=== PATIENT | male | born 1955 | race Caucasian/White ===

== ENCOUNTER 2024-08-27 09:04 | Inpatient (IN) | payer OTHER, SELFPAY ==
[2024-08-23] VITALS (9 sets, daily range): BP systolic 98–164; BP diastolic 64–119; BMI 33.9; BMI 33.7
[2024-08-23 20:35] LABS: % Basophils 0.9 % (0-2); % Immature Granulocytes 0.5 % (0-0.5); % Lymphocytes 27.6 % (20.5-51.1); Absolute Basophils 0.1 10^3/uL (0-0.2); Absolute Lymphocytes 2.3 10^3/uL (1.2-3.4); Absolute Monocytes 0.7 10^3/uL (0.1-0.6); Absolute Neutrophils 5.4 10^3/uL (1.4-6.5); Hematocrit 39.8 % (39.0-52.0); Hemoglobin 12.6 g/dL (13.0-18.0); Mean Corp Hgb Conc. 31.7 g/dL (33.0-37.0); Mean Corpuscular Hgb 28.4 pg (27.0-31.0); Mean Corpuscular Volume 89.8 fL (80.0-94.0); Mean Platelet Volume 9.3 fL (7.4-10.4); Nucleated Red Blood Cells % 0 % (-); Platelet Count 334 10^3/uL (130-400); Red Blood Cell Count 4.43 10^6/uL (4.70-6.10); Red Cell Dist. Width 13.7 % (11.5-14.5); White Blood Cell Count 8.5 10^3/uL (4.8-10.8)
[2024-08-23 20:40] LABS: Glucose - Point of Care 93 mg/dl (70-99)
[2024-08-23 20:46] LABS: INR 1.02; PT 13.7 Sec (11.4-14.6)
[2024-08-23 20:47] LABS: APTT 28.9 Sec (23.4-35.0)
[2024-08-23 20:48] LABS: ALT (SGPT) 12 U/L (0-50); AST (SGOT) 16 U/L (17-59); Alkaline Phosphatase 76 U/L (38-126); Blood Urea Nitrogen 21 mg/dl (9-20); Calcium 10.3 mg/dl (8.4-10.2); Carbon Dioxide 23 mmol/L (22-30); Chloride 109 mmol/L (98-107); Estimated Creatinine Clearance 67 ml/min; Glucose 111 mg/dl (70-99); Potassium 4.1 mmol/L (3.5-5.1); Sodium 140 mmol/L (135-145); Total Bilirubin 0.3 mg/dl (0.2-1.3); eGFR 55.09
--- NOTE | 2024-08-23 20:49 | ED.GENMED ---
History of Present Illness
<Ayanna Lee NP - Last Filed: 08/25/24 00:08>
General
Chief Complaint: Weakness
Source: ambulance crew
Exam Limitations: none
Time Seen by Provider: 08/23/24 20:15
Nursing documentation reviewed up to this point in time: agreed with
History of Present Illness
History of Present Illness:
Patient to ED from home for report of hallucinations, confusion, falls. According to patients son, patient was admitted to [facility] 08/10 - 08/12 for same symptoms. CVA ruled out. Son is not aware of any findings during that admission to explain his
falls, confusion and hallucinations. Last fall was yesterday. It was recommended that patient be transferred to rehab for stengthening but patient and family declined. SOn states that he feels patient now needs rehab. According to son, family is
also considering whether patient needs to be moved to assisted living. On arrival to ED patient is awake alert, oriented x 3, offers no complaints.
Past History
<Ayanna Lee NP - Last Filed: 08/25/24 00:08>
Past History
ED Past Medical History: Hypercholesterolemia, Hypothyroidism and Psychiatric (schizophrenia, bipolar, sleep apnea)
Review of Systems
<Ayanna Lee AUDITOR APPRAISER - Last Filed: 08/25/24 00:08>
Review of Systems
Allergies reviewed?: Yes
All Other Systems: ROS reviewed and negative except as documented in HPI and ROS
Constitutional: Reports fatigue
EENT: Reports no symptoms
Respiratory: Reports no symptoms
Cardiac: Reports no symptoms
ABD/GI: Reports no symptoms
: Reports no symptoms
Musculoskeletal: Reports no symptoms
Skin: Reports no symptoms
Neurological: Reports weakness
Psychiatric: Reports no symptoms
Phy Exam
<Ayanna Lee NP - Last Filed: 08/25/24 00:08>
General Physical Exam
General Presentation: well appearing
General age: appears stated age
General Skin: warm
General Habitus: elderly
General Mental: alert
General Hydration: dry mucous membranes
Cardiovascular Exam
Cardiovascular Exam: regular rate/rhythm and no edema
Pulmonary Exam
Pulmonary Exam: lungs clear and no respiratory distress
Gastrointestinal Exam
Gastrointestinal Exam: normal bowel sounds, non tender, soft and no organomegaly
Neurological Exam
Neurological Exam: alert, oriented x3, CN II-XII intact, no motor deficits, no sensory deficits and speech normal (speech is slurred but family confirms this is his baseline)
NIH Stroke Score
Level of Consciousness: 0 - Alert
LOC questions: 0-Answers both correctly
LOC Commands: 0-Performs both correctly
Best Gaze: 0-Normal
Visual Perrin: 0=Normal, no visual loss
Facial palsy: 0=Normal, symmetrical
Motor - Right Arm: 0=No drift 10 seconds
Motor - Left Arm: 0=No drift 10 seconds
Motor - Right Le-No drift 5 seconds
Motor - Left Le-No drift 5 seconds
Limb Ataxia: 0-Absent
Sensation: 0-Normal
Best Language: 0-No aphasia
Dysarthria: 2-Severe slurring
Extinction and Inattention: 0-No abnormality
Total Score:: 2
Musculoskeletal Exam
Musculoskeletal Exam: full ROM and neuro vasc intact
Skin Exam
Skin Exam: normal color and warm/dry
Psychiatric Exam
Psychiatric Exam: normal mood/affect
Course
<Ayanna Lee NP - Last Filed: 08/25/24 00:08>
Orders/Labs/Results
Orders:
Orders
08/23/24 Breakfast
Regular
At Your Request: Full Participation
08/23/24 20:14
Electrocardiogram (*1) Urgent
Reason for Study: Other
Other Reason for Exam: Possible Stroke
CT HEAD STROKE ALERT W/o Cont Urgent
Comment: Stroke alert
Reason For Exam: Mumbling speech
Bedside Glucose- Treatment ONCE
Cardiac Monitoring- Treatment ONCE
EKG- Treatment ONCE
IV Insert/Care/Rem.- Treatment PRN
Vital Signs As Directed
Frequency: Other
Weight As Directed
Frequency: Once
Comment: ZERO STRETCHER SCALE FOR ACCURATE WEIGHT
08/23/24 20:28
Complete Blood Count/With Diff Urgent
Comprehensive Metabolic Panel Urgent
Ferritin Urgent
Comment: ADD ON
Folate Urgent
Comment: ADD ON
Free T4 Urgent
Iron Urgent
Comment: ADD ON
PTT Urgent
Prothrombin Time Urgent
TSH Reflex To Free T4 Urgent
Comment: ADD ON
Total Iron Binding Urgent
Comment: ADD ON
Troponin I Urgent
Vitamin B12 Urgent
Comment: ADD ON
08/23/24 22:30
0.9% Sodium Chloride 1000 ml [Nss] 1,000 ml IV 100 mls/hr
08/23/24 22:34
Admit/Transfer Patient As Directed
Co-Sign Provider:
Level of Care: Observation services
Assign to:: Medical/Surgical
Physician / Group: Felicitaswiadelaide
Diagnosis: Ambulatory Dysfunction
PRN Pain Medication Management As Directed
May give lesser potent ordered pain med per pt: Yes
preference::
Protocol:: Medication orders for pain may be administered in a
manner that supports deferring to patient preference
when the pt is:
- Requesting an ordered lesser potent pain medication.
Least to most potent pain medications are defined
as: acetaminophen < NSAID < tramadol < opioids
(morphine, oxycodone, hydromorphone).
- Requesting a lesser dose of the same medication IF
ORDERED.
- Requesting a less intrusive route of administration
if both routes are prescribed by the provider (PO <
IV).
08/23/24 22:37
Code Status As Directed
Resuscitation Status: Full Code
08/23/24 22:42
Urinalysis Reflex To Culture Urgent
Date Specimen was Collected: 08/23/24
Time Specimen was Collected: 22:41
Urine Microscopic Reflex Cult Urgent
Urine Culture Urgent
BARI Source: U
Specimen Description:
Date Specimen was Collected: 08/23/24
Time Specimen was Collected: 22:41
08/23/24 23:27
Acetaminophen [Tylenol] 650 mg PO Q4HPRN PRN
Oxycodone/Acetaminophen [Percocet 5/325] 1 tablet PO DAILYPRN PRN
08/23/24 23:27
Activity As Directed
Activity Level: Out of Bed- Chair
Obtain Records As Directed
Dates of Information to be Released: August 10-
Type of Information Requested: Discharge Summary
Lab Results
Radiology Results
Vital Signs As Directed
Frequency: Per unit guidelines
Cpap [RESP] Routine
Patient to use own unit?: No
Set Pressure (cm H2O): 7
Ot Eval And Treat Routine
Pt Eval And Treat Routine
Activity Level: Out of Bed-Early Mobility
DX Deep Vein Thrombosis Video Routine
08/24/24 06:00
Levothyroxine [Synthroid] 125 mcg PO DAILY @ 0600
08/24/24 08:00
Amantadine [Symmetrel] 100 mg PO BID
Docusate Sodium [Colace] 100 mg PO DAILY
FOLic ACID [Folvite] 1 mg PO DAILY
Fenofibrate 145 [Tricor] 145 mg PO DAILY
Oxycodone/Acetaminophen [Percocet 5/325] 1 tablet PO DAILY
omega 5-uri-ghb-fish oil [Fish Oil] See Dose Instructions PO DAILY
08/24/24 08:32
Basic Metabolic Panel IN AM
Complete Blood Count/No Diff IN AM
08/24/24 18:00
Atorvastatin [Lipitor] 10 mg PO QPM
Cholecalciferol (Vitamin D3) [VITAMIN D3 (cholecalciferol)] 50 mcg PO QPM
Clozapine [Clozaril] 300 mg PO QPM
Cyanocobalamin [Vitamin B-12] 1,000 mcg PO QPM
Enoxaparin Sodium [Lovenox] 40 mg SC QPM
Abnormal Lab Results
08/23/24 08/23/24
20:28 22:42
RBC 4.43 L 10^6/uL
(4.70-6.10)
Hgb 12.6 L g/dL
(13.0-18.0)
MCHC 31.7 L g/dL
(33.0-37.0)
Absolute Monos (auto) 0.7 H 10^3/uL
(0.1-0.6)
Chloride 109 H mmol/L
(98-107)
BUN 21 H mg/dl
(9-20)
Creatinine 1.4 H mg/dL
(0.7-1.3)
Glucose 111 H mg/dl
(70-99)
Calcium 10.3 H mg/dl
(8.4-10.2)
Iron 41 L ug/dl
(49-181)
% Saturation 11 L %
(20-50)
AST 16 L U/L
(17-59)
Vitamin B12 955 H pg/ml
(239-931)
Folate > 20.0 H ng/ml
(2.76-20)
TSH (Reflex) 8.29 H uIU/ml
(0.47-4.68)
Leukocyte Esterase Rfl 1+ A
(Negative)
Urine Bacteria (Reflex) Few A
(Negative)
Urine Albumin (Reflex) 1+ A
(Neg - Trace)
08/23/24 20:28
08/23/24 20:28
Vital Signs
Initial and Last Documented VS:
Initial Vital Signs
Temp Pulse Resp BP Pulse Ox
97.8 F 91 20 134/100 99
08/23/24 20:05 08/23/24 20:05 08/23/24 20:05 08/23/24 20:05 08/23/24 20:05
Last Documented Vital Signs
Temp Pulse Resp BP Pulse Ox
97.9 F 82 21 146/82 97
08/25/24 00:04 08/24/24 16:05 08/25/24 00:04 08/24/24 16:05 08/25/24 00:04
<Gurjit Echols MD - Last Filed: 08/23/24 21:22>
Orders/Labs/Results
Orders:
Orders
08/23/24 Breakfast
Regular
At Your Request: Full Participation
08/23/24 20:14
Electrocardiogram (*1) Urgent
Reason for Study: Other
Other Reason for Exam: Possible Stroke
CT HEAD STROKE ALERT W/o Cont Urgent
Comment: Stroke alert
Reason For Exam: Mumbling speech
Bedside Glucose- Treatment ONCE
Cardiac Monitoring- Treatment ONCE
EKG- Treatment ONCE
IV Insert/Care/Rem.- Treatment PRN
Vital Signs As Directed
Frequency: Other
Weight As Directed
Frequency: Once
Comment: ZERO STRETCHER SCALE FOR ACCURATE WEIGHT
08/23/24 20:28
Complete Blood Count/With Diff Urgent
Comprehensive Metabolic Panel Urgent
Ferritin Urgent
Comment: ADD ON
Folate Urgent
Comment: ADD ON
Free T4 Urgent
Iron Urgent
Comment: ADD ON
PTT Urgent
Prothrombin Time Urgent
TSH Reflex To Free T4 Urgent
Comment: ADD ON
Total Iron Binding Urgent
Comment: ADD ON
Troponin I Urgent
Vitamin B12 Urgent
Comment: ADD ON
08/23/24 22:30
0.9% Sodium Chloride 1000 ml [Nss] 1,000 ml IV 100 mls/hr
08/23/24 22:34
Admit/Transfer Patient As Directed
Co-Sign Provider:
Level of Care: Observation services
Assign to:: Medical/Surgical
Physician / Group: Kirk
Diagnosis: Ambulatory Dysfunction
PRN Pain Medication Management As Directed
May give lesser potent ordered pain med per pt: Yes
preference::
Protocol:: Medication orders for pain may be administered in a
manner that supports deferring to patient preference
when the pt is:
- Requesting an ordered lesser potent pain medication.
Least to most potent pain medications are defined
as: acetaminophen < NSAID < tramadol < opioids
(morphine, oxycodone, hydromorphone).
- Requesting a lesser dose of the same medication IF
ORDERED.
- Requesting a less intrusive route of administration
if both routes are prescribed by the provider (PO <
IV).
08/23/24 22:37
Code Status As Directed
Resuscitation Status: Full Code
08/23/24 22:42
Urinalysis Reflex To Culture Urgent
Date Specimen was Collected: 08/23/24
Time Specimen was Collected: 22:41
Urine Microscopic Reflex Cult Urgent
Urine Culture Urgent
BARI Source: U
Specimen Description:
Date Specimen was Collected: 08/23/24
Time Specimen was Collected: 22:41
08/23/24 23:27
Acetaminophen [Tylenol] 650 mg PO Q4HPRN PRN
Oxycodone/Acetaminophen [Percocet 5/325] 1 tablet PO DAILYPRN PRN
08/23/24 23:27
Activity As Directed
Activity Level: Out of Bed- Chair
Obtain Records As Directed
Dates of Information to be Released: August 10-
Type of Information Requested: Discharge Summary
Lab Results
Radiology Results
Vital Signs As Directed
Frequency: Per unit guidelines
Cpap [RESP] Routine
Patient to use own unit?: No
Set Pressure (cm H2O): 7
Ot Eval And Treat Routine
Pt Eval And Treat Routine
Activity Level: Out of Bed-Early Mobility
DX Deep Vein Thrombosis Video Routine
08/24/24 06:00
Levothyroxine [Synthroid] 125 mcg PO DAILY @ 0600
08/24/24 08:00
Amantadine [Symmetrel] 100 mg PO BID
Docusate Sodium [Colace] 100 mg PO DAILY
FOLic ACID [Folvite] 1 mg PO DAILY
Fenofibrate 145 [Tricor] 145 mg PO DAILY
Oxycodone/Acetaminophen [Percocet 5/325] 1 tablet PO DAILY
omega 5-gec-xyy-fish oil [Fish Oil] See Dose Instructions PO DAILY
08/24/24 08:32
Basic Metabolic Panel IN AM
Complete Blood Count/No Diff IN AM
08/24/24 18:00
Atorvastatin [Lipitor] 10 mg PO QPM
Cholecalciferol (Vitamin D3) [VITAMIN D3 (cholecalciferol)] 50 mcg PO QPM
Clozapine [Clozaril] 300 mg PO QPM
Cyanocobalamin [Vitamin B-12] 1,000 mcg PO QPM
Enoxaparin Sodium [Lovenox] 40 mg SC QPM
Abnormal Lab Results
08/23/24 08/23/24
20:28 22:42
RBC 4.43 L 10^6/uL
(4.70-6.10)
Hgb 12.6 L g/dL
(13.0-18.0)
MCHC 31.7 L g/dL
(33.0-37.0)
Absolute Monos (auto) 0.7 H 10^3/uL
(0.1-0.6)
Chloride 109 H mmol/L
(98-107)
BUN 21 H mg/dl
(9-20)
Creatinine 1.4 H mg/dL
(0.7-1.3)
Glucose 111 H mg/dl
(70-99)
Calcium 10.3 H mg/dl
(8.4-10.2)
Iron 41 L ug/dl
(49-181)
% Saturation 11 L %
(20-50)
AST 16 L U/L
(17-59)
Vitamin B12 955 H pg/ml
(239-931)
Folate > 20.0 H ng/ml
(2.76-20)
TSH (Reflex) 8.29 H uIU/ml
(0.47-4.68)
Leukocyte Esterase Rfl 1+ A
(Negative)
Urine Bacteria (Reflex) Few A
(Negative)
Urine Albumin (Reflex) 1+ A
(Neg - Trace)
08/23/24 20:28
08/23/24 20:28
Vital Signs
Initial and Last Documented VS:
Initial Vital Signs
Temp Pulse Resp BP Pulse Ox
97.8 F 91 20 134/100 99
08/23/24 20:05 08/23/24 20:05 08/23/24 20:05 08/23/24 20:05 08/23/24 20:05
Last Documented Vital Signs
Temp Pulse Resp BP Pulse Ox
97.9 F 82 21 146/82 97
08/25/24 00:04 08/24/24 16:05 08/25/24 00:04 08/24/24 16:05 08/25/24 00:04
<Ayanna Lee NP - Last Filed: 08/25/24 00:08>
*Radiology
Radiology exam reviewed: radiology read reviewed
*Pulse Oximetry
Patient hypoxic: no
*Critical Care Note
Total Time (30-74mins, 75-104mins- exclusive of procedures): Not Applicable
<Ayanna Lee NP - Last Filed: 08/25/24 00:08>
Update Note
Update Note:
Patient to ED from home for eval of falling, weakness, hallucinations, confusion. Son states last fall was yesterday. States confusion and hallucinations occur occasionally and not on a daily basis. He was admitted at [facility] last week for same, no
findings to explain his symptoms although son believes symptoms may be related to his psych meds. Patient and son agree that he is weak. Family declined rehab last week but now feel he is unmanageable and unsafe at home. Considering [facility] home
placement. Will admit to hospitalist service for weakness. Case management consult placed.
Stroke alert called on arrival to ED. Patients recently admitted at [facility] for same symptoms. CVA rule out at that admission. Case discussed with Dr. Soto. NIH Score 2 due to speech (baseline according to family) Reviewed CT with him. NO
evidence of CVA, no need for neuro at this time.
ED Attending Note
<Ayanna Lee NP - Last Filed: 08/25/24 00:08>
-
Portions of this chart may have been created with voice recognition software.� Occasional wrong word or��sound alike� substitutions may have occurred due to the inherent limitations of voice recognition software.
<Gurjit Echols MD - Last Filed: 08/23/24 21:22>
ED Attending Note
Patient seen and examined by attending physician: Yes
I performed the substantive portion of visit, reviewed & personally made and approve the management plan that is documented in note by myself or SARAH.: Yes
ED Attending Note:
Patient brought from home for general weakness frequent falls. This has been an ongoing issue. Lives with family. Significant ADL issues at home. Patient somewhat unclear why he is here now.
He has no specific complaints.
On exam elderly and frail nontoxic.
Lungs clear and equal. Heart regular rate and rhythm. Abdomen obese and nontender. Grossly nonfocal. Mild slurred speech.
This appears to be mostly an ADL issue. Difficulties handling at home. Unable to give proper care at home. Warrants inpatient care and management
Discharge Plan
Departure
Patient Disposition: Admit
Date of Disposition: 08/23/24
Time of Disposition: 21:45
Presentation/result/management discussed w/ accepting MD/DO: Hospitalist
Patient with high blood pressure during this ER visit?: No
Condition: Fair
Covid-19: Not Applicable
Discharge Problem:
Weakness, Frequent falls
Interventions
Interventions:
*Risk Screen - Suicide Last Done: 08/23/24 20:05
*General Assessment Last Done: 08/23/24 20:05
*Neglect/Abuse Screening Last Done: 08/23/24 20:05
*ED COVID-19 Vaccine History Last Done: 08/23/24 20:43
*Nursing Disposition Last Done: 08/23/24 23:34
ED- Cardiac Assessment Last Done: 08/23/24 20:52
ED- Neurological Assessment Last Done: 08/23/24 20:52
ED- Pulmonary Assessment Last Done: 08/23/24 20:52
Discharge Date and Time
Discharge Date/Time: 08/23/24 23:35
[2024-08-23 20:59] LABS: Troponin I < 0.012 ng/ml
--- NOTE | 2024-08-23 22:21 | HPS.HSE ---
Family Physician
-
Family Physician: Maurilio Plummer
Chief Complaint
-
Weakness
History of Present Illness
Patient is a 69 y/o male past medical history of schizophrenia / bipolar disorder, hypothyroidism, and hyperlipemia who presents with weakness. Patient was recently admitted to [facility] from August 10- due to confusion. It appears patient
underwent a stroke work-up without significant findings. It was recommended for patient to go to rehab at time of discharge which family declined. Patient presents today with some confusion, increased weakness and falls. Patient's son at bedside
notes a few similar episodes which seem to be related to non-compliance with his CPAP. Son notes patient's home health aide sets up his CPAP but patient frequently gets up in the middle of the night and then does put his CPAP back on. Patient
reports no other specific complaints at the present time.
Medical History
Past Medical History
Past Medical History: Reports Other
Additional Past Medical History:
Schizophrenia / Bipolar Disorder
Hypothyroidism
Hyperlipidemia
Chronic Back Pain
Obstructive Sleep Apnea
Past Surgical History: Reports Other
Additional Past Surgical History:
Skin Cancer Removal
Social History
Tobacco: Non-smoker
Living: With Family
Family History
Family History: Not pertinent
Allergies / Home Medications
Allergies reflects when Allergies were last updated in [facility].
Home Medications with original date entered in [facility]
Allergy/Medication List:
Allergies
Allergy/AdvReac Type Severity Reaction Status Date / Time
Penicillins Allergy pt. states Verified 08/23/24 22:32
it gives
him bad
dreams
Home Medications
acetaminophen 650 mg tablet,extended release 650 mg PO QPM 08/23/24
amantadine HCl 100 mg tablet 100 mg PO BID 08/23/24
cholecalciferol (vitamin D3) 50 mcg (2,000 unit) tablet (Vitamin D3) 50 mcg PO QPM 08/23/24
clozapine 100 mg tablet 100 mg PO QPM 08/23/24
clozapine 200 mg tablet 200 mg PO QPM 08/23/24
cyanocobalamin (vitamin B-12) 1,000 mcg tablet,extended release 1,000 mcg PO QPM 08/23/24
docusate sodium 100 mg capsule 100 mg PO DAILY 08/23/24
fenofibrate micronized 134 mg capsule 134 mg PO DAILY 08/23/24
folic acid 1 mg tablet 1 mg PO DAILY 08/23/24
levothyroxine 125 mcg tablet 125 mcg PO DAILY 08/23/24
omega 8-hsy-cvi-fish oil 300 mg-1,000 mg capsule (Fish Oil) 1 cap PO DAILY 08/23/24
oxycodone-acetaminophen 10 mg-325 mg tablet 1 tab PO DAILY 08/23/24
oxycodone-acetaminophen 10 mg-325 mg tablet 1 tab PO DAILYPRN PRN severe pain 08/23/24
simvastatin 20 mg tablet 20 mg PO QPM 08/23/24
vitamin E (dl, acetate) 180 mg (400 unit) capsule 180 mg PO DAILY 08/23/24
Review of Systems
-
A 12 point ROS was completed and negative except as noted: Yes
Constitutional: Denies Fever
Respiratory: Denies Cough or Trouble Breathing
Cardiac: Denies Chest Pain or Palpitations
Physical Exam
Vital Signs
Vital Signs
Temp Pulse Resp BP Pulse Ox
97.8 F 79 19 147/114 99
08/23/24 20:05 08/23/24 22:15 08/23/24 22:15 08/23/24 22:00 08/23/24 22:15
Physical Exam
General: Comfortable and Conversant
HEENT: Anicteric and Other (Mucous membranes are slightly dry)
Respiratory: Clear and Non Labored Respirations
Cardiac: S1/S2 and Regular Rhythm
GI: Soft and Non Tender
Rectal: Deferred by Provider
Musculoskeletal: No Clubbing and No Cyanosis
Skin: Warm and Dry
Neuro: Awake, Alert and Other (Slight bilateral lower extremity weakness only able to hold legs up for a few seconds)
Psych: Calm
Laboratory Results
-
08/23/24 20:28
08/23/24 20:
Laboratory Results
PT 13.7 Sec (11.4-14.6) 08/23/24 20:
INR 1.02 08/23/24 20:
APTT 28.9 Sec (23.4-35.0) 08/23/24 20:
Total Bilirubin 0.3 mg/dl (0.2-1.3) 08/23/24 20:
AST 16 U/L (17-59) L 08/23/24 20:
ALT 12 U/L (0-50) 08/23/24 20:
Alkaline Phosphatase 76 U/L (38-126) 08/23/24 20:
Troponin I < 0.012 ng/ml 08/23/24 20:28
Data Reviewed
-
Lab Data: Labs Reviewed by me
Old Records: Requested
Impression/Plan
-
Weakness / Ambulatory Dysfunction / Frequent Falls
-Attempt to obtain records from recent hospitalization at [facility]
-Consult PT/OT
-Consult case management for discharge planning
Mildly Elevated Creatinine, unknown baseline
-Attempt to obtain records from [facility]
-Give IVFs overnight
-Recheck labs in AM
Schizophrenia / Bipolar Disorder
-Continue clozapine
-Continue amantadine
Hypothyroidism
-Continue levothyroxine
Hyperlipidemia
-Continue fenofibrate and simvastatin
Chronic Back Pain with Opioid Dependence
-Continue oxycodone as prior to admission
Obstructive Sleep Apnea
-Continue CPAP at 7 cm H2O
DVT proph: Lovenox
Code Status: Full Code
--- NOTE | 2024-08-23 22:24 | W.PN.UPDATE ---
Update Note
Progress Note Update
Patient seen in conjunction with therapy. I agree with the physician physical. Echocardiogram plan.
Briefly, this is a 69-year-old with past medical history significant for schizophrenia on antipsychotic clozapine, hypothyroid, chronic pain, DEONTE not entirely compliant with CPAP who presents to the emergency department for ongoing weakness and
falls.
Patient had initially presented to an outside hospital about 3 weeks ago for similar complaints has been ongoing for few weeks. Family reports that she had frequent evaluations and workup in the past 4 days falls and weakness. The last evaluation
at outside hospital yielded no acute cause. Patient was recommended acute rehab but family decided to take him home. After arriving at home patient continued to exhibit same symptoms. He essentially has weakness with ambulation, balance
difficulties and then falls. No syncope. Patient himself is alert and oriented here and denies any complaints or symptoms. Family reports that he often does not use his CPAP at night and has daytime stubbornness and tiredness which exacerbates
his weakness and falls.
He has no history of spinal surgery. He has no history of neck injuries or neck surgery. Prior CTs negative for stroke. Patient has no prior history of stroke. There has not been any recent cough fevers cold chills or urinary symptoms.
In the emergency department today he was afebrile, blood pressure was stable at 160/80 with a pulse of 82 satting 96% on room air. ECG was nonischemic. Troponin was negative. CBC was unremarkable. Electrolytes BUN/creatinine were all in the
normal range, creatinine 1.4. Unknown baseline.
CT area shows mild diffuse atrophy but no acute process.
Assessment and plan
63-year-old with history of schizophrenia, likely chronic gait difficulties and weakness presents for recurrent. Will weakness and no recent falls. Has had prior negative workup at outside hospitals in the past. He shows no signs of an acute
infection. Evaluation with labs and imaging in the ED is negative.
We will admit for PT evaluation, case management and likely dispo to inpatient rehab
CPAP at bedtime and emphasized compliance.
continue his psych meds at this time.
DVT PPX
Full Code
[2024-08-23 22:44] LABS: Iron 41 ug/dl (49-181)
[2024-08-23] MEDS: NSS 1000 IV (22:45)
[2024-08-23 22:53] LABS: Percent Saturation 11 % (20-50); Total Iron Binding Capacity 349 ug/dl (261-462)
[2024-08-23 23:05] LABS: Urine Albumin 1+ (Neg - Trace); Urine Bilirubin Negative (Negative); Urine Character Clear (Clear); Urine Color Yellow; Urine Glucose Negative (Negative); Urine Ketone Negative (Negative); Urine Leukocyte 1+ (Negative); Urine Nitrite Negative (Negative); Urine Occult Blood Negative (Negative); Urine Specific Gravity 1.025 (<1.030); Urine Urobilinogen Negative (Neg - 1+)
[2024-08-23 23:07] LABS: TSH Reflex To Free T4 8.29 uIU/ml (0.47-4.68)
[2024-08-23 23:16] LABS: Urine Mucus Moderate
[2024-08-23 23:18] LABS: Urine Bacteria Few (Negative); Urine Red Blood Cell 0-2 /HPF (0-2)
[2024-08-24] VITALS: PULSE 80
--- NOTE | 2024-08-24 00:16 | PTCARENOTE ---
Pt admit from ED via stretcher. Ambulated into room with assist and rolling walker. Pt unsteady on feet. Bed alarm for safety. Assessment as charted.
[2024-08-24 03:15] LABS: Ferritin 53.2 ng/ml (17.9-464.0)
[2024-08-24 03:46] LABS: Folate > 20.0 ng/ml (2.76-20); Vitamin B12 955 pg/ml (239-931)
[2024-08-24] MEDS: SYNTHROID 125 MCG PO (06:09)
[2024-08-24 07:55] VITALS: BP 186/84
[2024-08-24] MEDS: FOLVITE 1 MG PO (08:07)
[2024-08-24] MEDS: COLACE 100 MG PO (08:07)
[2024-08-24] MEDS: TRICOR 145 MG PO (08:07)
[2024-08-24] MEDS: SYMMETREL 100 MG PO ×2 (08:07→19:38)
[2024-08-24 08:40] LABS: Hematocrit 40.3 % (39.0-52.0); Hemoglobin 13.1 g/dL (13.0-18.0); Mean Corp Hgb Conc. 32.5 g/dL (33.0-37.0); Mean Corpuscular Hgb 28.5 pg (27.0-31.0); Mean Corpuscular Volume 87.8 fL (80.0-94.0); Mean Platelet Volume 9.3 fL (7.4-10.4); Platelet Count 350 10^3/uL (130-400); Red Blood Cell Count 4.59 10^6/uL (4.70-6.10); Red Cell Dist. Width 13.7 % (11.5-14.5); White Blood Cell Count 8.3 10^3/uL (4.8-10.8)
[2024-08-24 09:23] LABS: Blood Urea Nitrogen 16 mg/dl (9-20); Calcium 9.6 mg/dl (8.4-10.2); Carbon Dioxide 20 mmol/L (22-30); Chloride 108 mmol/L (98-107); Estimated Creatinine Clearance 77 ml/min; Glucose 105 mg/dl (70-99); Sodium 142 mmol/L (135-145); eGFR > 60.00
[2024-08-24 09:25] VITALS: BP 170/84; PULSE 87; O2SAT 100
[2024-08-24] MEDS: PERCOCET 5/325 1 TABLET PO (09:42)
[2024-08-24 10:19] VITALS: BP 170/89; PULSE 88; O2SAT 100
--- NOTE | 2024-08-24 14:34 | W.PN.HOSP.TC ---
Today's Communication/Plan
-
* PT-OT.
* Neurology consult.
* Follow BMP.
Assessment / Plan
Assessment / Plan
Assessment
Gagandeep Rivera, 69-year-old male, was admitted with worsening confusion, balancing difficulties and recurrent falls on 08-23-24. He was recently admitted to [facility] a couple of weeks ago and underwent a stroke work-up that was reportedly unremarkable.
Skilled rehab was recommended at that time but the family had refused. His symptoms got worse post-discharge and was brought to .
Impression and plan
Persistent weakness
Ambulatory dysfunction
Recurrent falls
- No discernable causes identified that explains the acute worsening.
- CT head had some findings suggestive of NPH, which would be an outpatient workup.
- Had some findings suggestive of TD on exam; consult neurology.
- PT-OT; will benefit from skilled rehab.
Elevated creatinine
- Baseline unknown, so unsure if this represents an MICHAEL.
- Down-trending with IV hydration.
- Follow BMP.
Schizophrenia
Bipolar disorder
- Stable on current medications.
- Can continue.
Hypothyroidism
- Continue levothyroxine.
Hyperlipidemia
- Continue statin and fibrate.
Obstructive sleep apnea
- CPAP at 7 cm H2O.
Chronic back pain
- Continue home analgesics.
Thromboprophylaxis
- Enoxaparin.
Code status
- Full.
Anticipated Discharge: 24 - 48 hours
Subjective/Interval History
-
Date of Service: August 24, 2024
Persistent balancing difficulty and tremors worse from baseline.
Objective Data
-
Labs:
Laboratory Results
08/24/24
08:32
WBC 8.3
Hgb 13.1
Hct 40.3
Plt Count 350
Sodium 142
Potassium 4.0
Chloride 108 H
Carbon Dioxide 20 L
BUN 16
Creatinine 1.2
Glucose 105 H
Calcium 9.6
Vital Signs:
Vital Signs
Temp Pulse Resp BP Pulse Ox
97.9 F 81 18 186/84 100
08/24/24 07:55 08/24/24 07:55 08/24/24 07:55 08/24/24 07:55 08/24/24 07:55
I&O
08/23/24 08/24/24 08/25/24
06:59 06:59 06:59
Output Total 600 / 600
Balance -600 / -600
Review of Systems
-
History Source: Patient
All other systems: Reviewed and negative
Physical Exam
-
General: No Apparent Distress and Comfortable
HEENT: Normocephalic, Atraumatic, Moist Mucous Membranes and Anicteric
Respiratory: Clear to Auscultation and Non Labored Respirations
Cardiac: Regular Rhythm and S1/S2
GI: Soft, Nontender and Nondistended
Genito-urinary: No Costovertebral Tender
Musculoskeletal: No Clubbing, No Cyanosis and No Edema
Skin: Warm, Dry and IV Access / Catheter Site
Neuro: Awake, Alert, Oriented, Tremors and Other (tardive dyskinesia)
Hematologic / Lymphatic: No Lymphadenopathy
Psych: Calm and Intact Judgement/Insight
--- NOTE | 2024-08-24 15:18 | CON.NEURO4 ---
Addendum entered and electronically signed by Dane Soto MD 08/24/24 16:25:
Studies reviewed.
I have personally examined the patient. I reviewed and agree with the SPENT GRAIN DRYER's Note.
My addenda:
Awake, alert, interactive. No acute distress.
Speech minimally thick. Near continuous facial tardive dyskinetic movements. Masked facies. Restricted neck movements
Follows 2-step requests w/ difficulty. No tremor.
Extra-ocular movements grossly intact.
Facial movements full and symmetric. Hearing intact to normal conversational volume.
Normal UE movements bilaterally.
Chest: no dyspnea
Heart: no JVD
Ext: (-) Clubbing, (-) Cyanosis, (-) Edema
IMPRESSIONS/RECOMMENDATIONS:
Abrupt onset of worsening gait in a patient with longstanding schizophrenia and treatment with atypical antipsychotic
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
Patient would eventually benefit from the use of deutetrabenazine to remediate some of his symptoms
Check orthostatic blood pressures with 3-minute increments between each body position check
Rehabilitation evaluations
No indication at this time the patient would benefit from additional medications to remediate stroke risk
Continue patient's usual closet pain
D/W patient
Will continue to follow patient as needed.
Original Note:
Consultation - Neurology 4
-
CONSULTING PHYSICIAN: Dane Soto MD
REFERRING PHYSICIAN: Hospitalists/Kamaljit Gonzalez MD Resident
DICTATED BY: ANKIT Echeverria
DATE/TIME OF REQUEST: 08/24/24
DATE/TIME OF CONSULTATION: 08/24/24
Reason for Consultation: Confusion, falls
History of Present Illness:
This is a 69-year-old right-handed male who has presented to the hospital on 08/23/24 with report of weakness and falls. Patient was hospitalized at [facility] from 08/10/24-08/12/24 with confusion. He underwent a stroke workup that was
reportedly unremarkable. He was recommended to go to rehab but family opted to bring him home. His confusion, weakness, hallucinations, and intermittent falls persisted prompting his family to bring him here yesterday for evaluation. CT head was
obtained on arrival and is minimally suggestive of NPH. Patient notes that his last fall was about two days ago and he felt backwards. He denies any urinary incontinence. He denies any headache, dizziness, vision changes, speech/swallow difficulty,
numbness, weakness, chest pain, palpitations, and shortness of breath.
Past Medical History: Hypothyroidism, HLD, bipolar/schizophrenia, chronic lower back pain, DEONTE (noncompliant with cpap)
Surgical History: Skin cancer removal
Family History: Reviewed and noncontributory.
Social History: Denies tobacco, alcohol, and illicit drug use.
Allergies: Penicillins.
Home Medications: See below.
Review of Symptoms:
Patient denies any fever, headache, chest pain, shortness of breath, GI or symptoms.
�Per the HPI.�All systems are reviewed negative except above.
Physical Exam:
The patient is afebrile, abdomen is nondistended, breathing is mildly labored, skin is dry/scaly.
Neurologic Examination:
The patient is awake, alert and oriented x 3. He is able to follow commands and answer questions appropriately. There is no aphasia or dysarthria. On cranial nerve assessment, pupils are pinpoint bilateral, round and reactive to light and
accommodation. Visual donahue are full. Extraocular movements are intact. Facial sensations are intact and bilaterally symmetrical, there is no facial asymmetry. Hearing is intact bilaterally to normal conversation volume. Tongue palate and uvula are
midline. Sternocleidomastoid strengths are full bilaterally. Motor strengths are 5/5 bilateral upper and lower extremities on medical research [place] scale. There is no drift. +Tardive dyskinesia. Deep tendon reflexes are 1+ bilateral upper and
lower extremities and Babinski is absent bilaterally. There was no extinction noted on double simultaneous stimulation. Coordination is intact by finger to nose bilaterally.
Lab Results: See below.
Neuro Imaging:
1. CT Head 3/17/25: No evidence of acute intracranial abnormality. Mild diffuse atrophy. Mild leukomalacia. Mild to moderate ventricular dilation, and the callosal angle appears normal. Findings are not considered highly suggestive of normal
pressure hydrocephalus, but please correlate clinically. Prominence of extra-axial CSF in the anterior temporal lobes bilaterally, left greater than right, suggestive of arachnoid cysts. No associated mass effect. ASPECT score: 10.
Differentials for the patient's presentation include:
1. Psychiatric medications likely causing tardive dyskinesia and parkinsonism contributing to gait dysfunction/frequent falls.
2. Very low concern for NPH.
Patient has the following risk factors for their symptoms: psychiatric medications
Recommendations:
-Needs adjustment of psychiatric medications to reduce parkinsonism symptoms.
-Check orthostatic vital signs.
-Physical therapy evaluation.
Discussed patient care with: Dr. Soto, the patient
Vital Signs and Labs
-
Vital Signs and Labs:
Vital Signs
Temp Pulse Resp BP Pulse Ox
97.9 F 81 18 186/84 100
08/24/24 07:55 08/24/24 07:55 08/24/24 07:55 08/24/24 07:55 08/24/24 07:55
Lab Results
08/24/24 08:32
08/24/24 08:32
PT 13.7 Sec (11.4-14.6) 08/23/24 20:28
INR 1.02 08/23/24 20:28
APTT 28.9 Sec (23.4-35.0) 08/23/24 20:28
Sodium 142 mmol/L (135-145) 08/24/24 08:32
Potassium 4.0 mmol/L (3.5-5.1) 08/24/24 08:32
BUN 16 mg/dl (9-20) 08/24/24 08:32
Glucose 105 mg/dl (70-99) H 08/24/24 08:32
Calcium 9.6 mg/dl (8.4-10.2) 08/24/24 08:32
Vitamin B12 955 pg/ml (803-207) H 08/23/24 20:28
Medications
-
Active Medications
Generic Name Dose Route Start Last Admin
Trade Name Freq PRN Reason Stop Dose Admin
Acetaminophen 650 mg 08/23/24 23:27
Acetaminophen 325 Mg Tablet PO 09/20/24 23:26
Q4HPRN PRN
mild pain/ fever>100.5F
Amantadine HCl 100 mg 08/24/24 08:00 08/24/24 08:07
Amantadine 100 Mg Capsule PO 09/21/24 07:59 100 mg
BID DANY Administration
Atorvastatin Calcium 10 mg 08/24/24 18:00
Atorvastatin (Lipitor) 10 Mg Tablet PO 09/21/24 17:59
QPM DANY
Cholecalciferol 50 mcg 08/24/24 18:00
Cholecalciferol (Vitamin D3) 50 Mcg Tablet (2,000 Units) PO 09/21/24 17:59
QPM DANY
Clozapine 300 mg 08/24/24 18:00
Clozapine 100 Mg Tablet PO 09/21/24 17:59
QPM DANY
Cyanocobalamin 1,000 mcg 08/24/24 18:00
Cyanocobalamin 1,000 Mcg Tablet PO 09/21/24 17:59
QPM DANY
Docusate Sodium 100 mg 08/24/24 08:00 08/24/24 08:07
Docusate Sodium 100 Mg Capsule PO 09/21/24 07:59 100 mg
DAILY DANY Administration
Enoxaparin Sodium 40 mg 08/24/24 18:00
Enoxaparin Sodium 40 Mg/0.4 Ml Syringe SC 09/21/24 17:59
QPM DANY
Fenofibrate 145 mg 08/24/24 08:00 08/24/24 08:07
Fenofibrate 145 Mg Tablet PO 09/21/24 07:59 145 mg
DAILY DANY Administration
Folic Acid 1 mg 08/24/24 08:00 08/24/24 08:07
Folic Acid 1 Mg Tablet PO 09/21/24 07:59 1 mg
DAILY DANY Administration
Levothyroxine Sodium 125 mcg 08/24/24 06:00 08/24/24 06:09
Levothyroxine 125 Mcg Tablet PO 09/21/24 05:59 125 mcg
DAILY @ 0600 DANY Administration
Oxycodone HCl 1 mg 08/23/24 23:44
Oxycodone 5 Mg Regular Release Tablet PO 09/06/24 23:43
DAILYPRN PRN
severe pain
Oxycodone/Acetaminophen 1 tablet 08/24/24 08:00 08/24/24 09:42
Oxycodone 5 Mg/Apap 325 Mg (Percocet) PO 09/21/24 07:59 1 tablet
DAILY DANY Administration
Oxycodone/Acetaminophen 1 tablet 08/23/24 23:27
Oxycodone 5 Mg/Apap 325 Mg (Percocet) PO
DAILYPRN PRN
severe pain
Home Medications
�Medication �Instructions �Recorded
acetaminophen 650 mg 650 mg PO QPM Pain 08/23/24
tablet,extended release
amantadine HCl 100 mg tablet 100 mg PO BID Neurological 08/23/24
Condition
cholecalciferol (vitamin D3) 50 50 mcg PO QPM Supplement 08/23/24
mcg (2,000 unit) tablet (Vitamin
D3)
clozapine 100 mg tablet 100 mg PO QPM Mental Health/Anxiety 08/23/24
clozapine 200 mg tablet 200 mg PO QPM Mental Health/Anxiety 08/23/24
cyanocobalamin (vitamin B-12) 1,000 mcg PO QPM Supplement 08/23/24
1,000 mcg tablet,extended release
docusate sodium 100 mg capsule 100 mg PO DAILY Constipation 08/23/24
fenofibrate micronized 134 mg 134 mg PO DAILY High Cholesterol 08/23/24
capsule
folic acid 1 mg tablet 1 mg PO DAILY Supplement 08/23/24
levothyroxine 125 mcg tablet 125 mcg PO DAILY Thyroid 08/23/24
omega [id number]-fish oil 300 1 cap PO DAILY Supplement 08/23/24
mg-1,000 mg capsule (Fish Oil)
oxycodone-acetaminophen 10 mg-325 1 tab PO DAILY Pain 08/23/24
mg tablet
oxycodone-acetaminophen 10 mg-325 1 tab PO DAILYPRN PRN severe pain 08/23/24
mg tablet
simvastatin 20 mg tablet 20 mg PO QPM High Cholesterol 08/23/24
vitamin E (dl, acetate) 180 mg 180 mg PO DAILY Supplement 08/23/24
(400 unit) capsule
[2024-08-24 16:05] VITALS: BP 146/82
--- NOTE | 2024-08-24 17:09 | PTCARENOTE ---
Pt AAO x3, [place]; OOB to chair/ambulatory to BR with assist x1/walker, barbara well, pt unsteady w/OOB activity; has generalized tremors at times. VSS. On room air- pulse ox 99%, no SOB noted. Abd large, soft, barbara PO well. Voids in urinal/BR without
difficulty. Pt with dry/flaking skin with multiple small scabbed areas on extremities. Resting in bed at present; no c/o. Will continue to monitor.
[2024-08-24] MEDS: LIPITOR 10 MG PO (17:22)
[2024-08-24] MEDS: CLOZARIL 300 MG PO (17:22)
[2024-08-24] MEDS: VITAMIN B-12 1000 MCG PO (17:23)
[2024-08-24] MEDS: VITAMIN D3 (cholecalciferol) 50 MCG PO (17:23)
[2024-08-24] MEDS: LOVENOX 40 MG SC (17:23)
[2024-08-25 00:04] VITALS: BP 111/78; BP 133/69; BP 171/74; PULSE 100; PULSE 93; PULSE 96
[2024-08-25] MEDS: PERCOCET 5/325 1 TABLET PO ×2 (04:34→09:21)
--- NOTE | 2024-08-25 04:37 | DOWNTIME ---
There was a [employer] Client Beader Downtime on 08/25/2024 from 0100 to 08/26/2023 at 0420 . Downtime documentation of patient's care, including medication administrations, has been reconciled in the electronic record per guidelines. Refer to the
patient's paper chart under the miscellaneous tab to see printed paper medication records and downtime forms.
[2024-08-25] MEDS: SYNTHROID 125 MCG PO (05:41)
[2024-08-25 07:25] VITALS: BP 173/95
[2024-08-25 08:07] LABS: Hematocrit 37.7 % (39.0-52.0); Hemoglobin 12.3 g/dL (13.0-18.0); Mean Corp Hgb Conc. 32.6 g/dL (33.0-37.0); Mean Corpuscular Hgb 28.4 pg (27.0-31.0); Mean Corpuscular Volume 87.1 fL (80.0-94.0); Mean Platelet Volume 9.8 fL (7.4-10.4); Platelet Count 332 10^3/uL (130-400); Red Blood Cell Count 4.33 10^6/uL (4.70-6.10); Red Cell Dist. Width 13.6 % (11.5-14.5); White Blood Cell Count 7.2 10^3/uL (4.8-10.8)
[2024-08-25 08:45] LABS: Blood Urea Nitrogen 17 mg/dl (9-20); Calcium 9.8 mg/dl (8.4-10.2); Carbon Dioxide 23 mmol/L (22-30); Chloride 107 mmol/L (98-107); Estimated Creatinine Clearance 77 ml/min; Glucose 99 mg/dl (70-99); Potassium 4.3 mmol/L (3.5-5.1); Sodium 141 mmol/L (135-145); eGFR > 60.00
[2024-08-25] MEDS: FOLVITE 1 MG PO (09:21)
[2024-08-25] MEDS: TRICOR 145 MG PO (09:21)
[2024-08-25] MEDS: SYMMETREL 100 MG PO ×2 (09:21→21:00)
[2024-08-25] MEDS: COLACE 100 MG PO (09:21)
--- NOTE | 2024-08-25 10:28 | W.PN.HOSP.TC ---
Today's Communication/Plan
-
* Possible discharge today/tomorrow.
* PT-OT.
* Outpatient neurology consultation.
Assessment / Plan
Assessment / Plan
Assessment
Gagandeep Rivera, 69-year-old male, was admitted with worsening confusion, balancing difficulties and recurrent falls on 08-23-24. He was recently admitted to [place] a couple of weeks ago and underwent a stroke work-up that was reportedly unremarkable.
Skilled rehab was recommended at that time but the family had refused. His symptoms got worse post-discharge and was brought to .
Impression and plan
Persistent weakness
Ambulatory dysfunction
Recurrent falls
- No discernable causes identified that explains the acute worsening.
- CT head had some findings suggestive of NPH, which would be an outpatient workup.
- Had some findings suggestive of TD on exam; seen by neurology.
- PT-OT; will benefit from skilled rehab but patient declining; will reach out to family.
Elevated creatinine
- Baseline unknown, so unsure if this represents an MICHAEL.
- Down-trending with IV hydration.
- Follow BMP.
Schizophrenia
Bipolar disorder
- Stable on current medications.
- Can continue.
Hypothyroidism
- Continue levothyroxine.
Hyperlipidemia
- Continue statin and fibrate.
Obstructive sleep apnea
- CPAP at 7 cm H2O.
Chronic back pain
- Continue home analgesics.
Thromboprophylaxis
- Enoxaparin.
Code status
- Full.
Anticipated Discharge: Today
Subjective/Interval History
-
Date of Service: August 25, 2024
Doing better. Wants to go home; refusing SNF.
Objective Data
-
Labs:
Laboratory Results
08/25/24 08/25/24
07:25 07:26
WBC 7.2
Hgb 12.3 L
Hct 37.7 L
Plt Count 332
Sodium 141
Potassium 4.3
Chloride 107
Carbon Dioxide 23
BUN 17
Creatinine 1.2
Glucose 99
Calcium 9.8
Vital Signs:
Vital Signs
Temp Pulse Resp BP Pulse Ox
98.1 F 85 18 173/95 97
08/25/24 07:25 08/25/24 07:25 08/25/24 07:25 08/25/24 07:25 08/25/24 07:25
I&O
08/24/24 08/25/24 08/26/24
06:59 06:59 06:59
Intake Total 1380 / 1380
Output Total 1525 / 1525
Balance -145 / -145
Review of Systems
-
History Source: Patient
All other systems: Reviewed and negative
Physical Exam
-
General: No Apparent Distress and Comfortable
HEENT: Normocephalic, Atraumatic, Moist Mucous Membranes and Anicteric
Respiratory: Clear to Auscultation and Non Labored Respirations
Cardiac: Regular Rhythm and S1/S2
GI: Soft, Nontender and Nondistended
Genito-urinary: No Costovertebral Tender
Musculoskeletal: No Clubbing, No Cyanosis and No Edema
Skin: Warm, Dry and IV Access / Catheter Site
Neuro: Awake, Alert, Oriented, Tremors and Other (tardive dyskinesia)
Hematologic / Lymphatic: No Lymphadenopathy
Psych: Calm and Intact Judgement/Insight
--- NOTE | 2024-08-25 10:49 | CM ---
Patient seen bedside, initial assessment completed. Patient appeared a bit confused, was able to answer most questions, however, CM spoke w/ patient's daughter, Vera, for verification and clarity. Patient is a 69 y/o male past medical history of
schizophrenia / bipolar disorder, hypothyroidism, and hyperlipemia who presents with weakness.
Patient reports he lives w/ his mother and sister. Per Vera, patient and his mother resides in an extended living space attached to his sister's 1STH. 3-4 steps from the back to patient's entrance to living space. Patient is independent w/ RW, has
grab bars, shower chair and CPAP in the home. Vera stated patient does not have any SNF hx, was prev known to [facility] for PT following [place] hospitalization. Patient has an aide for 6 hrs/day, 7 days/week through [employer]. Vera shared
patient is assisted w/ bathing, dressing, meal prep, and laundry. Patient is able to perform grooming independently. Vera stated patient is confused at this time as he referred to her as his '[id number]' to CM.
Address, points of contact and insurance verified
PCP: Maurilio Plummer
Pharmacy: [facility]
Therapy assessed patient and is currently recommending skilled rehab at d/c. CM discussed w/ Vera who agreed that patient does need rehab as he has declined at home and has not been at his baseline. Vera shared patient she used to work at [employer]
[facility] and knows that they accept Medicaid as well as [facility]. Vera agreeable to explore other facilities in the area that will accept Medicaid insurance.
[facility].
Patient will need insurance auth prior to d/c
Patient is admitted as OBS. OOBS form reviewed, copy provided to patient, copy placed on chart
CM updated hospitalist and resident on d/c plan
Plan: SNF; pending accepting facility and auth
[2024-08-25 15:11] VITALS: BP 164/92
[2024-08-25] MEDS: VITAMIN B-12 1000 MCG PO (17:13)
[2024-08-25] MEDS: VITAMIN D3 (cholecalciferol) 50 MCG PO (17:13)
[2024-08-25] MEDS: LOVENOX 40 MG SC (17:13)
[2024-08-25] MEDS: LIPITOR 10 MG PO (17:13)
[2024-08-25] MEDS: CLOZARIL 300 MG PO (17:13)
[2024-08-25 22:26] VITALS: BP 169/88
[2024-08-25 22:54] LABS: Glucose - Point of Care 96 mg/dl (70-99)
[2024-08-25 23:15] VITALS: PULSE 84
[2024-08-26 07:48] VITALS: BP 176/85
[2024-08-26] MEDS: TRICOR 145 MG PO (08:08)
[2024-08-26] MEDS: PERCOCET 5/325 1 TABLET PO (08:08)
[2024-08-26] MEDS: SYMMETREL 100 MG PO ×2 (08:08→20:25)
[2024-08-26] MEDS: SYNTHROID 125 MCG PO (08:08)
[2024-08-26] MEDS: FOLVITE 1 MG PO (08:08)
[2024-08-26] MEDS: COLACE 100 MG PO (08:08)
[2024-08-26 08:35] LABS: Hematocrit 40.3 % (39.0-52.0); Hemoglobin 12.9 g/dL (13.0-18.0); Mean Corpuscular Volume 87.6 fL (80.0-94.0); Mean Platelet Volume 9.8 fL (7.4-10.4); Platelet Count 348 10^3/uL (130-400); Red Cell Dist. Width 13.7 % (11.5-14.5); White Blood Cell Count 7.2 10^3/uL (4.8-10.8)
[2024-08-26 08:58] LABS: Blood Urea Nitrogen 13 mg/dl (9-20); Calcium 9.5 mg/dl (8.4-10.2); Carbon Dioxide 19 mmol/L (22-30); Chloride 109 mmol/L (98-107); Estimated Creatinine Clearance 84 ml/min; Glucose 112 mg/dl (70-99); Potassium 3.9 mmol/L (3.5-5.1); Sodium 142 mmol/L (135-145); eGFR > 60.00
--- NOTE | 2024-08-26 10:29 | PTCARENOTE ---
Pt repeatedly attempting to get out of bed even after moving outside nurses station. Pt is not ringing the call vance. The bed alarm is in place and sounding when the pt attempts to get up. The pt pulled out his IV this morning. I called the nursing
frame sample and pattern supervisor for a 1:1. the patient has eaten and brushed his teeth. He is laying in POC and not attempting at this time to leave the bed.
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
[2024-08-26 13:55] VITALS: BP 114/83; BP 145/88; BP 170/120; PULSE 89
[2024-08-26 14:06] VITALS: BP 114/83; BP 145/88; BP 171/121; PULSE 89
[2024-08-26 15:02] VITALS: BP 149/83
--- NOTE | 2024-08-26 15:02 | CM ---
CM spoke w/ patient's daughter, Vera, to review skilled rehab referrals. Vera agreeable to [facility] as [facility] not have any bed availability which was the preferred choice.
CM placed call to [facility] [phone] to initiate authorization. CM spoke w/ Nishi Hawley who instructed for CM to fax clinicals.
CM faxed clinicals to [phone] for review.
Plan: [facility] once auth is approved
[2024-08-26] MEDS: ProAmatine 2.5 MG PO (17:33)
[2024-08-26] MEDS: LIPITOR 10 MG PO (17:33)
[2024-08-26] MEDS: CLOZARIL 300 MG PO (17:33)
[2024-08-26] MEDS: VITAMIN D3 (cholecalciferol) 50 MCG PO (17:33)
[2024-08-26] MEDS: LOVENOX 40 MG SC (17:34)
[2024-08-26] MEDS: VITAMIN B-12 1000 MCG PO (17:34)
[2024-08-26] MEDS: HALDOL 2.5 MG IM (22:14)
[2024-08-26 23:50] VITALS: BP 178/95
[2024-08-27] MEDS: SYNTHROID 125 MCG PO (06:06)
[2024-08-27 07:44] VITALS: BP 185/100
[2024-08-27 08:19] LABS: Blood Urea Nitrogen 13 mg/dl (9-20); Calcium 9.6 mg/dl (8.4-10.2); Carbon Dioxide 24 mmol/L (22-30); Chloride 109 mmol/L (98-107); Estimated Creatinine Clearance 77 ml/min; Glucose 105 mg/dl (70-99); Sodium 144 mmol/L (135-145); eGFR > 60.00
[2024-08-27 09:47] VITALS: BP 179/100; BP 187/102; PULSE 84; PULSE 86
[2024-08-27] MEDS: PERCOCET 5/325 1 TABLET PO (09:58)
[2024-08-27] MEDS: FOLVITE 1 MG PO (09:58)
[2024-08-27] MEDS: TRICOR 145 MG PO (09:58)
[2024-08-27] MEDS: COLACE 100 MG PO (09:59)
[2024-08-27] MEDS: ProAmatine PO (09:59)
[2024-08-27] MEDS: SYMMETREL 100 MG PO (09:59)
--- NOTE | 2024-08-27 10:17 | W.PN.HOSP.TC ---
Addendum entered and electronically signed by Kamaljit Lizama MD, Resident 08/30/24 14:12:
CDI: audio-visual hallucinations
Original Note:
Today's Communication/Plan
-
* Haldol for worsening restlessness/agitation.
* Medically stable for discharge to SNF.
Assessment / Plan
Assessment / Plan
Assessment
Gagandeep Rivera, 69-year-old male, was admitted with worsening confusion, balancing difficulties and recurrent falls on 08-23-24. He was recently admitted to [place] a couple of weeks ago and underwent a stroke work-up that was reportedly unremarkable.
Skilled rehab was recommended at that time but the family had refused. His symptoms got worse post-discharge and was brought to .
Impression and plan
Persistent weakness
Ambulatory dysfunction
Recurrent falls
- No discernable causes identified that explains the acute worsening.
- CT head had some findings suggestive of NPH, which would be an outpatient workup.
- Had some findings suggestive of TD on exam; seen by neurology.
- PT-OT; will benefit from skilled rehab - discussed with family; patient now agreeable.
- Medically stable for discharge; pending placement.
Elevated creatinine
- Baseline unknown, so unsure if this represents an MICHAEL.
- Down-trending with IV hydration.
- Follow BMP.
Schizophrenia
Bipolar disorder
- Stable on current medications.
- Can continue.
- Haldol if needed.
Hypothyroidism
- Continue levothyroxine.
Hyperlipidemia
- Continue statin and fibrate.
Obstructive sleep apnea
- CPAP at 7 cm H2O.
Chronic back pain
- Continue home analgesics.
Thromboprophylaxis
- Enoxaparin.
Code status
- Full.
Anticipated Discharge: Within 24 hours
Subjective/Interval History
-
Date of Service: August 27, 2024
Restless overnight and this morning, requiring haldol.
Objective Data
-
Labs:
Laboratory Results
08/27/24
06:38
Sodium 144
Potassium 4.0
Chloride 109 H
Carbon Dioxide 24
BUN 13
Creatinine 1.2
Glucose 105 H
Calcium 9.6
Vital Signs:
Vital Signs
Temp Pulse Resp BP Pulse Ox
98.3 F 84 18 185/100 99
08/27/24 07:44 08/27/24 07:44 08/27/24 07:44 08/27/24 07:44 08/27/24 07:44
I&O
08/26/24 08/27/24 08/28/24
06:59 06:59 06:59
Intake Total 720 / 720 480 / 480
Output Total 1125 / 1125 600 / 600
Balance -405 / -405 -120 / -120
Review of Systems
-
History Source: Patient
All other systems: Reviewed and negative
Physical Exam
-
General: No Apparent Distress and Comfortable
HEENT: Normocephalic, Atraumatic, Moist Mucous Membranes and Anicteric
Respiratory: Clear to Auscultation and Non Labored Respirations
Cardiac: Regular Rhythm and S1/S2
GI: Soft, Nontender and Nondistended
Genito-urinary: No Costovertebral Tender
Musculoskeletal: No Clubbing, No Cyanosis and No Edema
Skin: Warm, Dry and IV Access / Catheter Site
Neuro: Awake, Alert, Oriented, Tremors and Other (tardive dyskinesia)
Hematologic / Lymphatic: No Lymphadenopathy
Psych: Calm and Other (visual and auditory hallucinations - reports he is supposed to catch a flight tomorrw)
[2024-08-27] MEDS: HALDOL 2 MG IM (11:32)
[2024-08-27 12:26] VITALS: BP 90/67
[2024-08-27] MEDS: ProAmatine 2.5 MG PO ×2 (12:27→18:45)
--- NOTE | 2024-08-27 14:35 | CM ---
Addendum entered by Kip Beltrán 08/27/24 15:24:
Update from [facility] does provide Haldol but only PO, not IV or injections. Updated physician resident and daughter.
CPAP settings attached in [facility] for SNF to order for tonight
Scripts for narcotics being requested to ensure pharmacy can fill, informed resident to send electronic scripts
Addendum entered by Kip Beltrán 08/27/24 15:13:
Patient is not a Medicare patient, IMM not applicable
Original Note:
CM received call from [facility] w/ approved authorization for [facility]. Auth approved beginning today, 08/27, next review date is 09/08. Facility to fax clinical updates to [phone]. Auth ref # [id number]
[facility] admissions updated
Updated physician resident and patient's daughter, Vera. Confirmed that patient will not d/c on Haldol as daughter was concerned because SNF is unable not support this. Physician resident shared SNF will be instructed to implement something
similar.
Patient will need ambulance transport, forms will be placed on chart
IMM verbally reviewed, copy placed on chart
[facility]
Report: [phone]

Plan: [facility] today
[2024-08-27 15:31] VITALS: BP 172/92
--- NOTE | 2024-08-27 15:37 | W.DCSUMMARY ---
Documented by User: Kamaljit Lizama MD, Resident 08/27/24 15:45
Discharge Summary
Discharge Data
Date of Admission: 08/27/24
Date of Discharge: 08/27/24
-
Pending Results: No
Hospital Course
Primary discharge diagnoses
* Persistent weakness
* Ambulatory dysfunction
* Recurrent falls
* Orthostatic hypotension
* Tardive dyskinesia
Secondary discharge diagnoses
- Elevated creatinine
- Schizophrenia
- Bipolar disorder
- Hypothyroidism
- Hyperlipidemia
- Obstructive sleep apnea
- Chronic back pain
Hospital course
Gagandeep Rivera, 69-year-old male, was admitted with worsening confusion, balancing difficulties and recurrent falls on 08-23-24. He was recently admitted to [facility] a couple of weeks ago and underwent a stroke work-up that was reportedly unremarkable.
Skilled rehab was recommended at that time but the patient had refused. His symptoms got worse post-discharge and was brought to . He underwent further work-up which did not reveal any active pathologies that would explain his symptoms. He was
however orthostatic, and was prescribed compression stockings and midodrine, which helped. He was also evaluated by neurology, who recommended outpatient work-up to evaluate for possible mild hydrocephalus and treatment of tardive dyskinesia with
deutetrabenazine. He remained hemodynimically stable throughout the hospitalization. Required haloperidol at bedtime to tolerate CPAP, without which he would be way more confused the next day. Consult neurology as outpatient and follow-up with
primary in 1 week. He will be discharged to a skilled rehab for physical therapy.
Discharge Plan
-
Patient Disposition: Penitentiary/SNF
Discharge Diagnosis/Procedures: Persistent weakness
Ambulatory dysfunction
Recurrent falls
Condition: Fair
Diet: As tolerated
Activity: With assistance and As tolerated
Driving Restrictions: No driving
Bathing Restrictions: None
Activity Restrictions/Additional Instructions:
CONSULT NEUROLOGY OUTPATIENT TO REDUCE MEDICATION SIDE EFFECTS - WILL BENEFIT FROM TAKING DEUTETRABENAZINE
Referrals:
Dane Soto MD [Active] - in four to six weeks
Maurilio Plummer MD [Family Provider] - in less than 1 week
Additional Discharge Medication Instructions: The patient has difficulty sleeping or tolerating CPAP due to hallucinations. He was able to tolerate that after he was given haloperidol lactate 2 mg HS IM; can use similar agents to help him.
Prescriptions:
New
midodrine 2.5 mg tablet
2.5 mg PO TID 30 Days Qty: 90 6RF
haloperidol 2 mg tablet
2 mg PO HS PRN (Reason: agitation) 14 Days Qty: 14 1RF
Continued
amantadine HCl 100 mg Tablet
100 mg PO BID
fenofibrate micronized 134 mg Capsule
134 mg PO DAILY
simvastatin 20 mg Tablet
20 mg PO QPM
levothyroxine 125 mcg Tablet
125 mcg PO DAILY
cyanocobalamin (vitamin B-12) 1,000 mcg Tablet Extended Release
1,000 mcg PO QPM
clozapine 100 mg Tablet
100 mg PO QPM
Rx Instructions:
take with 200mg for total of 300mg
acetaminophen 650 mg Tablet Extended Release
650 mg PO QPM
oxycodone-acetaminophen 10-325 mg Tablet
1 tab PO DAILY
oxycodone-acetaminophen 10-325 mg Tablet
1 tab PO DAILYPRN PRN (Reason: severe pain)
docusate sodium 100 mg Capsule
100 mg PO DAILY
folic acid 1 mg Tablet
1 mg PO DAILY
clozapine 200 mg Tablet
200 mg PO QPM
Rx Instructions:
take with 100mg for total of 300mg
vitamin E (dl, acetate) 180 mg (400 unit) Capsule
180 mg PO DAILY
omega 3-mev-tuc-fish oil [Fish Oil] 300-1,000 mg Capsule
1 cap PO DAILY
cholecalciferol (vitamin D3) [Vitamin D3] 50 mcg (2,000 unit) Tablet
50 mcg PO QPM
Discharge Orders:
Discharge Patient (As Directed); Ordered 08/27/24
Ordered By: Kamaljit Lizama
Discharge Date and Time
Print Language: BENINESE

Documented by User: Gagandeep Spaulding DO 08/27/24 15:48
Discharge Summary
Discharge Data
Date of Admission: 08/27/24
Date of Discharge: 08/27/24
Total time spent discharging patient (in min): 36
Discharge Plan
-
Patient Disposition: Penitentiary/SNF
Discharge Diagnosis/Procedures: Persistent weakness
Ambulatory dysfunction
Recurrent falls
Condition: Fair
Diet: As tolerated
Activity: With assistance and As tolerated
Driving Restrictions: No driving
Bathing Restrictions: None
Activity Restrictions/Additional Instructions:
CONSULT NEUROLOGY OUTPATIENT TO REDUCE MEDICATION SIDE EFFECTS - WILL BENEFIT FROM TAKING DEUTETRABENAZINE
Referrals:
Dane Soto MD [Active] - in four to six weeks
Maurilio Plummer MD [Family Provider] - in less than 1 week
Additional Discharge Medication Instructions: The patient has difficulty sleeping or tolerating CPAP due to hallucinations. He was able to tolerate that after he was given haloperidol lactate 2 mg HS IM; can use similar agents to help him.
Prescriptions:
New
midodrine 2.5 mg tablet
2.5 mg PO TID 30 Days Qty: 90 6RF
haloperidol 2 mg tablet
2 mg PO HS PRN (Reason: agitation) 14 Days Qty: 14 1RF
Continued
amantadine HCl 100 mg Tablet
100 mg PO BID
fenofibrate micronized 134 mg Capsule
134 mg PO DAILY
simvastatin 20 mg Tablet
20 mg PO QPM
levothyroxine 125 mcg Tablet
125 mcg PO DAILY
cyanocobalamin (vitamin B-12) 1,000 mcg Tablet Extended Release
1,000 mcg PO QPM
clozapine 100 mg Tablet
100 mg PO QPM
Rx Instructions:
take with 200mg for total of 300mg
acetaminophen 650 mg Tablet Extended Release
650 mg PO QPM
oxycodone-acetaminophen 10-325 mg Tablet
1 tab PO DAILY
oxycodone-acetaminophen 10-325 mg Tablet
1 tab PO DAILYPRN PRN (Reason: severe pain)
docusate sodium 100 mg Capsule
100 mg PO DAILY
folic acid 1 mg Tablet
1 mg PO DAILY
clozapine 200 mg Tablet
200 mg PO QPM
Rx Instructions:
take with 100mg for total of 300mg
vitamin E (dl, acetate) 180 mg (400 unit) Capsule
180 mg PO DAILY
omega 0-xce-sgy-fish oil [Fish Oil] 300-1,000 mg Capsule
1 cap PO DAILY
cholecalciferol (vitamin D3) [Vitamin D3] 50 mcg (2,000 unit) Tablet
50 mcg PO QPM
Discharge Orders:
Discharge Patient (As Directed); Ordered 08/27/24
Ordered By: Kamaljit Lizama
Discharge Date and Time
Print Language: BENINESE
[2024-08-27 15:45] VITALS: BP 158/83
--- NOTE | 2024-08-27 16:04 | W.PN.UPDATE ---
Update Note
Progress Note Update
Patient was found on the floor. Unwitnessed fall.
Minor knee bruises bilaterally.
Also has a superficial 5 mm scratch on forehead, which not sure is from the fall or an itch.
Will get CT head without contrast.
Neurologically stable with no change in his symptoms.
Patient said he tried to get out of bed because people were coming off chimney to take him away.
Also took off compression stockings before this incident saying he does not want them.
Likely orthostatic - will check repeat. Increased midodrine to 5 mg.
Okay to go to SNF still, pending CT head report and repeat orthostatics.
[2024-08-27 16:52] VITALS: BP 121/85; BP 85/51; BP 90/70; PULSE 108; PULSE 93; PULSE 95
--- NOTE | 2024-08-27 17:08 | PTCARENOTE ---
Patient was found sitting on a floor, unwitnessed. VSS are stable. b/l kne brasion noted. small abrsion on forhead noted. CT scan ordered per MD. Neuro per patients baseline.
[2024-08-27] MEDS: LOVENOX 40 MG SC (18:46)
[2024-08-27] MEDS: LIPITOR 10 MG PO (18:46)
[2024-08-27] MEDS: CLOZARIL 300 MG PO (18:46)
[2024-08-27] MEDS: VITAMIN B-12 1000 MCG PO (18:46)
[2024-08-27] MEDS: VITAMIN D3 (cholecalciferol) 50 MCG PO (18:46)
--- NOTE | 2024-08-27 19:22 | PTCARENOTE ---
Report is given to a nurse at [facility].
--- NOTE | 2024-08-30 14:00 | PN.CDI ---
CDI
- -
CDI:
Physician Documentation Request
Admit Date: 08/27/24 09:04
Dear Doctor Dl,
08/27 hospitalist progress note states 'Appears to have some hallucinations this morning, states he needs to get outside to catch his flight'
Update states 'Patient said he tried to get out of bed because people were coming off chimney to take him away'
Could you please further specify the type of hallucinations:
Auditory
Visual
Multifactorial - please specify
Other
Use of terms such as suspected, likely, concern for, or probable (associated with a specific diagnosis that is being evaluated, monitored, or treated as if it exists) are acceptable and can be coded in the inpatient setting, when documented at the
time of discharge.
Thank you,
Lamar Smith RN, BSN
CDI Specialist
tiger text
Please use your independent medical judgment in providing your response.
== END 2024-08-27 19:41 | DRG 92 ==
LOC: 4 EAST ACU 09:04
PROVIDERS: Emergency Medicine; Nurse Practitioner; Physician Assistant Medical; Student in an Organized Health Care Education/Training Program; ADMITTING PHYSICIAN Internal Medicine; ATTENDING PHYSICIAN Internal Medicine; CONSULT PHYSICIAN Psychiatry & Neurology Neurology; EMERGENCY PHYSICIAN Emergency Medicine; FAMILY PHYSICIAN Family Medicine Adult Medicine
PROC: 5A09357 Assistance with Respiratory Ventilation, Less than 24 Consecutive Hours, Continuous Positive Airway Pressure (ICD-10-PCS; 2024-08-25)
DX: G24.01 Drug induced subacute dyskinesia (principal); F11.20 Opioid dependence, uncomplicated; G21.19 Other drug induced secondary parkinsonism; I95.1 Orthostatic hypotension; F31.9 Bipolar disorder, unspecified; F20.9 Schizophrenia, unspecified; E03.9 Hypothyroidism, unspecified; E78.00 Pure hypercholesterolemia, unspecified; G47.33 Obstructive sleep apnea (adult) (pediatric); G89.29 Other chronic pain; R29.6 Repeated falls; Z88.0 Allergy status to penicillin; T43.505A Adverse effect of unspecified antipsychotics and neuroleptics, initial encounter; Z85.828 Personal history of other malignant neoplasm of skin; Z79.890 Hormone replacement therapy; Z79.899 Other long term (current) drug therapy; Z91.199 Patient's noncompliance with other medical treatment and regimen due to unspecified reason
CPT/HCPCS: 70450; 80048; 80053; 81003; 81015; 82607; 82728; 82746; 82962; 83540; 83550; 84439; 84443; 84484; 85025; 85027; 85610; 85730; 87086; 93005; 94660; 97163; 97167; 97530; 97535; 99285

== ENCOUNTER 2024-08-28 15:48 | Inpatient (IN) | payer OTHER, SELFPAY ==
[2024-08-28] VITALS (8 sets, daily range): BP systolic 115–172; BP diastolic 76–104; PULSE 86; BMI 33.6; BMI 32.6
--- NOTE | 2024-08-28 11:54 | ED.GENMED ---
History of Present Illness
General
Chief Complaint: Change in Mental Status
Source: patient
Exam Limitations: none
Time Seen by Provider: 08/28/24 11:53
Nursing documentation reviewed up to this point in time: agreed with
History of Present Illness
History of Present Illness:
69-year-old male with past medical history of hypothyroidism, bipolar disorder, schizophrenia, sleep apnea on CPAP presents emergency department today with concerns of altered mental status. Patient is unsure why he is here. Staff at [facility]
[place] reports that he was just discharged from [facility] yesterday for ambulatory dysfunction and he was transferred to [facility] for rehab and physical therapy. Staff reports that patient becomes agitated at night and refuses to
wear his CPAP. He also started to have increasing hallucinations. When patient was given Haldol to help with his agitation, this did not help and he got out of bed and refused to wear his CPAP. [facility] now refuses to take patient back
because of his psychiatric history. Patient today denies any headaches, chest pain, abdominal pain, fevers or chills. Son reports that when patient is able to sleep with his CPAP machine at night, this seems to improve his schizophrenia symptoms.
He reports that he will often come to the emergency department and get a large medical workup for agitation and they do not find anything. Of note, patient did have a CAT scan of his head yesterday after a fall. Patient is on Clozaril for his
schizophrenia as well as amantadine for tardive disc kinesia. Patient also felt last night when trying bed however staff reports that he not hit his head and fell straight down to the ground.
Past History
Past History
ED Past Medical History: Hypercholesterolemia, Hypothyroidism and Psychiatric (schizophrenia, bipolar, sleep apnea)
Review of Systems
Review of Systems
All Other Systems: ROS reviewed and negative except as documented in HPI and ROS
Phy Exam
Physical Exam
Physical Exam:
General: Patient is well appearing and in no acute distress; non-toxic
Skin: Warm and dry, no rashes or lesions
Head: Normocephalic, atraumatic
Eyes: Sclera non-icteric. EOMs intact.
Cardiac: Regular rate and rhythm, no murmurs
Peripheral Vascular: No lower extremity swelling or edema
Pulm: Normal respiratory effort, no wheezes, rales, rhonchi
Abdomen: No abdominal tenderness to palpation
Neuro: CN II-XII intact, no focal neurologic deficits.
Psychiatric: Anxious affect. Disorganized and slurred speech but able to answer yes and no certain questions. Awake and alert.
Course
Orders/Labs/Results
Orders:
Orders
08/28/24 12:18
Case Management Consult ONCE
Case Management Consult: Discharge Planning
08/28/24 12:23
Complete Blood Count/With Diff Urgent
Comprehensive Metabolic Panel Urgent
Magnesium Urgent
Venous Blood Gas Urgent
%Oxygen/Room Air: 94
08/28/24 14:34
Haloperidol Lactate [Haldol] 1 mg IV NOW STA
08/28/24 Dinner
Regular
At Your Request: Full Participation
Does patient need a safe tray?: No
08/28/24 15:10
Admit/Transfer Patient As Directed
Co-Sign Provider:
Level of Care: Inpatient admission
Assign to:: Medical/Surgical
Physician / Group: Gagandeep Spaulding
Diagnosis: Psychosis
Reason for Hospitalization: Placement to SNF that accepts psychotic patients
Expected length of stay greater than two midnights?: Yes
ELOS- Estimated Length of Stay in days: 3
I certify the patient meets the requirements for IP care: Yes
PRN Pain Medication Management As Directed
May give lesser potent ordered pain med per pt: Yes
preference::
Protocol:: Medication orders for pain may be administered in a
manner that supports deferring to patient preference
when the pt is:
- Requesting an ordered lesser potent pain medication.
Least to most potent pain medications are defined
as: acetaminophen < NSAID < tramadol < opioids
(morphine, oxycodone, hydromorphone).
- Requesting a lesser dose of the same medication IF
ORDERED.
- Requesting a less intrusive route of administration
if both routes are prescribed by the provider (PO <
IV).
08/28/24 15:12
Code Status As Directed
Resuscitation Status: Full Code
08/28/24 15:15
Cpap [RESP] Routine
Patient to use own unit?: No
Set Pressure (cm H2O): 7
08/28/24 15:26
Haloperidol Lactate [Haldol] 5 mg IM BIDPRN PRN
Haloperidol Lactate [Haldol] 5 mg IM HS PRN
08/28/24 15:28
Ot Eval And Treat Routine
Pt Eval And Treat Routine
Activity Level: Out of Bed-Early Mobility
08/28/24 16:19
Bisacodyl [Dulcolax] 10 mg RECTAL [id number] PRN
Docusate W/Senna [Senokot-S] 1 tablet PO BIDPRN PRN
Midodrine [ProAmatine] 5 mg PO TID
Ondansetron Injectable [Zofran] 4 mg IV Q6HPRN PRN
Polyethylene Glycol Powder [Miralax] 17 grams PO DAILYPRN PRN
08/28/24 16:19
Activity As Directed
Activity Level: Out of Bed-Early Mobility
Orthostatic Vital Signs As Directed
Orthostatic VS Frequency: Daily
Vital Signs As Directed
Frequency: Per unit guidelines
DX Deep Vein Thrombosis Video Routine
08/28/24 16:57
Oxycodone/Acetaminophen [Percocet 5/325] 1 tablet PO DAILYPRN PRN
08/28/24 18:00
Acetaminophen [Tylenol] 650 mg PO QPM
Atorvastatin [Lipitor] 10 mg PO QPM
Cholecalciferol (Vitamin D3) [VITAMIN D3 (cholecalciferol)] 50 mcg PO QPM
Enoxaparin Sodium [Lovenox] 40 mg SC QPM
08/28/24 20:00
Amantadine [Symmetrel] 100 mg PO BID
08/28/24 22:00
Clozapine [Clozaril] 300 mg PO HS
Haloperidol [Haldol] 2 mg PO HS
08/29/24 06:00
Basic Metabolic Panel IN AM
Complete Blood Count/With Diff IN AM
Magnesium IN AM
Levothyroxine [Synthroid] 150 mcg PO DAILY @ 0600
08/29/24 08:00
Docusate Sodium [Colace] 100 mg PO DAILY
FOLic ACID [Folvite] 1 mg PO DAILY
Fenofibrate 145 [Tricor] 145 mg PO DAILY
Oxycodone/Acetaminophen [Percocet 5/325] 1 tablet PO DAILY
Vitamin E 400 units PO DAILY
omega 5-iba-xzk-fish oil [Fish Oil] 1 cap PO DAILY
Abnormal Lab Results
08/28/24
12:23
RBC 4.24 L 10^6/uL
(4.70-6.10)
Hgb 12.1 L g/dL
(13.0-18.0)
Hct 37.0 L %
(39.0-52.0)
MCHC 32.7 L g/dL
(33.0-37.0)
VBG pO2 101 H mmHg
(30-50)
Chloride 111 H mmol/L
(98-107)
Glucose 125 H mg/dl
(70-99)
08/28/24 12:23
08/28/24 12:23
Vital Signs
Initial and Last Documented VS:
Initial Vital Signs
Temp Pulse Resp BP Pulse Ox
98.5 F 87 21 139/76 94
08/28/24 11:54 08/28/24 11:54 08/28/24 11:54 08/28/24 11:54 08/28/24 11:54
Last Documented Vital Signs
Temp Pulse Resp BP Pulse Ox
98.2 F 116 15 115/83 96
08/28/24 16:28 08/28/24 16:28 08/28/24 16:28 08/28/24 16:28 08/28/24 16:28
MDM/Problems Addressed
Differential Diagnosis Includes:
Differentials include schizophrenia, dementia, electrolyte derangement, rehab placement
MDM/Problems Addressed:
69-year-old male presents emergency department today with concerns of increasing agitation and hallucinations at [facility] rehab. He is currently in rehab for recurrent falls but [facility] is refusing to accept him as a patient because of
his psychiatric history. He is agitated at [facility] is noncompliant with his CPAP and [facility] is no longer excepting him. Case management Radha saw him today and said that they may be able to get him into [facility] where they may also be able to do PT for him however she said this will require a level 2 evaluation which will take several days to complete moreover patient's TSH was elevated last admission which needs to be addressed. Patient
will be admitted to the hospital awaiting placement and patient will be seen by our psychiatrist on-call. Patient referred for admission.
Chronic conditions affecting care:
Hyperlipidemia, bipolar disorder, schizophrenia
*Pulse Oximetry
Patient hypoxic: no
*Critical Care Note
Total Time (30-74mins, 75-104mins- exclusive of procedures): Not Applicable
Data Reviewed
Review of Other/Old Records Reveals: Records (Reviewed previous discharge summary from 08/27/2024 patient seen for recurrent falls, skilled rehab was recommended at the time but patient refuses symptoms got worse he is brought to [facility] again he
subsequently brought to rehab and during the hospital he required held compared all at bedtime to)
ED Attending Note
-
Portions of this chart may have been created with voice recognition software.� Occasional wrong word or��sound alike� substitutions may have occurred due to the inherent limitations of voice recognition software.
Discharge Plan
Departure
Patient Disposition: Admit
Date of Disposition: 08/28/24
Time of Disposition: 14:30
Admit to: Med/Surg
Presentation/result/management discussed w/ accepting MD/DO: Hospitalist
Patient with high blood pressure during this ER visit?: Yes
Condition: Fair
Discharge Problem:
Restlessness and agitation, Ambulatory dysfunction, Case management patient
Interventions
Interventions:
*Risk Screen - Suicide Last Done: 08/28/24 12:01
*General Assessment Last Done: 08/28/24 12:01
*Neglect/Abuse Screening Last Done: 08/28/24 12:01
*ED- Fall Risk Assessment Last Done: 08/28/24 12:01
*ED COVID-19 Vaccine History Last Done: 08/28/24 12:01
*Nursing Disposition Last Done: 08/28/24 16:14
ED- Pulmonary Assessment Last Done: 08/28/24 16:14
ED-Psychological Assessment Last Done: 08/28/24 16:14
ED- Neurological Assessment Last Done: 08/28/24 12:04
ED- Cardiac Assessment Last Done: 08/28/24 16:14
ED Swallowing Screen Last Done: 08/28/24 14:59
Discharge Date and Time
Discharge Date/Time: 08/28/24 16:16
[2024-08-28 12:34] LABS: % Basophils 0.8 % (0-2); % Immature Granulocytes 0.2 % (0-0.5); % Lymphocytes 20.7 % (20.5-51.1); % Monocytes 7.2 % (1.7-9.3); % Neutrophils 71.1 % (42.2-75.2); Absolute Basophils 0.1 10^3/uL (0-0.2); Absolute Lymphocytes 1.8 10^3/uL (1.2-3.4); Absolute Monocytes 0.6 10^3/uL (0.1-0.6); Absolute Neutrophils 6.2 10^3/uL (1.4-6.5); Hemoglobin 12.1 g/dL (13.0-18.0); Mean Corp Hgb Conc. 32.7 g/dL (33.0-37.0); Mean Corpuscular Hgb 28.5 pg (27.0-31.0); Mean Corpuscular Volume 87.3 fL (80.0-94.0); Mean Platelet Volume 9.6 fL (7.4-10.4); Nucleated Red Blood Cells % 0 % (-); Platelet Count 331 10^3/uL (130-400); Red Blood Cell Count 4.24 10^6/uL (4.70-6.10); Red Cell Dist. Width 13.7 % (11.5-14.5); White Blood Cell Count 8.7 10^3/uL (4.8-10.8)
[2024-08-28 12:36] LABS: Venous Blood Gas B.E. 1.3 mmol/L (-4 to +4); Venous Blood Gas HCO3 25.9 mmol/L (22-27); Venous Blood Gas O2 Sat % 99.1 %; Venous Blood Gas pCO2 40 mmHg (35-48); Venous Blood Gas pH 7.42 (7.32-7.43); Venous Blood Gas pO2 101 mmHg (30-50)
[2024-08-28 12:48] LABS: ALT (SGPT) 13 U/L (0-50); AST (SGOT) 20 U/L (17-59); Albumin 3.8 g/dl (3.5-5.0); Alkaline Phosphatase 75 U/L (38-126); Blood Urea Nitrogen 14 mg/dl (9-20); Calcium 9.5 mg/dl (8.4-10.2); Carbon Dioxide 24 mmol/L (22-30); Chloride 111 mmol/L (98-107); Estimated Creatinine Clearance 77 ml/min; Glucose 125 mg/dl (70-99); Magnesium 2.2 mg/dl (1.6-2.3); Potassium 3.5 mmol/L (3.5-5.1); Sodium 144 mmol/L (135-145); Total Bilirubin 0.6 mg/dl (0.2-1.3); Total Protein 6.7 g/dl (6.3-8.2); eGFR > 60.00
--- NOTE | 2024-08-28 13:18 | CM ---
Addendum entered by Radha Whyte RN 08/28/24 13:35:
CM reviewed medical records. Patient will require a Level II evaluation prior to placement in another SNF.
Original Note:
CM was consulted to assist with discharge planning. MARIOLA spoke with Catalina admission coordinator for [facility]. Catalina advised me that patient has confused through the night and was a 1:1 while at SNF. They are unable to accomodate patient's
needs and requested asiya-psych placement.
MARIOLA spoke with patient's son who stated that they are unsure if patient's behavior is related to a psychiatric condition and feel because patient does not wear his CPAP at night, it adds to his confusion.
MARIOLA spoke with PA and stated that placement in another SNF would be difficult if patient's behaviors are not controlled. Patient cannot be sent to SNF if he has a 1:1.
Plan for psychiatric evaluation for further recommendations.
--- NOTE | 2024-08-28 13:59 | CON.MD ---
Consultation - Medical
-
69 y/o man with chronic schizophrenia since age 21 seen in ED for increasing agitation and hallucinations. His son was at the bedside and said that each time he is non-compliant with CPAP his mental state deteriorates and he becomes
agitated, paranoid, increase in hallucinations, and difficult to understand. His baseline is much better than how he presents today per son. He was just discharged yesterday from where he was admitted for falls at his sister's house where he
normally resides. He was admitted to [facility] with PRN Haldol 2 mg. ordered which apparently was not given as it was ordered PRN. His history is that if he is given Haldol for a few nights, he will cooperate with CPAP and his mental state
improves. [facility] will not take back without Psych Eval.
PH: Multiple psychiatric hospitalizations and at least one incarceration. When Clozapine was lowered in past, psychosis escalated. Family does not want other agents tried and are happy with his medication. [facility] is okay for clozapine treatment.
SH: Limited information. Usually lives with his sister. Has at least two children. ended the marriage due to his mental illness when this son 'Naga' was 12. Has had UTI's in the past. Hypothyroid (TSH on 08/23/24 was 8.29).
MSE: Obese man, in diaper and gown, minimally communicative with slurred speech. Unkempt appearance. Occasionally reaching for things that are not there. Appears to be hallucinating. Apparently spoke of seeing people on the ceiling tiles and
thought he was in [place]. No apparent mood symptoms.
Psych meds: Clozapine 300 mg. HS; amantadine 100 mg. BID; Haldol 2 mg. PRN
Diagnosis:
Chronic Schizophrenia
Rule-Out Schizoaffective disorder
DEONTE
Plan: Should have medical eval to rule-out medical causes of change in mental status (e.g. Urinalysis -- on 08/23/24 was contaminated). Should address high TSH if not done previous. Would give Haldol 2 mg. HS x 14 days in addition to Clozapine 300
mg. HS and amantadine 100 mg. BID. Consider admission if NH will not re-admit. FAMILY IS VERY OPPOSED TO [facility]-PSYCH ADMISSION AND CHANGES IN MEDICATIONS.
--- NOTE | 2024-08-28 14:58 | HPS.HSE ---
Family Physician
-
Family Physician: Maurilio Plummer
Chief Complaint
-
AMS
History of Present Illness
69-year-old male with schizophrenia, bipolar disorder, hypothyroidism, DEONTE on CPAP (7 mmHg), dyslipidemia, tardive dyskinesia, recently diagnosed orthostatic hypotension that is presenting to the hospital from [facility] due to altered mental
status in the context of underlying psychiatric illness. Was discharged from [facility] on 08/27/2024. Had hospitalization for generalized weakness and falls, found to have significant orthostasis and was started on midodrine. Evaluated
by neurology for tardive dyskinesia who recommended outpatient deutetrabenazine. Symptomatically was improved concerning orthostatic hypotension. Was discharged to [facility] for ongoing physical therapy however the facility revoked their
acceptance due to ongoing psychiatric illness and hallucinations due to schizophrenia. AFVSS. Labs unremarkable. No imaging or ECG obtained in the ED. Evaluated by psychiatry who recommended continuing Haldol 2 mg nightly for 14 days in addition
to clozapine 300 mg nightly and amantadine 100 mg twice daily. Noted that family is very opposed to geriatric psychiatry admission as well as changes to his medication.
Medical History
Past Medical History
Past Medical History: Reports Hypercholesterolemia, Hypothyroidism and Psychiatric
Additional Past Medical History:
Schizophrenia
Bipolar disorder
Hypothyroidism
DEONTE on CPAP 7 mmHg
Dyslipidemia
Orthostatic hypotension
Past Surgical History: Reports Other (Skin cancer removed)
Social History
Tobacco: Non-smoker
Alcohol: None
Drug: None
Personal:
Family History
Family History: Not pertinent
Allergies / Home Medications
Allergies reflects when Allergies were last updated in [facility].
Home Medications with original date entered in [facility]
Allergy/Medication List:
Allergies
Allergy/AdvReac Type Severity Reaction Status Date / Time
Penicillins Allergy pt. states Verified 08/28/24 12:04
it gives
him bad
dreams
Home Medications
acetaminophen 650 mg tablet,extended release 650 mg PO QPM Pain 08/23/24
amantadine HCl 100 mg tablet 100 mg PO BID Neurological Condition 08/23/24
cholecalciferol (vitamin D3) 50 mcg (2,000 unit) tablet (Vitamin D3) 50 mcg PO QPM Supplement 08/23/24
clozapine 100 mg tablet 100 mg PO QPM Mental Health/Anxiety 08/23/24
clozapine 200 mg tablet 200 mg PO QPM Mental Health/Anxiety 08/23/24
cyanocobalamin (vitamin B-12) 1,000 mcg tablet,extended release 1,000 mcg PO QPM Supplement 08/23/24
docusate sodium 100 mg capsule 100 mg PO DAILY Constipation 08/23/24
fenofibrate micronized 134 mg capsule 134 mg PO DAILY High Cholesterol 08/23/24
folic acid 1 mg tablet 1 mg PO DAILY Supplement 08/23/24
levothyroxine 125 mcg tablet 125 mcg PO DAILY Thyroid 08/23/24
omega [id number]-fish oil 300 mg-1,000 mg capsule (Fish Oil) 1 cap PO DAILY Supplement 08/23/24
oxycodone-acetaminophen 10 mg-325 mg tablet 1 tab PO DAILY Pain 08/23/24
oxycodone-acetaminophen 10 mg-325 mg tablet 1 tab PO DAILYPRN PRN severe pain 08/23/24
simvastatin 20 mg tablet 20 mg PO QPM High Cholesterol 08/23/24
vitamin E (dl, acetate) 180 mg (400 unit) capsule 180 mg PO DAILY Supplement 08/23/24
haloperidol 2 mg tablet 2 mg PO HS PRN agitation 14 days #14 tabs 08/27/24
midodrine 5 mg tablet 5 mg PO TID 30 days #90 tabs 08/27/24
Review of Systems
-
History Source: Patient
A 12 point ROS was completed and negative except as noted: Yes
Constitutional: Reports No Symptoms
EENT: Reports No Symptoms
Respiratory: Reports No Symptoms
Cardiac: Reports No Symptoms
Abdomen/GI: Reports No Symptoms
: Reports No Symptoms
Musculoskeletal: Reports No Symptoms
Skin: Reports No Symptoms
Neurological: Reports No Symptoms
Endocrine: Reports No Symptoms
Hematologic/Lymphatic: Reports No Symptoms
Psych: Reports See HPI and Audio or Visual Hallucinations
Physical Exam
Vital Signs
Vital Signs
Temp Pulse Resp BP Pulse Ox
98.5 F 86 21 139/76 94
08/28/24 11:54 08/28/24 12:00 08/28/24 12:00 08/28/24 12:00 08/28/24 12:00
Physical Exam
General: Well Developed, Well Nourished and No Apparent Distress
HEENT: NormoCephalic, Anicteric and Moist mucous membranes
Respiratory: Clear and Non Labored Respirations
Cardiac: S1/S2 and Regular Rhythm; No Murmur, Rub, Gallop or Peripheral Edema
GI: Soft, Non Tender, Non Distended and Normal Bowel Sounds
Musculoskeletal: No Clubbing, No Cyanosis and No Edema
Skin: Warm and Dry; No Rash
Neuro: AO x 3, Nonfocal/grossly intact and Tremors
Psych: Anxious
Laboratory Results
-
08/28/24 12:23
08/28/24 12:23
Laboratory Results
Total Bilirubin 0.6 mg/dl (0.2-1.3) 08/28/24 12:23
AST 20 U/L (17-59) 08/28/24 12:23
ALT 13 U/L (0-50) 08/28/24 12:23
Alkaline Phosphatase 75 U/L (38-126) 08/28/24 12:23
Data Reviewed
-
Lab Data: Labs Reviewed by me and Discussed with Patient
Impression/Plan
-
#Psychosis
#Chronic schizophrenia
#Chronic bipolar disorder
-Has chronic schizophrenia on haloperidol 2 mg nightly, clozapine 300 mg nightly, amantadine 100 mg twice a day
-He started to have hallucinations just prior to discharge to SNF, when he got to SNF his acceptance was revoked
-Evaluated by psychiatry in the ED, recommended continue home regimen as patient's family resistant to changes in past
-Start one-to-one observation
-Continue home regimen
-As needed Haldol BID and HS
#Elevated TSH
#Chronic hypothyroid
-Patient takes 125 mcg levothyroxine daily; unclear etiology of hypothyroidism
-TSH recently near 8, suspect subclinical hypothyroidism is no obvious signs of thyroid abnormality
-Most recent guidelines state no need to treat for TSH <10 and lack of symptoms, problem WAS addressed on recent hospital stay
-Will empirically increase levothyroxine to 150 mcg to assess for improvement of his mental status though do not expect this is contributing
-Will need to repeat TSH in 4 to 6 weeks after dose adjustment
#Orthostatic hypotension
-Recently diagnosed, started on midodrine 5 mg 3 times daily
-Continue midodrine 3 times daily, hold for SBP >200 mmHg
-Daily orthostats while here
#Tardive dyskinesia
-Evaluated by neurology on recent admission
-Recommendation to start deutetrabenazine as outpatient
#Dyslipidemia
-No ASCVD history, remains on moderate intensity statin
#DEONTE on CPAP
-No known history of pulmonary hypertension
-Utilizes 7 mmHg iPAP nightly
-Use nightly Haldol with refusing sleep
DVT prophylaxis: Lovenox
Diet: Regular
CODE STATUS: Full code
Disposition: Admit to MedSurg, PT/OT eval
Son at bedside and updated
[2024-08-28] MEDS: HALDOL 1 MG IV (15:53)
[2024-08-28] MEDS: VITAMIN D3 (cholecalciferol) 50 MCG PO (17:48)
[2024-08-28] MEDS: LIPITOR 10 MG PO (17:48)
[2024-08-28] MEDS: TYLENOL 650 MG PO (17:48)
[2024-08-28] MEDS: ProAmatine 5 MG PO ×2 (17:48→21:57)
[2024-08-28] MEDS: LOVENOX 40 MG SC (17:49)
[2024-08-28] MEDS: SYMMETREL 100 MG PO (20:07)
[2024-08-28] MEDS: HALDOL 2 MG PO (21:53)
[2024-08-28] MEDS: CLOZARIL 300 MG PO (21:54)
[2024-08-29] VITALS (7 sets, daily range): BP systolic 101–239; BP diastolic 67–119; PULSE 82–96; BMI 32.5
[2024-08-29] MEDS: SYNTHROID 150 MCG PO (05:41)
[2024-08-29 08:12] LABS: Blood Urea Nitrogen 14 mg/dl (9-20); Calcium 9.5 mg/dl (8.4-10.2); Carbon Dioxide 24 mmol/L (22-30); Chloride 110 mmol/L (98-107); Estimated Creatinine Clearance 83 ml/min; Glucose 103 mg/dl (70-99); Magnesium 2.3 mg/dl (1.6-2.3); Potassium 3.8 mmol/L (3.5-5.1); Sodium 145 mmol/L (135-145); eGFR > 60.00
[2024-08-29] MEDS: FOLVITE 1 MG PO (08:54)
[2024-08-29] MEDS: TRICOR 145 MG PO (08:55)
[2024-08-29] MEDS: ProAmatine PO (08:55)
[2024-08-29] MEDS: COLACE PO (08:55)
[2024-08-29] MEDS: VITAMIN E PO (08:55)
[2024-08-29] MEDS: SYMMETREL 100 MG PO ×2 (08:55→20:58)
[2024-08-29] MEDS: PERCOCET 5/325 1 TABLET PO (08:56)
[2024-08-29 09:34] LABS: % Basophils 0.9 % (0-2); % Immature Granulocytes 0.3 % (0-0.5); % Lymphocytes 22.9 % (20.5-51.1); % Monocytes 6.2 % (1.7-9.3); % Neutrophils 69.7 % (42.2-75.2); Absolute Basophils 0.1 10^3/uL (0-0.2); Absolute Lymphocytes 1.6 10^3/uL (1.2-3.4); Absolute Monocytes 0.4 10^3/uL (0.1-0.6); Absolute Neutrophils 4.8 10^3/uL (1.4-6.5); Hematocrit 43.4 % (39.0-52.0); Hemoglobin 13.8 g/dL (13.0-18.0); Mean Corp Hgb Conc. 31.8 g/dL (33.0-37.0); Mean Platelet Volume 11.3 fL (7.4-10.4); Nucleated Red Blood Cells % 0 % (-); Platelet Count 208 10^3/uL (130-400); Red Blood Cell Count 4.93 10^6/uL (4.70-6.10); Red Cell Dist. Width 13.7 % (11.5-14.5); White Blood Cell Count 6.9 10^3/uL (4.8-10.8)
--- NOTE | 2024-08-29 11:18 | W.PN.HOSP.TC ---
Addendum entered and electronically signed by Gagandeep Spaulding DO 09/06/24 15:25:
CDI: Visual hallucination
Original Note:
Today's Communication/Plan
-
Continue home antipsychotic regimen
As needed IM Haldol twice daily and nightly
Encourage compliance with CPAP and use PRNs if needed
Case management for placement
Assessment / Plan
Assessment / Plan
#Psychosis
#Chronic schizophrenia
#Chronic bipolar disorder
-Has chronic schizophrenia on haloperidol 2 mg nightly, clozapine 300 mg nightly, amantadine 100 mg twice a day
-He started to have hallucinations just prior to discharge to SNF, when he got to SNF his acceptance was revoked
-Evaluated by psychiatry in the ED, recommended continue home regimen as patient's family resistant to changes in past
-Continue home regimen with PRN Haldol BID and HS
#Elevated TSH
#Chronic hypothyroid
-Patient takes 125 mcg levothyroxine daily; unclear etiology of hypothyroidism
-TSH recently near 8, suspect subclinical hypothyroidism is no obvious signs of thyroid abnormality
-Most recent guidelines state no need to treat for TSH <10 and lack of symptoms, problem WAS addressed on recent hospital stay
-Empirically increased levothyroxine to 150 mcg to assess for improvement of his mental status though do not expect this is contributing
-Will need to repeat TSH in 4 to 6 weeks after dose adjustment
#Orthostatic hypotension
-Recently diagnosed, started on midodrine 5 mg 3 times daily
-Continue midodrine 3 times daily, hold for SBP >200 mmHg
-Daily orthostats while here
#Tardive dyskinesia
-Evaluated by neurology on recent admission
-Recommendation to start deutetrabenazine as outpatient
#Dyslipidemia
-No ASCVD history, remains on moderate intensity statin
#DEONTE on CPAP
-No known history of pulmonary hypertension
-Utilizes 7 mmHg iPAP nightly
-Use nightly Haldol with refusing sleep
DVT prophylaxis: Lovenox
Diet: Regular
CODE STATUS: Full code
Disposition: SNF placement
Anticipated Discharge: 24 - 48 hours
Subjective/Interval History
-
Date of Service: August 29, 2024
Seen and examined at the bedside. No acute events reported overnight. AFVSS this morning
Per nursing he was compliant with his CPAP overnight, minimal agitation.
He denies any new complaints as of this morning
Objective Data
-
Labs:
Laboratory Results
08/29/24
06:48
WBC 6.9
Hgb 13.8
Hct 43.4
Plt Count 208 D
Sodium 145
Potassium 3.8
Chloride 110 H
Carbon Dioxide 24
BUN 14
Creatinine 1.1
Glucose 103 H
Calcium 9.5
Vital Signs:
Vital Signs
Temp Pulse Resp BP Pulse Ox
98.2 F 84 16 184/100 97
08/29/24 07:36 08/29/24 07:36 08/29/24 07:36 08/29/24 09:44 08/29/24 07:36
Review of Systems
-
History Source: Patient
All other systems: Reviewed and negative
Physical Exam
-
General: Well Developed, No Apparent Distress and Obese
HEENT: Normocephalic, Atraumatic and Moist Mucous Membranes
Respiratory: Clear to Auscultation and Non Labored Respirations
Cardiac: Regular Rhythm and S1/S2; Negative Murmur, Rub or Gallop
GI: Soft, Nontender, Nondistended and Normal Bowel Sounds
Musculoskeletal: No Clubbing, No Cyanosis and No Edema
Skin: Warm and Dry; Negative Rash
Neuro: Awake, Alert, Oriented, Tremors and Nonfocal/Grossly Intact
Psych: Calm
Data Reviewed
-
Labs: Labs Reviewed by me and Discussed with Nurse
[2024-08-29] MEDS: ProAmatine 5 MG PO ×2 (17:22→21:01)
[2024-08-29] MEDS: TYLENOL 650 MG PO (17:22)
[2024-08-29] MEDS: VITAMIN D3 (cholecalciferol) 50 MCG PO (17:22)
[2024-08-29] MEDS: LIPITOR 10 MG PO (17:22)
[2024-08-29] MEDS: LOVENOX 40 MG SC (17:23)
[2024-08-29] MEDS: HALDOL 2 MG PO (20:59)
[2024-08-29] MEDS: CLOZARIL 300 MG PO (20:59)
[2024-08-30] VITALS (7 sets, daily range): BP systolic 137–178; BP diastolic 84–103; PULSE 77–80; O2SAT 97–100
[2024-08-30] MEDS: SYNTHROID 150 MCG PO (05:54)
[2024-08-30] MEDS: VITAMIN E 400 UNITS PO (07:53)
[2024-08-30] MEDS: TRICOR 145 MG PO (07:53)
[2024-08-30] MEDS: SYMMETREL 100 MG PO ×2 (07:53→20:43)
[2024-08-30] MEDS: PERCOCET 5/325 1 TABLET PO (07:54)
[2024-08-30] MEDS: FOLVITE 1 MG PO (07:54)
[2024-08-30] MEDS: ProAmatine 5 MG PO ×3 (07:54→22:53)
[2024-08-30] MEDS: COLACE 100 MG PO (07:54)
[2024-08-30 09:09] LABS: Blood Urea Nitrogen 15 mg/dl (9-20); Calcium 9.8 mg/dl (8.4-10.2); Carbon Dioxide 25 mmol/L (22-30); Estimated Creatinine Clearance 91 ml/min; Glucose 110 mg/dl (70-99); Sodium 144 mmol/L (135-145); eGFR > 60.00
[2024-08-30 09:20] LABS: Chloride 111 mmol/L (98-107)
--- NOTE | 2024-08-30 12:36 | W.PN.HOSP.TC ---
Addendum entered and electronically signed by Milind Stephenson MD 08/30/24 15:51:
Continue Haldol along with CPAP at bedtime and as needed with naps
Case management continues to look for SNF
Original Note:
Today's Communication/Plan
-
* PT-OT.
* Continue psych meds with haldol prn and HS.
* Ongoing disposition efforts to SNF rehab.
Assessment / Plan
Assessment / Plan
Assessment
Gagandeep Rivera, 69-year-old male, presented to the hospital from [facility] due to altered mental status in the context of underlying psychiatric illness on 08-28-24. Was discharged from [facility] on 08/27/2024. Had hospitalization for
generalized weakness and falls, found to have significant orthostasis and was started on midodrine. Evaluated by neurology for tardive dyskinesia who recommended outpatient deutetrabenazine. Symptomatically was improved concerning orthostatic
hypotension. Was discharged to [facility] for ongoing physical therapy however the facility revoked their acceptance due to ongoing psychiatric illness and hallucinations due to schizophrenia. AFVSS. Labs unremarkable. No imaging or ECG
obtained in the ED. Evaluated by psychiatry who recommended continuing Haldol 2 mg nightly for 14 days in addition to clozapine 300 mg nightly and amantadine 100 mg twice daily. Noted that family is very opposed to geriatric psychiatry admission
as well as changes to his medication.
Impression and plan
Psychosis
Schizophrenia
Bipolar disorder
- Has chronic schizophrenia on haloperidol 2 mg nightly, clozapine 300 mg nightly, amantadine 100 mg twice a day
- He started to have hallucinations just prior to discharge to SNF, when he got to SNF his acceptance was revoked
- Evaluated by psychiatry in the ED, recommended continue home regimen as patient's family resistant to changes in past
- Continue home regimen with PRN Haldol BID and HS
Elevated TSH
Chronic hypothyroid
- Patient takes 125 mcg levothyroxine daily; unclear etiology of hypothyroidism
- TSH recently near 8, suspect subclinical hypothyroidism is no obvious signs of thyroid abnormality
- Most recent guidelines state no need to treat for TSH <10 and lack of symptoms, problem WAS addressed on recent hospital stay
- Empirically increased levothyroxine to 150 mcg to assess for improvement of his mental status though do not expect this is contributing
- Will need to repeat TSH in 4 to 6 weeks after dose adjustment
Orthostatic hypotension
- Recently diagnosed, started on midodrine 5 mg 3 times daily
- Continue midodrine 3 times daily, hold for SBP >200 mmHg
- Daily orthostats while here
Tardive dyskinesia
- Evaluated by neurology on recent admission
- Recommendation to start deutetrabenazine as outpatient
Dyslipidemia
- No ASCVD history, remains on moderate intensity statin
DEONTE on CPAP
- No known history of pulmonary hypertension
- Utilizes 7 mmHg iPAP nightly
- Use nightly Haldol with refusing sleep
Thromboprophylaxis
- Enoxaparin
Code status
- Full.
Disposition
- SNF.
Anticipated Discharge: 24 - 48 hours
Subjective/Interval History
-
Date of Service: August 30, 2024
Objective Data
-
Labs:
Laboratory Results
08/30/24
08:29
Sodium 144
Potassium 4.0
Chloride 111 H
Carbon Dioxide 25
BUN 15
Creatinine 1.0
Glucose 110 H
Calcium 9.8
Vital Signs:
Vital Signs
Temp Pulse Resp BP Pulse Ox
98.6 F 80 18 154/97 98
08/30/24 07:32 08/30/24 07:32 08/30/24 07:32 08/30/24 07:32 08/30/24 08:00
Review of Systems
-
History Source: Patient
All other systems: Reviewed and negative
Physical Exam
-
General: No Apparent Distress and Comfortable
HEENT: Normocephalic, Atraumatic, Moist Mucous Membranes and No Ptosis
Respiratory: Clear to Auscultation and Non Labored Respirations
Cardiac: Regular Rhythm and S1/S2; Negative Murmur, Rub or Gallop
GI: Soft, Nontender, Nondistended and Normal Bowel Sounds
Musculoskeletal: No Clubbing, No Cyanosis and No Edema
Skin: Warm and Dry; Negative Rash
Neuro: Awake, Alert, Oriented, Tremors and Nonfocal/Grossly Intact
Psych: Calm
[2024-08-30] MEDS: LOVENOX 40 MG SC (17:05)
[2024-08-30] MEDS: LIPITOR 10 MG PO (17:06)
[2024-08-30] MEDS: TYLENOL 650 MG PO (17:06)
[2024-08-30] MEDS: VITAMIN D3 (cholecalciferol) 50 MCG PO (17:06)
[2024-08-30] MEDS: HALDOL 2 MG PO (22:53)
[2024-08-30] MEDS: CLOZARIL 300 MG PO (22:53)
[2024-08-31 03:45] VITALS: PULSE 84
[2024-08-31] MEDS: SYNTHROID 150 MCG PO (05:26)
[2024-08-31 07:50] VITALS: BP 157/98
[2024-08-31 08:53] LABS: Blood Urea Nitrogen 16 mg/dl (9-20); Calcium 9.4 mg/dl (8.4-10.2); Carbon Dioxide 28 mmol/L (22-30); Chloride 111 mmol/L (98-107); Estimated Creatinine Clearance 83 ml/min; Glucose 101 mg/dl (70-99); Potassium 3.9 mmol/L (3.5-5.1); Sodium 145 mmol/L (135-145); eGFR > 60.00
[2024-08-31] MEDS: ProAmatine 5 MG PO ×3 (09:44→22:42)
[2024-08-31] MEDS: COLACE 100 MG PO (09:44)
[2024-08-31] MEDS: PERCOCET 5/325 1 TABLET PO (09:45)
[2024-08-31] MEDS: VITAMIN E 400 UNITS PO (09:50)
[2024-08-31] MEDS: FOLVITE 1 MG PO (09:50)
[2024-08-31] MEDS: SYMMETREL 100 MG PO ×2 (09:50→19:15)
[2024-08-31] MEDS: TRICOR 145 MG PO (09:50)
--- NOTE | 2024-08-31 11:38 | W.PN.HOSP.TC ---
Addendum entered and electronically signed by Milind Stephenson MD 08/31/24 16:09:
Continue Haldol along with CPAP at bedtime and as needed with naps
Case management continues to look for SNF
Original Note:
Today's Communication/Plan
-
* Please ensure he uses CPAP overnight; can use haloperidol prn if not compliant.
* Continue psych medications, midodrine, abdominal binder and compressions.
* Ongoing disposition efforts to SNF rehab.
Assessment / Plan
Assessment / Plan
Assessment
Gagandeep Rivera, 69-year-old male, presented to the hospital from [facility] due to altered mental status in the context of underlying psychiatric illness on 08-28-24. Was discharged from [facility] on 08/27/2024. Had hospitalization for
generalized weakness and falls, found to have significant orthostasis and was started on midodrine. Evaluated by neurology for tardive dyskinesia who recommended outpatient deutetrabenazine. Symptomatically was improved concerning orthostatic
hypotension. Was discharged to [facility] for ongoing physical therapy however the facility revoked their acceptance due to ongoing psychiatric illness and hallucinations due to schizophrenia. AFVSS. Labs unremarkable. No imaging or ECG
obtained in the ED. Evaluated by psychiatry who recommended continuing Haldol 2 mg nightly for 14 days in addition to clozapine 300 mg nightly and amantadine 100 mg twice daily. Noted that family is opposed to geriatric psychiatry admission.
Impression and plan
Orthostatic hypotension
- Recently diagnosed, started on midodrine 5 mg 3 times daily
- Continue midodrine 3 times daily, hold for SBP >200 mmHg
- Abdominal binder and LE compression stockings.
- Daily orthostats while here.
Psychosis
Schizophrenia
Bipolar disorder
- Has chronic schizophrenia on haloperidol 2 mg nightly, clozapine 300 mg nightly, amantadine 100 mg twice a day
- He started to have hallucinations just prior to discharge to SNF, when he got to SNF his acceptance was revoked
- Evaluated by psychiatry in the ED, recommended continue home regimen as patient's family resistant to changes in past
- Continue home regimen with PRN Haldol BID and HS
Tardive dyskinesia
- Evaluated by neurology on recent admission
- Recommendation to start deutetrabenazine as outpatient
DEONTE on CPAP
- No known history of pulmonary hypertension
- Utilizes 7 mmHg CPAP nightly
- Use nightly Haldol with refusing sleep
- Non-compliance with CPAP at night causes psychosis during daytime.
- Please use additional haloperidol if needed but ensure he keeps his CPAP on.
Elevated TSH
Chronic hypothyroid
- Patient takes 125 mcg levothyroxine daily; unclear etiology of hypothyroidism
- TSH recently near 8, suspect subclinical hypothyroidism is no obvious signs of thyroid abnormality
- Most recent guidelines state no need to treat for TSH <10 and lack of symptoms, problem WAS addressed on recent hospital stay
- Empirically increased levothyroxine to 150 mcg to assess for improvement of his mental status though do not expect this is contributing
- Will need to repeat TSH in 4 to 6 weeks after dose adjustment
Dyslipidemia
- No ASCVD history, remains on moderate intensity statin
Thromboprophylaxis
- Enoxaparin
Code status
- Full.
Disposition
- SNF.
Anticipated Discharge: 24 - 48 hours
Subjective/Interval History
-
Date of Service: August 31, 2024
Tolerated CPAP overnight and doing well.
Objective Data
-
Labs:
Laboratory Results
08/31/24
07:30
Sodium 145
Potassium 3.9
Chloride 111 H
Carbon Dioxide 28
BUN 16
Creatinine 1.1
Glucose 101 H
Calcium 9.4
Vital Signs:
Vital Signs
Temp Pulse Resp BP Pulse Ox
97.8 F 79 16 157/98 96
08/31/24 07:50 08/31/24 07:50 08/31/24 07:50 08/31/24 07:50 08/31/24 07:50
I&O
08/30/24 08/31/24 09/01/24
06:59 06:59 06:59
Intake Total 850 / 850
Output Total 475 / 475
Balance 375 / 375
Review of Systems
-
History Source: Patient
All other systems: Reviewed and negative
Physical Exam
-
General: No Apparent Distress and Comfortable
HEENT: Normocephalic, Atraumatic, Moist Mucous Membranes and No Ptosis
Respiratory: Clear to Auscultation and Non Labored Respirations
Cardiac: Regular Rhythm and S1/S2; Negative Murmur, Rub or Gallop
GI: Soft, Nontender, Nondistended and Normal Bowel Sounds
Musculoskeletal: No Clubbing, No Cyanosis and No Edema
Skin: Warm and Dry; Negative Rash
Neuro: Awake, Alert, Oriented, Tremors and Nonfocal/Grossly Intact
Psych: Calm
--- NOTE | 2024-08-31 13:09 | CM ---
CM reviewed chart, patient seen bedside, reports son was visiting earlier but had to leave. Phone call to patients daughter, Vera, to discuss level two assessment, forms needed to be signed by POA. Vear confirms her brothers Lei and Gagandeep
are both POA, will update brothers and get back to CM regarding when they will be at Hospital to sign forms. Vera reports patient will likely transition to LTC after SNF. CM will continue to follow for all discharge planning needs.
Plan; Level two assessment need to be completed by [facility], SNF/transition to LTC, will need auth.
[2024-08-31 15:36] VITALS: BP 128/98; BP 141/89; BP 151/72; PULSE 82; PULSE 90; PULSE 98
[2024-08-31] MEDS: LOVENOX 40 MG SC (18:21)
[2024-08-31] MEDS: VITAMIN D3 (cholecalciferol) 50 MCG PO (18:21)
[2024-08-31] MEDS: TYLENOL 650 MG PO (18:21)
[2024-08-31] MEDS: LIPITOR 10 MG PO (18:21)
[2024-08-31 22:10] VITALS: PULSE 76
[2024-08-31] MEDS: CLOZARIL 300 MG PO (22:43)
[2024-08-31] MEDS: HALDOL 2 MG PO (22:43)
[2024-08-31 23:07] VITALS: BP 162/91
[2024-09-01] MEDS: SYNTHROID 150 MCG PO (05:15)
[2024-09-01 07:17] VITALS: BP 165/89
[2024-09-01] MEDS: SYMMETREL 100 MG PO ×2 (08:27→19:38)
[2024-09-01] MEDS: VITAMIN E 400 UNITS PO (08:27)
[2024-09-01] MEDS: TRICOR 145 MG PO (08:27)
[2024-09-01] MEDS: COLACE 100 MG PO (08:28)
[2024-09-01] MEDS: ProAmatine 5 MG PO ×3 (08:28→21:00)
[2024-09-01] MEDS: FOLVITE 1 MG PO (08:28)
[2024-09-01] MEDS: PERCOCET 5/325 1 TABLET PO (08:28)
[2024-09-01 08:53] VITALS: BP 135/63; BP 141/73; PULSE 89; O2SAT 97
--- NOTE | 2024-09-01 08:58 | W.PN.HOSP.TC ---
Addendum entered and electronically signed by Milind Stephenson MD 09/01/24 15:56:
Continue Haldol along with CPAP at bedtime and as needed with naps
Case management continues to look for SNF
Original Note:
Today's Communication/Plan
-
* ECG in AM today.
* Please ensure he uses CPAP overnight; can use haloperidol as needed if not compliant.
* Continue psych medications, midodrine, abdominal binder and compressions.
* Ongoing disposition efforts to SNF rehab.
Assessment / Plan
Assessment / Plan
Assessment
Gagandeep Rivera, 69-year-old male, presented to the hospital from [facility] due to altered mental status in the context of underlying psychiatric illness on 08-28-24. Was discharged from [facility] on 08/27/2024. Had hospitalization for
generalized weakness and falls, found to have significant orthostasis and was started on midodrine. Evaluated by neurology for tardive dyskinesia who recommended outpatient deutetrabenazine. Symptomatically was improved concerning orthostatic
hypotension. Was discharged to [facility] for ongoing physical therapy however the facility revoked their acceptance due to ongoing psychiatric illness and hallucinations due to schizophrenia. AFVSS. Labs unremarkable. No imaging or ECG
obtained in the ED. Evaluated by psychiatry who recommended continuing Haldol 2 mg nightly for 14 days in addition to clozapine 300 mg nightly and amantadine 100 mg twice daily. Noted that family is opposed to geriatric psychiatry admission.
Impression and plan
Orthostatic hypotension
- Recently diagnosed, started on midodrine 5 mg 3 times daily
- Continue midodrine 3 times daily, hold for SBP >200 mmHg
- Abdominal binder and LE compression stockings.
- Daily orthostatic vitals while here.
Psychosis
Schizophrenia
Bipolar disorder
- Has chronic schizophrenia on haloperidol 2 mg nightly, clozapine 300 mg nightly, amantadine 100 mg twice a day
- He started to have hallucinations just prior to discharge to SNF, when he got to SNF his acceptance was revoked
- Evaluated by psychiatry in the ED, recommended continue home regimen as patient's family resistant to changes in past
- Continue home regimen with PRN Haldol BID and HS
Tardive dyskinesia
- Evaluated by neurology on recent admission
- Recommendation to start deutetrabenazine as outpatient
DEONTE on CPAP
- No known history of pulmonary hypertension
- Utilizes 7 mmHg CPAP nightly
- Use nightly Haldol with refusing sleep
- Non-compliance with CPAP at night causes psychosis during daytime.
- Please use additional haloperidol if needed but ensure he keeps his CPAP on.
Elevated TSH
Chronic hypothyroid
- Patient takes 125 mcg levothyroxine daily; unclear etiology of hypothyroidism
- TSH recently near 8, suspect subclinical hypothyroidism is no obvious signs of thyroid abnormality
- Most recent guidelines state no need to treat for TSH <10 and lack of symptoms, problem WAS addressed on recent hospital stay
- Empirically increased levothyroxine to 150 mcg to assess for improvement of his mental status though do not expect this is contributing
- Will need to repeat TSH in 4 to 6 weeks after dose adjustment
Dyslipidemia
- No ASCVD history, remains on moderate intensity statin
Thromboprophylaxis
- Enoxaparin
Code status
- Full.
Disposition
- SNF.
Anticipated Discharge: 24 - 48 hours
Subjective/Interval History
-
Date of Service: September 01, 2024
Slept well and doing good this morning.
Objective Data
-
Labs:
Laboratory Results
09/01/24
06:00
WBC Pending
Hgb Pending
Hct Pending
Plt Count Pending
Sodium Pending
Potassium Pending
Chloride Pending
Carbon Dioxide Pending
BUN Pending
Creatinine Pending
Glucose Pending
Calcium Pending
Vital Signs:
Vital Signs
Temp Pulse Resp BP Pulse Ox
97.6 F 80 18 165/89 97
09/01/24 07:17 09/01/24 07:17 09/01/24 07:17 09/01/24 07:17 09/01/24 07:17
I&O
08/31/24 09/01/24 09/02/24
06:59 06:59 06:59
Intake Total 850 / 850 980 / 980
Output Total 475 / 475 150 / 150
Balance 375 / 375 830 / 830
Review of Systems
-
History Source: Patient
All other systems: Reviewed and negative
Physical Exam
-
General: No Apparent Distress and Comfortable
HEENT: Normocephalic, Atraumatic, Moist Mucous Membranes and No Ptosis
Respiratory: Clear to Auscultation and Non Labored Respirations
Cardiac: Regular Rhythm and S1/S2; Negative Murmur, Rub or Gallop
GI: Soft, Nontender, Nondistended and Normal Bowel Sounds
Musculoskeletal: No Clubbing, No Cyanosis and No Edema
Skin: Warm and Dry; Negative Rash
Neuro: Awake, Alert, Oriented, Tremors and Nonfocal/Grossly Intact
Psych: Calm
[2024-09-01 09:42] VITALS: BP 135/63; BP 141/73; PULSE 89; O2SAT 97
[2024-09-01 10:30] LABS: Hematocrit 39.1 % (39.0-52.0); Hemoglobin 12.7 g/dL (13.0-18.0); Mean Corp Hgb Conc. 32.5 g/dL (33.0-37.0); Mean Corpuscular Hgb 28.6 pg (27.0-31.0); Mean Corpuscular Volume 88.1 fL (80.0-94.0); Platelet Count 326 10^3/uL (130-400); Red Blood Cell Count 4.44 10^6/uL (4.70-6.10); Red Cell Dist. Width 13.7 % (11.5-14.5); White Blood Cell Count 6.8 10^3/uL (4.8-10.8)
[2024-09-01 10:43] LABS: Blood Urea Nitrogen 18 mg/dl (9-20); Calcium 9.8 mg/dl (8.4-10.2); Carbon Dioxide 25 mmol/L (22-30); Chloride 108 mmol/L (98-107); Estimated Creatinine Clearance 70 ml/min; Glucose 178 mg/dl (70-99); Potassium 4.1 mmol/L (3.5-5.1); Sodium 145 mmol/L (135-145); eGFR > 60.00
--- NOTE | 2024-09-01 11:34 | CM ---
CM reviewed chart, placed call to patients Vera herring- daughter provided brothers email ([email or web address]) to send level two paperwork required for [facility] assessment. Daughter agreeable to additional referrals to be placed, will need MA
accepting facility, hopeful [facility] will accept back once stable. Daughter reports when patient was at SNF, he was not at his baseline. Daughter reports they are hoping to avoid [facility] as
patient has been there in the past. CM will continue to update [facility] on patients progress in hope for return when level two assessment completed. Update to Resident/Physician.
Plan; will email level two paperwork to family for completion, level two to be completed by [facility]
[2024-09-01 15:48] VITALS: BP 154/89
[2024-09-01] MEDS: VITAMIN D3 (cholecalciferol) 50 MCG PO (17:40)
[2024-09-01] MEDS: LOVENOX 40 MG SC (17:41)
[2024-09-01] MEDS: TYLENOL 650 MG PO (17:41)
[2024-09-01] MEDS: LIPITOR 10 MG PO (17:41)
[2024-09-01] MEDS: CLOZARIL 300 MG PO (21:00)
[2024-09-01] MEDS: HALDOL 2 MG PO (21:00)
[2024-09-01 22:34] VITALS: PULSE 68
[2024-09-02 00:07] VITALS: BP 149/86
[2024-09-02] MEDS: SYNTHROID 150 MCG PO (05:07)
[2024-09-02 07:16] VITALS: BP 149/90
[2024-09-02] MEDS: PERCOCET 5/325 1 TABLET PO (07:36)
[2024-09-02] MEDS: ProAmatine 5 MG PO ×2 (07:36→15:58)
[2024-09-02] MEDS: TRICOR 145 MG PO (07:36)
[2024-09-02] MEDS: SYMMETREL 100 MG PO ×2 (07:36→21:45)
[2024-09-02] MEDS: VITAMIN E 400 UNITS PO (07:36)
[2024-09-02] MEDS: FOLVITE 1 MG PO (07:37)
[2024-09-02] MEDS: COLACE 100 MG PO (07:37)
[2024-09-02 09:01] LABS: Blood Urea Nitrogen 17 mg/dl (9-20); Calcium 9.3 mg/dl (8.4-10.2); Carbon Dioxide 25 mmol/L (22-30); Chloride 109 mmol/L (98-107); Estimated Creatinine Clearance 83 ml/min; Glucose 104 mg/dl (70-99); Potassium 4.2 mmol/L (3.5-5.1); Sodium 143 mmol/L (135-145); eGFR > 60.00
--- NOTE | 2024-09-02 10:43 | W.PN.HOSP.TC ---
Addendum entered and electronically signed by Milind Stephenson MD 09/02/24 14:18:
Continue Haldol along with CPAP at bedtime and as needed with naps
Case management continues to look for SNF
MA51 signed, awaiting to hear from the [facility] and state.
Original Note:
Today's Communication/Plan
-
* Please ensure he uses CPAP overnight; can use haloperidol as needed if not compliant.
* Continue psych medications, midodrine, abdominal binder and compressions.
* Ongoing disposition efforts to SNF rehab, pending evaluation by the [facility].
Assessment / Plan
Assessment / Plan
Assessment
Gagandeep Rivera, 69-year-old male, presented to the hospital from [facility] due to altered mental status in the context of underlying psychiatric illness on 08-28-24. Was discharged from [facility] on 08/27/2024. Had hospitalization for
generalized weakness and falls, found to have significant orthostasis and was started on midodrine. Evaluated by neurology for tardive dyskinesia who recommended outpatient deutetrabenazine. Symptomatically was improved concerning orthostatic
hypotension. Was discharged to [facility] for ongoing physical therapy however the facility revoked their acceptance due to ongoing psychiatric illness and hallucinations due to schizophrenia. AFVSS. Labs unremarkable. No imaging or ECG
obtained in the ED. Evaluated by psychiatry who recommended continuing Haldol 2 mg nightly for 14 days in addition to clozapine 300 mg nightly and amantadine 100 mg twice daily. Noted that family is opposed to geriatric psychiatry admission.
Impression and plan
Orthostatic hypotension
- Recently diagnosed, started on midodrine 5 mg 3 times daily
- Continue midodrine 3 times daily, hold for SBP >200 mmHg
- Abdominal binder and LE compression stockings.
- Daily orthostatic vitals while here.
Psychosis
Schizophrenia
Bipolar disorder
- Has chronic schizophrenia on haloperidol 2 mg nightly, clozapine 300 mg nightly, amantadine 100 mg twice a day
- He started to have hallucinations just prior to discharge to SNF, when he got to SNF his acceptance was revoked
- Evaluated by psychiatry in the ED, recommended continue home regimen as patient's family resistant to changes in past
- Continue home regimen with PRN Haldol BID and HS
Tardive dyskinesia
- Evaluated by neurology on recent admission
- Recommendation to start deutetrabenazine as outpatient
DEONTE on CPAP
- No known history of pulmonary hypertension
- Utilizes 7 mmHg CPAP nightly
- Use nightly Haldol with refusing sleep
- Non-compliance with CPAP at night causes psychosis during daytime.
- Please use additional haloperidol if needed but ensure he keeps his CPAP on.
Elevated TSH
Chronic hypothyroid
- Patient takes 125 mcg levothyroxine daily; unclear etiology of hypothyroidism
- TSH recently near 8, suspect subclinical hypothyroidism is no obvious signs of thyroid abnormality
- Most recent guidelines state no need to treat for TSH <10 and lack of symptoms, problem WAS addressed on recent hospital stay
- Empirically increased levothyroxine to 150 mcg to assess for improvement of his mental status though do not expect this is contributing
- Will need to repeat TSH in 4 to 6 weeks after dose adjustment
Dyslipidemia
- No ASCVD history, remains on moderate intensity statin
Thromboprophylaxis
- Enoxaparin
Code status
- Full.
Disposition
- SNF.
- Pending level-two assessment by the [facility].
Anticipated Discharge: 24 - 48 hours
Subjective/Interval History
-
Date of Service: September 02, 2024
Stable. Tolerating CPAP.
Objective Data
-
Labs:
Laboratory Results
09/02/24
07:30
Sodium 143
Potassium 4.2
Chloride 109 H
Carbon Dioxide 25
BUN 17
Creatinine 1.1
Glucose 104 H
Calcium 9.3
Vital Signs:
Vital Signs
Temp Pulse Resp BP Pulse Ox
97.7 F 82 18 149/90 99
09/02/24 07:16 09/02/24 07:16 09/02/24 07:16 09/02/24 07:16 09/02/24 08:00
I&O
09/01/24 09/02/24 09/03/24
06:59 06:59 06:59
Intake Total 980 / 980 720 / 720
Output Total 150 / 150 650 / 650
Balance 830 / 830 70 / 70
Review of Systems
-
History Source: Patient
All other systems: Reviewed and negative
Physical Exam
-
General: No Apparent Distress and Comfortable
HEENT: Normocephalic, Atraumatic, Moist Mucous Membranes and No Ptosis
Respiratory: Clear to Auscultation and Non Labored Respirations
Cardiac: Regular Rhythm and S1/S2; Negative Murmur, Rub or Gallop
GI: Soft, Nontender, Nondistended and Normal Bowel Sounds
Musculoskeletal: No Clubbing, No Cyanosis and No Edema
Skin: Warm and Dry; Negative Rash
Neuro: Awake, Alert, Oriented, Tremors and Nonfocal/Grossly Intact
Psych: Calm
--- NOTE | 2024-09-02 14:25 | CM ---
Chart reviewed and manager case management spoke with patient this am and patient's son, Gagandeep, plan is for skilled placement and patient needs a Level II, plan was to have patient's son sign paperwork however patient states that he could sign, manager case management
discussed with patient's son and all Level II paperwork signed and sent to [facility] today.
Plan; Skilled placement Level II assessment request and paperwork sent to [facility].
[2024-09-02 15:46] VITALS: BP 135/65
[2024-09-02] MEDS: LOVENOX 40 MG SC (17:28)
[2024-09-02] MEDS: VITAMIN D3 (cholecalciferol) 50 MCG PO (17:28)
[2024-09-02] MEDS: TYLENOL 650 MG PO (17:28)
[2024-09-02] MEDS: LIPITOR 10 MG PO (17:28)
[2024-09-02] MEDS: SENOKOT-S 1 TABLET PO (17:30)
[2024-09-02 21:37] VITALS: BP 125/78
[2024-09-02] MEDS: HALDOL 2 MG PO (21:45)
[2024-09-02] MEDS: CLOZARIL 300 MG PO (21:45)
[2024-09-02 22:14] VITALS: PULSE 78
[2024-09-02 23:28] VITALS: BP 153/78
[2024-09-03] VITALS (7 sets, daily range): BP systolic 133–174; BP diastolic 62–84; PULSE 68–89; O2SAT 99
[2024-09-03] MEDS: SYNTHROID 150 MCG PO (05:47)
[2024-09-03] MEDS: PERCOCET 5/325 1 TABLET PO (10:37)
[2024-09-03] MEDS: VITAMIN E 400 UNITS PO (10:37)
[2024-09-03] MEDS: COLACE 100 MG PO (10:37)
[2024-09-03] MEDS: FOLVITE 1 MG PO (10:37)
[2024-09-03] MEDS: TRICOR 145 MG PO (10:39)
[2024-09-03] MEDS: ProAmatine 5 MG PO ×3 (10:39→18:32)
[2024-09-03] MEDS: SYMMETREL 100 MG PO ×2 (10:39→21:41)
--- NOTE | 2024-09-03 11:52 | W.PN.HOSP.TC ---
Addendum entered and electronically signed by Milind Stephenson MD 09/03/24 15:04:
Continue Haldol along with CPAP at bedtime and as needed with naps
Case management continues to look for SNF
MA51 signed, awaiting to hear from the [facility] and state.
Original Note:
Today's Communication/Plan
-
* Please ensure he uses CPAP overnight; can use additional haloperidol if not compliant.
* Continue psych medications and midodrine.
* Needs abdominal binder and compressions during the day.
* Ongoing disposition efforts to SNF rehab, pending evaluation by the [facility].
Assessment / Plan
Assessment / Plan
Assessment
Gagandeep Rivera, 69-year-old male, presented to the hospital from [facility] due to altered mental status in the context of underlying psychiatric illness on 08-28-24. Was discharged from [facility] on 08/27/2024. Had hospitalization for
generalized weakness and falls, found to have significant orthostasis and was started on midodrine. Evaluated by neurology for tardive dyskinesia who recommended outpatient deutetrabenazine. Symptomatically was improved concerning orthostatic
hypotension. Was discharged to [facility] for ongoing physical therapy however the facility revoked their acceptance due to ongoing psychiatric illness and hallucinations due to schizophrenia. AFVSS. Labs unremarkable. No imaging or ECG
obtained in the ED. Evaluated by psychiatry who recommended continuing Haldol 2 mg nightly for 14 days in addition to clozapine 300 mg nightly and amantadine 100 mg twice daily. Noted that family is opposed to geriatric psychiatry admission.
Impression and plan
Orthostatic hypotension
- Recently diagnosed, started on midodrine 5 mg 3 times daily
- Continue midodrine 3 times daily, hold for SBP >200 mmHg
- Abdominal binder and LE compression stockings.
- Daily orthostatic vitals while here.
Psychosis
Schizophrenia
Bipolar disorder
- Has chronic schizophrenia on haloperidol 2 mg nightly, clozapine 300 mg nightly, amantadine 100 mg twice a day
- He started to have hallucinations just prior to discharge to SNF, when he got to SNF his acceptance was revoked
- Evaluated by psychiatry in the ED, recommended continue home regimen as patient's family resistant to changes in past
- Continue home regimen with PRN Haldol BID (HS especially if needed for CPAP compliance).
Tardive dyskinesia
- Evaluated by neurology on recent admission
- Recommendation to start deutetrabenazine as outpatient
DEONTE on CPAP
- No known history of pulmonary hypertension
- Utilizes 7 mmHg CPAP nightly
- Use nightly Haldol with refusing sleep
- Non-compliance with CPAP at night causes psychosis during daytime.
- Please use additional haloperidol if needed but ensure he keeps his CPAP on.
Elevated TSH
Chronic hypothyroid
- Patient takes 125 mcg levothyroxine daily; unclear etiology of hypothyroidism
- TSH recently near 8, suspect subclinical hypothyroidism is no obvious signs of thyroid abnormality
- Most recent guidelines state no need to treat for TSH <10 and lack of symptoms, problem WAS addressed on recent hospital stay
- Empirically increased levothyroxine to 150 mcg to assess for improvement of his mental status though do not expect this is contributing
- Will need to repeat TSH in 4 to 6 weeks after dose adjustment
Dyslipidemia
- No ASCVD history, remains on moderate intensity statin
Thromboprophylaxis
- Enoxaparin
Code status
- Full.
Disposition
- SNF.
- Pending level-two assessment by the county.
Anticipated Discharge: > 48 hours
Subjective/Interval History
-
Date of Service: September 03, 2024
Tolerating CPAP well.
Objective Data
-
Vital Signs:
Vital Signs
Temp Pulse Resp BP Pulse Ox
98.6 F 79 18 147/84 98
09/03/24 07:00 09/03/24 07:00 09/03/24 07:00 09/03/24 07:00 09/03/24 07:00
I&O
09/02/24 09/03/24 09/04/24
06:59 06:59 06:59
Intake Total 720 / 720 960 / 960
Output Total 650 / 650 490 / 490
Balance 70 / 70 470 / 470
Review of Systems
-
History Source: Patient
All other systems: Reviewed and negative
Physical Exam
-
General: No Apparent Distress and Comfortable
HEENT: Normocephalic, Atraumatic, Moist Mucous Membranes and No Ptosis
Respiratory: Clear to Auscultation and Non Labored Respirations
Cardiac: Regular Rhythm and S1/S2; Negative Murmur, Rub or Gallop
GI: Soft, Nontender, Nondistended and Normal Bowel Sounds
Musculoskeletal: No Clubbing, No Cyanosis and No Edema
Skin: Warm and Dry; Negative Rash
Neuro: Awake, Alert, Oriented, Tremors and Nonfocal/Grossly Intact
Psych: Calm
--- NOTE | 2024-09-03 15:08 | CM ---
CM reviewed chart, level two assessment faxed to [facility], scheduled appointment for 09/07. CM will continue to follow for all discharge planning needs.
Plan; Level Two assessment scheduled for next Friday (09/07), will need SNF/AUTH
[2024-09-03] MEDS: LOVENOX 40 MG SC (18:31)
[2024-09-03] MEDS: LIPITOR 10 MG PO (18:32)
[2024-09-03] MEDS: VITAMIN D3 (cholecalciferol) 50 MCG PO (18:32)
[2024-09-03] MEDS: TYLENOL 650 MG PO (18:32)
[2024-09-03] MEDS: MIRALAX 17 GRAMS PO (18:41)
[2024-09-03] MEDS: HALDOL 2 MG PO (21:41)
[2024-09-03] MEDS: CLOZARIL 300 MG PO (21:41)
[2024-09-04] MEDS: SYNTHROID 150 MCG PO (05:18)
[2024-09-04 07:00] VITALS: BP 165/101
[2024-09-04] MEDS: VITAMIN E 400 UNITS PO (10:39)
[2024-09-04] MEDS: TRICOR 145 MG PO (10:39)
[2024-09-04] MEDS: SYMMETREL 100 MG PO ×2 (10:39→21:05)
[2024-09-04] MEDS: PERCOCET 5/325 1 TABLET PO (10:39)
[2024-09-04] MEDS: ProAmatine 5 MG PO ×3 (10:40→18:21)
[2024-09-04] MEDS: FOLVITE 1 MG PO (10:40)
[2024-09-04] MEDS: COLACE 100 MG PO (10:40)
--- NOTE | 2024-09-04 11:07 | W.PN.HOSP.TC ---
Today's Communication/Plan
-
Assessment / Plan
Assessment / Plan
NAD, sitting on bedside edge eating breakfast
Scleral Anicteric
MMM
No JVD
CTABL
RRR, S1/S2
Soft, NT, ND, BS+
Warm, Dry
Calm
Orthostatic hypotension
-Continue midodrine
-Abdominal binder and lower extremity compression stocking
Psychosis
Schizophrenia
Bipolar disorder
- Haloperidol 2 mg nightly, clozapine 300 mg nightly, amantadine 100 mg twice a day
- Continue home regimen with PRN Haldol BID (HS especially if needed for CPAP compliance).
Tardive dyskinesia
- Evaluated by neurology on recent admission
- Recommendation to start deutetrabenazine as outpatient
DEONTE on CPAP
-Use haldol prior to CPAP HS/PRN
Chronic hypothyroid
-Continue 150mcg of levothyroxine
- Patient takes 125 mcg levothyroxine daily; unclear etiology of hypothyroidism
- Will need to repeat TSH in 4 to 6 weeks after dose adjustment
Dyslipidemia
-moderate intensity statin
Disposition
- SNF.
- Pending level-two assessment by the [facility].
He started to have hallucinations just prior to discharge to SNF, when he got to SNF his acceptance was revoked
Anticipated Discharge: > 48 hours
Subjective/Interval History
-
Date of Service: September 04, 2024
Seen and examined. No new complaints. No acute overnight events.
Objective Data
-
Vital Signs:
Vital Signs
Temp Pulse Resp BP Pulse Ox
97.9 F 78 18 165/101 98
09/04/24 07:00 09/04/24 07:00 09/04/24 07:00 09/04/24 07:00 09/04/24 07:00
I&O
09/03/24 09/04/24 09/05/24
06:59 06:59 06:59
Intake Total 960 / 960 0 / 0
Output Total 490 / 490
Balance 470 / 470 0 0
[2024-09-04] MEDS: SENOKOT-S 1 TABLET PO ×2 (13:00→21:05)
[2024-09-04 15:00] VITALS: BP 106/64; BP 109/54; BP 111/71; PULSE 72; PULSE 82; PULSE 84
[2024-09-04] MEDS: MIRALAX 17 GRAMS PO (18:19)
[2024-09-04] MEDS: LOVENOX 40 MG SC (18:20)
[2024-09-04] MEDS: TYLENOL 650 MG PO (18:21)
[2024-09-04] MEDS: LIPITOR 10 MG PO (18:21)
[2024-09-04] MEDS: VITAMIN D3 (cholecalciferol) 50 MCG PO (18:21)
[2024-09-04] MEDS: CLOZARIL 300 MG PO (21:05)
[2024-09-04] MEDS: HALDOL 2 MG PO (21:05)
[2024-09-04 22:55] VITALS: PULSE 80
[2024-09-04 23:44] VITALS: BP 139/82
[2024-09-05] MEDS: SYNTHROID 150 MCG PO (05:55)
--- NOTE | 2024-09-05 06:24 | PTCARENOTE ---
Pt without BM despite PRN medications administered. Pt refuses suppository to assist with BM.
[2024-09-05 07:15] VITALS: BP 113/63; BP 127/92; BP 139/93; PULSE 79; PULSE 83; PULSE 95
--- NOTE | 2024-09-05 08:36 | PTCARENOTE ---
ORTHOSTATIC BLOOD PRESSURE: Patient sat and stood for 4 minutes before taking blood pressure. Patient struggled standing for last two minutes, stating his back was hurting.
[2024-09-05] MEDS: COLACE 100 MG PO (09:20)
[2024-09-05] MEDS: SYMMETREL 100 MG PO ×2 (09:20→21:08)
[2024-09-05] MEDS: VITAMIN E 400 UNITS PO (09:20)
[2024-09-05] MEDS: PERCOCET 5/325 1 TABLET PO (09:20)
[2024-09-05] MEDS: TRICOR 145 MG PO (09:20)
[2024-09-05] MEDS: ProAmatine 5 MG PO ×3 (09:21→16:54)
[2024-09-05] MEDS: FOLVITE 1 MG PO (09:21)
--- NOTE | 2024-09-05 11:42 | W.PN.HOSP.TC ---
Today's Communication/Plan
-
Awaiting for [facility] assessment
MA 51 informed filled and signed
Pending SNF once the counts include 234 beds at the [facility] has assessed him
Assessment / Plan
Assessment / Plan
NAD, sitting on bedside edge eating breakfast
Scleral Anicteric
MMM
No JVD
CTABL
RRR, S1/S2
Soft, NT, ND, BS+
Warm, Dry
Calm
Orthostatic hypotension
-Continue midodrine
-Abdominal binder and lower extremity compression stocking
Psychosis
Schizophrenia
Bipolar disorder
- Haloperidol 2 mg nightly, clozapine 300 mg nightly, amantadine 100 mg twice a day
- Continue home regimen with PRN Haldol BID (HS especially if needed for CPAP compliance).
Tardive dyskinesia
- Evaluated by neurology on recent admission
- Recommendation to start deutetrabenazine as outpatient
DEONTE on CPAP
-Use haldol prior to CPAP HS/PRN
Chronic hypothyroid
-Continue 150mcg of levothyroxine
- Patient takes 125 mcg levothyroxine daily; unclear etiology of hypothyroidism
- Will need to repeat TSH in 4 to 6 weeks after dose adjustment
Dyslipidemia
-moderate intensity statin
Disposition
- SNF.
- Pending level-two assessment by the counts include 234 beds at the [facility].
He started to have hallucinations just prior to discharge to SNF, when he got to SNF his acceptance was revoked
Anticipated Discharge: 24 - 48 hours
Subjective/Interval History
-
Date of Service: September 05, 2024
Seen and examined. No new complaints. No acute overnight events.
Son at bedside
Objective Data
-
Vital Signs:
Vital Signs
Temp Pulse Resp BP Pulse Ox
98.2 F 79 20 139/93 98
09/05/24 07:15 09/05/24 07:15 09/05/24 07:15 09/05/24 09:21 09/05/24 07:15
I&O
09/04/24 09/05/24 09/06/24
06:59 06:59 06:59
Intake Total 0 / 0 660 / 660
Output Total 300 / 300
Balance 0 / 0 360 / 360
[2024-09-05 15:00] VITALS: BP 135/68
[2024-09-05] MEDS: LOVENOX 40 MG SC (16:53)
[2024-09-05] MEDS: LIPITOR 10 MG PO (16:53)
[2024-09-05] MEDS: TYLENOL 650 MG PO (16:54)
[2024-09-05] MEDS: VITAMIN D3 (cholecalciferol) 50 MCG PO (16:55)
[2024-09-05] MEDS: HALDOL 2 MG PO (21:08)
[2024-09-05] MEDS: CLOZARIL 300 MG PO (21:08)
[2024-09-06 00:16] VITALS: BP 156/79
[2024-09-06] MEDS: SYNTHROID 150 MCG PO (06:16)
[2024-09-06 07:00] VITALS: BP 119/93; BP 161/92; BP 162/99; PULSE 82; PULSE 96; PULSE 97
[2024-09-06] MEDS: ProAmatine 5 MG PO ×3 (08:47→17:19)
[2024-09-06] MEDS: PERCOCET 5/325 1 TABLET PO (08:48)
[2024-09-06] MEDS: FOLVITE 1 MG PO (08:48)
[2024-09-06] MEDS: SYMMETREL 100 MG PO ×2 (08:48→21:37)
[2024-09-06] MEDS: VITAMIN E 400 UNITS PO (08:49)
[2024-09-06] MEDS: COLACE 100 MG PO (08:49)
[2024-09-06] MEDS: TRICOR 145 MG PO (08:49)
[2024-09-06 10:12] VITALS: BP 126/73; BP 129/101; BP 182/97
--- NOTE | 2024-09-06 11:09 | CM ---
CM reviewed chart, patient seen in chair, discussed level two assessment scheduled for tomorrow, 09/07 at 9:30 a.m. At this time no accepting facility, will place additional referrals, will review with Harry Martinez. CM will continue to follow for
all discharge planning needs.
Plan; level two assessment tomorrow 09/07 9:30 a.m.
--- NOTE | 2024-09-06 13:55 | W.PN.HOSP.TC ---
Addendum entered and electronically signed by Anoop Stephenson MD 09/06/24 15:47:
I saw and evaluated the patient. I reviewed the resident�s note and agree with findings and plan as documented in the resident�s note.
Orthostatic hypotension -improved at this point. Continue midodrine/compression therapy
Psychosis/history of schizophrenia -patient was having behavioral problems now controlled with current regimen of haloperidol/clozapine/amantadine. Patient is waiting for level 2 clearance for discharge
DEONTE on CPAP -reported agitation at times when patient is noncompliant. Developing mild CO2 narcosis likely explains this case
Continue other care.
Discharge to snf once approved
Original Note:
Today's Communication/Plan
-
* Please ensure he uses CPAP overnight; can use additional haloperidol if not compliant.
* Continue psych medications and midodrine.
* Needs abdominal binder and compressions during the day.
* Ongoing disposition efforts to SNF rehab, pending evaluation by the county, which should be tomorrow.
Assessment / Plan
Assessment / Plan
Assessment
Gagandeep Rivera, 69-year-old male, presented to the hospital from [facility] due to altered mental status in the context of underlying psychiatric illness on 08-28-24. Was discharged from [facility] on 08/27/2024. Had hospitalization for
generalized weakness and falls, found to have significant orthostasis and was started on midodrine. Evaluated by neurology for tardive dyskinesia who recommended outpatient deutetrabenazine. Symptomatically was improved concerning orthostatic
hypotension. Was discharged to [facility] for ongoing physical therapy however the facility revoked their acceptance due to ongoing psychiatric illness and hallucinations due to schizophrenia. AFVSS. Labs unremarkable. No imaging or ECG
obtained in the ED. Evaluated by psychiatry who recommended continuing Haldol 2 mg nightly for 14 days in addition to clozapine 300 mg nightly and amantadine 100 mg twice daily. Noted that family is opposed to geriatric psychiatry admission.
Impression and plan
Orthostatic hypotension
- Recently diagnosed, started on midodrine 5 mg 3 times daily
- Continue midodrine 3 times daily, hold for SBP >200 mmHg
- Abdominal binder and LE compression stockings.
- Daily orthostatic vitals while here.
Psychosis
Schizophrenia
Bipolar disorder
- Has chronic schizophrenia on haloperidol 2 mg nightly, clozapine 300 mg nightly, amantadine 100 mg twice a day
- He started to have hallucinations just prior to discharge to SNF, when he got to SNF his acceptance was revoked
- Evaluated by psychiatry in the ED, recommended continue home regimen as patient's family resistant to changes in past
- Continue home regimen with PRN Haldol BID (HS especially if needed for CPAP compliance).
Tardive dyskinesia
- Evaluated by neurology on recent admission
- Recommendation to start deutetrabenazine as outpatient
DEONTE on CPAP
- No known history of pulmonary hypertension
- Utilizes 7 mmHg CPAP nightly
- Use nightly Haldol with refusing sleep
- Non-compliance with CPAP at night causes psychosis during daytime.
- Please use additional haloperidol if needed but ensure he keeps his CPAP on.
Elevated TSH
Chronic hypothyroid
- Patient takes 125 mcg levothyroxine daily; unclear etiology of hypothyroidism
- TSH recently near 8, suspect subclinical hypothyroidism is no obvious signs of thyroid abnormality
- Most recent guidelines state no need to treat for TSH <10 and lack of symptoms, problem WAS addressed on recent hospital stay
- Empirically increased levothyroxine to 150 mcg to assess for improvement of his mental status though do not expect this is contributing
- Will need to repeat TSH in 4 to 6 weeks after dose adjustment
Dyslipidemia
- No ASCVD history, remains on moderate intensity statin
Thromboprophylaxis
- Enoxaparin
Code status
- Full.
Disposition
- SNF.
- Pending level-two assessment by the [facility]; hopefully on 09-07-24.
Anticipated Discharge: 24 - 48 hours
Subjective/Interval History
-
Date of Service: September 06, 2024
Stable overnight.
Objective Data
-
Vital Signs:
Vital Signs
Temp Pulse Resp BP Pulse Ox
97.6 F 80 20 120/70 97
09/06/24 07:00 09/06/24 13:38 09/06/24 07:00 09/06/24 13:38 09/06/24 07:15
I&O
09/05/24 09/06/24 09/07/24
06:59 06:59 06:59
Intake Total 660 / 660 2199
Output Total 300 / 300
Balance 360 / 360 2199
Review of Systems
-
History Source: Patient
All other systems: Reviewed and negative
Physical Exam
-
General: No Apparent Distress and Comfortable
HEENT: Normocephalic, Atraumatic, Moist Mucous Membranes and No Ptosis
Respiratory: Clear to Auscultation and Non Labored Respirations
Cardiac: Regular Rhythm and S1/S2; Negative Murmur, Rub or Gallop
GI: Soft, Nontender, Nondistended and Normal Bowel Sounds
Musculoskeletal: No Clubbing, No Cyanosis and No Edema
Skin: Warm and Dry; Negative Rash
Neuro: Awake, Alert, Oriented, Tremors and Nonfocal/Grossly Intact
Psych: Calm
[2024-09-06 15:00] VITALS: BP 163/77
[2024-09-06] MEDS: LIPITOR 10 MG PO (17:18)
[2024-09-06] MEDS: TYLENOL 650 MG PO (17:19)
[2024-09-06] MEDS: VITAMIN D3 (cholecalciferol) 50 MCG PO (17:19)
[2024-09-06] MEDS: LOVENOX 40 MG SC (17:19)
[2024-09-06] MEDS: CLOZARIL 300 MG PO (21:37)
[2024-09-06] MEDS: HALDOL 2 MG PO (21:37)
[2024-09-06 23:30] VITALS: BP 151/88
[2024-09-07] MEDS: SYNTHROID 150 MCG PO (05:17)
[2024-09-07] MEDS: ProAmatine 5 MG PO ×3 (07:37→17:08)
[2024-09-07] MEDS: FOLVITE 1 MG PO (07:37)
[2024-09-07] MEDS: TRICOR 145 MG PO (07:37)
[2024-09-07] MEDS: COLACE 100 MG PO (07:37)
[2024-09-07] MEDS: PERCOCET 5/325 1 TABLET PO (07:37)
[2024-09-07] MEDS: SYMMETREL 100 MG PO ×2 (07:37→20:21)
[2024-09-07] MEDS: VITAMIN E 400 UNITS PO (07:37)
[2024-09-07 07:56] VITALS: BP 173/95
--- NOTE | 2024-09-07 08:57 | W.PN.HOSP.TC ---
Addendum entered and electronically signed by Anoop Stephenson MD 09/07/24 13:55:
I saw and evaluated the patient. I reviewed the resident�s note and agree with findings and plan as documented in the resident�s note.
Orthostatic hypotension -improved at this point. Continue midodrine/compression therapy
Psychosis/history of schizophrenia -patient was having behavioral problems now controlled with current regimen of haloperidol/clozapine/amantadine. Patient is waiting for level 2 clearance for discharge
DEONTE on CPAP -reported agitation at times when patient is noncompliant. Developing mild CO2 narcosis likely explains this case
Continue other care.
Discharge to snf once approved
Original Note:
Today's Communication/Plan
-
* Please ensure he uses CPAP overnight; can use additional haloperidol if not compliant.
* Continue psych medications and midodrine.
* Needs abdominal binder and compressions during the day.
* Ongoing disposition efforts to SNF rehab, pending evaluation by the county, which should be today.
Assessment / Plan
Assessment / Plan
Assessment
Gagandeep Rivera, 69-year-old male, presented to the hospital from [facility] due to altered mental status in the context of underlying psychiatric illness on 08-28-24. Was discharged from [facility] on 08/27/2024. Had hospitalization for
generalized weakness and falls, found to have significant orthostasis and was started on midodrine. Evaluated by neurology for tardive dyskinesia who recommended outpatient deutetrabenazine. Symptomatically was improved concerning orthostatic
hypotension. Was discharged to [facility] for ongoing physical therapy however the facility revoked their acceptance due to ongoing psychiatric illness and hallucinations due to schizophrenia. AFVSS. Labs unremarkable. No imaging or ECG
obtained in the ED. Evaluated by psychiatry who recommended continuing Haldol 2 mg nightly for 14 days in addition to clozapine 300 mg nightly and amantadine 100 mg twice daily. Noted that family is opposed to geriatric psychiatry admission.
Impression and plan
Orthostatic hypotension
- Recently diagnosed, started on midodrine 5 mg 3 times daily
- Continue midodrine 3 times daily, hold for SBP >200 mmHg
- Abdominal binder and LE compression stockings.
- Daily orthostatic vitals while here.
Psychosis
Schizophrenia
Bipolar disorder
- Has chronic schizophrenia on haloperidol 2 mg nightly, clozapine 300 mg nightly, amantadine 100 mg twice a day
- He started to have hallucinations just prior to discharge to SNF, when he got to SNF his acceptance was revoked
- Evaluated by psychiatry in the ED, recommended continue home regimen as patient's family resistant to changes in past
- Continue home regimen with PRN Haldol BID (HS especially if needed for CPAP compliance).
Tardive dyskinesia
- Evaluated by neurology on recent admission
- Recommendation to start deutetrabenazine as outpatient
DEONTE on CPAP
- No known history of pulmonary hypertension
- Utilizes 7 mmHg CPAP nightly
- Use nightly Haldol with refusing sleep
- Non-compliance with CPAP at night causes psychosis during daytime.
- Please use additional haloperidol if needed but ensure he keeps his CPAP on.
Elevated TSH
Chronic hypothyroid
- Patient takes 125 mcg levothyroxine daily; unclear etiology of hypothyroidism
- TSH recently near 8, suspect subclinical hypothyroidism is no obvious signs of thyroid abnormality
- Most recent guidelines state no need to treat for TSH <10 and lack of symptoms, problem WAS addressed on recent hospital stay
- Empirically increased levothyroxine to 150 mcg to assess for improvement of his mental status though do not expect this is contributing
- Will need to repeat TSH in 4 to 6 weeks after dose adjustment
Dyslipidemia
- No ASCVD history, remains on moderate intensity statin
Thromboprophylaxis
- Enoxaparin
Code status
- Full.
Disposition
- SNF.
- Pending level-two assessment by the [facility]; hopefully on 09-07-24.
Anticipated Discharge: 24 - 48 hours
Subjective/Interval History
-
Date of Service: September 07, 2024
Tolerating CPAP well and doing good.
Objective Data
-
Vital Signs:
Vital Signs
Temp Pulse Resp BP Pulse Ox
97.9 F 85 20 173/95 99
09/07/24 07:56 09/07/24 07:56 09/07/24 07:56 09/07/24 07:56 09/07/24 07:56
I&O
09/06/24 09/07/24 09/08/24
06:59 06:59 06:59
Intake Total 2200 / 2200 1200 / 1200
Output Total 1450 / 1450
Balance 2200 / 2200 -250 / -250
Review of Systems
-
History Source: Patient
All other systems: Reviewed and negative
Physical Exam
-
General: No Apparent Distress and Comfortable
HEENT: Normocephalic, Atraumatic, Moist Mucous Membranes and No Ptosis
Respiratory: Clear to Auscultation and Non Labored Respirations
Cardiac: Regular Rhythm and S1/S2; Negative Murmur, Rub or Gallop
GI: Soft, Nontender, Nondistended and Normal Bowel Sounds
Musculoskeletal: No Clubbing, No Cyanosis and No Edema
Skin: Warm and Dry; Negative Rash
Neuro: Awake, Alert, Oriented, Tremors and Nonfocal/Grossly Intact
Psych: Calm
[2024-09-07 12:45] VITALS: BP 141/67
--- NOTE | 2024-09-07 12:55 | CM ---
CM reviewed chart, level two assessment by [facility] scheduled for today. Liaison from [facility] in to see patient, will send clinicals to faciltiy regarding potential ability to accept. CM spoke with patients daughter, per daughter, her
grandmother (patients mother) is going to [facility] for potential LTC, family is extremely hopeful patient will be able to return to . CM will await outcome out level two assessment. CM will continue to follow for all discharge planning
needs.
Plan; await outcome of level 2, await accepting facility, will require auth.
[2024-09-07 15:35] VITALS: BP 144/78
[2024-09-07] MEDS: TYLENOL 650 MG PO (17:08)
[2024-09-07] MEDS: VITAMIN D3 (cholecalciferol) 50 MCG PO (17:08)
[2024-09-07] MEDS: LIPITOR 10 MG PO (17:08)
[2024-09-07] MEDS: LOVENOX 40 MG SC (17:09)
[2024-09-07 18:33] VITALS: BP 104/79; BP 126/64; BP 165/89; PULSE 75; PULSE 84; PULSE 88
[2024-09-07] MEDS: HALDOL 2 MG PO (22:05)
[2024-09-07] MEDS: CLOZARIL 300 MG PO (22:05)
[2024-09-07 23:49] VITALS: BP 179/98
[2024-09-08 04:42] VITALS: BMI 33.1
[2024-09-08] MEDS: SYNTHROID 150 MCG PO (06:36)
[2024-09-08 07:30] VITALS: BP 164/98
[2024-09-08] MEDS: SYMMETREL 100 MG PO ×2 (07:48→20:45)
[2024-09-08] MEDS: TRICOR 145 MG PO (07:48)
[2024-09-08] MEDS: PERCOCET 5/325 1 TABLET PO (07:48)
[2024-09-08] MEDS: FOLVITE 1 MG PO (07:48)
[2024-09-08] MEDS: COLACE 100 MG PO (07:48)
[2024-09-08] MEDS: VITAMIN E 400 UNITS PO (07:48)
[2024-09-08] MEDS: ProAmatine PO (07:54)
[2024-09-08 09:26] LABS: Blood Urea Nitrogen 16 mg/dl (9-20); Calcium 9.4 mg/dl (8.4-10.2); Carbon Dioxide 22 mmol/L (22-30); Chloride 110 mmol/L (98-107); Estimated Creatinine Clearance 92 ml/min; Glucose 97 mg/dl (70-99); Potassium 4.3 mmol/L (3.5-5.1); Sodium 143 mmol/L (135-145); eGFR > 60.00
[2024-09-08 10:05] VITALS: BP 111/59; BP 111/61; PULSE 98; O2SAT 98
--- NOTE | 2024-09-08 12:09 | W.PN.HOSP.TC ---
Today's Communication/Plan
-
* Please ensure he uses CPAP overnight; can use additional haloperidol if not compliant.
* Continue psych medications and midodrine.
* Needs abdominal binder and compressions during the day.
* Ongoing disposition efforts to SNF rehab, pending results of the evaluation by the county.
Assessment / Plan
Assessment / Plan
Assessment
Gagandeep Rivera, 69-year-old male, presented to the hospital from [facility] due to altered mental status in the context of underlying psychiatric illness on 08-28-24. Was discharged from [facility] on 08/27/2024. Had hospitalization for
generalized weakness and falls, found to have significant orthostasis and was started on midodrine. Evaluated by neurology for tardive dyskinesia who recommended outpatient deutetrabenazine. Symptomatically was improved concerning orthostatic
hypotension. Was discharged to [facility] for ongoing physical therapy however the facility revoked their acceptance due to ongoing psychiatric illness and hallucinations due to schizophrenia. AFVSS. Labs unremarkable. No imaging or ECG
obtained in the ED. Evaluated by psychiatry who recommended continuing Haldol 2 mg nightly for 14 days in addition to clozapine 300 mg nightly and amantadine 100 mg twice daily. Noted that family is opposed to geriatric psychiatry admission.
Impression and plan
Orthostatic hypotension
- Recently diagnosed, started on midodrine 5 mg 3 times daily
- Continue midodrine 3 times daily, hold for SBP >200 mmHg
- Abdominal binder and LE compression stockings.
- Daily orthostatic vitals while here.
Psychosis
Schizophrenia
Bipolar disorder
- Has chronic schizophrenia on haloperidol 2 mg nightly, clozapine 300 mg nightly, amantadine 100 mg twice a day
- He started to have hallucinations just prior to discharge to SNF, when he got to SNF his acceptance was revoked
- Evaluated by psychiatry in the ED, recommended continue home regimen as patient's family resistant to changes in past
- Continue home regimen with PRN Haldol BID (HS especially if needed for CPAP compliance).
Tardive dyskinesia
- Evaluated by neurology on recent admission
- Recommendation to start deutetrabenazine as outpatient
DEONTE on CPAP
- No known history of pulmonary hypertension
- Utilizes 7 mmHg CPAP nightly
- Use nightly Haldol with refusing sleep
- Non-compliance with CPAP at night causes psychosis during daytime.
- Please use additional haloperidol if needed but ensure he keeps his CPAP on.
Elevated TSH
Chronic hypothyroid
- Patient takes 125 mcg levothyroxine daily; unclear etiology of hypothyroidism
- TSH recently near 8, suspect subclinical hypothyroidism is no obvious signs of thyroid abnormality
- Most recent guidelines state no need to treat for TSH <10 and lack of symptoms, problem WAS addressed on recent hospital stay
- Empirically increased levothyroxine to 150 mcg to assess for improvement of his mental status though do not expect this is contributing
- Will need to repeat TSH in 4 to 6 weeks after dose adjustment
Dyslipidemia
- No ASCVD history, remains on moderate intensity statin
Thromboprophylaxis
- Enoxaparin
Code status
- Full.
Disposition
- SNF.
- Pending results of level-two assessment by the [facility].
Anticipated Discharge: 24 - 48 hours
Subjective/Interval History
-
Date of Service: September 08, 2024
Tolerating CPAP. Doing well.
Objective Data
-
Labs:
Laboratory Results
09/08/24
07:49
Sodium 143
Potassium 4.3
Chloride 110 H
Carbon Dioxide 22
BUN 16
Creatinine 1.0
Glucose 97
Calcium 9.4
Vital Signs:
Vital Signs
Temp Pulse Resp BP Pulse Ox
97.6 F 81 24 164/98 99
09/08/24 07:30 09/08/24 07:30 09/08/24 07:30 09/08/24 07:54 09/08/24 07:30
I&O
09/07/24 09/08/24 09/09/24
06:59 06:59 06:59
Intake Total 1200 / 1200 960 / 960
Output Total 1450 / 1450 1575 / 1575
Balance -250 / -250 -615 / -615
Review of Systems
-
History Source: Patient
All other systems: Reviewed and negative
Physical Exam
-
General: No Apparent Distress and Comfortable
HEENT: Normocephalic, Atraumatic, Moist Mucous Membranes and No Ptosis
Respiratory: Clear to Auscultation and Non Labored Respirations
Cardiac: Regular Rhythm and S1/S2; Negative Murmur, Rub or Gallop
GI: Soft, Nontender, Nondistended and Normal Bowel Sounds
Musculoskeletal: No Clubbing, No Cyanosis and No Edema
Skin: Warm and Dry; Negative Rash
Neuro: Awake, Alert, Oriented, Tremors and Nonfocal/Grossly Intact
Psych: Calm
[2024-09-08] MEDS: ProAmatine 5 MG PO ×2 (13:30→17:42)
[2024-09-08 15:00] VITALS: BP 137/76
--- NOTE | 2024-09-08 15:47 | CM ---
Addendum entered by Ping Rivera 09/08/24 15:55:
Please call [phone] to initiate authorization, fax clinicals to [phone] for review.
Original Note:
CM reviewed chart, level two assessment received by [facility], determining patient is eligible for nursing facility. Update to Catalina, liaison at [facility], able to offer patient a bed. PT will see patient in a.m. for updated notes. [facility]
Michelle , Dr. Goldberg: [phone], will require auth through [facility]. Daughter Vera updated, requesting call with update once auth received. CM will continue to follow for all discharge planning needs.
Plan; Level two received, submit for auth tomorrow after PT evals to [facility] SNF
[2024-09-08] MEDS: TYLENOL 650 MG PO (17:42)
[2024-09-08] MEDS: LOVENOX 40 MG SC (17:42)
[2024-09-08] MEDS: VITAMIN D3 (cholecalciferol) 50 MCG PO (17:42)
[2024-09-08] MEDS: LIPITOR 10 MG PO (17:42)
[2024-09-08] MEDS: CLOZARIL 300 MG PO (20:45)
[2024-09-08] MEDS: HALDOL 2 MG PO (20:46)
[2024-09-08 21:30] VITALS: PULSE 73
[2024-09-08 23:52] VITALS: BP 187/102
[2024-09-09 06:24] VITALS: BMI 33.5
[2024-09-09] MEDS: SYNTHROID 150 MCG PO (06:47)
[2024-09-09 07:30] VITALS: BP 156/91; BP 159/95; BP 92/67; PULSE 84; PULSE 91; PULSE 98
[2024-09-09 08:10] VITALS: BP 156/91; BP 159/95; BP 92/67; PULSE 84; PULSE 91; PULSE 98
[2024-09-09] MEDS: SYMMETREL 100 MG PO ×2 (08:20→19:46)
[2024-09-09] MEDS: ProAmatine 5 MG PO ×2 (08:20→14:04)
[2024-09-09] MEDS: FOLVITE 1 MG PO (08:20)
[2024-09-09] MEDS: PERCOCET 5/325 1 TABLET PO (08:20)
[2024-09-09] MEDS: TRICOR 145 MG PO (08:21)
[2024-09-09] MEDS: VITAMIN E 400 UNITS PO (08:21)
[2024-09-09] MEDS: COLACE 100 MG PO (08:22)
--- NOTE | 2024-09-09 08:34 | W.PN.HOSP.TC ---
Addendum entered and electronically signed by Anoop Stephenson MD 09/09/24 13:58:
I saw and evaluated the patient. I reviewed the resident�s note and agree with findings and plan as documented in the resident�s note.
No medical complaints today
ongoing placement issues
Patient got approved for level 2 placement
Original Note:
Today's Communication/Plan
-
* Please ensure he uses CPAP overnight; can use additional haloperidol if not compliant.
* Continue psych medications and midodrine.
* Needs abdominal binder and compressions during the day.
* Ongoing disposition efforts to SNF rehab; received completed level two assessment by the [facility].
Assessment / Plan
Assessment / Plan
Assessment
Gagandeep Rivera, 69-year-old male, presented to the hospital from [facility] due to altered mental status in the context of underlying psychiatric illness on 08-28-24. Was discharged from [facility] on 08/27/2024. Had hospitalization for
generalized weakness and falls, found to have significant orthostasis and was started on midodrine. Evaluated by neurology for tardive dyskinesia who recommended outpatient deutetrabenazine. Symptomatically was improved concerning orthostatic
hypotension. Was discharged to [facility] for ongoing physical therapy however the facility revoked their acceptance due to ongoing psychiatric illness and hallucinations due to schizophrenia. AFVSS. Labs unremarkable. No imaging or ECG
obtained in the ED. Evaluated by psychiatry who recommended continuing Haldol 2 mg nightly for 14 days in addition to clozapine 300 mg nightly and amantadine 100 mg twice daily. Noted that family is opposed to geriatric psychiatry admission.
Impression and plan
Orthostatic hypotension
- Recently diagnosed, started on midodrine 5 mg 3 times daily
- Continue midodrine 3 times daily, hold for SBP >200 mmHg
- Abdominal binder and LE compression stockings.
- Daily orthostatic vitals while here.
Psychosis
Schizophrenia
Bipolar disorder
- Has chronic schizophrenia on haloperidol 2 mg nightly, clozapine 300 mg nightly, amantadine 100 mg twice a day
- He started to have hallucinations just prior to discharge to SNF, when he got to SNF his acceptance was revoked
- Evaluated by psychiatry in the ED, recommended continue home regimen as patient's family resistant to changes in past
- Continue home regimen with PRN Haldol BID (HS especially if needed for CPAP compliance).
Tardive dyskinesia
- Evaluated by neurology on recent admission
- Recommendation to start deutetrabenazine as outpatient
DEONTE on CPAP
- No known history of pulmonary hypertension
- Utilizes 7 mmHg CPAP nightly
- Use nightly Haldol with refusing sleep
- Non-compliance with CPAP at night causes psychosis during daytime.
- Please use additional haloperidol if needed but ensure he keeps his CPAP on.
Elevated TSH
Chronic hypothyroid
- Patient takes 125 mcg levothyroxine daily; unclear etiology of hypothyroidism
- TSH recently near 8, suspect subclinical hypothyroidism is no obvious signs of thyroid abnormality
- Most recent guidelines state no need to treat for TSH <10 and lack of symptoms, problem WAS addressed on recent hospital stay
- Empirically increased levothyroxine to 150 mcg to assess for improvement of his mental status though do not expect this is contributing
- Will need to repeat TSH in 4 to 6 weeks after dose adjustment
Dyslipidemia
- No ASCVD history, remains on moderate intensity statin.
Chronic constipation
- Will schedule his prns; no bowel movement in a few days.
Thromboprophylaxis
- Enoxaparin
Code status
- Full.
Disposition
- SNF.
- Received results of level-two assessment by the [facility].
- Prio-authorization to SNF pending.
Anticipated Discharge: 24 - 48 hours
Subjective/Interval History
-
Date of Service: September 09, 2024
Stable overnight. Using CPAP.
Objective Data
-
Vital Signs:
Vital Signs
Temp Pulse Resp BP Pulse Ox
98.4 F 98 18 92/67 98
09/08/24 23:52 09/09/24 08:20 09/08/24 23:52 09/09/24 08:20 09/08/24 23:52
I&O
09/08/24 09/09/24 09/10/24
06:59 06:59 06:59
Intake Total 960 / 960 600 / 600
Output Total 1575 / 1575 800 / 800
Balance -615 / -615 -200 / -200
Review of Systems
-
History Source: Patient
All other systems: Reviewed and negative
Physical Exam
-
General: No Apparent Distress and Comfortable
HEENT: Normocephalic, Atraumatic, Moist Mucous Membranes and No Ptosis
Respiratory: Clear to Auscultation and Non Labored Respirations
Cardiac: Regular Rhythm and S1/S2; Negative Murmur, Rub or Gallop
GI: Soft, Nontender, Nondistended and Normal Bowel Sounds
Musculoskeletal: No Clubbing, No Cyanosis and No Edema
Skin: Warm and Dry; Negative Rash
Neuro: Awake, Alert, Oriented, Tremors and Nonfocal/Grossly Intact
Psych: Calm
[2024-09-09] MEDS: SENOKOT-S 1 TABLET PO ×2 (09:47→19:46)
[2024-09-09] MEDS: MIRALAX 17 GRAMS PO (09:48)
--- NOTE | 2024-09-09 09:54 | CM ---
Addendum entered by Catalina Faye 09/09/24 15:32:
Auth received 09/09/24 to 09/22/24 LCD 09/22, [id number], from [facility] case management specialist will await when patient has been cleared for discharge, Auth provided to admissions at [facility].
Addendum entered by Catalina Faye 09/09/24 10:05:
car wash manager spoke with Nishi Hawley at insurance and faxed over all clinicals as requested to [phone], waiting on Auth.
Original Note:
Patient was seen by physical therapy this morning and case management specialist contacted patient's insurance [id number], to obtain Auth.
[facility] , Dr. Goldberg: [phone],
Plan; Skilled placement at [facility] when approved.
[2024-09-09] MEDS: DULCOLAX 10 MG RECTAL (14:20)
[2024-09-09 15:00] VITALS: BP 167/87
[2024-09-09] MEDS: ProAmatine PO (16:45)
[2024-09-09] MEDS: VITAMIN D3 (cholecalciferol) 50 MCG PO (16:57)
[2024-09-09] MEDS: TYLENOL 650 MG PO (16:57)
[2024-09-09] MEDS: LOVENOX 40 MG SC (16:57)
[2024-09-09] MEDS: LIPITOR 10 MG PO (16:57)
[2024-09-09 20:00] VITALS: BP 145/84
[2024-09-09] MEDS: CLOZARIL 300 MG PO (21:04)
[2024-09-09] MEDS: HALDOL 2 MG PO (21:05)
[2024-09-09 22:30] VITALS: PULSE 76
[2024-09-09 23:00] VITALS: BP 162/84
[2024-09-10] MEDS: SYNTHROID 150 MCG PO (05:35)
[2024-09-10] MEDS: ProAmatine 5 MG PO ×2 (07:23→12:43)
[2024-09-10] MEDS: FOLVITE 1 MG PO (07:23)
[2024-09-10] MEDS: SENOKOT-S 1 TABLET PO (07:23)
[2024-09-10] MEDS: PERCOCET 5/325 1 TABLET PO (07:23)
[2024-09-10] MEDS: MIRALAX 17 GRAMS PO (07:23)
[2024-09-10] MEDS: VITAMIN E 400 UNITS PO (07:23)
[2024-09-10] MEDS: TRICOR 145 MG PO (07:23)
[2024-09-10] MEDS: SYMMETREL 100 MG PO (07:23)
[2024-09-10 07:30] VITALS: BP 137/70
--- NOTE | 2024-09-10 08:16 | W.PN.HOSP.TC ---
Today's Communication/Plan
-
* Anticipated discharge today.
Assessment / Plan
Assessment / Plan
Assessment
Gagandeep Rivera, 69-year-old male, presented to the hospital from [facility] due to altered mental status in the context of underlying psychiatric illness on 08-28-24. Was discharged from [facility] on 08/27/2024. Had hospitalization for
generalized weakness and falls, found to have significant orthostasis and was started on midodrine. Evaluated by neurology for tardive dyskinesia who recommended outpatient deutetrabenazine. Symptomatically was improved concerning orthostatic
hypotension. Was discharged to [facility] for ongoing physical therapy however the facility revoked their acceptance due to ongoing psychiatric illness and hallucinations due to schizophrenia. AFVSS. Labs unremarkable. No imaging or ECG
obtained in the ED. Evaluated by psychiatry who recommended continuing Haldol 2 mg nightly for 14 days in addition to clozapine 300 mg nightly and amantadine 100 mg twice daily. Noted that family is opposed to geriatric psychiatry admission.
Impression and plan
Orthostatic hypotension
- Recently diagnosed, started on midodrine 5 mg 3 times daily
- Continue midodrine 3 times daily, hold for SBP >200 mmHg
- Abdominal binder and LE compression stockings.
- Daily orthostatic vitals while here.
Psychosis
Schizophrenia
Bipolar disorder
- Has chronic schizophrenia on haloperidol 2 mg nightly, clozapine 300 mg nightly, amantadine 100 mg twice a day
- He started to have hallucinations just prior to discharge to SNF, when he got to SNF his acceptance was revoked
- Evaluated by psychiatry in the ED, recommended continue home regimen as patient's family resistant to changes in past
- Continue home regimen with PRN Haldol BID (HS especially if needed for CPAP compliance).
Tardive dyskinesia
- Evaluated by neurology on recent admission
- Recommendation to start deutetrabenazine as outpatient
DEONTE on CPAP
- No known history of pulmonary hypertension
- Utilizes 7 mmHg CPAP nightly
- Use nightly Haldol with refusing sleep
- Non-compliance with CPAP at night causes psychosis during daytime.
- Please use additional haloperidol if needed but ensure he keeps his CPAP on.
Elevated TSH
Chronic hypothyroid
- Patient takes 125 mcg levothyroxine daily; unclear etiology of hypothyroidism
- TSH recently near 8, suspect subclinical hypothyroidism is no obvious signs of thyroid abnormality
- Most recent guidelines state no need to treat for TSH <10 and lack of symptoms, problem WAS addressed on recent hospital stay
- Empirically increased levothyroxine to 150 mcg to assess for improvement of his mental status though do not expect this is contributing
- Will need to repeat TSH in 4 to 6 weeks after dose adjustment
Dyslipidemia
- No ASCVD history, remains on moderate intensity statin.
Chronic constipation
- Will schedule his prns.
- BM on 09-09-24.
Thromboprophylaxis
- Enoxaparin
Code status
- Full.
Disposition
- SNF.
- Received results of level-two assessment by the [facility].
- SNF acceptance in; discharge likely today.
Anticipated Discharge: Today
Subjective/Interval History
-
Date of Service: September 10, 2024
Stable overnight. BM yesterday.
Objective Data
-
Vital Signs:
Vital Signs
Temp Pulse Resp BP Pulse Ox
97.6 F 80 16 162/84 99
09/09/24 23:00 09/09/24 23:00 09/09/24 23:00 09/09/24 23:00 09/09/24 23:00
I&O
09/09/24 09/10/24 09/11/24
06:59 06:59 06:59
Intake Total 600 / 600 1320 / 1320
Output Total 800 / 800 1300 / 1300
Balance -200 / -200 20 / 20
Review of Systems
-
History Source: Patient
All other systems: Reviewed and negative
Physical Exam
-
General: No Apparent Distress and Comfortable
HEENT: Normocephalic, Atraumatic, Moist Mucous Membranes and No Ptosis
Respiratory: Clear to Auscultation and Non Labored Respirations
Cardiac: Regular Rhythm and S1/S2; Negative Murmur, Rub or Gallop
GI: Soft, Nontender, Nondistended and Normal Bowel Sounds
Musculoskeletal: No Clubbing, No Cyanosis and No Edema
Skin: Warm and Dry; Negative Rash
Neuro: Awake, Alert, Oriented, Tremors and Nonfocal/Grossly Intact
Psych: Calm
--- NOTE | 2024-09-10 11:26 | CM ---
Addendum entered by Ping Rivera 09/10/24 11:31:
Report: [phone]
Original Note:
CM reviewed chart, auth approved 09/09/24 to 09/22/24 LCD 09/22, [id number], provided to [facility]. Patient scheduled for 3:30 p.m. ambulance transport. Voicemail left for patients daughter, Vera, to discuss discharge and transport time. MARIOLA
will continue to follow for all discharge planning needs.
Plan; [facility], 3:30 p.m. ambulance transport
[facility]
Report: [phone]
--- NOTE | 2024-09-10 12:33 | W.DCSUMMARY ---
Discharge Summary
Discharge Data
Date of Admission: 08/28/24
Date of Discharge: 09/10/24
-
Pending Results: No
Hospital Course
Primary discharge diagnoses
* Orthostatic hypotension
* Schizophrenia
* Obstructive sleep apnea
Secondary discharge diagnoses
- Bipolar disorder
- Tardive dyskinesia
- Acquired hypothyroidism
- Hyperlipidemia
- Chronic constipation
Hospital course
Gagandeep Rivera, 69-year-old male, presented to the hospital from [facility] due to altered mental status in the context of underlying psychiatric illness on 08-28-24. He was previously discharged from [facility] on 08-27-24; at that
admission, he was found to have significant orthostasis and was started on midodrine. Evaluated by neurology for tardive dyskinesia who recommended outpatient deutetrabenazine. He was discharged to [facility] for ongoing physical therapy
however the facility revoked their acceptance due to ongoing psychiatric illness and hallucinations due to schizophrenia.
At the current hospital course, he was admitted for level two assessment by the [facility] and to find an accepting halfway facility. The level two assessment was completed on 09-08-24, after which referrals were sent for placement back to
[facility], where he was eventually accepted on 09-09-24. His present hospital course remained unremarkable. Vitals showed continued orthostatic hypotension with intermittent hypertension, so midodrine hold parameters were adjusted
appropriately. He maintained good compliance with CPAP, and did not experience any episodes of psychosis this admission. Blood work and electrocardiogram were within normal limits. He was feeling good, and stated that he feels like he is back to his
baseline. He was also instructed to continue using abdominal binder and lower extremity compressions. He was recommended to establish with neurology outpatient to start deutetrabenazine for his known tardive dyskinesia, and this was also
communicated to his sons (medical power of assistant city attorney). Follow-up with primary within 1 week.
Discharge Plan
-
Patient Disposition: Senior Care/SNF
Discharge Diagnosis/Procedures: Orthostatic hypotension
Schizophrenia
Bipolar disorder
Tardive dyskinesia
Obstructive sleep apnea
Acquired hypothyroidism
Hyperlipidemia
Chronic constipation
Condition: Good
Diet: Regular
Activity: With assistance and As tolerated
Driving Restrictions: No driving
Bathing Restrictions: OK to Shower
Instructions: Tardive dyskinesia, Orthostatic hypotension
Referrals:
Maurilio Plummer MD [Family Provider] - in less than 1 week
Prescriptions:
Continued
amantadine HCl 100 mg Tablet
100 mg PO BID
fenofibrate micronized 134 mg Capsule
134 mg PO DAILY
simvastatin 20 mg Tablet
20 mg PO QPM
levothyroxine 125 mcg Tablet
125 mcg PO DAILY
cyanocobalamin (vitamin B-12) 1,000 mcg Tablet Extended Release
1,000 mcg PO DAILY
clozapine 100 mg Tablet
300 mg PO HS
oxycodone-acetaminophen 10-325 mg Tablet
1 tab PO DAILY
oxycodone-acetaminophen 10-325 mg Tablet
1 tab PO DAILYPRN PRN (Reason: severe pain)
docusate sodium 100 mg Capsule
100 mg PO DAILY
folic acid 1 mg Tablet
1 mg PO DAILY
cholecalciferol (vitamin D3) [Vitamin D3] 50 mcg (2,000 unit) Tablet
50 mcg PO HS
midodrine 5 mg tablet
5 mg PO TID 30 Days Qty: 90 6RF
acetaminophen 325 mg Tablet
650 mg PO Q4H MDD 3000mg PRN (Reason: mild pain/temp greater than 100)
magnesium hydroxide [Milk of Magnesia] 400 mg/5 mL Suspension
2,400 mg PO DAILYPRN PRN (Reason: if no BM in 3 days)
bisacodyl [Dulcolax (bisacodyl)] 10 mg Suppository
10 mg GA DAILYPRN PRN (Reason: if MOM ineffective after 24hr)
Fleet Enema 19-7 gram/118 mL Enema
118 ml GA DAILYPRN PRN (Reason: if dulcolax ineffective after 24hr)
omega 5-kbd-bdn-fish oil [Fish Oil] 1,000 (120-180) mg Capsule
1 cap PO DAILY
haloperidol 2 mg tablet
2 mg PO HSPRN PRN (Reason: agitation)
Rx Instructions:
for 14 days beginning 08/27/24
Discontinued
acetaminophen 650 mg Tablet Extended Release
650 mg PO HS
Discharge Orders:
Discharge Patient (As Directed); Ordered 09/10/24
Ordered By: Kamaljit Lizama
Discharge Date and Time
Print Language: SINHALA
== END 2024-09-10 15:33 | DRG 885 ==
LOC: 4 WEST ACU 15:48
PROVIDERS: Physician Assistant; Student in an Organized Health Care Education/Training Program; ADMITTING PHYSICIAN Internal Medicine; ATTENDING PHYSICIAN Hospitalist; EMERGENCY PHYSICIAN Student in an Organized Health Care Education/Training Program; FAMILY PHYSICIAN Family Medicine Adult Medicine; OTHER PHYSICIAN Psychiatry & Neurology Psychiatry
DX: F31.9 Bipolar disorder, unspecified (principal); F20.9 Schizophrenia, unspecified; I95.1 Orthostatic hypotension; G24.01 Drug induced subacute dyskinesia; G47.33 Obstructive sleep apnea (adult) (pediatric); E03.9 Hypothyroidism, unspecified; E78.00 Pure hypercholesterolemia, unspecified; K59.09 Other constipation; E66.9 Obesity, unspecified; Z68.33 Body mass index [BMI] 33.0-33.9, adult
CPT/HCPCS: 80048; 80053; 82805; 83735; 85025; 85027; 87070; 93005; 94660; 97163; 97166; 97530; 97535; 99285

== ENCOUNTER 2024-09-26 13:34 | Inpatient (IN) | payer OTHER, SELFPAY ==
[2024-09-26] VITALS (13 sets, daily range): BP systolic 110–166; BP diastolic 54–100
[2024-09-26 09:58] LABS: Hematocrit 37.4 % (39.0-52.0); Hemoglobin 12.4 g/dL (13.0-18.0); Mean Corp Hgb Conc. 33.2 g/dL (33.0-37.0); Mean Corpuscular Hgb 27.7 pg (27.0-31.0); Mean Corpuscular Volume 83.5 fL (80.0-94.0); Mean Platelet Volume 10.2 fL (7.4-10.4); Platelet Count 377 10^3/uL (130-400); Red Blood Cell Count 4.48 10^6/uL (4.70-6.10); Red Cell Dist. Width 14.6 % (11.5-14.5); White Blood Cell Count 9.4 10^3/uL (4.8-10.8)
[2024-09-26 10:08] LABS: Lactic Acid 1.3 mmol/L (0.7-2.0)
[2024-09-26 10:09] LABS: ALT (SGPT) 33 U/L (0-50); AST (SGOT) 113 U/L (17-59); Albumin 3.1 g/dl (3.5-5.0); Alkaline Phosphatase 72 U/L (38-126); Blood Urea Nitrogen 70 mg/dl (9-20); Calcium 9.1 mg/dl (8.4-10.2); Carbon Dioxide 24 mmol/L (22-30); Chloride 115 mmol/L (98-107); Glucose 155 mg/dl (70-99); Sodium 152 mmol/L (135-145); Total Bilirubin 0.9 mg/dl (0.2-1.3); Total Protein 6.2 g/dl (6.3-8.2); eGFR 28.85
--- NOTE | 2024-09-26 10:09 | EDRN ---
Dr. Blum in to see pt.
[2024-09-26] MEDS: TYLENOL/FEVERALL 650 MG RECTAL ×2 (10:38→16:15)
[2024-09-26] MEDS: NSS 500 IV (10:38)
[2024-09-26 10:46] LABS: Urine Albumin 3+ (Neg - Trace); Urine Bilirubin 1+ (Negative); Urine Character Slightly Cloudy (Clear); Urine Color Yellow; Urine Glucose Negative (Negative); Urine Ketone Negative (Negative); Urine Leukocyte 3+ (Negative); Urine Nitrite Positive (Negative); Urine Occult Blood 4+ (Negative); Urine Urobilinogen 1+ (Neg - 1+)
[2024-09-26 11:05] LABS: Segmented Neutrophils 62 % (42-75)
[2024-09-26 11:06] LABS: Absolute Neutrophils -Man Diff 7.1 10^3/uL (1.4-6.5); Band Neutrophils 14 % (0-3); Lymphocytes 12 % (20-51); Metamyelocytes 2 % (-); Monocytes 10 % (2-9); Platelets Checked Yes; Total Cells Counted 100
[2024-09-26 11:07] LABS: Hypochromasia 1+; Normal RBC Morphology No
[2024-09-26 11:14] LABS: Urine Bacteria Many (Negative); Urine Red Blood Cell 0-2 /HPF (0-2); Urine Squamous Cell None seen /LPF (Few); Urine White Cell 16-20 /HPF (0-5)
[2024-09-26 11:19] LABS: COVID-19 Antigen Negative (Negative)
--- NOTE | 2024-09-26 11:24 | EDRN ---
Yuko Gamez in room w/ pt.
[2024-09-26] MEDS: ROCEPHIN 1000 MG IV (11:33)
--- NOTE | 2024-09-26 11:40 | EDRN ---
Dr. Viktoria baughed administration of rocephin, told about increased temp and spoke w/ daughter Vera in room.
--- NOTE | 2024-09-26 12:22 | ED.GENMED ---
History of Present Illness
General
Chief Complaint: Abdominal Symptoms
Source: patient
Exam Limitations: none
Time Seen by Provider: 09/26/24 09:50
Nursing documentation reviewed up to this point in time: agreed with
History of Present Illness
History of Present Illness:
[facility] from [facility] secondary to mental status change, along with abdominal distention and increased work of breathing, associated with hypoxia. Upon arrival, patient is awake but does not offer any additional information.
However, patient is found to be febrile with increased work of breathing, associated with tachypnea.
Past History
Past History
ED Past Medical History: Hypercholesterolemia, Hypothyroidism and Psychiatric (schizophrenia, bipolar, sleep apnea)
Review of Systems
Review of Systems
Allergies reviewed?: Yes
Unable to obtain full review of systems at this time due to: due to acuity
All Other Systems: Not applicable
Phy Exam
Physical Exam
Physical Exam:
Physical Exam
General: no apparent distress, not acutely ill. febrile
Head: nc/at
Neck: supple. no meningeal signs.
Heart: tachycardic, no murmur
Lungs: mild respiratory distress. diminished breath sounds bilaterally.
Abdomen: normal bowel sounds. diffuse tenderness with mild distention
Neuro: alert and awake. no focal deficit noted
Skin: no rash
Extremities: no edema.
Sepsis
Sepsis Screening
Sepsis Assessment: Sepsis
Sepsis Screen
Sepsis Screen: Sepsis
Date: 09/26/24
Time: 17:36
Course
Orders/Labs/Results
Orders:
Orders
09/26/24 09:33
Electrocardiogram (*1) Urgent
Reason for Study: Chest Pain
Cardiac Monitoring- Treatment ONCE
EKG- Treatment ONCE
IV Insert/Care/Rem.- Treatment PRN
09/26/24 09:46
Complete Blood Count/With Diff Urgent
Comprehensive Metabolic Panel Urgent
Lactic Acid Urgent
Manual Differential Urgent
Troponin I Urgent
Blood Culture Urgent
BARI Source: Blood/Venous
Specimen Description:
09/26/24 Lunch
NPO
Allow oral meds: Yes
Allow clear liquids: No
NPO with Ice Chips: Yes
09/26/24 10:09
0.9% Sodium Chloride 500 ml [Nss] 500 ml IV BOLUS
Acetaminophen [Tylenol/Feverall] 650 mg RECTAL NOW STA
09/26/24 10:10
Straight cath- Treatment ONCE
Acetaminophen [Tylenol/Feverall] 650 mg .ROUTE .STK-MED ONE
CR Obstruct Series W/pa Chest Urgent
Comment:
Reason For Exam: abdominal distention/sob
09/26/24 10:26
COVID-19 Antigen Urgent
Source: Nasal Swab
Urinalysis Reflex To Culture Urgent
Date Specimen was Collected: 09/26/24
Time Specimen was Collected: 10:09
Urine Microscopic Reflex Cult Urgent
Influenza A+B Rapid Molecular Urgent
BARI Source: Nasal Swab
Specimen Description:
Urine Culture Urgent
BARI Source: U
Specimen Description:
Date Specimen was Collected: 09/26/24
Time Specimen was Collected: 10:09
09/26/24 10:34
Blood Culture Urgent
BARI Source: Blood/Venous
Specimen Description:
09/26/24 11:07
CefTRIAXone [Rocephin] 1,000 mg IV NOW STA
09/26/24 11:08
CT Abd/pel Without Iv Or Oral Urgent
Comment:
Reason For Exam: left flank pain with fever
09/26/24 13:05
Admit/Transfer Patient As Directed
Co-Sign Provider:
Level of Care: Inpatient admission
Assign to:: IMU- Intermediate Care
Physician / Group: Dave
Diagnosis: Sepsis , protocolitis
Reason for Hospitalization: see progress note
Expected length of stay greater than two midnights?: Yes
ELOS- Estimated Length of Stay in days: 5
I certify the patient meets the requirements for IP care: Yes
09/26/24 13:06
PRN Pain Medication Management As Directed
May give lesser potent ordered pain med per pt: Yes
preference::
Protocol:: Medication orders for pain may be administered in a
manner that supports deferring to patient preference
when the pt is:
- Requesting an ordered lesser potent pain medication.
Least to most potent pain medications are defined
as: acetaminophen < NSAID < tramadol < opioids
(morphine, oxycodone, hydromorphone).
- Requesting a lesser dose of the same medication IF
ORDERED.
- Requesting a less intrusive route of administration
if both routes are prescribed by the provider (PO <
IV).
09/26/24 13:07
Code Status As Directed
Resuscitation Status: Full Code
Physician note:: DW Daughter Vera at bedside
09/26/24 16:03
0.9% Sodium Chloride 1000 ml [Nss] 1,000 ml IV 125 mls/hr
Acetaminophen [Tylenol/Feverall] 650 mg RECTAL Q4HPRN PRN
Ipratropium/Albuterol Sulfate [Duoneb] 3 ml INH R Q6HPRN PRN
MetroNIDAZOLE 500 MG/100 ML [Flagyl 500 mg] 100 ml IV Q8H
09/26/24 16:03
GASTROINTESTINAL CONSULT Routine
Consulting Provider: Josue White
Was physician already notified: Yes
Reason for consult: Proctocolitis and sepsis
Solar Installation Supervisor Consult Routine
Consulting Provider: Jessee Lugo
Was physician already notified: Yes
Reason for consult: sepsis
STOOL [C difficile Antigen & Toxins] Routine
BARI Source: Feces/Stool
Specimen Description:
Stool For WBC Routine
BARI Source: Feces/Stool
Specimen Description:
Activity As Directed
Activity Level: Bedrest
Gonzalez Catheter [Catheter- Indwelling] As Directed
Reason for insertion: I&O's Critical Care
Assess insertion reason daily.Remove if no longer applicable: Yes
Hemetest Stools As Directed
I&O [Intake/ Output] As Directed
Frequency: q12h
Cpap [RESP] Routine
Patient to use own unit?: No
Set Pressure (cm H2O): 7
DX Deep Vein Thrombosis Video Routine
09/26/24 20:00
Heparin 5,000 units SC Q12
09/27/24 06:00
CBC/No Diff [Complete Blood Count/No Diff] IN AM
CMP [Comprehensive Metabolic Panel] IN AM
09/27/24 11:00
CefTRIAXone [Rocephin] 1,000 mg IV Q24H
09/29/24 18:00
Levothyroxine [Levothroid] 62.5 mcg IV DAILY@1800
Patient requires IV dosing to begin now?: No
Abnormal Lab Results
09/26/24 09/26/24
09:46 10:26
RBC 4.48 L 10^6/uL
(4.70-6.10)
Hgb 12.4 L g/dL
(13.0-18.0)
Hct 37.4 L %
(39.0-52.0)
RDW 14.6 H %
(11.5-14.5)
Abs Neuts (Manual) 7.1 H 10^3/uL
(1.4-6.5)
Band Neutrophils 14 H %
(0-3)
Lymphocytes (Manual) 12 L %
(20-51)
Monocytes (Manual) 10 H %
(2-9)
Sodium 152 H mmol/L
(135-145)
Chloride 115 H mmol/L
(98-107)
BUN 70 H mg/dl
(9-20)
Creatinine 2.4 H mg/dL
(0.7-1.3)
Glucose 155 H mg/dl
(70-99)
AST 113 H U/L
(17-59)
Total Protein 6.2 L g/dl
(6.3-8.2)
Albumin 3.1 L g/dl
(3.5-5.0)
Ur Occult Blood Reflex 4+ A
(Negative)
Urine Nitrite (Reflex) Positive A
(Negative)
Urine Bilirubin 1+ A
(Negative)
Leukocyte Esterase Rfl 3+ A
(Negative)
Urine WBC (Reflex) 16-20 A /HPF
(0-5)
Urine Bacteria (Reflex) Many A
(Negative)
Urine Albumin (Reflex) 3+ A
(Neg - Trace)
09/26/24 09:46
09/26/24 09:46
Vital Signs
Initial and Last Documented VS:
Initial Vital Signs
Pulse Ox
88
09/26/24 09:18
Last Documented Vital Signs
Temp Pulse Resp BP Pulse Ox
104.3 F H 106 33 166/84 96
09/26/24 17:02 09/26/24 14:45 09/26/24 14:45 09/26/24 14:00 09/26/24 16:22
MDM/Problems Addressed
MDM/Problems Addressed:
CT abdomen pelvis report reviewed and discussed with patient's daughter, at bedside. History and exam concerning for sepsis, likely secondary to proctocolitis seen on CT versus pyelonephritis versus aspiration pneumonia. Patient will be admitted
for further evaluation treatment, including continual supplemental oxygen along with IV antibiotics.
*Critical Care Note
Total Time (30-74mins, 75-104mins- exclusive of procedures): Not Applicable
ED Attending Note
-
Portions of this chart may have been created with voice recognition software.� Occasional wrong word or��sound alike� substitutions may have occurred due to the inherent limitations of voice recognition software.
Discharge Plan
Departure
Patient Disposition: Admit
Date of Disposition: 09/26/24
Time of Disposition: 12:25
Admit to: Telemetry
Presentation/result/management discussed w/ accepting MD/DO: Hospitalist
Discharge Problem:
Sepsis, Acute UTI, Hypoxia
Interventions
Interventions:
*Risk Screen - Suicide Last Done: 09/26/24 09:56
*General Assessment Last Done: 09/26/24 09:56
*Neglect/Abuse Screening Last Done: 09/26/24 09:56
*ED- Fall Risk Assessment Last Done: 09/26/24 09:56
*ED COVID-19 Vaccine History Last Done: 09/26/24 09:56
*Nursing Disposition Last Done: 09/26/24 16:07
XZ-Efrkmd-Ilxwmvmnba Assessment Last Done: 09/26/24 10:03
ED- Cardiac Assessment Last Done: 09/26/24 10:03
ED- Pulmonary Assessment Last Done: 09/26/24 10:03
Discharge Date and Time
Discharge Date/Time: 09/26/24 16:08
--- NOTE | 2024-09-26 12:57 | EDRN ---
Addendum entered by Janny Robbins RN 09/26/24 12:57:
[facility] rep called for update and informed pt is awaiting to be admitted for sepsis.
Original Note:
Dr. Acosta in room w/ pt and daughter at this time. [place] re-
--- NOTE | 2024-09-26 13:21 | EDRN ---
Resp therapist TT'd about ordered ABG.
--- NOTE | 2024-09-26 13:27 | HPS.HSE ---
Addendum entered and electronically signed by Brendan Acosta MD 09/26/24 14:57:
VBG shows no hypercapnia .BP still holding. Admitting Lactic was normal.
Will downgrade to IMU.
CW rest of the plan.
Original Note:
Family Physician
-
Family Physician: Cosmo Jaramillo
Chief Complaint
-
Sent in for abdominal symptoms.
History of Present Illness
Patient is currently very lethargic. Eyes open but does not follow commands nor converse. Tachypnea. Looks toxic.
Daughter present at the bedside -according to her since last Friday he has been going down the hill. Started with a hallucination. Apparently they were running much of test at the [facility]. They were trying to figure out if there is any
infection. Her brother found him with the decreasing responsiveness . Today they were concerned about developing sepsis so they referred him to the hospital.
Daughter thinks he was having loose stools but he is also no laxatives. No report of N/V per daughter.
No hx is available from patient as he is encephalopathic.
According to daughter , patient has longstanding history of schizophrenia but no recent decompensation. Though he has Schizophrenia he mood is pretty much good. He has normal conversations with people. He has a good memory.
He is found to be septic in the ER. Blood pressure stable. So far imaging shows long segment of proctocolitis which is severe and small bowel dilatation concerning for ileus. Chest x-ray is clear.
He is admitted to ICU for further care.
Medical History
Past Medical History
Past Medical History: Reports Hypercholesterolemia, Hypothyroidism and Psychiatric
Additional Past Medical History:
Schizophrenia
Bipolar disorder
Hypothyroidism
DEONTE on CPAP 7 mmHg
Dyslipidemia
Orthostatic hypotension
Past Surgical History: Reports Other (Skin cancer removed)
Social History
Tobacco: Non-smoker
Alcohol: None
Drug: None
Personal:
Family History
Family History: Not pertinent
Allergies / Home Medications
Allergies reflects when Allergies were last updated in [facility].
Home Medications with original date entered in [facility]
Allergy/Medication List:
Allergies
Allergy/AdvReac Type Severity Reaction Status Date / Time
Penicillins Allergy pt. states Verified 08/28/24 12:04
it gives
him bad
dreams
Home Medications
acetaminophen 650 mg tablet,extended release 650 mg PO QPM Pain 08/23/24
amantadine HCl 100 mg tablet 100 mg PO BID Neurological Condition 08/23/24
cholecalciferol (vitamin D3) 50 mcg (2,000 unit) tablet (Vitamin D3) 50 mcg PO QPM Supplement 08/23/24
clozapine 100 mg tablet 100 mg PO QPM Mental Health/Anxiety 08/23/24
clozapine 200 mg tablet 200 mg PO QPM Mental Health/Anxiety 08/23/24
cyanocobalamin (vitamin B-12) 1,000 mcg tablet,extended release 1,000 mcg PO QPM Supplement 08/23/24
docusate sodium 100 mg capsule 100 mg PO DAILY Constipation 08/23/24
fenofibrate micronized 134 mg capsule 134 mg PO DAILY High Cholesterol 08/23/24
folic acid 1 mg tablet 1 mg PO DAILY Supplement 08/23/24
levothyroxine 125 mcg tablet 125 mcg PO DAILY Thyroid 08/23/24
omega 3-ghw-myc-fish oil 300 mg-1,000 mg capsule (Fish Oil) 1 cap PO DAILY Supplement 08/23/24
oxycodone-acetaminophen 10 mg-325 mg tablet 1 tab PO DAILY Pain 08/23/24
oxycodone-acetaminophen 10 mg-325 mg tablet 1 tab PO DAILYPRN PRN severe pain 08/23/24
simvastatin 20 mg tablet 20 mg PO QPM High Cholesterol 08/23/24
vitamin E (dl, acetate) 180 mg (400 unit) capsule 180 mg PO DAILY Supplement 08/23/24
haloperidol 2 mg tablet 2 mg PO HS PRN agitation 14 days #14 tabs 08/27/24
midodrine 5 mg tablet 5 mg PO TID 30 days #90 tabs 08/27/24
Review of Systems
-
Unable to obtain full review of systems at this time due to: Other (Due to encephalopathy)
Physical Exam
Vital Signs
Vital Signs
Temp Pulse Resp BP Pulse Ox
103.0 F H 103 18 147/79 94
09/26/24 11:24 09/26/24 13:00 09/26/24 13:00 09/26/24 13:00 09/26/24 13:00
Physical Exam
General: No No Apparent Distress
Respiratory: Rhonchi (BL); No Wheezes, Non Labored Respirations (tachypneic, audible breathsounds ) or Accessory Resp Muscle Use
Cardiac: S1/S2, Regular Rhythm and Tachycardia
GI: Soft and Distended; No Normal Bowel Sounds (Hyperactive) or Tender (Unable increase in any distress, tenderness on palpation)
Neuro: Awake; No Alert or No Motor Deficits (Difficult exam due to encephalopathy, moving all 4 limbs)
Psych: Calm
Laboratory Results
-
09/26/24 09:46
09/26/24 09:46
Laboratory Results
Lactic Acid 1.3 mmol/L (0.7-2.0) 09/26/24 09:46
Total Bilirubin 0.9 mg/dl (0.2-1.3) 09/26/24 09:46
AST 113 U/L (17-59) H 09/26/24 09:46
ALT 33 U/L (0-50) 09/26/24 09:46
Alkaline Phosphatase 72 U/L (38-126) 09/26/24 09:46
Troponin I 0.020 ng/ml 09/26/24 09:46
Data Reviewed
-
CT Scan: Report Reviewed by me (a/p)
Lab Data: Labs Reviewed by me
Impression/Plan
-
Sepsis-suspected source GI.
Patient was sent in for abdominal complaints. Poor historian because of encephalopathy. Lactic acid is normal currently. Blood pressure is stable currently. Imaging of the CT abdomen pelvis shows long segment of severe proctocolitis without local
complication but has small bowel dilatation raising concern for ileus. Is story of diarrhea but also patient on laxatives.
Started on empirical antibiotics with ceftriaxone and Flagyl.
Check stools for white cells and C. difficile if diarrhea.
Keep NPO.
Start on IV fluids.
Follow culture data.
Consult GI
Acute encephalopathy-suspect secondary to TME. Treat above and follow clinical progress.
Abnormal urinalysis-rule out UTI. Enlarged prostate on CT abdomen pelvis noted. follow urine culture data.
MICHAEL. Creatinine elevated 2.4. Baseline 1.0. In view of sepsis and MICHAEL we will have a Gonzalez catheter placed for I&O's and urine output follow-up. Start on IV fluids for sepsis-continue to follow LFTs.
Hyponatremia-suspect secondary volume deficit-continue IV fluids and follow
Tachypnea-suspect may be related to sepsis-chest x-ray is clear. He has rhonchorous breath sounds which seems to be secondary to upper airway transmitted sounds. Patient known to have obstructive sleep apnea and CPAP dependent. Check an ABG.
Continue oxygen therapy via nasal cannula.
Schizophrenia-no recent mood/thought disturbances. Resume his home medications once able to take p.o.
Orthostatic hypotension-raising midodrine when taking p.o.
Full code
Discussed with daughter at bedside in the ER
--- NOTE | 2024-09-26 14:00 | EDRN ---
Dr. White in to see pt at this time.
--- NOTE | 2024-09-26 14:16 | CON.GI ---
Consultation
-
Date/Time Consultation Requested: 09/26/24 1400
Date/Time Consultation Performed: 09/26/24 1315
Requesting Provider: Dr. Brendan Acosta
Performing Provider: Dr. Josue White
Reason for Consultation: Sepsis, severe proctocolitis, ileus
Medical History
Chief Complaint / HPI
Chief Complaint: Sent in for abdominal symptoms
History of Present Illness:
Mr. Rivera is a 69 y.o male with a past medical history of underlying psychiatric illness including schizophrenia, bipolar disorder, tardive dyskinesia, hypothyroidism, and chronic constipation and recent hospitalization (for orthostatic
hypotension/schizophrenia) at from 08/28 - 09/10/24 who represents from his shelter due to vomiting, diarrhea and worsening abdominal distension.
History is quite limited as patient is unable to provide any history and I am unable to reach patient's family at this time. His daughter recently left the ED as well. In speaking with the ED and primary internal medicine team, patient was found
to have worsening abdominal distention over the past few days at his shelter. Apparently he underwent an abdominal ultrasound which was grossly unrevealing except for some mild hepatomegaly the other day. He also suffers from longstanding
constipation and unclear what he has been receiving at his facility. However, he subsequently developed nausea, looser stools along with concern for altered mental status as he was having hallucinations and decreased responsiveness. Unclear if he
has ever had a prior colonoscopy in the past. Rest of history is limited and no prior GI records available for review.
In the ED, patient was febrile with Tmax of 103.0 and tachycardic with HRs 100 but otherwise HD-stable. Labs notable for Na 152, HCO- 24, BUN 70 and Occupational Health Nurse Supervisor 2.4. LFTs with AST 113 and albumin 3.1. Lactic acid wnl (1.3). CBC without leukocytosis with WBC
9.4 however with left shift and bandemia (14%) and Hgb 12.4. X-ray obstruction series revealed diffuse dilatation of small bowel loops measuring up to 5.8 cm in caliber. Some air-fluid levels noted on the crosstable lateral projections concerning
for SBO versus ileus. CT Abd/pelvis was limited but revealed a long, 19 cm segment bowel wall thickening and inflammatory fat stranding at the rectosigmoid junction most suspicious for a severe proctocolitis along with moderate stool distension in
the the rectum. Additionally, diffuse dilatation of the small bowel, favoring an ileus as without any discrete transition point to suggest SBO. Patient received IV abx and admited to ICU.
Past Medical History
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
Past Surgical History: Other (Skin cancer removed)
Social History
Tobacco: Non-Smoker
Alcohol: None
Drug: None
Family History
Family History: Unable to Obtain
Allergies / Home Medications
Allergy/AdvReac Type Severity Reaction Status Date / Time
Penicillins Allergy pt. states Verified 09/26/24 09:19
it gives
him bad
dreams
�Medication �Instructions �Recorded
amantadine HCl 100 mg tablet 100 mg PO BID Neurological 08/23/24
Condition
cholecalciferol (vitamin D3) 50 50 mcg PO HS Supplement 08/23/24
mcg (2,000 unit) tablet (Vitamin
D3)
clozapine 100 mg tablet 300 mg PO HS Mental Health/Anxiety 08/23/24
cyanocobalamin (vitamin B-12) 1,000 mcg PO DAILY Supplement 08/23/24
1,000 mcg tablet,extended release
docusate sodium 100 mg capsule 100 mg PO DAILY Constipation 08/23/24
fenofibrate micronized 134 mg 134 mg PO DAILY High Cholesterol 08/23/24
capsule
folic acid 1 mg tablet 1 mg PO DAILY Supplement 08/23/24
levothyroxine 125 mcg tablet 125 mcg PO DAILY Thyroid 08/23/24
oxycodone-acetaminophen 10 mg-325 1 tab PO DAILY Pain 08/23/24
mg tablet
oxycodone-acetaminophen 10 mg-325 1 tab PO [id number] PRN severe pain 08/23/24
mg tablet
simvastatin 20 mg tablet 20 mg PO QPM High Cholesterol 08/23/24
midodrine 5 mg tablet 5 mg PO TID 30 days #90 tabs 08/27/24
acetaminophen 325 mg tablet 650 mg PO Q4H PRN mild pain/temp 08/28/24
greater than 100
bisacodyl 10 mg rectal suppository 10 mg GA DAILYPRN PRN if MOM 08/28/24
(Dulcolax (bisacodyl)) ineffective after 24hr
magnesium hydroxide 400 mg/5 mL 2,400 mg PO DAILYPRN PRN if no BM 08/28/24
oral suspension (Milk of Magnesia) in 3 days
omega 5-xjt-ohc-fish oil 1,000 mg 1 cap PO DAILY Supplement 08/28/24
(120 mg-180 mg) capsule (Fish Oil)
sodium phosphates 19 gram-7 118 ml GA DAILYPRN PRN if dulcolax 08/28/24
gram/118 mL enema (Fleet Enema) ineffective after 24hr
ipratropium 0.5 mg-albuterol 3 mg 3 ml inhalation Q6HPRN PRN sob 09/26/24
(2.5 mg base)/3 mL nebulization
soln
lorazepam 0.5 mg tablet 0.5 mg PO DAILY PRN anxiety 09/26/24
Review of Systems
-
Unable to obtain full review of systems at this time due to: Other (Unable to be obtained due to mental status)
Vital Signs
Temp Pulse Resp BP Pulse Ox
103.0 F H 103 18 147/79 94
09/26/24 11:24 09/26/24 13:00 09/26/24 13:00 09/26/24 13:00 09/26/24 13:00
Physical Exam
Exam
General: Comfortable and Other (Obese, in no acute distress)
HEENT: Anicteric and Moist Mucous Membranes
Respiratory: Other (Normal WOB on supplemental O2)
Cardiac: Other (RR on tele)
GI: Soft, Tender (No appreciable tenderness on palpation and unable to illicit any appreciable pain on deep palpation), Distended (Significant distension) and Other (Diffuse hypoactive bowel sounds)
Skin: Warm
Neuro: Other (Moves all four extremities spontaneously)
Results
WBC 9.4 10^3/uL (4.8-10.8) 09/26/24 09:46
Hgb 12.4 g/dL (13.0-18.0) L 09/26/24 09:46
Hct 37.4 % (39.0-52.0) L 09/26/24:46
MCV 83.5 fL (80.0-94.0) 09/26/24 09:46
Plt Count 377 10^3/uL (130-400) 09/26/24 09:46
Sodium 152 mmol/L (135-145) H 09/26/24 09:46
Potassium 4.0 mmol/L (3.5-5.1) 09/26/24 09:46
Chloride 115 mmol/L (98-107) H 09/26/24 09:46
Carbon Dioxide 24 mmol/L (22-30) 09/26/24 09:46
BUN 70 mg/dl (9-20) H 09/26/24 09:46
Creatinine 2.4 mg/dL (0.7-1.3) H 09/26/24 09:46
Calcium 9.1 mg/dl (8.4-10.2) 09/26/24 09:46
Total Bilirubin 0.9 mg/dl (0.2-1.3) 09/26/24 09:46
AST 113 U/L (17-59) H 09/26/24 09:46
ALT 33 U/L (0-50) 09/26/24 09:46
Alkaline Phosphatase 72 U/L (38-126) 09/26/24 09:46
Diagnostic Image Results: As stated per HPI
Assessment / Plan
-
Mr. Rivera is a 69 y.o male with a past medical history of underlying psychiatric illness including schizophrenia, bipolar disorder, tardive dyskinesia, hypothyroidism, and chronic constipation and recent hospitalization (for orthostatic
hypotension/schizophrenia) at from 08/28 - 09/10/24 who represents from his shelter due to vomiting, diarrhea and worsening abdominal distension. Gastroenterology has been consulted for further evaluation and management.
#Fevers Tachycardia #Bandemia #Sepsis
#Severe Proctocolitis on CT Imaging
#Moderate Fecal [place] in Rectum
#C/f Stercoral Colitis
#Adynamic Ileus
#Acute Toxic Metabolic Encephalopathy
#Hypernatremia #MICHAEL
#Chronic Constipation
#Hx of Psychiatric Illness
Impression: Patient presenting with vomiting, looser stools and worsening abdominal distention from his facility along with acute mental status changes concerning for toxic metabolic encephalopathy. Found to have severe sepsis and CT imaging
revealing a 19 cm, long segment of severe proctocolitis without abscess, perforation or other local complications. Additionally, found to have significant fecal burden within the rectum and distal colon upon personal review of imaging. Etiology of
his severe proctocolitis likely secondary to stercoral colitis given his longstanding history of chronic constipation (suspect 2/2 psych medications, hypothyroidism, and limited mobility). Suspect this is further driving his adynamic ileus and
underlying sepsis secondary to bacterial translocation given severe thickening versus urinary source. Possibly infectious colitis given the reported diarrhea although I think this is likely is from overflow diarrhea in the setting of his chronic
constipation and significant stool burden seen on imaging. Much less likely ischemia given the distribution on the CT imaging. It is unclear if the patient is ever had a prior colonoscopy. Fortunately, there is no abnormal colonic wall dilatation
to suggest a colonic ileus and patient's bicarb and lactic acid are within normal limits. Abdominal exam is significant for distention but without any rebound tenderness or involuntary guarding or other tenderness to palpation appreciated except
for hypoactive bowel sounds. His underlying ileus is again likely secondary to his significant stool burden and suspected stercoral colitis but also multifactorial in setting of his severe electrolyte derangements given his hypernatremia and sepsis.
Regardless, patient would benefit from IVF, IV antibiotics, along with aggressive supportive care as per primary ICU team and bowel regimen to clear out stool distally from rectum.
Recommendations:
- Okay with sips of liquids
- Agree with IVF to maintain euvolemia, keep K > 4.0 and Mg > 2.0
- Correction of hypernatremia as per primary team
- Obtain blood cultures, infectious w/u as per ICU team
- If looser stools / diarrhea, would check stool culture, O&P, and C Diff although lower suspicion
- Recommend broadening to IV Zosyn
- Start rectal enemas from below with MoM enemas q 8 hrs to clear out harder stool in rectum
- Defer from starting any stool softeners from above / p.o (ie miralax, senna etc) at this time as not to worsen SB dilatation
- Monitor serial abdominal exams
- No plans for a colonoscopy at this time, would consider a limited flex-sig versus colonoscopy pending patient's clinical course prior to discharge given CT findings
- Minimize narcotics and anticholinergics as much as possible
- Avoidance of all NSAIDs
- Rest of care as per primary ICU team
Discussed with ED and primary internal medicine team. GI will continue to follow.
Data Reviewed
-
Radiology: Image Personally Visualized and interpreted and Report Reviewed by me
CT Scan: Image Personally Visualized and interpreted and Report Reviewed by me
-
-
Thank you for consultation and allowing me to participate in the patient's care. Please call the career development consultant GI physician during the after hours with any questions or concerns.
--- NOTE | 2024-09-26 14:19 | EDRN ---
Resp therapist unable to drawn ABG at this time after 2 attempts. This RN got order changed back to VBG and dick the blood and sent it to lab at this time after sticking pt 3 times for the VBG.
[2024-09-26 14:23] LABS: Venous Blood Gas B.E. 4.2 mmol/L (-4 to +4); Venous Blood Gas HCO3 27.3 mmol/L (22-27); Venous Blood Gas O2 Sat % 93.5 %; Venous Blood Gas pCO2 35 mmHg (35-48); Venous Blood Gas pO2 62 mmHg (30-50)
[2024-09-26 14:28] LABS: Venous Blood Gas O2 Therapy 3
--- NOTE | 2024-09-26 14:35 | EDRN ---
IV Vat RN paged for midline or second vascular access on pt per DR. Blum who was texting w/ Dr. Acosta at this time.
--- NOTE | 2024-09-26 14:57 | EDRN ---
This RN attempted to give report to ICU at 14:45 and just now and Dr. Haro, ICU supervisor blood, is coming down to evaluate pt for ICU admission.
--- NOTE | 2024-09-26 15:02 | EDRN ---
Dr. Haro is downgrading pt to IMU
--- NOTE | 2024-09-26 15:24 | EDRN ---
Report called to Greg MCCARTNEY in IMU at this time,.
--- NOTE | 2024-09-26 16:10 | PTCARENOTE ---
Pt arrived to floor on stretcher from ED. Pt on HF NC @ 30L/50% FiO2; RR ~ 30's; Tachycardia with HR ~ 100-110; BP stable; Pt non-verbal but grunts seemingly when uncomfortable; Awake/alert - follows simple commands. Pt warm to touch, unable
to get accurate oral temp - rectal temp = 104.3; Rectal tylenol administered and ice packs placed under arms; Pt incontinent of urine, attempted condom cath but unable to keep on Pt. Will continue to monitor and assess.
--- NOTE | 2024-09-26 16:50 | CON.INTV ---
Consultation
Consultation Request
Date/Time Consultation Requested: 09/26/2024 - 160
Date/Time Consultation Performed: 09/26/2024 - 1629
Requesting Provider: Dr. Acosta
Performing Provider: Dr. Lugo
Reason for Consultation: SOB/Septic
Medical History
-
Chief Complaint: SOB with abdominal distention/bloating
History of Present Illness:
69-year-old male with a past medical history of hypothyroidism, bipolar disorder, schizophrenia, DEONTE on CPAP, dyslipidemia and orthostatic hypotension who presented from [facility] due to worsening SOB with abdominal distention. Patient is
unable to answer questions at this time, and unclear what his baseline is. The ER nurse said that he has a history of Parkinson disease although this is not documented. History obtained from documentation. Per the family, the patient has been
worsening since last Friday. He was having hallucinations. The daughter believes that the patient's been having loose stools and no recent use of laxatives. He has had no recent psychiatric deterioration despite his history of schizophrenia and
he usually has normal conversations with people with normal memory. In the ER, he was febrile to 102.4 �F, pulse rate 108, respiratory rate 20, BP 114/78 and saturating 90% on 2 L/min. Labs showed WBC 9.4, Hb 12.4, 14% bands, sodium 152,
creatinine 2.4, urinalysis positive for UTI, and COVID-19 antigen negative. Blood and urine cultures collected, and flu A/B swab was negative. And obstructive XR series showed diffuse small bowel loop dilatation with air-fluid levels concerning
for an SBO or adynamic ileus. Subsequent CT abdomen/pelvis showed diffuse dilatation of the small bowel likely due to adynamic ileus as there was no discrete transition point to suggest an SBO, also long segment bowel wall thickening and
inflammatory fat stranding at the rectosigmoid junction suspicious for severe proctocolitis, and mild bilateral hydroureteronephrosis with no obstructive stone seen. He was given Tylenol in the ER, ceftriaxone and 500 cc of NS 0.9%. She initially
was going to be consult admitted to the ICU however he was saturating >95% on 3 L/min, lactate was normal at 1.3, he remains normotensive, he is only mildly tachycardic, he is awake although not following commands, and protecting his airway, with
blood gas showing respiratory alkalosis with pH 7.5, pCO2 35. [facility]/pulmonary services consulted for additional management/recommendations - patient is being now transferred to the IMU.
When I saw the patient, he was in bed, appeared uncomfortable, eyes were wide open and he would look at me when I said his name but not following commands. Heart rate 106, BP 166/84 and saturating 96% on 3 L/min. He has tremors especially when he
is moved for blood draws or any other nursing interventions. His abdomen appears distended.
PMHx: Schizophrenia, bipolar disorder, hypothyroidism, history of DEONTE on CPAP, dyslipidemia, orthostatic hypotension, ?Parkinson's disease
PSHx: Skin cancer removal
Past Medical History
Past Medical History: Other (Above as per HPI)
Past Surgical History: Other (Above as per HPI)
Social History
Tobacco: Non-smoker
Alcohol: None
Drug: None
Personal:
Family History
Family History: Unable to Obtain
Allergies / Home Medications
Allergies
Allergy/AdvReac Type Severity Reaction Status Date / Time
Penicillins Allergy pt. states Verified 09/26/24 09:19
it gives
him bad
dreams
Home Medications
�Medication �Instructions �Recorded �Confirmed �Last Taken �Type
amantadine HCl 100 mg tablet 100 mg PO BID Neurological 08/23/24 09/26/24 08/23/24 History
Condition
cholecalciferol (vitamin D3) 50 50 mcg PO HS Supplement 08/23/24 09/26/24 08/23/24 History
mcg (2,000 unit) tablet (Vitamin
D3)
clozapine 100 mg tablet 300 mg PO HS Mental Health/Anxiety 08/23/24 09/26/24 08/23/24 History
cyanocobalamin (vitamin B-12) 1,000 mcg PO DAILY Supplement 08/23/24 09/26/24 08/23/24 History
1,000 mcg tablet,extended release
docusate sodium 100 mg capsule 100 mg PO DAILY Constipation 08/23/24 09/26/24 08/23/24 History
fenofibrate micronized 134 mg 134 mg PO DAILY High Cholesterol 08/23/24 09/26/24 08/23/24 History
capsule
folic acid 1 mg tablet 1 mg PO DAILY Supplement 08/23/24 09/26/24 08/23/24 History
levothyroxine 125 mcg tablet 125 mcg PO DAILY Thyroid 08/23/24 09/26/24 08/23/24 History
oxycodone-acetaminophen 10 mg-325 1 tab PO DAILY Pain 08/23/24 09/26/24 08/23/24 History
mg tablet
oxycodone-acetaminophen 10 mg-325 1 tab PO [id number] PRN severe pain 08/23/24 09/26/24 Unknown History
mg tablet
simvastatin 20 mg tablet 20 mg PO QPM High Cholesterol 08/23/24 09/26/24 08/23/24 History
midodrine 5 mg tablet 5 mg PO TID 30 days #90 tabs 08/27/24 09/26/24 Unknown Rx
acetaminophen 325 mg tablet 650 mg PO Q4H PRN mild pain/temp 08/28/24 09/26/24 Unknown History
greater than 100
bisacodyl 10 mg rectal suppository 10 mg OK DAILYPRN PRN if MOM 08/28/24 09/26/24 Unknown History
(Dulcolax (bisacodyl)) ineffective after 24hr
magnesium hydroxide 400 mg/5 mL 2,400 mg PO DAILYPRN PRN if no BM 08/28/24 09/26/24 Unknown History
oral suspension (Milk of Magnesia) in 3 days
omega 5-vmw-xcg-fish oil 1,000 mg 1 cap PO DAILY Supplement 08/28/24 09/26/24 Unknown History
(120 mg-180 mg) capsule (Fish Oil)
sodium phosphates 19 gram-7 118 ml OK DAILYPRN PRN if dulcolax 08/28/24 09/26/24 Unknown History
gram/118 mL enema (Fleet Enema) ineffective after 24hr
ipratropium 0.5 mg-albuterol 3 mg 3 ml inhalation Q6HPRN PRN sob 09/26/24 09/26/24 Unknown History
(2.5 mg base)/3 mL nebulization
soln
lorazepam 0.5 mg tablet 0.5 mg PO DAILY PRN anxiety 09/26/24 09/26/24 Unknown History
Review of Systems
-
Unable to Obtain full review of systems at this time due to: Acuity
Vitals / Labs / Diagnostic Testing
Vital Signs
Temp Pulse Resp BP Pulse Ox
104.3 F H 106 33 166/84 96
09/26/24 17:02 09/26/24 14:45 09/26/24 14:45 09/26/24 14:00 09/26/24 16:22
Lab Data
09/26/24 09:46
09/26/24 09:46
Laboratory Results
09/26/24
13:13
pH Cancelled
pCO2 Cancelled
pO2 Cancelled
HCO3 Cancelled
O2 Delivery Level Cancelled
Microbiology
09/26/24 10:26 Nasal Swab Influenza Types A & B (JI) - Final
Negative for Influenza A & B, NAAT
Negative results must be combined with clinical observations
and patient history.
Nucleic Acid Amplification test (NAAT)performed on the
[employer] NOW platform.
Diagnostic Testing:
Physical Exam
-
HEENT: Normocephalic and Anicteric
Cardiovascular: S1/S2 and Peripheral Edema (+1 LE pitting edema bilaterally)
Respiratory: Wheeze (negative), Rhonchi (negative), Accessory Resp Muscle Use (mild) and Other (Coarse breath sounds heard bilaterally)
GI: Soft, Distended, Non Tender and Normal Bowel Sounds
Neurology: Awake, Tremors (Positive) and Other (Eyes open but not following any commands)
Skin: Warm and Dry
General: Respiratory Distress (mild), Chills (negative) and Sweats (negative)
Assessment
-
Assessment: 69-year-old male with a past medical history of hypothyroidism, bipolar disorder, schizophrenia, DEONTE on CPAP, dyslipidemia and orthostatic hypotension who presented from [facility] due to worsening SOB with abdominal distention.
Patient is unable to answer questions at this time, and unclear what his baseline is. The ER nurse said that he has a history of Parkinson disease although this is not documented. History obtained from documentation. Per the family, the patient
has been worsening since last Friday. He was having hallucinations. The daughter believes that the patient's been having loose stools and no recent use of laxatives. He has had no recent psychiatric deterioration despite his history of
schizophrenia and he usually has normal conversations with people with normal memory. In the ER, he was febrile to 102.4 �F, pulse rate 108, respiratory rate 20, BP 114/78 and saturating 90% on 2 L/min. Labs showed WBC 9.4, Hb 12.4, 14% bands,
sodium 152, creatinine 2.4, urinalysis positive for UTI, and COVID-19 antigen negative. Blood and urine cultures collected, and flu A/B swab was negative. And obstructive XR series showed diffuse small bowel loop dilatation with air-fluid levels
concerning for an SBO or adynamic ileus. Subsequent CT abdomen/pelvis showed diffuse dilatation of the small bowel likely due to adynamic ileus as there was no discrete transition point to suggest an SBO, also long segment bowel wall thickening and
inflammatory fat stranding at the rectosigmoid junction suspicious for severe proctocolitis, and mild bilateral hydroureteronephrosis with no obstructive stone seen. He was given Tylenol in the ER, ceftriaxone and 500 cc of NS 0.9%. She initially
was going to be consult admitted to the ICU however he was saturating >95% on 3 L/min, lactate was normal at 1.3, he remains normotensive, he is only mildly tachycardic, he is awake although not following commands, and protecting his airway, with
blood gas showing respiratory alkalosis with pH 7.5, pCO2 35. [facility]/pulmonary services consulted for additional management/recommendations - patient is being now transferred to the IMU.
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
Impression:
#Sepsis due to severe proctocolitis in the setting of UTI
#Bandemia (14% bands on admission CBC)
#Mild bilateral hydroureteronephrosis without obstructive stone seen on CT A/P from 09/26/2024
#Moderate stool distention of the rectum with diffuse small bowel dilatation likely due to adynamic ileus (no discrete transition point to suggest SBO)
#Hypernatremia due to free water deficit of 5.5L
#MICHAEL (baseline creatinine 1.1) with mild bilateral hydroureteronephrosis
#Toxic�metabolic encephalopathy
#Transaminitis with elevated AST
#Suspected UTI with positive nitrites, 3+ leukocyte esterase, and urine WBC 16�20 with many bacteria
#History of schizophrenia on clozapine
#Hypothyroidism
#History of DEONTE on CPAP
#Bipolar disorder
Plan:
- Given that the patient has severe proctocolitis with abdominal distention, need to continue broad-spectrum antibiotics and try to decompress bowel given he has moderate stool distention in the rectum
- Currently on ceftriaxone + Flagyl --> GI recommends broadening further to Zosyn; if he were to deteriorate further then would add micafungin as well with ID consult + general surgery
- Follow-up blood cultures; given his urinalysis is consistent with a UTI, follow-up urine culture (unable to ask him if he has been symptomatic so for now would assume he has UTI)
- Consider stool Cx po if mucous or blood is seen in stool; if stool cultures check then also check O&P + C. difficile
- GI had seen the patient and recommends ATC enemas for now
- Pain control
- Would keep him NPO for now with eventual PRE SALES TECHNICAL ENGINEER evaluation once his condition improves and GI is okay with him starting a diet
- Once he can take oral medications, would resume his essential home meds like clozapine, amantadine, midodrine and prn lorazepam
- Maintain SpO2 >90-94%; given his abdominal pathology with accessory muscle use, believe if we delivered higher FiO2 that he would improve
- Transition from nasal cannula to high flow nasal cannula
- Given his abdominal distention, would avoid BiPAP given the risk of aerophagia which would only lead to worsening abdominal distention/pain and increased risk of aspiration
- Keep HOB >30-45� and continue aspiration precautions
- If he were to deteriorate further, low threshold to intubate; currently not needed as he is awake, on minimal oxygen and protecting his airway
- Trend sCr and monitor UOP
- Consider nephrology consult especially if serum creatinine continues to worsen
- Renally dose all medications/antibiotic
- If UOP starts to decrease <0.5 cc/kg/hr then consult nephro as he may need a nephrostomy tube if hydroureteronephrosis worsens
- If free water deficit if 5.5L --> start D5W and continue to trend serum Na levels, being careful not to over-correct
- Maintain MAP>65
- Replete electrolytes with K>4, Mg>2
- Maintain euglycemia with goal BG 140-180
- Trend H/H and transfuse if needed to keep Hb>7g/dL; keep plt>20k, unless there is concern for bleeding then keep plt>50k
- prn nebulized bronchodilators - not currently bronchospastic
- Once he clinically improves, would encourage incentive spirometer 10x per hour for at least 4 hrs a day
- DVT ppx: HSQ - would raise to q8hr
Continue IMU level of care; pulmonary service will continue to follow along. If there is any clinical deterioration then contact the [facility] team immediately.
Data:
CT abdomen/pelvis without contrast 09/26/2024:
Limited examination due to the patient's arms down position, body habitus, and the lack of oral and intravenous contrast.
Long segment bowel wall thickening and inflammatory fat stranding at the rectosigmoid junction most suspicious for a severe proctocolitis. A colonic neoplasm is not completely excluded and a follow-up colonoscopy could be considered if not recently
performed. Moderate stool distention of the rectum.
Diffuse dilatation of small bowel, favored to be secondary to an adynamic ileus in the absence of a discrete transition point to suggest a small bowel obstruction.
Mild bilateral hydroureteronephrosis. No obstructing ureteral calculus. Collapsed urinary bladder with wall thickening.
Total time spent today was 81 minutes for this encounter. Time includes reviewing laboratory test/imaging results, reviewing pertinent medical records, obtaining and reviewing medical history, performing an appropriate exam, ordering medications,
tests and procedures. Time also includes documentation of this encounter, coordinating patient care and communicating with other healthcare professionals. Total time does not include separately billed tests performed on this date of service.
[2024-09-26] MEDS: NSS 1000 IV (17:29)
[2024-09-26] MEDS: FLAGYL 500 MG 100 IV (17:29)
[2024-09-26] MEDS: ZOSYN 50 IV (20:28)
[2024-09-26] MEDS: D5W 1000 IV (20:28)
[2024-09-26] MEDS: OFIRMEV 100 IV (20:47)
[2024-09-26] MEDS: CALDOLOR 104 MG IV (22:21)
[2024-09-26] MEDS: HEPARIN 5000 UNITS SC (23:29)
[2024-09-27] VITALS (26 sets, daily range): BP systolic 81–129; BP diastolic 47–99; BMI 30.8
[2024-09-27] MEDS: TYLENOL/FEVERALL 650 MG RECTAL ×5 (01:07→23:54)
[2024-09-27] MEDS: ZOSYN 50 IV ×4 (01:07→19:42)
--- NOTE | 2024-09-27 02:31 | PTCARENOTE ---
Assumed care for patient overnight, received report from dayshift RN. Upon initial assessment pt lethargic but responding to verbal and pain stimuli. Pin point pupils 1 mm PERRLA. Pt initial rectal temperature of 104.7. IV Tylenol administered, ice
packs to groin, underarms, and neck. ANKIT Rice made aware and put order for temperature sensing otero placed see order. Pt temperature came down to 104.4, PARALEGAL SPECIALIST made aware and ordered IV Ibuprofen. Ice packs changed. Current core temperature is
102.2. Temperature slowly improving. IV abx cont. IVF cont. Sinus tach on the monitor. RT bedside to increase MFNC to 50L 50%. SpO2 98%. Utilizing [employer] for oral suction, suctioning thick white mucus. Pt grunting and has baseline tremors. Pt
abdomen is round, distended, and full. Orders to administer milk of molasses enema see worklist. Output consists of small amounts of liquid stool mixed with solution. Pt has a stage 1 of the coccyx, cleansed with saline and heart foam placed. B/l
heel foams placed. Pt tolerating frequent turning and repositioning. Bed alarm is on.
[2024-09-27 06:01] LABS: Hematocrit 38.9 % (39.0-52.0); Hemoglobin 12.6 g/dL (13.0-18.0); Mean Corp Hgb Conc. 32.4 g/dL (33.0-37.0); Mean Corpuscular Hgb 27.6 pg (27.0-31.0); Mean Corpuscular Volume 85.3 fL (80.0-94.0); Mean Platelet Volume 10.9 fL (7.4-10.4); Platelet Count 319 10^3/uL (130-400); Red Blood Cell Count 4.56 10^6/uL (4.70-6.10); Red Cell Dist. Width 15.1 % (11.5-14.5); White Blood Cell Count 11.3 10^3/uL (4.8-10.8)
--- NOTE | 2024-09-27 06:15 | W.PN.GI.CBS2 ---
Today's Communication / Plan
-
Continue enemas from below along with IV abx. Will obtain repeat KUB tomorrow and consider Mestinon if no improvement of ileus. Rest of ongoing supportive care as below.
Assessment / Plan
-
Mr. Rivera is a 69 y.o male with a past medical history of underlying psychiatric illness including schizophrenia, bipolar disorder, tardive dyskinesia, hypothyroidism, and chronic constipation and recent hospitalization (for orthostatic
hypotension/schizophrenia) at from 08/28 - 09/10/24 who represents from his residential due to vomiting, diarrhea and worsening abdominal distension. Gastroenterology has been consulted for further evaluation and management.
#Fevers #Tachycardia #Bandemia #Sepsis
#Severe Proctocolitis on CT Imaging
#Moderate Fecal [place] in Rectum
#C/f Stercoral Colitis
#Adynamic Ileus
#Acute Toxic Metabolic Encephalopathy
#Hypernatremia #MICHAEL
#Chronic Constipation
#Hx of Psychiatric Illness
Impression: Patient presenting with vomiting, looser stools and worsening abdominal distention from his facility along with acute mental status changes concerning for toxic metabolic encephalopathy. Found to have severe sepsis and CT imaging
revealing a 19 cm, long segment of severe proctocolitis without abscess, perforation or other local complications. Additionally, found to have significant fecal burden within the rectum and distal colon upon personal review of imaging. Etiology of
his severe proctocolitis likely secondary to stercoral colitis given his longstanding history of chronic constipation (suspect 2/2 psych medications, hypothyroidism, and limited mobility). Suspect this is further driving his adynamic ileus and
underlying sepsis secondary to bacterial translocation given severe thickening versus urinary source. Possibly infectious colitis given the reported diarrhea although I think this is likely is from overflow diarrhea in the setting of his chronic
constipation and significant stool burden seen on imaging. Much less likely ischemia given the distribution on the CT imaging. It is unclear if the patient is ever had a prior colonoscopy. Fortunately, there is no abnormal colonic wall dilatation
to suggest a colonic ileus and patient's bicarb and lactic acid are within normal limits. Abdominal exam is significant for distention but without any rebound tenderness or involuntary guarding or other tenderness to palpation appreciated except
for hypoactive bowel sounds. His underlying ileus is again likely secondary to his significant stool burden and suspected stercoral colitis but also multifactorial in setting of his severe electrolyte derangements given his hypernatremia and sepsis.
Recommendations:
- Okay with sips of liquids
- Agree with IVF to maintain euvolemia, keep K > 4.0 and Mg > 2.0
- Correction of hypernatremia as per primary team. Nephrology has been consulted given MICHAEL
- Blood cultures pending, infectious w/u as per ICU team
- If looser stools / diarrhea, would check stool culture, O&P, and C Diff although lower suspicion
- Continue IV Zosyn, ensure renally-dosed given MICHAEL
- Continue rectal enemas from below with MoM enemas q 6 hrs to clear out harder stool in rectum
- Defer from starting any stool softeners from above / p.o (ie miralax, senna etc) at this time as not to worsen SB dilatation
- Will consider starting Mestinon if no relief with ongoing MoM enemas given ileus and SB dilatation
- Monitor serial abdominal exams, would repeat KUB tomorrow AM
- No plans for a colonoscopy at this time, would consider a limited flex-sig versus colonoscopy pending patient's clinical course prior to discharge given CT findings
- Minimize narcotics and anticholinergics as much as possible
- Avoidance of all NSAIDs
- Rest of care as per primary ICU team
GI will continue to follow while inpatient.
Subjective
Subjective
Date of Service: September 27, 2024
- Persistently febrile overnight with T Max of 104.6, remains on IV Zosyn, blood and urine cultures pending
- Otherwise, no acute events overnight
More alert this AM, denies any abdominal pain but still with significant distension. No appreciable stool in distal rectal vault for disimpaction in d/w nursing this AM. Received two MoM enemas with small amount of liquid stool.
Objective
Data Reviewed
Laboratory Data:
Laboratory Results
09/27/24 05:32
Laboratory Results
Total Bilirubin 0.9 mg/dl (0.2-1.3) 09/26/24 09:46
AST 113 U/L (17-59) H 09/26/24 09:46
ALT 33 U/L (0-50) 09/26/24 09:46
Alkaline Phosphatase 72 U/L (38-126) 09/26/24 09:46
Vital Signs and I&O:
Vital Signs
Temp Pulse Resp BP Pulse Ox
101.8 F H 91 22 105/66 95
09/27/24 03:35 09/27/24 04:00 09/27/24 04:00 09/27/24 04:00 09/27/24 04:30
I&O
09/25/24 09/26/24 09/27/24
06:59 06:59 06:59
Output Total 70 / 70
Balance -70 / -70
Physical Exam
Physical Exam
HEENT: Anicteric and Moist mucous membranes
Cardiology: Other (RR on tele)
Pulmonary: Other (Non-labored work of breathing)
GI: Soft, Distended (Notable distension and tympanic), Non Tender (No appreciable tenderness throughout abdomen) and Other (Diffuse hypoactive bowel sounds throughout)
Extremities: Warm
Neuro: Non Focal and Other (Moves all four extremities spontaneously)
[2024-09-27] MEDS: HEPARIN 5000 UNITS SC ×3 (08:09→23:54)
[2024-09-27] MEDS: D5W 1000 IV ×2 (08:13→22:17)
[2024-09-27 08:24] LABS: ALT (SGPT) 29 U/L (0-50); AST (SGOT) 65 U/L (17-59); Albumin 2.8 g/dl (3.5-5.0); Alkaline Phosphatase 63 U/L (38-126); Blood Urea Nitrogen 93 mg/dl (9-20); Calcium 8.5 mg/dl (8.4-10.2); Carbon Dioxide 23 mmol/L (22-30); Chloride 115 mmol/L (98-107); Estimated Creatinine Clearance 22 ml/min; Glucose 146 mg/dl (70-99); Magnesium 3.2 mg/dl (1.6-2.3); Phosphorus 5.3 mg/dl (2.5-4.5); Potassium 4.3 mmol/L (3.5-5.1); Sodium 152 mmol/L (135-145); Total Bilirubin 0.9 mg/dl (0.2-1.3); Total Protein 5.8 g/dl (6.3-8.2); eGFR 15.17
--- NOTE | 2024-09-27 08:50 | W.PN.HOSP.TC ---
Today's Communication/Plan
-
IV fluids. NPO. IV antibiotics
Assessment / Plan
Assessment / Plan
Physical exam:
General: Acutely ill. Toxic appearing
HEENT: Normocephalic, Atraumatic and Moist Mucous Membranes
Respiratory: Decreased breath sounds bilaterally; Tachypneic; Negative Wheezes or Rales
Cardiac: Regular Rhythm and S1/S2
GI: Soft, Tender diffusely but mainly in the left lower quadrant and significantly distended. Bowel sounds hypoactive.
Musculoskeletal: No Clubbing, No Cyanosis and No Edema
Neuro: Lethargic, does not follow simple commands, withdraws to pain stimuli, generalized weakness.
A/P:
Sepsis due to UTI and enterocolitis, POA:
IV fluids boluses
Pressors if not responding to fluid
Antibiotics, IV Zosyn
Follow-up cultures
Discussed with son at bedside today and continue aggressive medical treatment but no escalation of CPR if gets to that point and will reevaluate goals of care over the next 48 hours.
Stercoral colitis with ileus/severe proctocolitis and concerns for ?ischemic colitis:
Keep n.p.o.
IV fluid
Repeat lactate and is increased as well as MICHAEL
Colorectal surgery consult-discussed with CRS and no acute surgery indicated at the moment.
Enemas
Discussed with general surgery and they believe no need for general surgery involvement at the moment.
Will follow-up further GI recommendations
Might consider NG tube +/- Mestinon if not improvement
MICHAEL:
IV fluid
Gonzalez catheter
Nephrology consult
Hypernatremia:
Monitor sodium closely
Acute hypoxic respiratory failure, POA:
Unclear etiology but suspect related to abdominal process and atelectasis in a patient with underlying DEONTE and obesity.
Repeat chest x-ray today
Pulmonary on board-discussed with pulmonary today
Continue high flow oxygen
Plan for echo and BNP per pulmonary
Acute toxic metabolic encephalopathy:
Likely related to acute illness
As per family his baseline he is able to communicate with family but he does have episodes of psychosis on and off and had some overall decline as of late.
Hypothyroidism:
On IV levothyroxine
History of schizophrenia/bipolar disorder/tardive dyskinesia:
Will restart his medications when able to take oral
Orthostatic hypotension:
Will restart his medications when able to take oral
Hyperlipidemia:
Will restart his medications when able to take oral
Obesity:
Lifestyle changes modifications warranted as outpatient
DVT prophylaxis:
Heparin SQ
CODE STATUS:
No CPR but okay with intubation
Discussed about CODE STATUS with son today and changes as above but also family will discuss again and based on prognosis might change CODE STATUS again.
Total Critical Care Time__55___ minutes. I was immediately available to the patient and staff. I personally examined, reviewed labs, diagnostic images/reports, interpretations, treatment plans, discussed patient care with other providers and
family or caregivers (if patient is unable to make decisions), entered orders as appropriate and documented the medical record.
Anticipated Discharge: > 48 hours
Subjective/Interval History
-
Date of Service: September 27, 2024
Patient remains encephalopathic and hypoxic. Transiently hypotensive. Persistently febrile. He had small amount of bowel movements.
Objective Data
-
Labs:
Laboratory Results
09/27/24
05:32
WBC 11.3 H
Hgb 12.6 L
Hct 38.9 L
Plt Count 319
Sodium 152 H
Potassium 4.3
Chloride 115 H
Carbon Dioxide 23
BUN 93 H
Creatinine 4.1 H*
Glucose 146 H
Calcium 8.5
Total Bilirubin 0.9
AST 65 H
ALT 29
Alkaline Phosphatase 63
Vital Signs:
Vital Signs
Temp Pulse Resp BP Pulse Ox
100.5 F H 89 24 109/67 95
09/27/24 07:58 09/27/24 08:00 09/27/24 08:00 09/27/24 08:00 09/27/24 08:22
I&O
09/26/24 09/27/24 09/28/24
06:59 06:59 06:59
Intake Total 950 / 950
Output Total 320 / 320
Balance 630 / 630
--- NOTE | 2024-09-27 09:04 | W.PN.PUL3 ---
Today's Communication / Plan
-
Transition to per team as able, hypoxia likely related to intra-abd distention, atelectasis
Further GI management per team, CRS consult obtained, remains NPO
Check baseline ECHO, proBNP given MICHAEL/hypoxemia
Hypotension noted, receiving IVFs
Remains full code
Assessment
-
69-year-old male with a past medical history of hypothyroidism, bipolar disorder, schizophrenia, DEONTE on CPAP, dyslipidemia and orthostatic hypotension who presented from [facility] due to worsening SOB with abdominal distention. Per the family,
the patient has been worsening since last Friday, having hallucinations. In the ER, he was febrile to 102.4 �F, pulse rate 108, respiratory rate 20, BP 114/78 and saturating 90% on 2 L/min. Labs showed WBC 9.4, Hb 12.4, 14% bands, sodium 152,
creatinine 2.4, urinalysis positive for UTI, and COVID-19 antigen negative. Blood and urine cultures collected, and flu A/B swab was negative. AXR series showed diffuse small bowel loop dilatation with air-fluid levels concerning for an SBO or
adynamic ileus. Subsequent CT abdomen/pelvis showed diffuse dilatation of the small bowel likely due to adynamic ileus as there was no discrete transition point to suggest an SBO, also long segment bowel wall thickening and inflammatory fat
stranding at the rectosigmoid junction suspicious for severe proctocolitis, and mild bilateral hydroureteronephrosis with no obstructive stone seen. He was given Tylenol in the ER, ceftriaxone and 500 cc of NS 0.9%. She initially was going to be
consult admitted to the ICU however he was saturating >95% on 3 L/min, lactate was normal at 1.3, he remains normotensive, he is only mildly tachycardic, he is awake although not following commands, and protecting his airway, with blood gas showing
respiratory alkalosis with pH 7.5, pCO2 35. Database Analyst/pulmonary services consulted for additional management/recommendations - patient is being now transferred to the IMU.
Impression:
Acute hypoxic respiratory failure on HFNC
SOB
Sepsis due to severe proctocolitis in the setting of UTI
Bandemia (14% bands on admission CBC)
Mild bilateral hydroureteronephrosis without obstructive stone seen on CT A/P from 09/26/2024
Moderate stool distention of the rectum with diffuse small bowel dilatation likely due to adynamic ileus (no discrete transition point to suggest SBO)
Hypernatremia due to free water deficit of 5.5L
MICHAEL (baseline creatinine 1.1) with mild bilateral hydroureteronephrosis
Toxic�metabolic encephalopathy
Transaminitis with elevated AST
Suspected UTI with positive nitrites, 3+ leukocyte esterase, and urine WBC 16�20 with many bacteria
Chronic conditions [employer]:
History of schizophrenia on clozapine
Tardive dyskinesia
Hypothyroidism
History of DEONTE on CPAP
Bipolar disorder
Dyslipidemia
Orthostatic hypotension
Ambulatory dysfunction w/ recurrent falls
?Parkinson's disease
Skin cancer removed
Chronic constipation
Chronic Back Pain
Plan:
Suspect severe proctocolitis with abdominal distention, need to continue broad-spectrum antibiotics and try to decompress bowel given he has moderate stool distention in the rectum
Currently on ceftriaxone + Flagyl --> GI recommends broadening further to Zosyn; if he were to deteriorate further then would add micafungin as well with ID consult + general surgery
Follow-up blood cultures; given his urinalysis is consistent with a UTI, follow-up urine culture (unable to ask him if he has been symptomatic so for now would assume he has UTI)
GI following for recs
Pain control
Maintained on NPO status
Maintain SpO2 >90-94%; given his abdominal pathology with accessory muscle use, believe if we delivered higher FiO2 that he would improve
Transition from nasal cannula from high flow nasal cannula, now on 50L/50%--reviewed with RT
This is likely due to intra-abd source, BMI, atelectasis
No prior history of lung disease, CXR remains clear
Check ECHO for baseline
History of DEONTE, on PAP
Given his abdominal distention, can hold off on PAP use until resolved, but would restart when improving
Keep HOB >30-45� and continue aspiration precautions
MICHAEL worsening this AM, now 4.1
Trend sCr and monitor UOP--check proBNP
Renal consult obtained -- review further w/u per team
Renally dose all medications/antibiotic
Maintain MAP>65
Replete electrolytes with K>4, Mg>2
Maintain euglycemia with goal BG 140-180
Trend H/H and transfuse if needed to keep Hb>7g/dL; keep plt>20k, unless there is concern for bleeding then keep plt>50k
prn nebulized bronchodilators - not currently bronchospastic
Once he clinically improves, would encourage incentive spirometer 10x per hour for at least 4 hrs a day
DVT ppx: HSQ - would raise to q8hr
Continue IMU level of care
Diagnostic Data:
CXR 09/27/24- There are some increased right retrocardiac opacities which may be artifact with atelectasis/airspace consolidation also a consideration. No large effusions. No pneumothorax.
CT abdomen/pelvis without contrast 09/26/2024: Limited examination due to the patient's arms down position, body habitus, and the lack of oral and intravenous contrast. Long segment bowel wall thickening and inflammatory fat stranding at the
rectosigmoid junction most suspicious for a severe proctocolitis. A colonic neoplasm is not completely excluded and a follow-up colonoscopy could be considered if not recently performed. Moderate stool distention of the rectum. Diffuse dilatation of
small bowel, favored to be secondary to an adynamic ileus in the absence of a discrete transition point to suggest a small bowel obstruction. Mild bilateral hydroureteronephrosis. No obstructing ureteral calculus. Collapsed urinary bladder with wall
thickening.
-----
Total time spent today was 51 minutes for this encounter. Time includes reviewing laboratory test/imaging results, reviewing pertinent medical records, obtaining and reviewing medical history, performing an appropriate exam, ordering medications,
tests and procedures. Time also includes documentation of this encounter, coordinating patient care and communicating with other healthcare professionals. Total time does not include separately billed tests performed on this date of service.
Subjective Data
-
Date of Service:
Date of Service: September 27, 2024
Chief Complaint: Pulmonary Follow Up
Subjective:
Remains lethargic on HFNC
BMs are noted, hypotension as well, receiving IVFs
Objective Data
Data Reviewed
Vital Signs / I&O / Oxygen:
Vital Signs
Temp Pulse Resp BP Pulse Ox
100.5 F H 89 24 109/67 95
09/27/24 07:58 09/27/24 08:00 09/27/24 08:00 09/27/24 08:00 09/27/24 08:22
Intake and Output
09/26/24 09/27/24 09/28/24
06:59 06:59 06:59
Intake Total 950 / 950
Output Total 320 / 320
Balance 630 / 630
SaO2 95
Nasal Cannula flow liters per 50
minute
Physical Exam
General: Comfortable, Poor Appetite and Other (Chronically ill appearing)
HEENT: Normocephalic, Anicteric and Moist Mucous Membranes
Cardiovascular: S1-S2 and Regular Rhythm
Respiratory: Clear (decreased overall) and Non-Labored Respirations
GI: Distended (Firm), Non Tender, Organomegaly (none) and Other (decreased BS overall)
Neurology: Awake, Alert, No Motor Deficits and Lethargic (falls asleep <10 secs)
Skin: Warm and Dry
Labs/Micro/Reports
Lab Data
09/27/24 05:32
09/27/24 05:32
Laboratory Results
09/26/24
13:13
pH Cancelled
pCO2 Cancelled
pO2 Cancelled
HCO3 Cancelled
O2 Delivery Level Cancelled
Microbiology
09/26/24 10:26 Nasal Swab Influenza Types A & B (JI) - Final
Negative for Influenza A & B, NAAT
Negative results must be combined with clinical observations
and patient history.
Nucleic Acid Amplification test (NAAT)performed on the
[employer] platform.
[2024-09-27 09:49] LABS: Lactic Acid 1.6 mmol/L (0.7-2.0)
--- NOTE | 2024-09-27 09:57 | PTCARENOTE ---
Received this am pt on high flow o2, lungs course throughout. ST on tele 90, BP 109/67 Core temp 100.2. Gonzalez with minimal light [place] urine 25ml/hr. Abdomen grossly distended, moans with palpation. Incontinent of mod amt liq brown stool. Labs
results received and Dr. Ritter notified at that time. Repeat lactic drawn and resulted normal. PCXR completed. IVF infusing at 75ml/hr.
[2024-09-27] MEDS: NSS 1000 IV (10:18)
--- NOTE | 2024-09-27 10:21 | PTCARENOTE ---
10 am BP 80s/50s (60)- relayed to provider- IVF bolus initiated and Bp now 104/66- remains lethargic drowsy.
--- NOTE | 2024-09-27 10:54 | CON.CRS ---
Documented by User: Pavithra Kumar PA-C 09/27/24 11:27
Consultation
-
Date/Time Consultation Requested: 09/27/2024, 09:43
Date/Time Consultation Performed: 09/27/2024, 10:00
Requesting Provider: Surinder Ritter MD
Performing Provider: Marvin Nunze MD
Reason for Consultation: abdominal distention
Medical History
-
Chief Complaint: lethargy
History of Present Illness:
69 yo male with a past medication history of schizophrenia, bipolar disorder, hypothyroidism, and DEONTE, presents to the ER from his nursing facility on due to lethargy, shortness of breath and loose stools. The patient is unable to answer
questions due to lethargy and history was obtained from previous documentation. Per the family, the patient been worsening over the past several days with hallucinations and lethargy. He then developed shortness of breath. He has been having
[facility] without laxatives.
In the ER his WBC was 9.4 and is 11.3 today. Lactic acid was 1.3 and is 1.6 today. Creatinine baseline appears at 1.0-1.2. However, he arrived with a creatinine of 2.4 and is 4.1 this morning. Since admission he has remained febrile with a Tmax
of 104.3. He is saturating in the mid 90s on 50 flow L/min. He has been started on IV antibiotics.
CT A/P shows a long segment bowel wall thickening and inflammatory fat stranding at the rectosigmoid junction most suspicious for a severe proctocolitis. A colonic neoplasm is not completely excluded and a follow-up colonoscopy could be considered
if not recently performed. Moderate stool distention of the rectum.
There is no record of a colonoscopy at our facility. His last bowel movement was this morning per nursing that was soft and loose and moderate in size. Given the above CT findings, as well as abdominal distention, we have been consulted for
surgical opinion.
Past Medical History
Past Medical History: Hypercholesterolemia, Hypothyroidism, Psychiatric (schizophrenia, bipolar disorder) and Other (DEONTE, dyslipidemia, orthostatic hypotension)
Past Surgical History: Other (skin cancer removal)
Social History
Tobacco: Non-Smoker
Alcohol: None
Drug: None
Family History
Family History: Reviewed & Not Pertinent
Allergies / Home Medications
Allergy/AdvReac Type Severity Reaction Status Date / Time
Penicillins Allergy pt. states Verified 09/26/24 09:19
it gives
him bad
dreams
�Medication �Instructions �Recorded �Confirmed �Type
amantadine HCl 100 mg tablet 100 mg PO BID Neurological 08/23/24 09/26/24 History
Condition
cholecalciferol (vitamin D3) 50 50 mcg PO HS Supplement 08/23/24 09/26/24 History
mcg (2,000 unit) tablet (Vitamin
D3)
clozapine 100 mg tablet 300 mg PO HS Mental Health/Anxiety 08/23/24 09/26/24 History
cyanocobalamin (vitamin B-12) 1,000 mcg PO DAILY Supplement 08/23/24 09/26/24 History
1,000 mcg tablet,extended release
docusate sodium 100 mg capsule 100 mg PO DAILY Constipation 08/23/24 09/26/24 History
fenofibrate micronized 134 mg 134 mg PO DAILY High Cholesterol 08/23/24 09/26/24 History
capsule
folic acid 1 mg tablet 1 mg PO DAILY Supplement 08/23/24 09/26/24 History
levothyroxine 125 mcg tablet 125 mcg PO DAILY Thyroid 08/23/24 09/26/24 History
oxycodone-acetaminophen 10 mg-325 1 tab PO DAILY Pain 08/23/24 09/26/24 History
mg tablet
oxycodone-acetaminophen 10 mg-325 1 tab PO [id number] PRN severe pain 08/23/24 09/26/24 History
mg tablet
simvastatin 20 mg tablet 20 mg PO QPM High Cholesterol 08/23/24 09/26/24 History
midodrine 5 mg tablet 5 mg PO TID 30 days #90 tabs 08/27/24 09/26/24 Rx
acetaminophen 325 mg tablet 650 mg PO Q4H PRN mild pain/temp 08/28/24 09/26/24 History
greater than 100
bisacodyl 10 mg rectal suppository 10 mg [place] DAILYPRN PRN if MOM 08/28/24 09/26/24 History
(Dulcolax (bisacodyl)) ineffective after 24hr
magnesium hydroxide 400 mg/5 mL 2,400 mg PO DAILYPRN PRN if no BM 08/28/24 09/26/24 History
oral suspension (Milk of Magnesia) in 3 days
omega 8-tvk-bcy-fish oil 1,000 mg 1 cap PO DAILY Supplement 08/28/24 09/26/24 History
(120 mg-180 mg) capsule (Fish Oil)
sodium phosphates 19 gram-7 118 ml AZ DAILYPRN PRN if dulcolax 08/28/24 09/26/24 History
gram/118 mL enema (Fleet Enema) ineffective after 24hr
ipratropium 0.5 mg-albuterol 3 mg 3 ml inhalation Q6HPRN PRN sob 09/26/24 09/26/24 History
(2.5 mg base)/3 mL nebulization
soln
lorazepam 0.5 mg tablet 0.5 mg PO DAILY PRN anxiety 09/26/24 09/26/24 History
Review of Systems
-
History Source: Transfer Record and Physician
Constitutional: Fatigue
Abdomen/GI: Diarrhea
Neurological: Other (hallucinations)
A 10 point review of systems was completed, and was negative except as per HPI.
Physical Exam
Vital Signs
Temp 100.5 F H 09/27/24 10:26
Pulse 91 09/27/24 10:18
Resp Rate 20 09/27/24 10:18
Blood pressure 104/66 09/27/24 10:18
SaO2 95 09/27/24 08:30
09/26/24 09/27/24 09/28/24
06:59 06:59 06:59
Actual Weight 102.8 kg
Body Mass Index (BMI) 30.8
Lab Results / Allergies
09/27/24 05:32
09/27/24 05:32
WBC 11.3 10^3/uL (4.8-10.8) H 09/27/24 05:32
Hgb 12.6 g/dL (13.0-18.0) L 09/27/24 05:32
Hct 38.9 % (39.0-52.0) L 09/27/24 05:32
Plt Count 319 10^3/uL (130-400) 09/27/24 05:32
Allergy/AdvReac Type Severity Reaction Status Date / Time
Penicillins Allergy pt. states Verified 09/26/24 09:19
it gives
him bad
dreams
Physical Exam
General: No Apparent Distress and Other (lethargic)
GI: Tender (LLQ moderate, mild throughout) and Distended
Neuro: Other (lethargic but awakes to stimulation. oriented to self and place. )
Data Reviewed
-
CT Scan: Image Personally Visualized and interpreted and Report Reviewed by me
Labs: Labs Reviewed by me and Discussed with Physician
Old Records: Reviewed
Assessment / Plan
-
Assessment: 69-year-old male with a prior history of schizophrenia and bipolar disorder, presents from his nursing facility due to hallucinations, lethargy, shortness of breath, and abdominal distention found to have long segment of bowel wall
thickening inflammatory fat stranding at the rectosigmoid junction
Plan:
-No need for acute surgery at this time
-Medical management per GI to improve constipation
-Remain NPO with IV fluids
-Continue IV antibiotics
-Okay for enemas from our standpoint
-Will follow

Documented by User: Marvin Nunez MD 09/27/24 18:31
Data Reviewed
-
CT Scan: Discussed with Physician
[2024-09-27 11:26] LABS: NT-proBNP 704 pg/ml
--- NOTE | 2024-09-27 12:24 | CM ---
Patient from [facility] with Hx Schizophrenia, Bipolar disorder with Dx sepsis. HFNC. BiPAP held per pulmonology. Febrile. Receiving IVF, IV Abx. NPO.
Spoke with [facility];
the patient resides there and was transitioning form short term rehab/STR to manager long term care care/LTC on an [place] bed hold.
He was recently hospitalized at twice and returned to [facility].
The patient was confused & hallucinating.
He had O2 & BiPAP and had difficulty using the BiPAP.
The patient requires assist of 2 and was not ambulatory.
He was not currently receiving PT/OT.
The patient often declines to get OOB.
The family wanted him at [facility] as the patient's mother is also there - she is currently in hospice.
The patient is not easy to care for/not easy to manage.
The for report [phone], fax [phone].
Plan return to [facility] when medically ready.
--- NOTE | 2024-09-27 16:09 | W.CON.NEPH ---
Consultation
-
Date/Time Consultation Requested: 09/27/24 0852
Date/Time Consultation Performed: 09/27/24 1615
Requesting Provider: Surinder Guerin
Performing Provider: Kathy Locke
Reason for Consultation: MICHAEL
Medical History
-
Chief Complaint: abdominal distension and bloating
History of Present Illness:
69-year-old male with a past medical history of hypothyroidism on levothyroxine, bipolar disorder, schizophrenia on ativan, clozapine,possible Parkinson on amantadine, DEONTE on CPAP, dyslipidemia on statin and orthostatic hypotension on midodrine who
presented from [facility] due to worsening SOB with abdominal distention on 09/26. In the ER, he was febrile to 102.4 �F, sating 90% on 2 L/min. Labs noted sodium 152, creatinine 2.4, urinalysis positive for UTI. Xray concern of SBO,
Subsequent CT abdomen/pelvis showed diffuse dilatation of the small bowel likely due to adynamic ileus as there was no discrete transition point to suggest an SBO, suspicious for severe proctocolitis, and mild bilateral hydroureteronephrosis with no
obstructive stone seen. Blood gas shows pH 7.5, pCO2 35. He had 2lit bolus on admit and started on D5w for hypernatremia. Today his labs shows na 152, cr up at 4.1 hence nephrology consulted. Baseline cr 1 on 09/08/24. he only made 320cc so far in
otero bag. BPs were low earlier into 80s.
History is limited from pt and most of the history obtained through chart. He offers no cp or sob at rest. no n/v. On Fio2 40%.
Past Medical History
Schizophrenia
Bipolar disorder
Hypothyroidism
DEONTE on CPAP 7 mmHg
Dyslipidemia
Orthostatic hypotension
Past Surgical History: Other (Skin cancer removal)
Social History
Tobacco: Non-Smoker
Alcohol: None
Drug: None
Personal:
Family History
Family History: Not Pertinent
Allergies / Home Medications
Allergy/AdvReac Type Severity Reaction Status Date / Time
Penicillins Allergy pt. states Verified 09/26/24 09:19
it gives
him bad
dreams
�Medication �Instructions �Recorded �Confirmed �Type
amantadine HCl 100 mg tablet 100 mg PO BID Neurological 08/23/24 09/26/24 History
Condition
cholecalciferol (vitamin D3) 50 50 mcg PO HS Supplement 08/23/24 09/26/24 History
mcg (2,000 unit) tablet (Vitamin
D3)
clozapine 100 mg tablet 300 mg PO HS Mental Health/Anxiety 08/23/24 09/26/24 History
cyanocobalamin (vitamin B-12) 1,000 mcg PO DAILY Supplement 08/23/24 09/26/24 History
1,000 mcg tablet,extended release
docusate sodium 100 mg capsule 100 mg PO DAILY Constipation 08/23/24 09/26/24 History
fenofibrate micronized 134 mg 134 mg PO DAILY High Cholesterol 08/23/24 09/26/24 History
capsule
folic acid 1 mg tablet 1 mg PO DAILY Supplement 08/23/24 09/26/24 History
levothyroxine 125 mcg tablet 125 mcg PO DAILY Thyroid 08/23/24 09/26/24 History
oxycodone-acetaminophen 10 mg-325 1 tab PO DAILY Pain 08/23/24 09/26/24 History
mg tablet
oxycodone-acetaminophen 10 mg-325 1 tab PO [id number] PRN severe pain 08/23/24 09/26/24 History
mg tablet
simvastatin 20 mg tablet 20 mg PO QPM High Cholesterol 08/23/24 09/26/24 History
midodrine 5 mg tablet 5 mg PO TID 30 days #90 tabs 08/27/24 09/26/24 Rx
acetaminophen 325 mg tablet 650 mg PO Q4H PRN mild pain/temp 08/28/24 09/26/24 History
greater than 100
bisacodyl 10 mg rectal suppository 10 mg UT DAILYPRN PRN if MOM 08/28/24 09/26/24 History
(Dulcolax (bisacodyl)) ineffective after 24hr
magnesium hydroxide 400 mg/5 mL 2,400 mg PO DAILYPRN PRN if no BM 08/28/24 09/26/24 History
oral suspension (Milk of Magnesia) in 3 days
omega 1-fyv-roo-fish oil 1,000 mg 1 cap PO DAILY Supplement 08/28/24 09/26/24 History
(120 mg-180 mg) capsule (Fish Oil)
sodium phosphates 19 gram-7 118 ml UT DAILYPRN PRN if dulcolax 08/28/24 09/26/24 History
gram/118 mL enema (Fleet Enema) ineffective after 24hr
ipratropium 0.5 mg-albuterol 3 mg 3 ml inhalation Q6HPRN PRN sob 09/26/24 09/26/24 History
(2.5 mg base)/3 mL nebulization
soln
lorazepam 0.5 mg tablet 0.5 mg PO DAILY PRN anxiety 09/26/24 09/26/24 History
Review of Systems
-
unable to obtain, with pt MS
Physical Exam
Vital Signs
Vital Signs
Temp Pulse Resp BP Pulse Ox
99.9 F 91 25 118/87 99
09/27/24 11:21 09/27/24 15:00 09/27/24 15:00 09/27/24 15:00 09/27/24 15:00
Lab Results
WBC 11.3 10^3/uL (4.8-10.8) H 09/27/24 05:32
RBC 4.56 10^6/uL (4.70-6.10) L 09/27/24 05:32
Hgb 12.6 g/dL (13.0-18.0) L 09/27/24 05:32
Hct 38.9 % (39.0-52.0) L 09/27/24 05:32
Plt Count 319 10^3/uL (130-400) 09/27/24 05:32
Sodium 152 mmol/L (135-145) H 09/27/24 05:32
Potassium 4.3 mmol/L (3.5-5.1) 09/27/24 05:32
Chloride 115 mmol/L (98-107) H 09/27/24 05:32
Carbon Dioxide 23 mmol/L (22-30) 09/27/24 05:32
BUN 93 mg/dl (9-20) H 09/27/24 05:32
Creatinine 4.1 mg/dL (0.7-1.3) H* 09/27/24 05:32
eGFR 15.17 09/27/24 05:32
Glucose 146 mg/dl (70-99) H 09/27/24 05:32
Calcium 8.5 mg/dl (8.4-10.2) 09/27/24 05:32
Phosphorus 5.3 mg/dl (2.5-4.5) H 09/27/24 05:32
Red-R-Qwfrhsclfba Pept 704 pg/ml 09/27/24 05:32
Albumin 2.8 g/dl (3.5-5.0) L 09/27/24 05:32
Physical Exam
General: Awake, Alert, Oriented, Nontoxic and Other (mild tachypenic)
HEENT: EOMI, Anicteric and Facial Symmetry
Respiratory: Rhonchi and Other (tachypenic)
Cardiac: S1/S2 and Regular Rate/Rhythm
Breast: Deferred by me
Abdomen: Soft and Other (distended)
Musculoskeletal: No Cyanosis and No Edema
Skin: No Rash
Neuro: Nonfocal/Grossly Intact
Psych: Appropriate
Data Reviewed
-
Radiology: Report Reviewed by me and Discussed with Family
Labs: Labs Reviewed by me and Discussed with Family
Assessment/Plan
-
IMP:
Sepsis-suspected source GI.
Severe Proctocolitis on CT Imaging
Adynamic Ileus
Acute encephalopathy
Abnormal urinalysis-rule out UTI.
MICHAEL.
Hypernatremia
Tachypnea
Schizophrenia
Orthostatic hypotension
Plan:
A/w abd distension noted proctocolitis and ileus
MICHAEL-UTI sample, suspect prerenal vs ATN -baseline cr 1 on 09/08/[address] abd shows mild bilat hydro with out stone-may need repeat renal US tomorrow
oliguric with otero
worsening azotemia too with stable hb
given tenuous resp status limited IVF
BNP is only 740, CXR noted atelectasis sv consolidation
hypernatremia-fw deficit 5.2lit, repeat labs now and adjust IVF
abx per primary , no surgical intervention noted
no emergent need of HD however high risk
spoke with daughter Vera on phone and reviewed in detail
likely she wants no HD and aware of poor prognosis
she will speak with rest of the family
--- NOTE | 2024-09-27 18:19 | PTCARENOTE ---
Milk and molasses enema given x1 this shift- has had 2 formed stools since. Abdomen still grossly distended. Core temps up to 101 - LA Tylenol given. Urine output remains low 200/ 10 hours. Provider updated this pm. IVF continue at 75ml.
Difficult IV access/lab draws. BMP sent.
[2024-09-27 18:35] LABS: Blood Urea Nitrogen 105 mg/dl (9-20); Carbon Dioxide 22 mmol/L (22-30); Chloride 113 mmol/L (98-107); Glucose 127 mg/dl (70-99); Potassium 3.8 mmol/L (3.5-5.1); Sodium 151 mmol/L (135-145)
[2024-09-27 18:42] LABS: Estimated Creatinine Clearance 25 ml/min; eGFR 18.35
[2024-09-28] VITALS (24 sets, daily range): BP systolic 91–137; BP diastolic 50–75; PULSE 89; BMI 31.5
--- NOTE | 2024-09-28 00:18 | PTCARENOTE ---
Patient AAOx2, disoriented to time but able to state he is 'at the hospital'. Pt remains febrile core temp of 101.1. MoM enema administered. Output included solution and a small BM. Pt then had 1 formed stool. Abdomen is still grossly distended and
firm. Pt more alert tonight and able to answer yes and no questions. Pt denies any pain or discomfort. PRN rectal Tylenol given. Urine output remains low. Gonzalez catheter intact draining carol[place] urine. IVF cont @100ml/hr. IV Zosyn cont. Pt tolerating
frequent turning and repositioning, bed alarm on.
[2024-09-28] MEDS: ZOSYN 50 IV ×2 (02:29→09:15)
[2024-09-28 05:32] LABS: Hematocrit 38.7 % (39.0-52.0); Hemoglobin 12.4 g/dL (13.0-18.0); Mean Corpuscular Hgb 27.3 pg (27.0-31.0); Mean Corpuscular Volume 85.1 fL (80.0-94.0); Mean Platelet Volume 11.1 fL (7.4-10.4); Platelet Count 298 10^3/uL (130-400); Red Blood Cell Count 4.55 10^6/uL (4.70-6.10)
[2024-09-28 05:42] LABS: Ammonia 20 umol/L (9-30)
[2024-09-28 05:57] LABS: ALT (SGPT) 25 U/L (0-50); AST (SGOT) 46 U/L (17-59); Albumin 3.3 g/dl (3.5-5.0); Alkaline Phosphatase 58 U/L (38-126); Blood Urea Nitrogen 116 mg/dl (9-20); Carbon Dioxide 21 mmol/L (22-30); Chloride 112 mmol/L (98-107); Direct Bilirubin 0.7 mg/dl (0.0-0.4); Estimated Creatinine Clearance 22 ml/min; Glucose 141 mg/dl (70-99); Phosphorus 5.2 mg/dl (2.5-4.5); Sodium 150 mmol/L (135-145); Total Bilirubin 0.8 mg/dl (0.2-1.3); Total Protein 6.4 g/dl (6.3-8.2); eGFR 15.63
--- NOTE | 2024-09-28 06:10 | W.PN.GI.CBS2 ---
Today's Communication / Plan
-
Continue ongoing rectal enemas from below. Check KUB today to reassess SB dilatation. Concern for worsening renal function, Nephro following. See rest of care as outlined below.
Assessment / Plan
-
Mr. Rivera is a 69 y.o male with a past medical history of underlying psychiatric illness including schizophrenia, bipolar disorder, tardive dyskinesia, hypothyroidism, and chronic constipation and recent hospitalization (for orthostatic
hypotension/schizophrenia) at from 08/28 - 09/10/24 who represents from his assisted due to vomiting, diarrhea and worsening abdominal distension. Gastroenterology has been consulted for further evaluation and management.
#Fevers #Tachycardia #Bandemia #Sepsis
#Severe Proctocolitis on CT Imaging
#Moderate Fecal [place] in Rectum
#C/f Stercoral Colitis
#Adynamic Ileus
#Acute Toxic Metabolic Encephalopathy
#Hypernatremia #MICHAEL
#Chronic Constipation
#Hx of Psychiatric Illness
Impression: Patient presenting with vomiting, looser stools and worsening abdominal distention from his facility along with acute mental status changes concerning for toxic metabolic encephalopathy. Found to have severe sepsis and CT imaging
revealing a 19 cm, long segment of severe proctocolitis without abscess, perforation or other local complications. Additionally, found to have significant fecal burden within the rectum and distal colon upon personal review of imaging. Etiology of
his severe proctocolitis likely secondary to stercoral colitis given his longstanding history of chronic constipation (suspect 2/2 psych medications, hypothyroidism, and limited mobility). Suspect this is further driving his adynamic ileus and
underlying sepsis secondary to bacterial translocation given severe thickening versus urinary source. Possibly infectious colitis given the reported diarrhea although I think this is likely is from overflow diarrhea in the setting of his chronic
constipation and significant stool burden seen on imaging. Much less likely ischemia given the distribution on the CT imaging. It is unclear if the patient is ever had a prior colonoscopy. Fortunately, there is no abnormal colonic wall dilatation
to suggest a colonic ileus and patient's bicarb and lactic acid are within normal limits. Abdominal exam is significant for distention but without any rebound tenderness or involuntary guarding or other tenderness to palpation appreciated except
for hypoactive bowel sounds. His underlying ileus is again likely secondary to his significant stool burden and suspected stercoral colitis but also multifactorial in setting of his severe electrolyte derangements given his hypernatremia and sepsis.
Having BMs with rectal enemas, although still with persistent fevers and course complicated by worsening renal function.
Recommendations:
- Okay with sips of liquids
- IVF to maintain euvolemia, keep K > 4.0 and Mg > 2.0
- Correction of hypernatremia as per primary team. Nephrology has been consulted given MICHAEL
- Blood cultures remain NG x 24 hrs, urine culture with GN bacilli
- If looser stools / diarrhea, would check stool culture, O&P, and C Diff although lower suspicion
- Continue IV Zosyn, ensure renally-dosed given MICHAEL
- Continue rectal enemas from below with MoM enemas q 6 hrs to clear out harder stool in rectum, having ongoing BMs and would continue this while inpatient
- Ordered repeat KUB this AM to reassess SB dilatation and ensure no colonic dilatation as well
- Defer from starting any stool softeners from above / p.o (ie miralax, senna etc) at this time as not to worsen SB dilatation
- Will consider starting Mestinon if no relief and pending review of KUB
- Monitor serial abdominal exams
- Would defer any plans for a flex-sig/colonoscopy given persistent fevers and worsening renal function, would consider performing an eventual endoscopic evaluation pending patient's clinical course
- Minimize narcotics and anticholinergics as much as possible
- Avoidance of all NSAIDs
- Rest of care as per primary ICU team
Discussed with primary internal medicine team. GI will continue to follow.
Subjective
Subjective
Date of Service: September 28, 2024
- Maintenance Apprentice 4.1 -> 3.5 -> 4.0 and BUN 114 this AM
- Febrile this AM with T Max 100.6, blood cultures remain NG x 24 hrs, urine culture with GN bacilli
- Receiving MoM enemas since 09/26
- Otherwise, no acute events overnight
Resting comfortably, denies any abdominal pain/discomfort. No nausea/vomiting. In discussion with nursing, had moderate BM yesterday afternoon and one small BM overnight with ongoing enemas.
Objective
Data Reviewed
Laboratory Data:
Laboratory Results
09/28/24 04:59
09/28/24 04:59
Laboratory Results
Phosphorus 5.2 mg/dl (2.5-4.5) H 09/28/24 04:59
Magnesium 3.0 mg/dl (1.6-2.3) H 09/28/24 04:59
Total Bilirubin 0.8 mg/dl (0.2-1.3) 09/28/24 04:59
AST 46 U/L (17-59) 09/28/24 04:59
ALT 25 U/L (0-50) 09/28/24 04:59
Alkaline Phosphatase 58 U/L (38-126) 09/28/24 04:59
Vital Signs and I&O:
Vital Signs
Temp Pulse Resp BP Pulse Ox
100.6 F H 93 25 122/71 97
09/28/24 04:52 09/28/24 06:00 09/28/24 06:00 09/28/24 06:00 09/28/24 06:00
I&O
09/26/24 09/27/24 09/28/24
06:59 06:59 06:59
Intake Total 950 / 950 3200 / 3200
Output Total 320 / 320 250 / 250
Balance 630 / 630 2950 / 2950
Physical Exam
Physical Exam
HEENT: Anicteric and Moist mucous membranes
Cardiology: Other (RR on tele)
Pulmonary: Other (Normal WOB without labored breathing)
GI: Soft, Distended (Moderate distension, not tense), Non Tender (No appreciable tenderness on palpation) and Other (Diffuse hypoactive bowel sounds throughout abdomen)
Extremities: Warm
Neuro: Non Focal and Other (Moves all four extremities spontaneously)
--- NOTE | 2024-09-28 06:25 | PTCARENOTE ---
Patient had 250ml of output from the otero, dark [place] in color.
[2024-09-28 06:27] LABS: % Basophils 0.1 % (0-2); % Immature Granulocytes 2.5 % (0-0.5); % Lymphocytes 9.6 % (20.5-51.1); % Monocytes 6.7 % (1.7-9.3); % Neutrophils 81.1 % (42.2-75.2); Absolute Immature Granulocytes 0.3 10^3/uL (0-0.05); Absolute Lymphocytes 1.1 10^3/uL (1.2-3.4); Absolute Monocytes 0.7 10^3/uL (0.1-0.6); Absolute Neutrophils 8.9 10^3/uL (1.4-6.5); Nucleated Red Blood Cells % 0.5 % (-)
[2024-09-28] MEDS: TYLENOL/FEVERALL 650 MG RECTAL (08:44)
[2024-09-28] MEDS: HEPARIN 5000 UNITS SC ×2 (08:45→17:25)
--- NOTE | 2024-09-28 08:51 | W.PN.HOSP.TC ---
Today's Communication/Plan
-
IV fluids. Antiemetics. Antibiotics
Assessment / Plan
Assessment / Plan
Physical exam:
General: Acutely ill. Toxic appearing
HEENT: Normocephalic, Atraumatic and Moist Mucous Membranes
Respiratory: Decreased breath sounds bilaterally; Tachypneic; Negative Wheezes or Rales
Cardiac: Regular Rhythm and S1/S2
GI: Soft, Tender diffusely but mainly in the left lower quadrant and significantly distended. Bowel sounds hypoactive.
Musculoskeletal: No Clubbing, No Cyanosis and No Edema
Neuro: Lethargic, does not follow simple commands, withdraws to pain stimuli, generalized weakness.
A/P:
Sepsis due to UTI, POA:
IV fluids boluses
Pressors if not responding to fluid
Antibiotics, IV Zosyn changed to IV cefazolin per ID recommendations
Continues to have fevers hence ID consulted but it appears the temperature has been taken by bladder probe and recommended to change to oral or axillary route.
Urine culture with E. coli
Discussed with son at bedside today and continue aggressive medical treatment but no escalation of CPR if gets to that point and will reevaluate goals of care over the next 24-48 hours.
Stercoral colitis with ileus/severe proctocolitis/less likely ischemic colitis:
Keep n.p.o.
IV fluid
Colorectal surgery consult-discussed with CRS and no acute surgery indicated at the moment.
Enemas per GI
Discussed with general surgery and they believe no need for general surgery involvement at the moment.
Will follow-up further GI recommendations
Might consider NG tube +/- Mestinon if not improvement although noted CRS feels not much of benefit NG tube since stomach not dilated unless persistent N/V.
GI ordered repeat abdominal x-ray today
MICHAEL:
Worsening
IV fluid
Gonzalez catheter
Nephrology consult appreciated and appears that HD not an option after discussion with family which seems reasonable in light of his comorbidities
Hypernatremia:
Monitor sodium closely
Acute hypoxic respiratory failure, POA:
Likely related to abdominal process and atelectasis in a patient with underlying DEONTE and obesity.
From high flow oxygen down to 3 L of oxygen today
Chest x-ray clear rather than atelectasis
Pulmonary on board
Echo and BNP per pulmonary and unremarkable.
Acute toxic metabolic encephalopathy:
Likely related to acute illness
As per family his baseline he is able to communicate with family but he does have episodes of psychosis on and off and had some overall decline as of late.
Hypothyroidism:
On IV levothyroxine
History of schizophrenia/bipolar disorder/tardive dyskinesia:
Will restart his medications when able to take oral
Orthostatic hypotension:
Will restart his medications when able to take oral
Hyperlipidemia:
Will restart his medications when able to take oral
Obesity:
Lifestyle changes modifications warranted as outpatient
DVT prophylaxis:
Heparin SQ
CODE STATUS:
No CPR but okay with intubation
Discussed about CODE STATUS with son yesterday and changes as above but also family will discuss again and based on prognosis might change CODE STATUS again.
Total time spent on today's encounter was 52 minutes which included time spent in counseling the patient/family regarding diagnosis and treatment plan as listed above, goals of care, and symptom management. Case was discussed with nursing staff,
specialists, and care coordinators/case management. All labs and imaging personally reviewed by me. Remainder the time spent in detailed review of previous records, lab data, imaging, and other medical provider documentation.
Anticipated Discharge: > 48 hours
Subjective/Interval History
-
Date of Service: September 28, 2024
Patient is having bowel movements. Abdomen still distended. On oxygen supplementation but less than before. Increased temperature reported
Objective Data
-
Labs:
Laboratory Results
09/28/24
04:59
WBC 11.0 H
Hgb 12.4 L
Hct 38.7 L
Plt Count 298
Sodium 150 H
Potassium 4.0
Chloride 112 H
Carbon Dioxide 21 L
BUN 116 H*
Creatinine 4.0 H
Glucose 141 H
Calcium 8.0 L
Total Bilirubin 0.8
AST 46
ALT 25
Alkaline Phosphatase 58
Vital Signs:
Vital Signs
Temp Pulse Resp BP Pulse Ox
100.6 F H 95 29 122/72 96
09/28/24 08:38 09/28/24 08:00 09/28/24 08:00 09/28/24 08:00 09/28/24 08:00
I&O
09/27/24 09/28/24 09/29/24
06:59 06:59 06:59
Intake Total 950 / 950 3300 / 3300
Output Total 320 / 320 500 / 500
Balance 630 / 630 2800 / 2800
--- NOTE | 2024-09-28 09:07 | W.PN.PUL3 ---
Today's Communication / Plan
-
Improving hypoxemia, now on 6L NC--likely due to intra-abdominal issues
ECHO and proBNP negative, continue current supportive care
Belly exam improving today, resume PAP nightly
GI and CRS following, no planning for OR
Renal following, MICHAEL noted, discussions on HD noted
PT/OT, OOB as tolerated
Assessment
-
69-year-old male with a past medical history of hypothyroidism, bipolar disorder, schizophrenia, DEONTE on CPAP, dyslipidemia and orthostatic hypotension who presented from [facility] due to worsening SOB with abdominal distention. Per the family,
the patient has been worsening since last Friday, having hallucinations. In the ER, he was febrile to 102.4 �F, pulse rate 108, respiratory rate 20, BP 114/78 and saturating 90% on 2 L/min. Labs showed WBC 9.4, Hb 12.4, 14% bands, sodium 152,
creatinine 2.4, urinalysis positive for UTI, and COVID-19 antigen negative. Blood and urine cultures collected, and flu A/B swab was negative. AXR series showed diffuse small bowel loop dilatation with air-fluid levels concerning for an SBO or
adynamic ileus. Subsequent CT abdomen/pelvis showed diffuse dilatation of the small bowel likely due to adynamic ileus as there was no discrete transition point to suggest an SBO, also long segment bowel wall thickening and inflammatory fat
stranding at the rectosigmoid junction suspicious for severe proctocolitis, and mild bilateral hydroureteronephrosis with no obstructive stone seen. He was given Tylenol in the ER, ceftriaxone and 500 cc of NS 0.9%. She initially was going to be
consult admitted to the ICU however he was saturating >95% on 3 L/min, lactate was normal at 1.3, he remains normotensive, he is only mildly tachycardic, he is awake although not following commands, and protecting his airway, with blood gas showing
respiratory alkalosis with pH 7.5, pCO2 35. Clerk Supervisor/pulmonary services consulted for additional management/recommendations - patient is being now transferred to the IMU.
Impression:
Acute hypoxic respiratory failure on HFNC
SOB
Sepsis due to severe proctocolitis in the setting of UTI
Bandemia (14% bands on admission CBC)
Mild bilateral hydroureteronephrosis without obstructive stone seen on CT A/P from 09/26/2024
Moderate stool distention of the rectum with diffuse small bowel dilatation likely due to adynamic ileus (no discrete transition point to suggest SBO)
Hypernatremia due to free water deficit of 5.5L
MICHAEL (baseline creatinine 1.1) with mild bilateral hydroureteronephrosis
Toxic�metabolic encephalopathy
Transaminitis with elevated AST
Suspected UTI with positive nitrites, 3+ leukocyte esterase, and urine WBC 16�20 with many bacteria
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
History of schizophrenia on clozapine
Tardive dyskinesia
Hypothyroidism
History of DEONTE on CPAP
Bipolar disorder
Dyslipidemia
Orthostatic hypotension
Ambulatory dysfunction w/ recurrent falls
?Parkinson's disease
Skin cancer removed
Chronic constipation
Chronic Back Pain
Plan:
Suspect severe proctocolitis with abdominal distention, need to continue broad-spectrum antibiotics and try to decompress bowel given he has moderate stool distention in the rectum
Currently on ceftriaxone + Flagyl --> GI recommends broadening further to Zosyn; if he were to deteriorate further then would add micafungin as well with ID consult + general surgery
Follow-up blood cultures; given his urinalysis is consistent with a UTI, follow-up urine culture (unable to ask him if he has been symptomatic so for now would assume he has UTI)
GI following for recs
Pain control
Maintained on NPO status
CRS following as well, avoid surgery unless medical necessary
Maintain SpO2 >90-94%; now on 6L NC, weaning down
This is likely due to intra-abd source, BMI, atelectasis
No prior history of lung disease, CXR remains clear
Check ECHO for baseline--reviewed/stable EF, no sign VHD
History of DEONTE, on PAP
Abdominal distention improving, can resume PAP
Rx changed for nightly and PRN use
Keep HOB >30-45� and continue aspiration precautions
MIHCAEL worsening this AM, now 4.1
Trend sCr and monitor UOP--proBNP neg
Renal consult obtained -- review further w/u per team
Renally dose all medications/antibiotic
HD discussions with family, likely would decline--ongoing conversations
Maintain MAP>65
Replete electrolytes with K>4, Mg>2
Maintain euglycemia with goal BG 140-180
Trend H/H and transfuse if needed to keep Hb>7g/dL; keep plt>20k, unless there is concern for bleeding then keep plt>50k
prn nebulized bronchodilators - not currently bronchospastic
Once he clinically improves, would encourage incentive spirometer 10x per hour for at least 4 hrs a day
DVT ppx: HSQ - would raise to q8hr
Limited DNR noted, if clinically deteriorates would be reasonable to discuss GOC
Diagnostic Data:
CXR 09/27/24- There are some increased right retrocardiac opacities which may be artifact with atelectasis/airspace consolidation also a consideration. No large effusions. No pneumothorax.
CT abdomen/pelvis without contrast 09/26/2024: Limited examination due to the patient's arms down position, body habitus, and the lack of oral and intravenous contrast. Long segment bowel wall thickening and inflammatory fat stranding at the
rectosigmoid junction most suspicious for a severe proctocolitis. A colonic neoplasm is not completely excluded and a follow-up colonoscopy could be considered if not recently performed. Moderate stool distention of the rectum. Diffuse dilatation of
small bowel, favored to be secondary to an adynamic ileus in the absence of a discrete transition point to suggest a small bowel obstruction. Mild bilateral hydroureteronephrosis. No obstructing ureteral calculus. Collapsed urinary bladder with wall
thickening.
-----
Total time spent today was 51 minutes for this encounter. Time includes reviewing laboratory test/imaging results, reviewing pertinent medical records, obtaining and reviewing medical history, performing an appropriate exam, ordering medications,
tests and procedures. Time also includes documentation of this encounter, coordinating patient care and communicating with other healthcare professionals. Total time does not include separately billed tests performed on this date of service.
Subjective Data
-
Date of Service:
Date of Service: September 28, 2024
Chief Complaint: Pulmonary Follow Up
Objective Data
Data Reviewed
Vital Signs / I&O / Oxygen:
Vital Signs
Temp Pulse Resp BP Pulse Ox
100.6 F H 95 29 122/72 96
09/28/24 08:38 09/28/24 08:00 09/28/24 08:00 09/28/24 08:00 09/28/24 08:46
Intake and Output
09/27/24 09/28/24 09/29/24
06:59 06:59 06:59
Intake Total 950 / 950 3300 / 3300
Output Total 320 / 320 500 / 500
Balance 630 / 630 2800 / 2800
SaO2 96
Nasal Cannula flow liters per 5
minute
Physical Exam
General: Comfortable, Poor Appetite and Other (Chronically ill appearing)
HEENT: Normocephalic, Anicteric and Moist Mucous Membranes
Cardiovascular: S1-S2 and Regular Rhythm
Respiratory: Clear (decreased overall) and Non-Labored Respirations
GI: Soft, Distended, Non Tender, Organomegaly (none) and Other (decreased BS overall)
Neurology: Awake, Alert, No Motor Deficits and Lethargic (falls asleep <10 secs)
Skin: Warm and Dry
Labs/Micro/Reports
Lab Data
09/28/24 04:59
09/28/24 04:59
Microbiology
09/26/24 10:26 Urine Urine Culture - Final
Escherichia coli
09/26/24 22:03 Nose MRSA Screen - Final
No Methicillin Resistant Staphylococcus aureus isolated.
09/26/24 10:34 Blood/Venous Blood Culture - Preliminary
No Growth in 24 hours- Final report to follow
09/26/24 09:46 Blood/Venous Blood Culture - Preliminary
No Growth in 24 hours- Final report to follow
09/26/24 10:26 Nasal Swab Influenza Types A & B (JI) - Final
Negative for Influenza A & B, NAAT
Negative results must be combined with clinical observations
and patient history.
Nucleic Acid Amplification test (NAAT)performed on the
[employer] platform.
--- NOTE | 2024-09-28 09:25 | CON.ID ---
Consultation
-
Date/Time Consultation Requested: 09/28/24 8:55
Date/Time Consultation Performed: 09/28/24 9:25
Requesting Provider: Dr Ritter
Performing Provider: Dr Pantoja
Reason for Consultation: persistent fevers
Chief Complaint / Past History
Chief Complaint
altered mental status
History of Present Illness
Mr Rivera is a 69 year old male with history notable for schizophrenia, bipolar disorder, tardive dyskinesia, chronic constipation who presented here from nursing facility for decreasing responsivness and concern for sepsis over about the past week.
At baseline patient converses and his memory is described by family as good. However over the past week with hallucinations and abdominal distension along with nausea and loose stool.. Reportedly an abdominal US was done and only notable for
hepatomegaly.Family reported loose stools without laxative use. He was unable to provide history on arrival.
Since arrival here he was initially febrile to 102.4 orally, bp overall stable with some transient hypotension yesterday am, wbc initially 9.4 now 11.0, hgb 12.4, plt 298, L shift is noted today, cr baseline is 1.0 and outpatient records show cr 1.1
on 09/14, on arrival here 09/26 his cr was 2.4 and today 4.0 with BUN 116, Na 150, CO2 now 21, lactic acid on arrival 1.3 now 1.6, t bili 0.8 ast 46, alt 25, alk phos 58, bnp 700, UA 16-20 wbc/hpf and many bacteria, covid ag negative, CXR: most likely
atelectasis, urine culture 100K E coli and also low colony count of mixed neil, blood cultures x2 are in progress, a otero is in place. He has been documented to have liquid stools on 09/27 and now formed soft stools today. Today he and nurse
report no cough or sputum production. He denies abdominal or suprapubic tenderness, urine is concentrated.
Past History
Additional Past Medical History:
Hypercholesterolemia, Hypothyroidism and Psychiatric
Additional Past Medical History:
Schizophrenia
Bipolar disorder
Hypothyroidism
DEONTE on CPAP 7 mmHg
Dyslipidemia
Orthostatic hypotension
Additional Past Surgical History:
resection of skin cancer
Allergy History:
Penicillins Allergy (Verified 09/26/24 09:19)
pt. states it gives him bad dreams
Medications Reviewed: Yes
Social History
Tobacco: Non-Smoker
Alcohol: None
Drug: None
Family History
Family History: Not Pertinent
Review of Systems
Vital Signs
Temp Pulse Resp BP Pulse Ox
100.6 F H 95 29 122/72 96
09/28/24 08:38 09/28/24 08:00 09/28/24 08:00 09/28/24 08:00 09/28/24 08:46
Physical Exam
Physical Exam
Constitutional: No Acute Distress and Chronically Ill
Cardiovascular: Regular Rate and S1/S2; Negative Murmur or Rub
Pulmonary: Clear and Symmetric; Negative Wheezes, Rales or Rhonchi
Gastrointestinal: Soft, Non Tender, Distended and Normal Bowel Sounds
Genito-Urinary: Clear Urine (dark); Negative Suprapubic Tenderness
Skin: Warm and Dry; Negative Rash or Jaundice
Neurological: Awake
Psychological: Calm
Lab / Diagnostic Study Results
09/28/24 04:59
09/28/24 04:59
Abs Immat Gran (auto) 0.3 10^3/uL (0-0.05) H 09/28/24 04:59
Absolute Neuts (auto) 8.9 10^3/uL (1.4-6.5) H 09/28/24 04:59
Absolute Lymphs (auto) 1.1 10^3/uL (1.2-3.4) L 09/28/24 04:59
Absolute Monos (auto) 0.7 10^3/uL (0.1-0.6) H 09/28/24 04:59
Absolute Basos (auto) 0.0 10^3/uL (0-0.2) 09/28/24 04:59
Total Counted 100 09/26/24 09:46
Immature Gran % 2.5 % (0-0.5) H 09/28/24 04:59
Neutrophils % 81.1 % (42.2-75.2) H 09/28/24 04:59
Lymphocytes % 9.6 % (20.5-51.1) L 09/28/24 04:59
Monocytes % 6.7 % (1.7-9.3) 09/28/24 04:59
Eosinophils % 0.0 % (0-6) 09/28/24 04:59
Basophils % 0.1 % (0-2) 09/28/24 04:59
Abs Neuts (Manual) 7.1 10^3/uL (1.4-6.5) H 09/26/24 09:46
Segmented Neutrophils 62 % (42-75) 09/26/24 09:46
Band Neutrophils 14 % (0-3) H 09/26/24 09:46
Lymphocytes (Manual) 12 % (20-51) L 09/26/24 09:46
Lactic Acid 1.6 mmol/L (0.7-2.0) 09/27/24 09:24
Ur Squamous Epith Cells None seen /LPF (Few) 09/26/24 10:26
Microbiology Results
Micro:
09/26/24 10:26 Urine Culture - Final
Urine Escherichia coli
09/26/24 22:03 MRSA Screen - Final
Nose No Methicillin Resistant Staphylococcus aureus isolated.
09/26/24 10:34 Blood Culture - Preliminary
Blood/Venous No Growth in 24 hours- Final report to follow
09/26/24 09:46 Blood Culture - Preliminary
Blood/Venous No Growth in 24 hours- Final report to follow
09/26/24 23:28 Urine Culture - Pending
Urine
09/26/24 10:26 Influenza Types A & B (JI) - Final
Nasal Swab Negative for Influenza A & B, NAAT
Negative results must be combined with clinical observations
and patient history.
Nucleic Acid Amplification test (NAAT)performed on the
[employer] platform.
Assessment / Plan
Fever
Stercoral colitis
UTI
MICHAEL
Hypernatremia
- fever via core route defined as over 101.0 - his fevers are intermittent and improving; asked RN to please switch back to oral or axillary routes.
- fever is most likely due to stercoral colitis and UTI
- CXR with atelectasis
- will follow up C difficile testing however overall clinical picture less consistent with C difficile with formed stools reported today even with cathartics and I would not recommend empiric rx at this time
- otero management per nephrology
- stop zosyn, start cefazolin based on sensitivities; there is no evidence of translocation on the blood cultures and he has been having bowel movements. Stopping zosyn will also reduce the salt load being given to the patient.
- Enhanced contact precautions for now, if stools are all formed will removed in 24 hours
- patient had a reported ADR to penicillin, it is not an allergy, updated allergy list. note that he has been tolerating zosyn.
- note plans to reevaluated goals of care of the next 48 hours
--- NOTE | 2024-09-28 10:25 | W.PN.CRS1 ---
Today's Communication / Plan
-
xrays this AM
continue enemas
no plans for surgery at this time
Assessment/Plan
-
69-year-old male with PMH of chronic constipation, correction resident, hypothyroidism, bipolar disorder, schizophrenia, DEONTE (on CPAP), HLD, orthostatic hypotension who presents from the correction with reportedly nausea and vomiting, abdominal
distention, shortness of breath and altered mental status. The history was primarily taken from the EMR. In the ED, his WBC was 9.4, Cr 4.1, sodium 152 and patient was febrile to 104.6. A CT scan showed a 19 cm segment of severe proctocolitis and
mild bilateral hydronephrosis. On personal review and interpretation, there is associated large balls of stool within the colon, raising the suspicion of stercoral colitis.
Tmax: 101.8 (improving), WBC 11.0
� Toxic encephalopathy; appears likely related to infectious etiology; colitis versus UTI; follow-up urine culture and blood culture
� Severe proctocolitis, uncertain etiology; differential includes stercoral, infectious versus inflammatory, less likely seems ischemic versus malignant; no prior colonoscopy in our EMR
� Appreciate GI; agree with enemas from below; would caution against oral bowel regiment due to ileus
� No acute surgery currently indicated; continue goals of care and if surgery would be within their priorities if it becomes necessary
� Keep n.p.o. with IVF and empiric IV antibiotics; if able to obtain a sample, can consider stool cultures, C. difficile and fecal calprotectin; would check CRP
� Stomach is not dilated so NGT may not have much benefit; however, would place one if any nausea or vomiting
� Flex sig/colonoscopy per GI
� Abdominal xrays ordered this AM
� Appreciate primary and nephrology
Subjective Data
Subjective Data
Date of Service: September 28, 2024
Patient is more awake today. He states he has no pain. He is bloated. His LLQ pain is mild. He had one small soft brown bowel movement overnight.
Objective Data
-
Vital Signs
Temp Pulse Resp BP Pulse Ox
100.6 F H 95 29 122/72 96
09/28/24 08:38 09/28/24 08:00 09/28/24 08:00 09/28/24 08:00 09/28/24 08:46
Intake & Output
09/27/24 09/28/24 09/29/24
06:59 06:59 06:59
Intake Total 950 / 950 3300 / 3300 200 / 200
Output Total 320 / 320 500 / 500 50 / 50
Balance 630 / 630 2800 / 2800 150 / 150
Intake:
Oral fluids 0 / 0
IV fluids (Total) 950 / 950 3100 / 3100 200 / 200
IV piggybacks 200 / 200
Output:
Urine, Gonzalez 320 / 320 500 / 500 50 / 50
Lab Results
09/28/24 04:59
09/28/24 04:59
Physical Exam
-
General: No Acute Distress
Abdomen: Distended (unchanged) and Non Tender
--- NOTE | 2024-09-28 10:55 | W.PN.NEPH.PH ---
Today's Communication / Plan
-
Maintain hypotonic IV fluid
Discussion with daughter patient is DNR and would not pursue towards dialysis
Follow BMP
Assessment/Plan
-
IMP:
Sepsis-suspected source GI.
Severe Proctocolitis on CT Imaging
Adynamic Ileus
Acute encephalopathy
Abnormal urinalysis-rule out UTI.
MICHAEL.
Hypernatremia
Tachypnea
Schizophrenia
Orthostatic hypotension
Plan:
MICHAEL persists with creatinine of 4 and BUN 116
Non oliguric via Gonzalez catheter at 500cc
Hypernatremia persist with sodium at 150
Continue with hypotonic IV fluids
A/w abd distension noted proctocolitis and ileus
MICHAEL-UTI sample, suspect prerenal vs ATN -baseline cr 1 on 09/08/[address] abd shows mild bilat hydro with out stone-: Would have urology review films to see if they believe this is functional obstruction
worsening azotemia too with stable hb
given tenuous resp status limited IVF
BNP is only 740, CXR noted atelectasis sv consolidation
abx per primary , no surgical intervention noted
no emergent need of HD however high risk
previous discussion with daughter Vera on phone and reviewed in detail
likely she wants no HD and aware of poor prognosis
Spoke with daughter Vera today who is agreed not to pursue dialysis given multiple comorbidities
End-of-life discussion initiated patient is DNR
-
-
Date of Service: September 28, 2024
CC / HPI / ROS
-
Chief Complaint:
Acute kidney injury
Hypernatremia
History of Present Illness:
Hypernatremia persist
Hemodynamically stable
Acute kidney injury worsened
Review of Systems:
Oliguric via Gonzalez
Encephalopathic
Febrile
Labs
-
Labs:
WBC 11.0 10^3/uL (4.8-10.8) H 09/28/24 04:59
RBC 4.55 10^6/uL (4.70-6.10) L 09/28/24 04:59
Hgb 12.4 g/dL (13.0-18.0) L 09/28/24 04:59
Hct 38.7 % (39.0-52.0) L 09/28/24 04:59
Plt Count 298 10^3/uL (130-400) 09/28/24 04:59
Sodium 150 mmol/L (135-145) H 09/28/24 04:59
Potassium 4.0 mmol/L (3.5-5.1) 04 04:59
Chloride 112 mmol/L (98-107) H 09/28/24 04:59
Carbon Dioxide 21 mmol/L (22-30) L 09/28/24 04:59
BUN 116 mg/dl (9-20) H* 09/28/24 04:59
Creatinine 4.0 mg/dL (0.7-1.3) H 09/28/24 04:59
eGFR 15.63 09/28/24 04:59
Glucose 141 mg/dl (70-99) H 09/28/24 04:59
Calcium 8.0 mg/dl (8.4-10.2) L 09/28/24 04:59
Phosphorus 5.2 mg/dl (2.5-4.5) H 09/28/24 04:59
Toa-Y-Ouuihhfwuej Pept 704 pg/ml 09/27/24 05:32
Albumin 3.3 g/dl (3.5-5.0) L 09/28/24 04:59
Physical Exam
-
Vital Signs:
Vital Signs
Temp Pulse Resp BP Pulse Ox
100.6 F H 95 29 122/72 96
09/28/24 08:38 09/28/24 08:00 09/28/24 08:00 09/28/24 08:00 09/28/24 08:46
Cardiovascular:: Regular rate and rhythm
Respiratory:: Bilateral: Coarse
Lung Excursion:: Normal
Abdomen:: Nontender
Bowel Sounds:: Normal
Extremity Edema:: None: Bilateral:
Gonzalez Catheter: Yes
--- NOTE | 2024-09-28 12:00 | PTCARENOTE ---
Patient has poor urine output so far into shift, continuing IVF and IV abx per MAR. Milk and molasses enema given per order with partial relief. Pt's sons are at the bedside now and updated on plan of care. Mouth swabs provided for patient comfort
given npo status. Patients blood pressures have been within normal limits, he is 95% on 3L NC, HR in low 100's. Now using axillary temp probe instead of core temp prob per ID. See MAR/flowsheets for further care details.
--- NOTE | 2024-09-28 12:41 | PTCARENOTE ---
Unable to get stool sample as it is mixed with milk and molasses enema
[2024-09-28] MEDS: ANCEF 5 IV (13:21)
[2024-09-28] MEDS: D5W 1000 IV ×2 (13:21→22:29)
--- NOTE | 2024-09-28 20:40 | W.PN.UPDATE ---
Update Note
Progress Note Update
Patient son Gagandeep requested to update code status to Do Not Resuscitate and Do Not Intubate after conversing with siblings, Code status updated.
[2024-09-29] VITALS (24 sets, daily range): BP systolic 98–149; BP diastolic 45–102; PULSE 85–88; BMI 31.5
[2024-09-29] MEDS: HEPARIN 5000 UNITS SC ×3 (00:31→15:50)
--- NOTE | 2024-09-29 00:48 | PTCARENOTE ---
Patient AAOx2, much more alert, but still drowsy. Pt had family at the bedside after shift change. Gonzalez draining [place]ol[place] urine. Pt afebrile. Q6 hour MoM enema. Pt had a moderate brown to zavala formed BM combined with milk of molasses. Abdomen is softer
but remains distended and round. Pt denying any pain or discomfort. Pt weaned to RA during dayshift. RT bedside to resume BiPAP use overnight. SpO2 is 94% on BiPAP. NSR on the monitor. Pts son spoke to ANKIT Wilson regarding code status change. Pt
is now a DNR/DNI. Order is in and purple wristband placed. Hygiene and perineal care done, generous amount of Calazime paste to the groin and buttocks. Skin is irritated. IVF cont. IV abx Ancef. Pt tolerating frequent turning and repositioning.
[2024-09-29] MEDS: ANCEF 5 IV ×2 (01:55→14:48)
[2024-09-29 04:28] LABS: % Basophils 0.6 % (0-2); % Immature Granulocytes 2.7 % (0-0.5); % Lymphocytes 9.7 % (20.5-51.1); % Monocytes 4.3 % (1.7-9.3); % Neutrophils 82.7 % (42.2-75.2); Absolute Basophils 0.1 10^3/uL (0-0.2); Absolute Immature Granulocytes 0.3 10^3/uL (0-0.05); Absolute Lymphocytes 1.2 10^3/uL (1.2-3.4); Absolute Monocytes 0.5 10^3/uL (0.1-0.6); Absolute Neutrophils 10.4 10^3/uL (1.4-6.5); Hematocrit 33.5 % (39.0-52.0); Mean Corp Hgb Conc. 32.8 g/dL (33.0-37.0); Mean Corpuscular Hgb 27.4 pg (27.0-31.0); Mean Corpuscular Volume 83.5 fL (80.0-94.0); Mean Platelet Volume 11.8 fL (7.4-10.4); Nucleated Red Blood Cells % 0.2 % (-); Platelet Count 266 10^3/uL (130-400); Red Blood Cell Count 4.01 10^6/uL (4.70-6.10); Red Cell Dist. Width 14.8 % (11.5-14.5); White Blood Cell Count 12.5 10^3/uL (4.8-10.8)
[2024-09-29 04:49] LABS: Calcium 7.7 mg/dl (8.4-10.2); Carbon Dioxide 21 mmol/L (22-30); Chloride 113 mmol/L (98-107); Glucose 128 mg/dl (70-99); Potassium 3.4 mmol/L (3.5-5.1); Sodium 148 mmol/L (135-145)
[2024-09-29 04:58] LABS: Blood Urea Nitrogen 125 mg/dl (9-20); Estimated Creatinine Clearance 24 ml/min; eGFR 17.16
--- NOTE | 2024-09-29 06:12 | W.PN.GI.CBS2 ---
Today's Communication / Plan
-
Recent KUB with persistent SB dilatation although abdominal exam appears improved and soft. Start Mestinon today and ongoing MoM enemas. See rest of care as outlined below.
Assessment / Plan
-
Mr. Rivera is a 69 y.o male with a past medical history of underlying psychiatric illness including schizophrenia, bipolar disorder, tardive dyskinesia, hypothyroidism, and chronic constipation and recent hospitalization (for orthostatic
hypotension/schizophrenia) at from 08/28 - 09/10/24 who represents from his detention due to vomiting, diarrhea and worsening abdominal distension. Gastroenterology has been consulted for further evaluation and management.
#Fevers #Tachycardia #Bandemia #Sepsis
#Severe Proctocolitis on CT Imaging
#Moderate Fecal Calera in Rectum
#C/f Stercoral Colitis
#Adynamic Ileus
#Acute Toxic Metabolic Encephalopathy
#Hypernatremia #MICHAEL
#Chronic Constipation
#Hx of Psychiatric Illness
Impression: Patient presenting with vomiting, looser stools and worsening abdominal distention from his facility along with acute mental status changes concerning for toxic metabolic encephalopathy. Found to have severe sepsis and CT imaging
revealing a 19 cm, long segment of severe proctocolitis without abscess, perforation or other local complications. Additionally, found to have significant fecal burden within the rectum and distal colon upon personal review of imaging. Etiology of
his severe proctocolitis likely secondary to stercoral colitis given his longstanding history of chronic constipation (suspect 2/2 psych medications, hypothyroidism, and limited mobility). Suspect this is further driving his adynamic ileus and
underlying sepsis secondary to bacterial translocation given severe thickening versus urinary source. Possibly infectious colitis given the reported diarrhea although I think this is likely is from overflow diarrhea in the setting of his chronic
constipation and significant stool burden seen on imaging. Much less likely ischemia given the distribution on the CT imaging. It is unclear if the patient is ever had a prior colonoscopy. Fortunately, there is no abnormal colonic wall dilatation
to suggest a colonic ileus and patient's bicarb and lactic acid are within normal limits. Abdominal exam is significant for distention but without any rebound tenderness or involuntary guarding or other tenderness to palpation appreciated except
for hypoactive bowel sounds. His underlying ileus is again likely secondary to his significant stool burden and suspected stercoral colitis but also multifactorial in setting of his severe electrolyte derangements given his hypernatremia and sepsis.
Having BMs with rectal enemas, although still with persistent fevers and course complicated by worsening renal function.
Abdomen X-Ray 09/28/24: Severe diffuse SB distention which appears unchanged from prior imaging 09/26 with SB loops measuring approximately 6-7 cms in diameter, no abnormal colonic dilatation
Recommendations:
- Okay with sips of liquids
- IVF to maintain euvolemia, keep K > 4.0 and Mg > 2.0
- Correction of hypernatremia as per primary team. Nephrology has been consulted given MICHAEL
- Blood cultures remain NG x 48 hrs, U Cx with E coli
- Stool cultures sent- pending C Diff and stool leukocytes
- Continue IV Zosyn, ensure renally-dosed given MICHAEL
- Continue rectal enemas from below with MoM enemas q 6 hrs given improvement
- KUB on 09/28 with persistent SB dilatation, although his abdominal exam is improving and more soft this AM
- Will start Mestinon 60 mg TiD (09/29- ) for further relief of SB ileus
- Plan to repeat KUB tomorrow AM to reassess SB dilatation, continue to monitor serial abdominal exams
- Would continue to defer from starting any stool softeners from above / p.o (ie miralax, senna etc) at this time as not to worsen SB dilatation
- No plans for a flex-sig/colonoscopy given his persistent fevers and renal function, would consider performing an eventual endoscopic evaluation pending patient's clinical course. However, will need to discuss with family if they wish to pursue this
- Minimize narcotics and anticholinergics as much as possible
- Avoidance of all NSAIDs
- Rest of care as per primary ICU team
Discussed with primary internal medicine team this AM and nursing staff. GI will continue to follow.
Subjective
Subjective
Date of Service: September 29, 2024
- Abdomen X-Ray 09/28/24: Severe diffuse SB distention which appears unchanged from prior imaging 09/26 with SB loops measuring approximately 6-7 cms in diameter, no abnormal colonic dilatation
- Last fever of 100.6 on 09/28 around 1100
- Having small, formed brown stools with ongoing rectal enemas
- BUN 125 and Forensic Computer Examiner 3.7 on AM labs
- Otherwise, no acute events overnight
Resting comfortably on CPAP this AM. Still distended but abdomen more soft compared to prior. Continues to deny any abdominal pain, rest of subjective limited. In discussion with nursing, having moderate sized brown BMs with ongoing MoM enemas.
Objective
Data Reviewed
Laboratory Data:
Laboratory Results
09/29/24 03:52
09/29/24 03:52
Laboratory Results
Phosphorus 5.2 mg/dl (2.5-4.5) H 09/28/24 04:59
Magnesium 3.0 mg/dl (1.6-2.3) H 09/28/24 04:59
Total Bilirubin 0.8 mg/dl (0.2-1.3) 09/28/24 04:59
AST 46 U/L (17-59) 09/28/24 04:59
ALT 25 U/L (0-50) 09/28/24 04:59
Alkaline Phosphatase 58 U/L (38-126) 09/28/24 04:59
Vital Signs and I&O:
Vital Signs
Temp Pulse Resp BP Pulse Ox
98.9 F 90 24 119/62 93
09/29/24 02:58 09/29/24 00:00 09/29/24 00:00 09/29/24 00:00 09/29/24 00:00
I&O
09/27/24 09/28/24 09/29/24
06:59 06:59 06:59
Intake Total 950 / 950 3300 / 3300 1000 / 1000
Output Total 320 / 320 500 / 500 260 / 260
Balance 630 / 630 2800 / 2800 740 / 740
Physical Exam
Physical Exam
HEENT: Anicteric and Moist mucous membranes
Cardiology: Other (RR on tele)
Pulmonary: Other (Normal WOB on CPAP)
GI: Soft, Distended (Moderate distension throughout), Non Tender and Other (No rebound tenderness or involuntary gaurding)
Extremities: No Edema
Neuro: Non Focal
--- NOTE | 2024-09-29 08:47 | W.PN.CRS1 ---
Today's Communication / Plan
-
As below
Assessment/Plan
-
69-year-old male with PMH of chronic constipation, long term resident, hypothyroidism, bipolar disorder, schizophrenia, DEONTE (on CPAP), HLD, orthostatic hypotension who presents from the long term with reportedly nausea and vomiting, abdominal
distention, shortness of breath and altered mental status. The history was primarily taken from the EMR. In the ED, his WBC was 9.4, Cr 4.1, sodium 152 and patient was febrile to 104.6. A CT scan showed a 19 cm segment of severe proctocolitis and
mild bilateral hydronephrosis. On personal review and interpretation, there is associated large balls of stool within the colon, raising the suspicion of stercoral colitis. Colorectal surgery was consulted for further management.
AFVSS
� Toxic encephalopathy, improving; appears likely related to infectious etiology; confirmed UTI with E. coli, 19 cm segment proctocolitis
�Continue IV Zosyn
� Severe proctocolitis, uncertain etiology; most likely etiology appears stercoral, other differential includes infectious, inflammatory, less likely ischemic versus malignant; no prior colonoscopy in our EMR
�Follow-up stool studies
� Appreciate GI; agree with bowel regimen, continue Mestinon; holding off on sigmoidoscopy
� No acute surgery currently indicated; continue goals of care and if surgery would be within their priorities if it becomes necessary; made DNR yesterday
� Appreciate primary and nephrology
�Colorectal surgery to sign off; please call for any questions or concerns
Subjective Data
Subjective Data
Date of Service: September 29, 2024
Per nurse, has had multiple BMs since yesterday. Patient followed commands this morning, denies nausea or abdominal pain.
Objective Data
-
Vital Signs
Temp Pulse Resp BP Pulse Ox
98.9 F 85 19 120/76 96
09/29/24 02:58 09/29/24 07:00 09/29/24 07:00 09/29/24 07:00 09/29/24 07:00
Intake & Output
09/28/24 09/29/24 09/30/24
06:59 06:59 06:59
Intake Total 3300 / 3300 2200 / 2200
Output Total 500 / 500 860 / 860
Balance 2800 / 2800 1340 / 1340
Intake:
Oral fluids 0 / 0
IV fluids (Total) 3100 / 3100 2200 / 2200
IV piggybacks 200 / 200
Output:
Urine, Gonzalez 500 / 500 860 / 860
Lab Results
09/29/24 03:52
09/29/24 03:52
Physical Exam
-
General: Other (Alert and oriented, wearing facemask for oxygen supplementation)
HEENT: Grossly Normal
Abdomen: Soft, Distended (Mildly distended, significantly improved since Friday), Non Tender, No Guarding and No Rebound
Skin: Warm and Dry
--- NOTE | 2024-09-29 09:01 | W.PN.PUL3 ---
Today's Communication / Plan
-
Weaned to RA as his intra-abd process is improving
Tolerated CPAP overnight, MS improving, continue nightly use
Continue abx and medical management of colitis
MICHAEL resolved, renal following
No further recommendations from our perspective, we will sign off at this time, pls call with questions
Assessment
-
69-year-old male with a past medical history of hypothyroidism, bipolar disorder, schizophrenia, DEONTE on CPAP, dyslipidemia and orthostatic hypotension who presented from [facility] due to worsening SOB with abdominal distention. Per the family,
the patient has been worsening since last Friday, having hallucinations. In the ER, he was febrile to 102.4 �F, pulse rate 108, respiratory rate 20, BP 114/78 and saturating 90% on 2 L/min. Labs showed WBC 9.4, Hb 12.4, 14% bands, sodium 152,
creatinine 2.4, urinalysis positive for UTI, and COVID-19 antigen negative. Blood and urine cultures collected, and flu A/B swab was negative. AXR series showed diffuse small bowel loop dilatation with air-fluid levels concerning for an SBO or
adynamic ileus. Subsequent CT abdomen/pelvis showed diffuse dilatation of the small bowel likely due to adynamic ileus as there was no discrete transition point to suggest an SBO, also long segment bowel wall thickening and inflammatory fat
stranding at the rectosigmoid junction suspicious for severe proctocolitis, and mild bilateral hydroureteronephrosis with no obstructive stone seen. He was given Tylenol in the ER, ceftriaxone and 500 cc of NS 0.9%. She initially was going to be
consult admitted to the ICU however he was saturating >95% on 3 L/min, lactate was normal at 1.3, he remains normotensive, he is only mildly tachycardic, he is awake although not following commands, and protecting his airway, with blood gas showing
respiratory alkalosis with pH 7.5, pCO2 35. Manager File/pulmonary services consulted for additional management/recommendations - patient is being now transferred to the IMU.
Impression:
Acute hypoxic respiratory failure on HFNC
SOB
Sepsis due to severe proctocolitis in the setting of UTI
Bandemia (14% bands on admission CBC)
Mild bilateral hydroureteronephrosis without obstructive stone seen on CT A/P from 09/26/2024
Moderate stool distention of the rectum with diffuse small bowel dilatation likely due to adynamic ileus (no discrete transition point to suggest SBO)
Hypernatremia due to free water deficit of 5.5L
MICHAEL (baseline creatinine 1.1) with mild bilateral hydroureteronephrosis
Toxic�metabolic encephalopathy
Transaminitis with elevated AST
Suspected UTI with positive nitrites, 3+ leukocyte esterase, and urine WBC 16�20 with many bacteria
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
History of schizophrenia on clozapine
Tardive dyskinesia
Hypothyroidism
History of DEONTE on CPAP
Bipolar disorder
Dyslipidemia
Orthostatic hypotension
Ambulatory dysfunction w/ recurrent falls
?Parkinson's disease
Skin cancer removed
Chronic constipation
Chronic Back Pain
Plan:
Suspect severe proctocolitis with abdominal distention, need to continue broad-spectrum antibiotics and try to decompress bowel given he has moderate stool distention in the rectum
Currently on ceftriaxone + Flagyl --> GI recommends broadening further to Zosyn; if he were to deteriorate further then would add micafungin as well with ID consult + general surgery
Follow-up blood cultures; given his urinalysis is consistent with a UTI, follow-up urine culture (unable to ask him if he has been symptomatic so for now would assume he has UTI)
GI following for recs
Pain control
Maintained on NPO status
CRS following as well, avoid surgery unless medical necessary
Maintain SpO2 >90-94%; now on RA
This is likely due to intra-abd source, BMI, atelectasis
No prior history of lung disease, CXR remains clear
Check ECHO for baseline--reviewed/stable EF, no sign VHD
History of DEONTE, on PAP
Abdominal distention improving, can resume PAP -- tolerating
Rx changed for nightly and PRN use
Keep HOB >30-45� and continue aspiration precautions
MICHAEL, peak 4.1-trending down now
Trend sCr and monitor UOP--proBNP neg
Renal consult obtained -- review further w/u per team
Renally dose all medications/antibiotic
HD discussions with family, likely would decline--ongoing conversations
Maintain MAP>65
Replete electrolytes with K>4, Mg>2
Maintain euglycemia with goal BG 140-180
Trend H/H and transfuse if needed to keep Hb>7g/dL; keep plt>20k, unless there is concern for bleeding then keep plt>50k
prn nebulized bronchodilators - not currently bronchospastic
Once he clinically improves, would encourage incentive spirometer 10x per hour for at least 4 hrs a day
DVT ppx: HSQ - would raise to q8hr
Limited DNR noted, if clinically deteriorates would be reasonable to discuss GOC
Diagnostic Data:
CXR 09/27/24- There are some increased right retrocardiac opacities which may be artifact with atelectasis/airspace consolidation also a consideration. No large effusions. No pneumothorax.
CT abdomen/pelvis without contrast 09/26/2024: Limited examination due to the patient's arms down position, body habitus, and the lack of oral and intravenous contrast. Long segment bowel wall thickening and inflammatory fat stranding at the
rectosigmoid junction most suspicious for a severe proctocolitis. A colonic neoplasm is not completely excluded and a follow-up colonoscopy could be considered if not recently performed. Moderate stool distention of the rectum. Diffuse dilatation of
small bowel, favored to be secondary to an adynamic ileus in the absence of a discrete transition point to suggest a small bowel obstruction. Mild bilateral hydroureteronephrosis. No obstructing ureteral calculus. Collapsed urinary bladder with wall
thickening.
-----
Total time spent today was 41 minutes for this encounter. Time includes reviewing laboratory test/imaging results, reviewing pertinent medical records, obtaining and reviewing medical history, performing an appropriate exam, ordering medications,
tests and procedures. Time also includes documentation of this encounter, coordinating patient care and communicating with other healthcare professionals. Total time does not include separately billed tests performed on this date of service.
Subjective Data
-
Date of Service:
Date of Service: September 29, 2024
Chief Complaint: Pulmonary Follow Up
Subjective:
Better this AM, more awake
On RA, tolerated CPAP
Has hiccups
Objective Data
Data Reviewed
Vital Signs / I&O / Oxygen:
Vital Signs
Temp Pulse Resp BP Pulse Ox
98.9 F 85 19 120/76 96
09/29/24 02:58 09/29/24 07:00 09/29/24 07:00 09/29/24 07:00 09/29/24 07:00
Intake and Output
09/28/24 09/29/24 09/30/24
06:59 06:59 06:59
Intake Total 3300 / 3300 2200 / 2200
Output Total 500 / 500 860 / 860
Balance 2800 / 2800 1340 / 1340
SaO2 96
Nasal Cannula flow liters per 3
minute
Physical Exam
General: Comfortable, Poor Appetite and Other (Chronically ill appearing)
HEENT: Normocephalic, Anicteric and Moist Mucous Membranes
Cardiovascular: S1-S2 and Regular Rhythm
Respiratory: Clear (decreased overall) and Non-Labored Respirations
GI: Soft, Distended, Non Tender, Organomegaly (none) and Other (decreased BS overall)
Neurology: Awake, Alert, No Motor Deficits and Lethargic (falls asleep <10 secs)
Skin: Warm and Dry
Labs/Micro/Reports
Lab Data
09/29/24 03:52
09/29/24 03:52
Microbiology
09/29/24 03:52 Feces/Stool C. difficile GDH Antigen & Toxins - Final
C. difficile antigen positive, toxin negative.
Clostridium difficile present, but toxin not detected.
Patient may be a carrier, colonized with nontoxinogenic
strain or the level of toxin in sample is below detection
limits. This information should be used in conjunction with
the patient's clinical history.
09/26/24 23:28 Urine Urine Culture - Preliminary
09/26/24 10:34 Blood/Venous Blood Culture - Preliminary
No Growth in 48 hours- Final report to follow
09/26/24 09:46 Blood/Venous Blood Culture - Preliminary
No Growth in 48 hours- Final report to follow
09/26/24 10:26 Urine Urine Culture - Final
Escherichia coli
09/26/24 22:03 Nose MRSA Screen - Final
No Methicillin Resistant Staphylococcus aureus isolated.
09/26/24 10:26 Nasal Swab Influenza Types A & B (JI) - Final
Negative for Influenza A & B, NAAT
Negative results must be combined with clinical observations
and patient history.
Nucleic Acid Amplification test (NAAT)performed on the
[employer] platform.
[2024-09-29] MEDS: DUONEB 3 ML INH (09:21)
[2024-09-29] MEDS: D5W 1000 IV ×2 (09:33→15:51)
[2024-09-29] MEDS: MESTINON 60 MG PO ×3 (09:34→21:21)
--- NOTE | 2024-09-29 09:39 | W.PN.HOSP.TC ---
Today's Communication/Plan
-
Mestinon. Antibiotic. IVF
Assessment / Plan
Assessment / Plan
Physical exam:
General: Acutely ill. Toxic appearing
HEENT: Normocephalic, Atraumatic and Moist Mucous Membranes
Respiratory: Decreased breath sounds bilaterally; Tachypneic; Negative Wheezes or Rales
Cardiac: Regular Rhythm and S1/S2
GI: Soft, Tender diffusely but mainly in the left lower quadrant and significantly distended. Bowel sounds hypoactive.
Musculoskeletal: No Clubbing, No Cyanosis and No Edema
Neuro: Lethargic, does not follow simple commands, withdraws to pain stimuli, generalized weakness.
A/P:
Sepsis due to UTI, POA:
IV fluids boluses
Pressors if not responding to fluid
Antibiotics, IV Zosyn changed to IV cefazolin per ID recommendations
Continues to have fevers hence ID consulted but it appears the temperature has been taken by bladder probe and recommended to change to oral or axillary route.
Urine culture with E. coli
Discussed with son at bedside yesterday and continue aggressive medical treatment but decided DNR/DNI now. I discussed with daughter over the phone today and will reevaluate goals of care over the next 24-48 hours and she understands while he is
showing some signs of improvement overall prognosis is guarded so we will have more discussions tomorrow if they would like to continue medical management or consider hospice evaluation.
Stercoral colitis with ileus/severe proctocolitis/less likely ischemic colitis:
Keep n.p.o.
IV fluid
Colorectal surgery consult-discussed with CRS and no acute surgery indicated at the moment.
Enemas per GI
Discussed with general surgery and they believe no need for general surgery involvement at the moment.
Will follow-up further GI recommendations
Might consider NG tube +/- Mestinon if not improvement although noted CRS feels not much of benefit NG tube since stomach not dilated unless persistent N/V.
GI ordered repeat abdominal x-ray today
MICHAEL:
Worsening
IV fluid
Gonzalez catheter
Nephrology consult appreciated and appears that HD not an option after discussion with family which seems reasonable in light of his comorbidities
Hypernatremia:
Monitor sodium closely
Acute hypoxic respiratory failure, POA:
Likely related to abdominal process and atelectasis in a patient with underlying DEONTE and obesity.
From high flow oxygen down to 3 L of oxygen today
Chest x-ray clear rather than atelectasis
Pulmonary on board
Echo and BNP per pulmonary and unremarkable.
Acute toxic metabolic encephalopathy:
Likely related to acute illness
As per family his baseline he is able to communicate with family but he does have episodes of psychosis on and off and had some overall decline as of late.
Hypothyroidism:
On IV levothyroxine
History of schizophrenia/bipolar disorder/tardive dyskinesia:
Will restart his medications when able to take oral
Orthostatic hypotension:
Will restart his medications when able to take oral
Hyperlipidemia:
Will restart his medications when able to take oral
Obesity:
Lifestyle changes modifications warranted as outpatient
DVT prophylaxis:
Heparin SQ
CODE STATUS:
No CPR but okay with intubation
Discussed about CODE STATUS with son yesterday and changes as above but also family will discuss again and based on prognosis might change CODE STATUS again.
Total time spent on today's encounter was 52 minutes which included time spent in counseling the patient/family regarding diagnosis and treatment plan as listed above, goals of care, and symptom management. Case was discussed with nursing staff,
specialists, and care coordinators/case management. All labs and imaging personally reviewed by me. Remainder the time spent in detailed review of previous records, lab data, imaging, and other medical provider documentation.
Anticipated Discharge: > 48 hours
Subjective/Interval History
-
Date of Service: September 29, 2024
Patient with less abdominal distention. Slightly more alert.
Objective Data
-
Labs:
Laboratory Results
09/29/24
03:52
WBC 12.5 H
Hgb 11.0 L
Hct 33.5 L
Plt Count 266
Sodium 148 H
Potassium 3.4 L
Chloride 113 H
Carbon Dioxide 21 L
BUN 125 H*
Creatinine 3.7 H
Glucose 128 H
Calcium 7.7 L
Vital Signs:
Vital Signs
Temp Pulse Resp BP Pulse Ox
98.9 F 80 16 120/76 93
09/29/24 02:58 09/29/24 09:25 09/29/24 09:25 09/29/24 07:00 09/29/24 09:25
I&O
09/28/24 09/29/24 09/30/24
06:59 06:59 06:59
Intake Total 3300 / 3300 2200 / 2200
Output Total 500 / 500 860 / 860
Balance 2800 / 2800 1340 / 1340
[2024-09-29] MEDS: KCL 160 MEQ IV (10:01)
--- NOTE | 2024-09-29 10:12 | W.PN.ID1 ---
Date of Service
Date of Service: September 29, 2024
Today's Communication
- continue with cefazolin as patient is NPO, ok to convert to oral keflex when taking PO - dose will need to be adjusted for renal function
Assessment / Plan
Fever
Stercoral colitis
UTI
MICHAEL
Hypernatremia
- fever via core route defined as over 101.0; stopped core route and transitioned to axillary Ts with expected decrease in T curve.
- C difficile testing has been cancelled - I am in agreement; removed precautions
- otero management per nephrology
- continue with cefazolin as patient is NPO, ok to convert to oral keflex when taking PO - dose will need to be adjusted for renal function
- note plans to reevaluated goals of care of the next 24 hours and current DNR/DNI status
Chief Complaint
-: Fever
Subjective / Review of Systems
persistently afebrile
bp stable
having BMs with enemas
no complaints
Vital Signs / Physical Exam
Vital Signs
Vital Signs
Temp Pulse Resp BP Pulse Ox
99.4 F 82 20 106/45 95
09/29/24 07:10 09/29/24 10:00 09/29/24 10:00 09/29/24 10:00 09/29/24 10:00
Physical Exam
Constitutional: No Acute Distress
Cardiovascular: Regular Rate and S1/S2; Negative Murmur or Rub
Pulmonary: Clear and Symmetric; Negative Wheezes or Rales
Gastrointestinal: Soft, Non Tender, Distended (remains markedly distended) and Normal Bowel Sounds
Genito-Urinary: Clear Urine
Skin: Warm and Dry; Negative Rash or Jaundice
Objective Data
Lab Data
Lab Results
09/29/24 03:52
09/29/24 03:52
Estimated Creat Clear 24 ml/min 09/29/24 03:52
Lactic Acid 1.6 mmol/L (0.7-2.0) 09/27/24 09:24
Total Bilirubin 0.8 mg/dl (0.2-1.3) 09/28/24 04:59
AST 46 U/L (17-59) 09/28/24 04:59
ALT 25 U/L (0-50) 09/28/24 04:59
Alkaline Phosphatase 58 U/L (38-126) 09/28/24 04:59
Most recent labs reviewed.
Micro Results:
09/26/24 09:46 Blood Culture - Preliminary
Blood/Venous No Growth in 72 hours- Final report to follow
09/29/24 03:52 Stool Leukocytes - Final
Feces/Stool
09/29/24 03:52 C. difficile GDH Antigen & Toxins - Final
Feces/Stool C. difficile antigen positive, toxin negative.
Clostridium difficile present, but toxin not detected.
Patient may be a carrier, colonized with nontoxinogenic
strain or the level of toxin in sample is below detection
limits. This information should be used in conjunction with
the patient's clinical history.
09/26/24 23:28 Urine Culture - Preliminary
Urine
09/26/24 10:34 Blood Culture - Preliminary
Blood/Venous No Growth in 48 hours- Final report to follow
09/26/24 10:26 Urine Culture - Final
Urine Escherichia coli
09/26/24 22:03 MRSA Screen - Final
Nose No Methicillin Resistant Staphylococcus aureus isolated.
09/26/24 10:26 Influenza Types A & B (JI) - Final
Nasal Swab Negative for Influenza A & B, NAAT
Negative results must be combined with clinical observations
and patient history.
Nucleic Acid Amplification test (NAAT)performed on the
[employer] platform.
--- NOTE | 2024-09-29 10:51 | W.PN.NEPH.PH ---
Today's Communication / Plan
-
D5W continue
Maintain Gonzalez for another 24 hours
Assessment/Plan
-
IMP:
Sepsis-suspected source GI.
Severe Proctocolitis on CT Imaging
Adynamic Ileus
Acute encephalopathy
Abnormal urinalysis-rule out UTI.
MICHAEL.
Hypernatremia
Tachypnea
Schizophrenia
Orthostatic hypotension
Plan:
MICHAEL persists with creatinine of 4 and BUN 116
Non oliguric via Gonzalez catheter at 500cc
A/w abd distension noted proctocolitis and ileus
MICHAEL-UTI sample, suspect prerenal vs ATN -baseline cr 1 on 09/08/[address] abd shows mild bilat hydro with out stone-: Would have urology review films to see if they believe this is functional obstruction
abx per surgery, no surgical intervention noted
no emergent need of HD however high risk
Dr. Higgins spoke with daughter Vera 09/28 who is agreed not to pursue dialysis given multiple comorbidities
End-of-life discussion initiated patient is DNR
Continue hypotonic fluids
-
-
Date of Service: September 29, 2024
CC / HPI / ROS
-
Chief Complaint:
Acute kidney injury
Hypernatremia
History of Present Illness:
Hypernatremia persist
Hemodynamically stable
Acute kidney injury worsened
Review of Systems:
Oliguric via Gonzalez
Encephalopathic
Febrile
Labs
-
Labs:
WBC 12.5 10^3/uL (4.8-10.8) H 09/29/24 03:52
RBC 4.01 10^6/uL (4.70-6.10) L 09/29/24 03:52
Hgb 11.0 g/dL (13.0-18.0) L 09/29/24 03:52
Hct 33.5 % (39.0-52.0) L 09/29/24 03:52
Plt Count 266 10^3/uL (130-400) 09/29/24 03:52
Sodium 148 mmol/L (135-145) H 09/29/24 03:52
Potassium 3.4 mmol/L (3.5-5.1) L 09/29/24 03:52
Chloride 113 mmol/L (98-107) H 09/29/24 03:52
Carbon Dioxide 21 mmol/L (22-30) L 09/29/24 03:52
BUN 125 mg/dl (9-20) H* 09/29/24 03:52
Creatinine 3.7 mg/dL (0.7-1.3) H 09/29/24 03:52
eGFR 17.16 09/29/24 03:52
Glucose 128 mg/dl (70-99) H 09/29/24 03:52
Calcium 7.7 mg/dl (8.4-10.2) L 09/29/24 03:52
Phosphorus 5.2 mg/dl (2.5-4.5) H 09/28/24 04:59
Aaj-Y-Ccdchhmllei Pept 704 pg/ml 09/27/24 05:32
Albumin 3.3 g/dl (3.5-5.0) L 09/28/24 04:59
Physical Exam
-
Vital Signs:
Vital Signs
Temp Pulse Resp BP Pulse Ox
99.4 F 82 20 106/45 95
09/29/24 07:10 09/29/24 10:00 09/29/24 10:00 09/29/24 10:00 09/29/24 10:00
Cardiovascular:: Regular rate and rhythm
Respiratory:: Bilateral: Coarse
Lung Excursion:: Normal
Abdomen:: Nontender
Bowel Sounds:: Normal
Extremity Edema:: None: Bilateral:
Gonzalez Catheter: Yes
--- NOTE | 2024-09-29 16:03 | CM ---
Patient from [facility] with Hx Schizophrenia, Bipolar disorder with Dx sepsis, colitis with ileus, MICHAEL, Acute TME. Room air/BiPAP HS. NPO/IVF. Receiving IV Abx, IV Levothroid. Gonzalez. Per nurse assessment; slow speech, flat affect.
Per MD assessment; lethargic, does not follow simple commands. GOC discussions with son/daughter.
Patient may benefit from PT Eval for transfer training once mentation improves.
[facility]: The ph for report [phone], fax [phone].
Plan follow patient's mentation and ability for diet.
Plan contact patient's son/daughter prior to discharge.
Plan return to [facility] when medically ready.
--- NOTE | 2024-09-29 16:48 | PTCARENOTE ---
AAOx2 slurred garbled speech at times, whispers softly as well. PO med ordered today- crushed and taken in small amt applesauce. Oral care completed. LC/ RA, NSR on tele SBP 90s-100s. Abd is softly distended, hypo BS. Milk and molasses enema
given x2 this shift- grossly incontinent every 2 hours of liquid brown stools( turned q 2 as well). Gonzalez patent light [place] urine, adequate output nephrology renewed order today. NPO status maintained, IVF infusing/ IV antibx as ordered.
Providers aware of labs today. Son at bedside- updated and they will try to find out about pneumococcal vaccine- I attempted to call [facility] but closed.
[2024-09-29] MEDS: LEVOTHROID 62.5 MCG IV (17:50)
[2024-09-30] VITALS (22 sets, daily range): BP systolic 115–147; BP diastolic 61–108; PULSE 82–85; BMI 30.4
[2024-09-30] MEDS: HEPARIN 5000 UNITS SC ×4 (00:17→23:05)
[2024-09-30] MEDS: ANCEF 5 IV (01:18)
[2024-09-30] MEDS: D5W 1000 IV ×3 (01:25→21:31)
--- NOTE | 2024-09-30 01:28 | PTCARENOTE ---
Patient getting Q6 milk molasses enemas, patient having bowl movements after administration. Patient disorientated to time and place. NSR on monitor. NPO with meds crushed in applesauce. Gonzalez in place draining [place] urine. Patient resting in bed,
wearing cpap overnight. call vance in reach.
[2024-09-30 05:01] LABS: Blood Urea Nitrogen 97 mg/dl (9-20); Calcium 7.7 mg/dl (8.4-10.2); Carbon Dioxide 21 mmol/L (22-30); Chloride 115 mmol/L (98-107); Estimated Creatinine Clearance 44 ml/min; Glucose 126 mg/dl (70-99); Potassium 3.5 mmol/L (3.5-5.1); Sodium 147 mmol/L (135-145); eGFR 35.91
[2024-09-30 05:08] LABS: Hematocrit 33.5 % (39.0-52.0); Mean Corp Hgb Conc. 32.8 g/dL (33.0-37.0); Mean Corpuscular Hgb 27.9 pg (27.0-31.0); Mean Platelet Volume 11.4 fL (7.4-10.4); Platelet Count 293 10^3/uL (130-400); Red Blood Cell Count 3.94 10^6/uL (4.70-6.10); Red Cell Dist. Width 14.9 % (11.5-14.5); White Blood Cell Count 15.7 10^3/uL (4.8-10.8)
--- NOTE | 2024-09-30 06:29 | W.PN.GI.CBS2 ---
Today's Communication / Plan
-
Abdominal exam continues to improve with ongoing bowel movements and since starting Mestinon. Repeat KUB today. Per family discussions with primary team, wish to defer any plans on any further procedures/interventions at this time. Continue medical
management as below along with ongoing supportive care.
Assessment / Plan
-
Mr. Rivera is a 69 y.o male with a past medical history of underlying psychiatric illness including schizophrenia, bipolar disorder, tardive dyskinesia, hypothyroidism, and chronic constipation and recent hospitalization (for orthostatic
hypotension/schizophrenia) at from 08/28 - 09/10/24 who represents from his long-term due to vomiting, diarrhea and worsening abdominal distension. Gastroenterology has been consulted for further evaluation and management.
#Fevers #Tachycardia #Bandemia #Sepsis
#Severe Proctocolitis on CT Imaging
#Moderate Fecal [place] in Rectum
#C/f Stercoral Colitis
#Adynamic Ileus
#Acute Toxic Metabolic Encephalopathy
#Hypernatremia #MICHAEL
#Chronic Constipation
#Hx of Psychiatric Illness
Impression: Patient presenting with vomiting, looser stools and worsening abdominal distention from his facility along with acute mental status changes concerning for toxic metabolic encephalopathy. Found to have severe sepsis and CT imaging
revealing a 19 cm, long segment of severe proctocolitis without abscess, perforation or other local complications. Additionally, found to have significant fecal burden within the rectum and distal colon upon personal review of imaging. Etiology of
his severe proctocolitis likely secondary to stercoral colitis given his longstanding history of chronic constipation (suspect 2/2 psych medications, hypothyroidism, and limited mobility). Suspect this is further driving his adynamic ileus and
underlying sepsis secondary to bacterial translocation given severe thickening versus urinary source. Possibly infectious colitis given the reported diarrhea although I think this is likely is from overflow diarrhea in the setting of his chronic
constipation and significant stool burden seen on imaging. Much less likely ischemia given the distribution on the CT imaging. It is unclear if the patient is ever had a prior colonoscopy. Fortunately, there is no abnormal colonic wall dilatation
to suggest a colonic ileus and patient's bicarb and lactic acid are within normal limits. Abdominal exam is significant for distention but without any rebound tenderness or involuntary guarding or other tenderness to palpation appreciated except
for hypoactive bowel sounds. His underlying ileus is again likely secondary to his significant stool burden and suspected stercoral colitis but also multifactorial in setting of his severe electrolyte derangements given his hypernatremia and sepsis.
Having BMs with rectal enemas, although still with persistent fevers and course complicated by worsening renal function.
Abdomen X-Ray 09/28/24: Severe diffuse SB distention which appears unchanged from prior imaging 09/26 with SB loops measuring approximately 6-7 cms in diameter, no abnormal colonic dilatation
Recommendations:
- May start CLD today given improving abdominal exam and overall symptoms
- IVF as needed to maintain euvolemia, keep K > 4.0 and Mg > 2.0
- Correction of hypernatremia as per primary team. Nephrology has been consulted given MICHAEL- currently improving
- Stool culture with C Diff Ag (+), toxin (-) seems most c/w colonization and not c/w CDI
- Blood cultures remain NG x 48 hrs, U Cx with E coli and E faecalis
- Continue IV abx as per ID, very low suspicion for CDI as patient was impacted with hard stool and presentation not c/w C Diff colitis, rather stercoral colitis 2/2 impacted stool
- Continue rectal enemas while inpatient, may decreased MoM enemas q 8 hrs given improvement
- KUB on 09/28 with persistent SB dilatation, although his abdominal exam continues to improve
- Repeat KUB today on 09/30 to reassess SB dilatation and r/o colonic dilatation
- Started Mestinon 60 mg TiD (09/29- ) for further relief of SB ileus
- Would continue to defer from starting any stool softeners from above / p.o (ie miralax, senna etc)
- No plans for a flex-sig/colonoscopy given his previous fevers and renal function, would consider performing an eventual endoscopic evaluation pending patient's clinical course. However, upon discussions with family and primary team wish to defer
any further plans for any further interventions at this time but want to continue ongoing medical management
- Minimize narcotics and anticholinergics as much as possible
- Avoidance of all NSAIDs
- Rest of care as per primary ICU team
Discussed with primary internal medicine team this AM and nursing staff. GI will continue to follow.
Subjective
Subjective
Date of Service: September 30, 2024
- Started on Mestinon 60 mg TiD (09/29- )
- Otherwise, no acute events overnight
Resting comfortably, having ongoing BMs with rectal enemas with brown stools without any melena or bloody stools. Abdominal exam appears much improved from prior. No nausea or episdoes of emesis.
Objective
Data Reviewed
Laboratory Data:
Laboratory Results
09/30/24 04:07
09/30/24 04:07
Laboratory Results
Phosphorus 5.2 mg/dl (2.5-4.5) H 09/28/24 04:59
Magnesium 3.0 mg/dl (1.6-2.3) H 09/28/24 04:59
Total Bilirubin 0.8 mg/dl (0.2-1.3) 09/28/24 04:59
AST 46 U/L (17-59) 09/28/24 04:59
ALT 25 U/L (0-50) 09/28/24 04:59
Alkaline Phosphatase 58 U/L (38-126) 09/28/24 04:59
Vital Signs and I&O:
Vital Signs
Temp Pulse Resp BP Pulse Ox
98.8 F 83 23 135/67 96
09/30/24 04:09 09/30/24 04:00 09/30/24 04:00 09/30/24 04:00 09/30/24 04:00
I&O
09/28/24 09/29/24 09/30/24
06:59 06:59 06:59
Intake Total 3300 / 3300 2200 / 2200 1390 / 1390
Output Total 500 / 500 860 / 860 1550 / 1550
Balance 2800 / 2800 1340 / 1340 -160 / -160
Physical Exam
Physical Exam
HEENT: Anicteric and Moist mucous membranes
Cardiology: Other (RR on tele)
Pulmonary: Other (Normal WOB on CPAP)
GI: Soft, Distended (Mild to moderate distension, appears soft on exam), Non Tender and Other (Hypoactive bowel sounds throughout)
Extremities: No Edema
Neuro: Non Focal
[2024-09-30 07:51] LABS: % Basophils 0.3 % (0-2); % Immature Granulocytes 3.8 % (0-0.5); % Lymphocytes 7.7 % (20.5-51.1); % Neutrophils 84.2 % (42.2-75.2); Absolute Basophils 0.1 10^3/uL (0-0.2); Absolute Immature Granulocytes 0.6 10^3/uL (0-0.05); Absolute Lymphocytes 1.2 10^3/uL (1.2-3.4); Absolute Monocytes 0.6 10^3/uL (0.1-0.6); Absolute Neutrophils 13.2 10^3/uL (1.4-6.5); Nucleated Red Blood Cells % 0 % (-)
--- NOTE | 2024-09-30 08:57 | W.PN.HOSP.TC ---
Today's Communication/Plan
-
Clear liquid diet. Antibiotics. Mestinon. PT eval
Assessment / Plan
Assessment / Plan
Physical exam:
General: Acutely ill
HEENT: Normocephalic, Atraumatic and Moist Mucous Membranes
Respiratory: Clear to auscultation bilateral; No crackles wheezes or rhonchi
Cardiac: Regular Rhythm and S1/S2
GI: Soft, nontender, distended but improving. Bowel sounds present
Musculoskeletal: No Clubbing, No Cyanosis and No Edema
Neuro: Alert oriented, generalized weakness.
A/P:
Sepsis due to UTI, POA:
Improving
Enterococcus faecalis in the urine
Change to oral antibiotics per ID
Discussed with daughter and decided to continue medical management without aggressive interventions.
PT eval
Stercoral colitis with ileus/severe proctocolitis/less likely ischemic colitis:
Start clear liquid diet
Continue Mestinon
Discussed with GI
MICHAEL:
Improving
Nephrology recommends urology eval
Hypernatremia:
Monitor sodium closely
Acute hypoxic respiratory failure, POA:
Due to abdominal process
Resolved and back to room air
Acute toxic metabolic encephalopathy:
Likely related to acute illness and improving
Hypothyroidism:
Switch IV to p.o. levothyroxine
History of schizophrenia/bipolar disorder/tardive dyskinesia:
Will restart his medications when able to take oral
Orthostatic hypotension:
Will restart his medications when able to take oral
Hyperlipidemia:
Will restart his medications when able to take oral
Obesity:
Lifestyle changes modifications warranted as outpatient
DVT prophylaxis:
Heparin SQ
CODE STATUS:
No CPR but okay with intubation
Discussed about CODE STATUS with son yesterday and changes as above but also family will discuss again and based on prognosis might change CODE STATUS again.
Total time spent on today's encounter was 52 minutes which included time spent in counseling the patient/family regarding diagnosis and treatment plan as listed above, goals of care, and symptom management. Case was discussed with nursing staff,
specialists, and care coordinators/case management. All labs and imaging personally reviewed by me. Remainder the time spent in detailed review of previous records, lab data, imaging, and other medical provider documentation.
Anticipated Discharge: > 48 hours
Subjective/Interval History
-
Date of Service: September 30, 2024
Patient alert. Less abdominal distention. Afebrile
Objective Data
-
Labs:
Laboratory Results
09/30/24
04:07
WBC 15.7 H
Hgb 11.0 L
Hct 33.5 L
Plt Count 293
Sodium 147 H
Potassium 3.5
Chloride 115 H
Carbon Dioxide 21 L
BUN 97 H
Creatinine 2.0 H
Glucose 126 H
Calcium 7.7 L
Vital Signs:
Vital Signs
Temp Pulse Resp BP Pulse Ox
98.0 F 81 22 146/79 97
09/30/24 07:18 09/30/24 08:05 09/30/24 08:05 09/30/24 08:05 09/30/24 08:05
I&O
09/29/24 09/30/24 10/01/24
06:59 06:59 06:59
Intake Total 2200 / 2200 1390 / 1390
Output Total 860 / 860 1550 / 1550
Balance 1340 / 1340 -160 / -160
[2024-09-30] MEDS: MESTINON 60 MG PO ×3 (09:12→20:47)
[2024-09-30] MEDS: SYNTHROID 125 MCG PO (09:12)
--- NOTE | 2024-09-30 09:20 | PTOTSP ---
Speech Language Pathology
Pt seen for clinical bedside swallow evaluation. On pureed solids/thin liquids at baseline per facility facesheet. Currently limited to clear liquids, and has been getting meds crushed in puree. P.O. trials of puree (with meds crushed by student
RN) and thin liquids provided. Adequate oral phase noted with limited consistencies trialed. Brief cough x1 with consecutive sips of liquids (in 1/5 trials). No coughing noted with single sips.
Recommend:
(1) IDDSI Level 4 (puree) and thin liquids once cleared for solids
(2) Aspiration precautions: sit upright, slow rate, single sips only (pinch straw as needed to ensure single sips)
(3) Meds crushed in puree
(4) INFORMATION ASSURANCE OFFICER to continue to follow
--- NOTE | 2024-09-30 09:43 | W.PN.ID1 ---
Date of Service
Date of Service: September 30, 2024
Today's Communication
- convert to oral amoxicillin 500 mg PO Q8 hrs x7 days 09/30-10/06
- do not recommend primary ppx for C difficile colonization given narrow spectrum rx
- follow up with PCP
ID service will no longer actively follow this patient please recall for further questions
Assessment / Plan
Fever
Stercoral colitis
UTI
MICHAEL
Hypernatremia
H/o ADR to penicillin - not an allergy
- convert to oral amoxicillin 500 mg PO Q8 hrs x7 days 09/30-10/06
- do not recommend primary ppx for C difficile colonization given narrow spectrum rx
- follow up with PCP
ID service will no longer actively follow this patient please recall for further questions
Chief Complaint
-: UTI
Subjective / Review of Systems
afebrile
bp stable
having further BMs, taking medications
renal function improving
Vital Signs / Physical Exam
Vital Signs
Vital Signs
Temp Pulse Resp BP Pulse Ox
98.0 F 81 22 146/79 97
09/30/24 07:18 09/30/24 08:05 09/30/24 08:05 09/30/24 08:05 09/30/24 08:05
Physical Exam
Constitutional: No Acute Distress
Cardiovascular: Regular Rate and S1/S2; Negative Murmur or Rub
Pulmonary: Clear and Symmetric; Negative Wheezes or Rales
Gastrointestinal: Soft, Non Tender, Non Distended and Normal Bowel Sounds
Skin: Warm and Dry; Negative Rash or Jaundice
Objective Data
Lab Data
Lab Results
09/30/24 04:07
09/30/24 04:07
Estimated Creat Clear 44 ml/min 09/30/24 04:07
Lactic Acid 1.6 mmol/L (0.7-2.0) 09/27/24 09:24
Total Bilirubin 0.8 mg/dl (0.2-1.3) 09/28/24 04:59
AST 46 U/L (17-59) 09/28/24 04:59
ALT 25 U/L (0-50) 09/28/24 04:59
Alkaline Phosphatase 58 U/L (38-126) 09/28/24 04:59
Most recent labs reviewed.
Urine Culture Final 09/29/24-1407
CC: Greater than 100,000 CFU/ML Enterococcus faecalis
CC: 100,000 CFU/ML Streptococcus species
CC: 3,000 CFU/ML Gram negative bacilli of two morphotypes
Organism 1 Enterococcus faecalis
1. Enterococcus faecalis
M.I.C. RX
--------- ---
Ampicillin <=2 S
Gentamicin Synergy Screen <=500 S
Susceptible result indicates synergy is likely with a cell
wall active agent that is also susceptible
(e.g.ampicillin,penicillin,vancomycin)
Levofloxacin <=1 S
Nitrofurantoin-Urine Only <=32 S
Tetracycline >8 R
Vancomycin 1 S
Micro Results:
09/26/24 23:28 Urine Culture - Final
Urine Enterococcus faecalis
09/26/24 10:34 Blood Culture - Preliminary
Blood/Venous No Growth in 72 hours- Final report to follow
09/26/24 09:46 Blood Culture - Preliminary
Blood/Venous No Growth in 72 hours- Final report to follow
09/29/24 03:52 Stool Leukocytes - Final
Feces/Stool
09/29/24 03:52 C. difficile GDH Antigen & Toxins - Final
Feces/Stool C. difficile antigen positive, toxin negative.
Clostridium difficile present, but toxin not detected.
Patient may be a carrier, colonized with nontoxinogenic
strain or the level of toxin in sample is below detection
limits. This information should be used in conjunction with
the patient's clinical history.
09/26/24 10:26 Urine Culture - Final
Urine Escherichia coli
09/26/24 22:03 MRSA Screen - Final
Nose No Methicillin Resistant Staphylococcus aureus isolated.
09/26/24 10:26 Influenza Types A & B (JI) - Final
Nasal Swab Negative for Influenza A & B, NAAT
Negative results must be combined with clinical observations
and patient history.
Nucleic Acid Amplification test (NAAT)performed on the
[employer] platform.
Care Review
Plan reviewed with: Physician (Dr Stone gutiérrez, antibiotics)
--- NOTE | 2024-09-30 09:48 | W.PN.URO.CBU ---
Today's Communication / Plan
-
remove otero if c/o poor urination then obtain bladder scan and if pvr over 300cc alert urology
Assessment / Plan
-
creatinine 4 now 2 i believe reflects rehydration more than a therapeutic benefit of otero as bladder was empty and pt without sxs of obstruction Otero scheduled to be removed this am will follow but if creatinine rises will rethink
but for now treat underlying bowel pathology
Diagnosis
-
Date of Service: September 30, 2024
-
Patient Diagnosis:pre renal azotemia with element bph wih min hydro bilayeral
Post Op Day:
Subjective
-
no gu sxs
Objective
-
Vital Signs
Temp Pulse Resp BP Pulse Ox
98.0 F 81 22 146/79 97
09/30/24 07:18 09/30/24 08:05 09/30/24 08:05 09/30/24 08:05 09/30/24 08:05
Intake and Output
09/29/24 09/30/24 10/01/24
06:59 06:59 06:59
Intake Total 2200 / 2200 1390 / 1390
Output Total 860 / 860 1550 / 1550
Balance 1340 / 1340 -160 / -160
Intake:
Oral fluids 0 / 0
IV fluids (Total) 2200 / 2200 1200 / 1200
IV piggybacks 190 / 190
Output:
Urine, Otero 860 / 860 1550 / 1550
Other:
Number of unmeasured liquid
stools
Rectum 1
Laboratory Results
09/30/24 04:07
09/30/24 04:07
Review of Systems
-
Abdomen/GI: Abdominal Pain
: No Symptoms
Physical Exam
-
General - well developed, well nourished, no acute distress
Chest - clear bilaterally
Abdomen - soft, non-tender, positive bowel sounds, no CVAT, no incisional pain or distention
Genitalia - normal
Rectal - normal
Skin - warm & dry with no rash
Neuro - AOx3, no motor deficits
Extremities - no clubbing, no cyanosis, no edema
Incision - clean, dry
Dressing - clean, dry, intact
Care Review
Data Reviewed
Discussed with: Hospitalist and Nursing
CT Scan: Image Pers Reviewed
--- NOTE | 2024-09-30 10:16 | PTCARENOTE ---
Assumed care of patient this morning, he wore his BiPAP all night and removed approx 0830. He is only oriented to himself, does not offer much communication. Pt has been incontinent of bowel. Gonzalez removed following urology at the bedside and
advised to remove. Pt DVT by 1600. Pt due for MOM enema. Assessment, care and VS as charted.
--- NOTE | 2024-09-30 11:45 | W.PN.NEPH.PH ---
Today's Communication / Plan
-
Continue hypotonic fluids
Assessment/Plan
-
IMP:
Sepsis-suspected source GI.
Severe Proctocolitis on CT Imaging
Adynamic Ileus
Acute encephalopathy
Abnormal urinalysis-rule out UTI.
MICHAEL.
Hypernatremia
Tachypnea
Schizophrenia
Orthostatic hypotension
Plan:
MICHAEL persists with creatinine of 4 and BUN 116
Non oliguric via Gonzalez catheter at 500cc
A/w abd distension noted proctocolitis and ileus
MICHAEL-UTI sample, suspect prerenal vs ATN -baseline cr 1 on 09/08/[address] abd shows mild bilat hydro with out stone-: Would have urology review films to see if they believe this is functional obstruction
abx per surgery, no surgical intervention noted
no emergent need of HD however high risk
Dr. Higgins spoke with daughter Vera 09/28 who is agreed not to pursue dialysis given multiple comorbidities
End-of-life discussion initiated patient is DNR
Continue hypotonic fluids
Kidney function continues to improve creatinine down to 2 with a peak of 4.1 and normal at baseline
Diet being advanced
-
-
Date of Service: September 30, 2024
CC / HPI / ROS
-
Chief Complaint:
Acute kidney injury
Hypernatremia
History of Present Illness:
Hypernatremia persist
Hemodynamically stable
Acute kidney injury improving
Review of Systems:
Oliguric via Gonzalez
No chest pain or shortness of breath
Labs
-
Labs:
WBC 15.7 10^3/uL (4.8-10.8) H 09/30/24 04:07
RBC 3.94 10^6/uL (4.70-6.10) L 09/30/24 04:07
Hgb 11.0 g/dL (13.0-18.0) L 09/30/24 04:07
Hct 33.5 % (39.0-52.0) L 09/30/24 04:07
Plt Count 293 10^3/uL (130-400) 09/30/24 04:07
Sodium 147 mmol/L (135-145) H 09/30/24 04:07
Potassium 3.5 mmol/L (3.5-5.1) 09/30/24 04:07
Chloride 115 mmol/L (98-107) H 09/30/24 04:07
Carbon Dioxide 21 mmol/L (22-30) L 09/30/24 04:07
BUN 97 mg/dl (9-20) H 09/30/24 04:07
Creatinine 2.0 mg/dL (0.7-1.3) H 09/30/24 04:07
eGFR 35.91 09/30/24 04:07
Glucose 126 mg/dl (70-99) H 09/30/24 04:07
Calcium 7.7 mg/dl (8.4-10.2) L 09/30/24 04:07
Phosphorus 5.2 mg/dl (2.5-4.5) H 09/28/24 04:59
Jzp-M-Mzrvvucqjng Pept 704 pg/ml 09/27/24 05:32
Albumin 3.3 g/dl (3.5-5.0) L 09/28/24 04:59
Physical Exam
-
Vital Signs:
Vital Signs
Temp Pulse Resp BP Pulse Ox
98.2 F 81 22 146/79 97
09/30/24 11:33 09/30/24 08:05 09/30/24 08:05 09/30/24 08:05 09/30/24 08:05
Cardiovascular:: Regular rate and rhythm
Respiratory:: Bilateral: Coarse
Lung Excursion:: Normal
Abdomen:: Nontender
Bowel Sounds:: Normal
Extremity Edema:: None: Bilateral:
Gonzalez Catheter: Yes
[2024-09-30] MEDS: AMOXIL 500 MG PO ×2 (11:47→17:00)
[2024-09-30] MEDS: FOLVITE 1 MG PO (15:03)
[2024-09-30] MEDS: LIPITOR 10 MG PO (17:00)
[2024-09-30] MEDS: SYMMETREL 100 MG PO (20:47)
[2024-09-30] MEDS: CLOZARIL 300 MG PO (20:58)
--- NOTE | 2024-09-30 23:44 | PTCARENOTE ---
Patient receiving Q8 MOM enemas. Patient incontinent of large bowl movements. Patient also incontinent of urine. Q2 turns. Disorientated to time and place. D5W running at 100ml/hr. Assessment and vital signs as documented. call vance in reach.
[2024-10-01] VITALS (15 sets, daily range): BP systolic 100–153; BP diastolic 61–118; PULSE 84–90; O2SAT 100; BMI 30.6
[2024-10-01] MEDS: AMOXIL 500 MG PO ×3 (02:03→18:07)
[2024-10-01 03:38] LABS: Hematocrit 32.1 % (39.0-52.0); Hemoglobin 10.7 g/dL (13.0-18.0); Mean Corp Hgb Conc. 33.3 g/dL (33.0-37.0); Mean Corpuscular Hgb 27.9 pg (27.0-31.0); Mean Corpuscular Volume 83.6 fL (80.0-94.0); Mean Platelet Volume 10.8 fL (7.4-10.4); Platelet Count 339 10^3/uL (130-400); Red Blood Cell Count 3.84 10^6/uL (4.70-6.10); Red Cell Dist. Width 14.6 % (11.5-14.5); White Blood Cell Count 18.3 10^3/uL (4.8-10.8)
[2024-10-01 03:43] LABS: % Basophils 0.5 % (0-2); % Immature Granulocytes 7.4 % (0-0.5); % Lymphocytes 10.4 % (20.5-51.1); % Monocytes 4.3 % (1.7-9.3); % Neutrophils 77.4 % (42.2-75.2); Absolute Basophils 0.1 10^3/uL (0-0.2); Absolute Immature Granulocytes 1.4 10^3/uL (0-0.05); Absolute Lymphocytes 1.9 10^3/uL (1.2-3.4); Absolute Monocytes 0.8 10^3/uL (0.1-0.6); Absolute Neutrophils 14.2 10^3/uL (1.4-6.5); Nucleated Red Blood Cells % 0 % (-)
[2024-10-01 03:50] LABS: Blood Urea Nitrogen 58 mg/dl (9-20); Calcium 7.9 mg/dl (8.4-10.2); Carbon Dioxide 22 mmol/L (22-30); Chloride 115 mmol/L (98-107); Estimated Creatinine Clearance 74 ml/min; Glucose 125 mg/dl (70-99); Potassium 3.2 mmol/L (3.5-5.1); Sodium 146 mmol/L (135-145); eGFR > 60.00
[2024-10-01] MEDS: KCL 270 MEQ IV (05:05)
[2024-10-01] MEDS: SYNTHROID 125 MCG PO (06:06)
[2024-10-01] MEDS: SYMMETREL 100 MG PO ×2 (09:00→21:14)
[2024-10-01] MEDS: HEPARIN 5000 UNITS SC ×3 (09:00→23:02)
[2024-10-01] MEDS: VITAMIN B-12 1000 MCG PO (09:00)
[2024-10-01] MEDS: FOLVITE 1 MG PO (09:00)
[2024-10-01] MEDS: MESTINON 60 MG PO ×3 (09:00→21:11)
--- NOTE | 2024-10-01 09:22 | W.PN.HOSP.TC ---
Today's Communication/Plan
-
Clear liquid diet. Enemas. Antibiotics
Assessment / Plan
Assessment / Plan
Physical exam:
General: Acutely ill
HEENT: Normocephalic, Atraumatic and Moist Mucous Membranes
Respiratory: Clear to auscultation bilateral; No crackles wheezes or rhonchi
Cardiac: Regular Rhythm and S1/S2
GI: Soft, nontender, distended but improving. Bowel sounds present
Musculoskeletal: No Clubbing, No Cyanosis and No Edema
Neuro: Alert oriented, generalized weakness.
A/P:
Sepsis due to UTI, POA:
Improving
Enterococcus faecalis in the urine
Change to oral antibiotics per ID
Discussed with daughter and decided to continue medical management without aggressive interventions.
PT eval recommends return to LTC
Transfer out of IMU to telemetry today
Stercoral colitis with ileus/severe proctocolitis/less likely ischemic colitis:
Started clear liquid diet per GI
Continue Mestinon
Appreciate GI consult
C. difficile antigen positive toxin negative
MICHAEL:
Improving and off IV fluids
Nephrology recommends urology eval and urology evaluated patient and no need for surgical intervention
Hypernatremia:
Monitor sodium closely
Hypokalemia:
Replete and trend
Acute hypoxic respiratory failure, POA:
Due to abdominal process
Resolved and back to room air
Acute toxic metabolic encephalopathy:
Likely related to acute illness and improving
Hypothyroidism:
Switch IV to p.o. levothyroxine
Update TSH and free T4 in a.m.
History of schizophrenia/bipolar disorder/tardive dyskinesia:
Back on clozapine and folic acid
Vitamin B12 deficiency:
Replace B12
Orthostatic hypotension:
Monitor blood pressure closely
Hyperlipidemia:
Back on statins
Obesity:
Lifestyle changes modifications warranted as outpatient
DVT prophylaxis:
Heparin SQ
CODE STATUS:
DNR/DNI
Total time spent on today's encounter was 52 minutes which included time spent in counseling the patient/family regarding diagnosis and treatment plan as listed above, goals of care, and symptom management. Case was discussed with nursing staff,
specialists, and care coordinators/case management. All labs and imaging personally reviewed by me. Remainder the time spent in detailed review of previous records, lab data, imaging, and other medical provider documentation.
Anticipated Discharge: 24 - 48 hours
Subjective/Interval History
-
Date of Service: October 01, 2024
Patient still abdominal distended but much improved. Having bowel movement with enemas. On room air
Objective Data
-
Labs:
Laboratory Results
10/01/24
03:07
WBC 18.3 H
Hgb 10.7 L
Hct 32.1 L
Plt Count 339
Sodium 146 H
Potassium 3.2 L
Chloride 115 H
Carbon Dioxide 22
BUN 58 H
Creatinine 1.2
Glucose 125 H
Calcium 7.9 L
Vital Signs:
Vital Signs
Temp Pulse Resp BP Pulse Ox
98.2 F 90 25 114/72 95
10/01/24 07:05 10/01/24 06:00 10/01/24 06:00 10/01/24 06:00 10/01/24 06:00
I&O
09/30/24 10/01/24 10/02/24
06:59 06:59 06:59
Intake Total 1390 / 1390 2039 / 2040
Output Total 1550 / 1550 725 / 725
Balance -160 / -160 1315 / 1315
--- NOTE | 2024-10-01 09:56 | W.PN.NEPH.PH ---
Today's Communication / Plan
-
sign off
can d/c IVFs as patient now drinking
Assessment/Plan
-
IMP:
Sepsis-suspected source GI.
Severe Proctocolitis on CT Imaging
Adynamic Ileus
Acute encephalopathy
Abnormal urinalysis-rule out UTI.
MICHAEL.
Hypernatremia
Tachypnea
Schizophrenia
Orthostatic hypotension
Plan:
MICHAEL resolved as creatinine at 1.2 and BUN 58
Non oliguric via Gonzalez catheter
we will sign off
A/w abd distension noted proctocolitis and ileus
MICHAEL-UTI sample, suspect prerenal vs ATN -baseline cr 1 on 09/08/[address] abd shows mild bilat hydro with out stone-: Would have urology review films to see if they believe this is functional obstruction
abx per surgery, no surgical intervention noted
no emergent need of HD however high risk
Dr. Higgins spoke with daughter Vera 09/28 who is agreed not to pursue dialysis given multiple comorbidities
End-of-life discussion initiated patient is DNR
we will sign
-
-
Date of Service: October 01, 2024
CC / HPI / ROS
-
Chief Complaint:
Acute kidney injury
Hypernatremia
History of Present Illness:
Hypernatremia persists
Hemodynamically stable
Acute kidney injury resolved
Review of Systems:
nOliguric via Gonzalez
No chest pain or shortness of breath
Labs
-
Labs:
WBC 18.3 10^3/uL (4.8-10.8) H 10/01/24 03:07
RBC 3.84 10^6/uL (4.70-6.10) L 10/01/24 03:07
Hgb 10.7 g/dL (13.0-18.0) L 10/01/24 03:07
Hct 32.1 % (39.0-52.0) L 10/01/24 03:07
Plt Count 339 10^3/uL (130-400) 10/01/24 03:07
Sodium 146 mmol/L (135-145) H 10/01/24 03:07
Potassium 3.2 mmol/L (3.5-5.1) L 10/01/24 03:07
Chloride 115 mmol/L (98-107) H 10/01/24 03:07
Carbon Dioxide 22 mmol/L (22-30) 10/01/24 03:07
BUN 58 mg/dl (9-20) H 10/01/24 03:07
Creatinine 1.2 mg/dL (0.7-1.3) 10/01/24 03:07
eGFR > 60.00 10/01/24 03:07
Glucose 125 mg/dl (70-99) H 10/01/24 03:07
Calcium 7.9 mg/dl (8.4-10.2) L 10/01/24 03:07
Phosphorus 5.2 mg/dl (2.5-4.5) H 09/28/24 04:59
Tyz-X-Kjhfqywslwg Pept 704 pg/ml 09/27/24 05:32
Albumin 3.3 g/dl (3.5-5.0) L 09/28/24 04:59
Physical Exam
-
Vital Signs:
Vital Signs
Temp Pulse Resp BP Pulse Ox
98.2 F 90 25 114/72 95
10/01/24 07:05 10/01/24 06:00 10/01/24 06:00 10/01/24 06:00 10/01/24 06:00
Cardiovascular:: Regular rate and rhythm
Respiratory:: Bilateral: Coarse
Lung Excursion:: Normal
Abdomen:: Nontender
Bowel Sounds:: Normal
Extremity Edema:: None: Bilateral:
Gonzalez Catheter: Yes
[2024-10-01] MEDS: D5W IV (10:10)
[2024-10-01] MEDS: KCL ELIXIR 40 MEQ PO (10:42)
--- NOTE | 2024-10-01 12:25 | W.PN.GI.CBS2 ---
Addendum entered and electronically signed by David Munoz MD 10/01/24 18:08:
I saw and examined the patient.
The CERTIFIED NURSE AIDE or PA's note was reviewed and I agree with the note.
Comment: 69-year-old male past medical history as below presenting with vomiting, looser stools, worsening abdominal distention, acute mental status change. He had a CT done which showed proctocolitis without oral or IV contrast which was thought
to be stercoral colitis given his history of constipation. He also has adynamic ileus. This is my first time seeing him but according to Dr. White's note yesterday his abdominal exam was improved. He did have bowel sounds and he was not overly
distended. However, his KUB today again shows small bowel dilation which is unchanged. He also has persistent colonic air dilation as well up to 10 cm in the cecum which is also unchanged per this radiology read although the read from 09/30 states
there is relative decompression of the colon and the x-ray from 422 also states no radiographic evidence of colonic dilation. He has been on Mestinon and enemas. According to the notes, family did not want to be aggressive previously. He
previously had some MICHAEL which has improved today. I would be hesitant to give him IV contrast to repeat the CT scan given his recent MICHAEL.
It is not clear to me if he has an element of [place]'s given this most recent read although prior imaging studies do not mention colonic dilation. Another option would be to put in a NG tube to see if that helps with some decompression. However,
we may be ultimately treating imaging more so than the patient at this interval and depending on family's goals of care may be best to hold off on further intervention. I will also call and discussed with family tomorrow.
Original Note:
Today's Communication / Plan
-
Check KUB
Check TSH/reflex T4
Continue Mestinon 3 times daily
Continue milk of molasses enemas
Assessment / Plan
-
Mr. Rivera is a 69 y.o male with a past medical history of underlying psychiatric illness including schizophrenia, bipolar disorder, tardive dyskinesia, hypothyroidism, and chronic constipation and recent hospitalization (for orthostatic
hypotension/schizophrenia) at from 08/28 - 09/10/24 who represents from his correction due to vomiting, diarrhea and worsening abdominal distension. Gastroenterology has been consulted for further evaluation and management.
#Fevers #Tachycardia #Bandemia #Sepsis
#Severe Proctocolitis on CT Imaging
#Moderate Fecal Wilmot in Rectum
#C/f Stercoral Colitis
#Adynamic Ileus
#Acute Toxic Metabolic Encephalopathy
#Hypernatremia #MICHAEL
#Chronic Constipation
#Hx of Psychiatric Illness
Impression: Patient presenting with vomiting, looser stools and worsening abdominal distention from his facility along with acute mental status changes concerning for toxic metabolic encephalopathy. Found to have severe sepsis and CT imaging
revealing a 19 cm, long segment of severe proctocolitis without abscess, perforation or other local complications. Additionally, found to have significant fecal burden within the rectum and distal colon upon personal review of imaging. Etiology of
his severe proctocolitis likely secondary to stercoral colitis given his longstanding history of chronic constipation (suspect 2/2 psych medications, hypothyroidism, and limited mobility). Suspect this is further driving his adynamic ileus and
underlying sepsis secondary to bacterial translocation given severe thickening versus urinary source. Possibly infectious colitis given the reported diarrhea although I think this is likely is from overflow diarrhea in the setting of his chronic
constipation and significant stool burden seen on imaging. Much less likely ischemia given the distribution on the CT imaging. It is unclear if the patient is ever had a prior colonoscopy. Fortunately, there is no abnormal colonic wall dilatation
to suggest a colonic ileus and patient's bicarb and lactic acid are within normal limits. Abdominal exam is significant for distention but without any rebound tenderness or involuntary guarding or other tenderness to palpation appreciated except
for hypoactive bowel sounds. His underlying ileus is again likely secondary to his significant stool burden and suspected stercoral colitis but also multifactorial in setting of his severe electrolyte derangements given his hypernatremia and sepsis.
Having BMs with rectal enemas, although still with persistent fevers and course complicated by worsening renal function.
Abdomen X-Ray 09/28/24: Severe diffuse SB distention which appears unchanged from prior imaging 09/26 with SB loops measuring approximately 6-7 cms in diameter, no abnormal colonic dilatation
Recommendations:
- Continue clear liquid diet
- IVF as needed to maintain euvolemia, keep K > 4.0 and Mg > 2.0
- Correction of hypernatremia as per primary team. Nephrology has been consulted given MICHAEL- currently improving
- Stool culture with C Diff Ag (+), toxin (-) seems most c/w colonization and not c/w CDI
- Blood cultures remain NG x 48 hrs, U Cx with E coli and E faecalis
- Continue IV abx as per ID, very low suspicion for CDI as patient was impacted with hard stool and presentation not c/w C Diff colitis, rather stercoral colitis 2/2 impacted stool
- Continue rectal enemas while inpatient, continue MoM enemas q 8 hrs given improvement.
- KUB on 09/28 with persistent SB dilatation, although his abdominal exam continues to improve
- Repeat KUB today on 10/01 to compare to one performed on 09/30
- Continue Mestinon 60 mg TID (09/29- ) for further relief of SB ileus
-Check TSH with reflex to T4
- Would continue to defer from starting any stool softeners from above / p.o (ie miralax, senna etc)
- No plans for a flex-sig/colonoscopy given his previous fevers and renal function, would consider performing an eventual endoscopic evaluation pending patient's clinical course. However, upon discussions with family and primary team wish to defer
any further plans for any further interventions at this time but want to continue ongoing medical management
- Minimize narcotics and anticholinergics as much as possible
- Avoidance of all NSAIDs
Subjective
Subjective
Date of Service: October 01, 2024
Discussed with RN. Patient having small loose bowel movements (green, gelatinous and mucoid). Still on milk of molasses enemas Q8. Patient passing some flatus. Patient denies any abdominal pain. Abdomen soft, nontender, still protuberant.
Tolerating clear liquid, denies any nausea. There has been no vomiting.
Objective
Data Reviewed
Laboratory Data:
Laboratory Results
10/01/24 03:07
10/01/24 03:07
Laboratory Results
Phosphorus 5.2 mg/dl (2.5-4.5) H 09/28/24 04:59
Magnesium 3.0 mg/dl (1.6-2.3) H 09/28/24 04:59
Total Bilirubin 0.8 mg/dl (0.2-1.3) 09/28/24 04:59
AST 46 U/L (17-59) 09/28/24 04:59
ALT 25 U/L (0-50) 09/28/24 04:59
Alkaline Phosphatase 58 U/L (38-126) 09/28/24 04:59
Vital Signs and I&O:
Vital Signs
Temp Pulse Resp BP Pulse Ox
98.2 F 88 21 141/67 98
10/01/24 07:05 10/01/24 12:00 10/01/24 12:00 10/01/24 12:00 10/01/24 12:00
I&O
09/30/24 10/01/24 10/02/24
06:59 06:59 06:59
Intake Total 1390 / 1390 2040 / 2040
Output Total 1550 / 1550 725 / 725
Balance -160 / -160 1315 / 1315
Physical Exam
Physical Exam
HEENT: Anicteric
Cardiology: Normal Sinus Rhythm
Pulmonary: Clear (Anterior)
GI: Soft, Distended (Softly distended), Non Tender and Normal Bowel Sounds
Neuro: Other (Alert)
--- NOTE | 2024-10-01 13:32 | CM ---
Chart reviewed. Care ongoing. Patient is a LTC resident at [facility].
Therapy rec return to facility as patient appears to be close to his baseline
Plan: Return to [facility] when stable
--- NOTE | 2024-10-01 15:12 | W.PN.URO.CBU ---
Today's Communication / Plan
-
no gu intervention
Assessment / Plan
-
creatinine 4 then 2 1.2 without otero doing well no evidence hydro is of clinical sgnificance
Diagnosis
-
Date of Service: October 01, 2024
-
Patient Diagnosis:
Post Op Day:
Patient Diagnosis:pre renal azotemia with element bph wih min hydro bilayeral
Post Op Day:
Subjective
-
no gu complaints
Objective
-
Vital Signs
Temp Pulse Resp BP Pulse Ox
98.2 F 88 21 141/67 98
10/01/24 07:05 10/01/24 12:00 10/01/24 12:00 10/01/24 12:00 10/01/24 12:00
Intake and Output
09/30/24 10/01/24 10/02/24
06:59 06:59 06:59
Intake Total 1390 / 1390 2040 / 2040
Output Total 1550 / 1550 725 / 725
Balance -160 / -160 1315 / 1315
Intake:
Oral fluids 840 / 840
IV fluids (Total) 1200 / 1200 1200 / 1200
IV piggybacks 190 / 190
Output:
Urine, Otero 1550 / 1550 350 / 350
Urine, Voided 375 / 375
Other:
Number of approximated MODERATE 1
amounts of urine
How many times incontinent 2
SMALL amount urine
How many times incontinent 1
SATURATED amount urine
Number of unmeasured liquid
stools
Rectum 1
Laboratory Results
10/01/24 03:07
10/01/24 03:07
Review of Systems
-
Abdomen/GI: Abdominal Pain
: No Symptoms
Physical Exam
-
General - well developed, well nourished, no acute distress
Chest - clear bilaterally
Abdomen - soft, non-tender, positive bowel sounds, no CVAT, no incisional pain or distention
Genitalia - normal
Rectal - normal
Skin - warm & dry with no rash
Neuro - AOx3, no motor deficits
Extremities - no clubbing, no cyanosis, no edema
Incision - clean, dry
Dressing - clean, dry, intact
Care Review
Data Reviewed
CT Scan: Image Pers Reviewed
[2024-10-01 15:40] LABS: TSH Reflex To Free T4 4.85 uIU/ml (0.47-4.68)
[2024-10-01 16:08] LABS: Free T4 1.77 ng/dl (0.78-2.19)
[2024-10-01] MEDS: LIPITOR 10 MG PO (18:07)
[2024-10-01] MEDS: CLOZARIL 300 MG PO (21:11)
[2024-10-02] MEDS: AMOXIL 500 MG PO (01:00)
[2024-10-02 03:18] VITALS: BP 124/93
[2024-10-02 04:15] VITALS: BMI 30.3
[2024-10-02] MEDS: SYNTHROID 125 MCG PO (05:19)
[2024-10-02 06:58] LABS: Hematocrit 34.3 % (39.0-52.0); Hemoglobin 11.2 g/dL (13.0-18.0); Mean Corp Hgb Conc. 32.7 g/dL (33.0-37.0); Mean Corpuscular Hgb 27.7 pg (27.0-31.0); Mean Corpuscular Volume 84.9 fL (80.0-94.0); Mean Platelet Volume 10.7 fL (7.4-10.4); Platelet Count 411 10^3/uL (130-400); Red Blood Cell Count 4.04 10^6/uL (4.70-6.10); Red Cell Dist. Width 14.8 % (11.5-14.5); White Blood Cell Count 22.1 10^3/uL (4.8-10.8)
[2024-10-02 07:13] LABS: ALT (SGPT) 21 U/L (0-50); AST (SGOT) 44 U/L (17-59); Albumin 2.5 g/dl (3.5-5.0); Alkaline Phosphatase 74 U/L (38-126); Blood Urea Nitrogen 36 mg/dl (9-20); Calcium 8.4 mg/dl (8.4-10.2); Carbon Dioxide 18 mmol/L (22-30); Chloride 123 mmol/L (98-107); Estimated Creatinine Clearance 88 ml/min; Glucose 100 mg/dl (70-99); Magnesium 2.5 mg/dl (1.6-2.3); Phosphorus 2.8 mg/dl (2.5-4.5); Potassium 4.2 mmol/L (3.5-5.1); Sodium 152 mmol/L (135-145); Total Bilirubin 0.5 mg/dl (0.2-1.3); Total Protein 5.6 g/dl (6.3-8.2); eGFR > 60.00
[2024-10-02 07:21] LABS: % Basophils 0.3 % (0-2); % Immature Granulocytes 8.1 % (0-0.5); % Lymphocytes 8.5 % (20.5-51.1); % Monocytes 4.9 % (1.7-9.3); % Neutrophils 78.2 % (42.2-75.2); Absolute Basophils 0.1 10^3/uL (0-0.2); Absolute Immature Granulocytes 1.8 10^3/uL (0-0.05); Absolute Lymphocytes 1.9 10^3/uL (1.2-3.4); Absolute Monocytes 1.1 10^3/uL (0.1-0.6); Absolute Neutrophils 17.3 10^3/uL (1.4-6.5); Nucleated Red Blood Cells % 0 % (-)
[2024-10-02 07:35] LABS: TSH Reflex To Free T4 7.08 uIU/ml (0.47-4.68)
[2024-10-02 07:55] VITALS: BP 154/88
[2024-10-02 08:04] LABS: Free T4 1.52 ng/dl (0.78-2.19)
--- NOTE | 2024-10-02 08:53 | W.PN.ID1 ---
Date of Service
Date of Service: October 02, 2024
Today's Communication
See below. Replace amox with Zosyn
Assessment / Plan
# Leukocytosis continues to trend up.
# RLL PNA - probably aspiration.
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
-Imaging with large area of consolidation RLL
- Replace amoxicillin with Zosyn for now.
-Trend WBC
# C difficile colonization
- Ag+, Toxin neg
- Add prophylactic PO Vancomycin 125mg bid while on Zosyn
# E. faecalis UTI
- Hold amoxicillin while on Zosyn
-To compete abx on 10/06.
Stercoral colitis
MICHAEL
Chief Complaint
-: Leukocytosis and UTI
Subjective / Review of Systems
No abd pain. +cough
Vital Signs / Physical Exam
Vital Signs
Vital Signs
Temp Pulse Resp BP Pulse Ox
98.4 F 94 16 154/88 98
10/02/24 07:55 10/02/24 07:55 10/02/24 07:55 10/02/24 07:55 10/02/24 07:55
Physical Exam
Constitutional: Chronically Ill
Cardiovascular: Regular Rate and S1/S2
Pulmonary: Rales (Right base crackles)
Gastrointestinal: Soft, Non Tender and Distended
Genito-Urinary: Negative Gonzalez or CVA Tenderness
Extremities: Negative Edema
Physical Exam:
10/01/24 AXR: SEVERE AIR DISTENTION of the RIGHT LOWER QUADRANT ILEAL SMALL BOWEL LOOPS which appears unchanged. Moderate air distention of the colon which appears unchanged. Large right lower lobe airspace consolidation (either pneumonia or
atelectasis)
Objective Data
Lab Data
Lab Results
10/02/24 06:11
10/02/24 06:11
Estimated Creat Clear 88 ml/min 10/02/24 06:11
Lactic Acid 1.6 mmol/L (0.7-2.0) 09/27/24 09:24
Total Bilirubin 0.5 mg/dl (0.2-1.3) 10/02/24 06:11
AST 44 U/L (17-59) 10/02/24 06:11
ALT 21 U/L (0-50) 10/02/24 06:11
Alkaline Phosphatase 74 U/L (38-126) 10/02/24 06:11
Most recent labs reviewed.
Micro Results:
09/26/24 10:34 Blood Culture - Final
Blood/Venous No Growth - Final Report
09/26/24 09:46 Blood Culture - Final
Blood/Venous No Growth - Final Report
09/26/24 23:28 Urine Culture - Final
Urine Enterococcus faecalis
09/29/24 03:52 Stool Leukocytes - Final
Feces/Stool
09/29/24 03:52 C. difficile GDH Antigen & Toxins - Final
Feces/Stool C. difficile antigen positive, toxin negative.
Clostridium difficile present, but toxin not detected.
Patient may be a carrier, colonized with nontoxinogenic
strain or the level of toxin in sample is below detection
limits. This information should be used in conjunction with
the patient's clinical history.
09/26/24 10:26 Urine Culture - Final
Urine Escherichia coli
09/26/24 22:03 MRSA Screen - Final
Nose No Methicillin Resistant Staphylococcus aureus isolated.
09/26/24 10:26 Influenza Types A & B (JI) - Final
Nasal Swab Negative for Influenza A & B, NAAT
Negative results must be combined with clinical observations
and patient history.
Nucleic Acid Amplification test (NAAT)performed on the
[employer] platform.
Care Review
Plan reviewed with: Physician (Dr. Ritter)
--- NOTE | 2024-10-02 08:55 | W.PN.HOSP.TC ---
Today's Communication/Plan
-
IV Antibiotics. Possible NGT
Assessment / Plan
Assessment / Plan
Physical exam:
General: Acutely ill
HEENT: Normocephalic, Atraumatic and Moist Mucous Membranes
Respiratory: Decreased breath sounds bilateral; No crackles wheezes or rhonchi
Cardiac: Regular Rhythm and S1/S2
GI: Soft, nontender, distended. Bowel sounds present but hypoactive
Musculoskeletal: No Clubbing, No Cyanosis and No Edema
Neuro: Alert disoriented, generalized weakness.
A/P:
Aspiration pneumonia:
Reconsulted ID given worsening leukocytosis and right lower lobe consolidation-discussed with ID today
Started on IV Zosyn today 10/02
Started on oral vancomycin prophylactically today 10/02 (C. difficile antigen positive toxin negative)
Discussed with daughter prior
Stercoral colitis/ileus/ ?Lesa:
Plan to place an NG tube per GI
Diet per GI
KUB in a.m.
Hold enemas
Possible CT with oral contrast if persistent
Continue Mestinon
Appreciated GI consult
Sepsis due to UTI, POA:
Improved
Enterococcus faecalis in the urine
On oral antibiotics to complete 10/06-on hold due to new infection
MICHAEL:
Improved
Restart gentle hydration
Hypernatremia:
Monitor sodium closely
Hypokalemia:
Replete and trend
Acute hypoxic respiratory failure, POA:
Due to abdominal process
Resolved and back to room air
Acute toxic metabolic encephalopathy:
Likely related to acute illness
Hypothyroidism:
Continue thyroid replacement
TFT ok
History of schizophrenia/bipolar disorder/tardive dyskinesia:
Back on clozapine and folic acid
Vitamin B12 deficiency:
Replace B12
Orthostatic hypotension:
Monitor blood pressure closely
Hyperlipidemia:
Back on statins
Obesity:
Lifestyle changes modifications warranted as outpatient
DVT prophylaxis:
Heparin SQ
CODE STATUS:
DNR/DNI
Total time spent on today's encounter was 52 minutes which included time spent in counseling the patient/family regarding diagnosis and treatment plan as listed above, goals of care, and symptom management. Case was discussed with nursing staff,
specialists, and care coordinators/case management. All labs and imaging personally reviewed by me. Remainder the time spent in detailed review of previous records, lab data, imaging, and other medical provider documentation.
Anticipated Discharge: > 48 hours
Subjective/Interval History
-
Date of Service: October 02, 2024
Patient alert but less responsive than before. On room air
Objective Data
-
Labs:
Laboratory Results
10/02/24
06:11
WBC 22.1 H
Hgb 11.2 L
Hct 34.3 L
Plt Count 411 H D
Sodium 152 H
Potassium 4.2 D
Chloride 123 H
Carbon Dioxide 18 L
BUN 36 H
Creatinine 1.0
Glucose 100 H
Calcium 8.4
Total Bilirubin 0.5
AST 44
ALT 21
Alkaline Phosphatase 74
Vital Signs:
Vital Signs
Temp Pulse Resp BP Pulse Ox
98.4 F 94 16 154/88 98
10/02/24 07:55 10/02/24 07:55 10/02/24 07:55 10/02/24 07:55 10/02/24 07:55
I&O
10/01/24 10/02/24 10/03/24
06:59 06:59 06:59
Intake Total 2039 / 2039 480 / 480
Output Total 725 / 725
Balance 1315 / 1315 480 / 480
[2024-10-02] MEDS: MESTINON 60 MG PO ×3 (09:04→23:01)
[2024-10-02] MEDS: SYMMETREL 100 MG PO ×2 (09:04→20:11)
[2024-10-02] MEDS: HEPARIN 5000 UNITS SC ×3 (09:04→23:01)
[2024-10-02] MEDS: VITAMIN B-12 1000 MCG PO (09:04)
[2024-10-02] MEDS: FOLVITE 1 MG PO (09:04)
[2024-10-02] MEDS: FIRVANQ 125 MG PO ×2 (09:23→20:11)
--- NOTE | 2024-10-02 09:56 | W.PN.GI.CBS2 ---
Addendum entered and electronically signed by David Munoz MD 10/03/24 12:00:
.
Addendum entered and electronically signed by David Munoz MD 10/02/24 10:05:
will order kub in am to assess how the bowel dilation responds to NGT
Original Note:
Today's Communication / Plan
-
ngt for decompression, monitor KUB, hold enemas for now
Assessment / Plan
-
69-year-old male past medical history as below presenting with vomiting, looser stools, worsening abdominal distention, acute mental status change. He had a CT done which showed proctocolitis without oral or IV contrast which was thought to be
stercoral colitis given longstanding history of chronic constipation (suspect 2/2 psych medications, hypothyroidism, and limited mobility). He also has adynamic ileus. This is my first time seeing him but according to Dr. White's note yesterday
his abdominal exam was improved. He did have bowel sounds and he was not overly distended. However, his KUB yesterday again shows small bowel dilation which is unchanged. He also has persistent colonic air dilation as well up to 10 cm in the
cecum which is also unchanged per this radiology read although the read from 09/30 states there is relative decompression of the colon and the x-ray from 09/28 also states no radiographic evidence of colonic dilation. He has been on Mestinon and
enemas. According to the notes, family did not want to be aggressive previously. He previously had some MICHAEL which has improved today. I would be hesitant to give him IV contrast to repeat the CT scan given his recent MICHAEL. It is not clear to me
if he has an element of [place]'s given this most recent read although prior imaging studies do not mention colonic dilation and state colon is decompressed.
On d/w daughter now that he is improved they would want full measures done. We will place a NGT and see if that helps with the persistent dilation. Hold enemas for now. Continue mestignon for now.
Daily KUB. May need CT with oral contrast for further evaluation if persists.
Subjective
Subjective
Date of Service: October 02, 2024
pt no complaints
Objective
Data Reviewed
Laboratory Data:
Laboratory Results
10/02/24 06:11
10/02/24 06:11
Laboratory Results
Phosphorus 2.8 mg/dl (2.5-4.5) 10/02/24 06:11
Magnesium 2.5 mg/dl (1.6-2.3) H 10/02/24 06:11
Total Bilirubin 0.5 mg/dl (0.2-1.3) 10/02/24 06:11
AST 44 U/L (17-59) 10/02/24 06:11
ALT 21 U/L (0-50) 10/02/24 06:11
Alkaline Phosphatase 74 U/L (38-126) 10/02/24 06:11
Vital Signs and I&O:
Vital Signs
Temp Pulse Resp BP Pulse Ox
98.4 F 94 16 154/88 98
10/02/24 07:55 10/02/24 07:55 10/02/24 07:55 10/02/24 07:55 10/02/24 07:55
I&O
10/01/24 10/02/24 10/03/24
06:59 06:59 06:59
Intake Total 2039 / 2039 480 / 480
Output Total 725 / 725
Balance 1315 / 1315 480 / 480
Physical Exam
Physical Exam
GI: Non Distended, Non Tender and Other (somewhat hyperactive)
[2024-10-02 11:30] VITALS: BP 155/77
[2024-10-02] MEDS: ZOSYN 100 IV ×3 (13:05→23:41)
[2024-10-02] MEDS: D5W 1000 IV (13:10)
[2024-10-02 15:55] VITALS: BP 152/74
[2024-10-02] MEDS: LIPITOR 10 MG PO (18:47)
[2024-10-02 19:32] VITALS: BP 145/71
[2024-10-02] MEDS: CLOZARIL 300 MG PO (23:00)
[2024-10-02 23:35] VITALS: BP 138/67
[2024-10-03 03:17] VITALS: BP 146/69
[2024-10-03 04:48] VITALS: BMI 30.2
[2024-10-03] MEDS: D5W 1000 IV ×3 (04:58→17:39)
[2024-10-03] MEDS: SYNTHROID 125 MCG PO (04:58)
[2024-10-03] MEDS: ZOSYN 100 IV ×4 (04:59→23:11)
[2024-10-03 06:43] LABS: Hematocrit 32.5 % (39.0-52.0); Hemoglobin 10.5 g/dL (13.0-18.0); Mean Corp Hgb Conc. 32.3 g/dL (33.0-37.0); Mean Corpuscular Hgb 27.3 pg (27.0-31.0); Mean Corpuscular Volume 84.6 fL (80.0-94.0); Mean Platelet Volume 10.4 fL (7.4-10.4); Platelet Count 479 10^3/uL (130-400); Red Blood Cell Count 3.84 10^6/uL (4.70-6.10); Red Cell Dist. Width 15.2 % (11.5-14.5); White Blood Cell Count 22.9 10^3/uL (4.8-10.8)
[2024-10-03 07:01] LABS: Blood Urea Nitrogen 25 mg/dl (9-20); Calcium 8.6 mg/dl (8.4-10.2); Carbon Dioxide 24 mmol/L (22-30); Chloride 117 mmol/L (98-107); Estimated Creatinine Clearance 80 ml/min; Glucose 122 mg/dl (70-99); Potassium 3.7 mmol/L (3.5-5.1); Sodium 148 mmol/L (135-145); eGFR > 60.00
[2024-10-03 07:50] VITALS: BP 135/71
[2024-10-03 08:00] LABS: Anisocytosis Slight; Band Neutrophils 0 % (0-3); Lymphocytes 13 % (20-51); Metamyelocytes 1 % (-); Monocytes 2 % (2-9); Myelocytes 1 % (-); Normal RBC Morphology No; Platelets Checked Yes; Polychromasia Slight; Segmented Neutrophils 83 % (42-75)
[2024-10-03 08:01] LABS: Total Cells Counted 100
--- NOTE | 2024-10-03 08:47 | W.PN.HOSP.TC ---
Today's Communication/Plan
-
NG tube. IV Zosyn. Mestinon.
Assessment / Plan
Assessment / Plan
Physical exam:
General: Acutely ill
HEENT: Normocephalic, Atraumatic and Moist Mucous Membranes
Respiratory: Decreased breath sounds bilateral; No crackles wheezes or rhonchi
Cardiac: Regular Rhythm and S1/S2
GI: Soft, nontender, distended. Bowel sounds present but hypoactive
Musculoskeletal: No Clubbing, No Cyanosis and No Edema
Neuro: Alert disoriented, generalized weakness.
A/P:
Aspiration pneumonia:
Reconsulted ID given worsening leukocytosis and right lower lobe consolidation-discussed with ID yesterday
Started on IV Zosyn on 10/02
Started on oral vancomycin prophylactically on 10/02 (C. difficile antigen positive toxin negative)
Discussed with daughter prior
Stercoral colitis/ileus/ ?[place]:
Continue NG tube per GI
Diet per GI
KUB today
Hold enemas
Possible CT with oral contrast if persistent
Continue Mestinon
Appreciated GI consult
Sepsis due to UTI, POA:
Improved
Enterococcus faecalis in the urine
On oral antibiotics to complete 10/06-on hold due to new infection
MICHAEL:
Improved
Continue gentle hydration
Hypernatremia:
Restarted gentle hypotonic hydration and Na improving
Monitor sodium closely
Hypokalemia:
Replete and trend
Acute hypoxic respiratory failure, POA:
Due to abdominal process
Resolved and back to room air
Acute toxic metabolic encephalopathy:
Likely related to acute illness
Hypothyroidism:
Continue thyroid replacement
TFT ok
History of schizophrenia/bipolar disorder/tardive dyskinesia:
Back on clozapine and folic acid
Vitamin B12 deficiency:
Replace B12
Orthostatic hypotension:
Monitor blood pressure closely
Hyperlipidemia:
Back on statins
Obesity:
Lifestyle changes modifications warranted as outpatient
DVT prophylaxis:
Heparin SQ
CODE STATUS:
DNR/DNI
Total time spent on today's encounter was 52 minutes which included time spent in counseling the patient/family regarding diagnosis and treatment plan as listed above, goals of care, and symptom management. Case was discussed with nursing staff,
specialists, and care coordinators/case management. All labs and imaging personally reviewed by me. Remainder the time spent in detailed review of previous records, lab data, imaging, and other medical provider documentation.
Anticipated Discharge: > 48 hours
Subjective/Interval History
-
Date of Service: October 03, 2024
Patient alert, NG tube in place with over 150 mL output this morning, afebrile.
Objective Data
-
Labs:
Laboratory Results
10/03/24
06:09
WBC 22.9 H
Hgb 10.5 L
Hct 32.5 L
Plt Count 479 H
Sodium 148 H
Potassium 3.7
Chloride 117 H
Carbon Dioxide 24
BUN 25 H
Creatinine 1.1
Glucose 122 H
Calcium 8.6
Vital Signs:
Vital Signs
Temp Pulse Resp BP Pulse Ox
98.7 F 91 16 135/71 98
10/03/24 07:50 10/03/24 07:50 10/03/24 07:50 10/03/24 07:50 10/03/24 07:50
I&O
10/02/24 10/03/24 10/04/24
06:59 06:59 06:59
Intake Total 480 / 480 1940 / 1940
Output Total 250 / 250
Balance 480 / 480 1690 / 1690
[2024-10-03] MEDS: MESTINON 60 MG PO (09:32)
[2024-10-03] MEDS: FOLVITE 1 MG PO (09:32)
[2024-10-03] MEDS: HEPARIN 5000 UNITS SC ×3 (09:32→23:12)
[2024-10-03] MEDS: VITAMIN B-12 1000 MCG PO (09:35)
[2024-10-03] MEDS: SYMMETREL 100 MG PO ×2 (09:36→20:39)
[2024-10-03] MEDS: FIRVANQ 125 MG PO ×2 (09:37→20:39)
--- NOTE | 2024-10-03 10:06 | W.PN.ID1 ---
Date of Service
Date of Service: October 03, 2024
Today's Communication
Continue Zosyn
Assessment / Plan
# Leukocytosis trending up.
# RLL PNA - probably aspiration.
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
# Persistent adynamic ileus
-Imaging with large area of consolidation RLL
- NGT placed for decompression
- Continue Zosyn (d2) for now.
-Trend WBC
# C difficile colonization
- Ag+, Toxin neg
- Continue prophylactic PO Vancomycin 125mg bid while on Zosyn
# E. faecalis UTI
- On appropriate abx
-To compete abx on 10/06.
#MICHAEL
Chief Complaint
-: Leukocytosis and UTI
Subjective / Review of Systems
+ cough.
Vital Signs / Physical Exam
Vital Signs
Vital Signs
Temp Pulse Resp BP Pulse Ox
98.7 F 91 16 135/71 98
10/03/24 07:50 10/03/24 07:50 10/03/24 07:50 10/03/24 07:50 10/03/24 07:50
Physical Exam
Constitutional: Chronically Ill
Head: Other (NGT in place )
Pulmonary: Coarse (right base crackles)
Gastrointestinal: Soft, Non Tender, Distended and Normal Bowel Sounds
Genito-Urinary: Negative Gonzalez or CVA Tenderness
Extremities: Negative Edema
Neurological: Other (Drowsy)
Objective Data
Lab Data
Lab Results
10/03/24 06:09
10/03/24 06:09
Estimated Creat Clear 80 ml/min 10/03/24 06:09
Lactic Acid 1.6 mmol/L (0.7-2.0) 09/27/24 09:24
Total Bilirubin 0.5 mg/dl (0.2-1.3) 10/02/24 06:11
AST 44 U/L (17-59) 10/02/24 06:11
ALT 21 U/L (0-50) 10/02/24 06:11
Alkaline Phosphatase 74 U/L (38-126) 10/02/24 06:11
Most recent labs reviewed.
Micro Results:
09/26/24 10:34 Blood Culture - Final
Blood/Venous No Growth - Final Report
09/26/24 09:46 Blood Culture - Final
Blood/Venous No Growth - Final Report
09/26/24 23:28 Urine Culture - Final
Urine Enterococcus faecalis
09/29/24 03:52 Stool Leukocytes - Final
Feces/Stool
09/29/24 03:52 C. difficile GDH Antigen & Toxins - Final
Feces/Stool C. difficile antigen positive, toxin negative.
Clostridium difficile present, but toxin not detected.
Patient may be a carrier, colonized with nontoxinogenic
strain or the level of toxin in sample is below detection
limits. This information should be used in conjunction with
the patient's clinical history.
09/26/24 10:26 Urine Culture - Final
Urine Escherichia coli
09/26/24 22:03 MRSA Screen - Final
Nose No Methicillin Resistant Staphylococcus aureus isolated.
09/26/24 10:26 Influenza Types A & B (JI) - Final
Nasal Swab Negative for Influenza A & B, NAAT
Negative results must be combined with clinical observations
and patient history.
Nucleic Acid Amplification test (NAAT)performed on the
[employer] platform.
[2024-10-03 11:00] VITALS: BP 143/78
--- NOTE | 2024-10-03 12:00 | W.PN.GI.CBS2 ---
Today's Communication / Plan
-
daily kub, ngt intermittent suction, repeat CT tmwr if dilation persists
Assessment / Plan
-
69-year-old male past medical history as below presenting with vomiting, looser stools, worsening abdominal distention, acute mental status change. He had a CT done which showed proctocolitis without oral or IV contrast which was thought to be
stercoral colitis given longstanding history of chronic constipation (suspect 2/2 psych medications, hypothyroidism, and limited mobility). He also has adynamic ileus. This is my first time seeing him but according to Dr. White's note yesterday
his abdominal exam was improved. He did have bowel sounds and he was not overly distended. However, his KUB yesterday again shows small bowel dilation which is unchanged. He also has persistent colonic air dilation as well up to 10 cm in the
cecum which is also unchanged per this radiology read although the read from 09/30 states there is relative decompression of the colon and the x-ray from 09/28 also states no radiographic evidence of colonic dilation. He has been on Mestinon and
enemas. According to the notes, family did not want to be aggressive previously. He previously had some MICHAEL which has improved today. I would be hesitant to give him IV contrast to repeat the CT scan given his recent MICHAEL. It is not clear to me
if he has an element of Lesa's given this most recent read although prior imaging studies do not mention colonic dilation and state colon is decompressed. 10/03 repeat XR with persistent small bowel distension, colon no mention of distension.
Suspect persistent ileus. Would minimize pain meds, OOB/ambulate (likely not option), IVF, sips of clears for comfort, NGT intermittent suction, monitor electrolytes. Hold enemas and mestignon for now. Seems to be asymptomatic at this point
distension per Dr. White much better and minimally distended today.
On d/w daughter now that he is improved they would want full measures done.
Daily KUB. Plan CT with oral contrast for further evaluation if persists (previous CT without oral/IV). Would not do IV given recent MICHAEL.
Subjective
Subjective
Date of Service: October 03, 2024
no events
pt sleeping
ngt in
Objective
Data Reviewed
Laboratory Data:
Laboratory Results
10/03/24 06:09
10/03/24 06:09
Laboratory Results
Phosphorus 2.8 mg/dl (2.5-4.5) 10/02/24 06:11
Magnesium 2.5 mg/dl (1.6-2.3) H 10/02/24 06:11
Total Bilirubin 0.5 mg/dl (0.2-1.3) 10/02/24 06:11
AST 44 U/L (17-59) 10/02/24 06:11
ALT 21 U/L (0-50) 10/02/24 06:11
Alkaline Phosphatase 74 U/L (38-126) 10/02/24 06:11
Vital Signs and I&O:
Vital Signs
Temp Pulse Resp BP Pulse Ox
98.2 F 86 16 143/78 97
10/03/24 11:00 10/03/24 11:00 10/03/24 11:00 10/03/24 11:00 10/03/24 11:00
I&O
10/02/24 10/03/24 10/04/24
06:59 06:59 06:59
Intake Total 480 / 480 1939 / 1939
Output Total 250 / 250
Balance 480 / 480 1690 / 1690
Physical Exam
Physical Exam
GI: Distended (minimal) and Non Tender
[2024-10-03 15:35] VITALS: BP 140/80
[2024-10-03 17:13] VITALS: BP 140/80; PULSE 92
[2024-10-03] MEDS: LIPITOR 10 MG PO (17:39)
[2024-10-03] MEDS: CLOZARIL 300 MG PO (20:38)
--- NOTE | 2024-10-03 23:07 | RESPNOTE ---
Addendum entered by Dianna Sosa, RT 10/03/24 23:08:
PT has NG tube, not OG tube
Original Note:
PT is ordered CPAP for HS use and is unable to be placed on at this time due to an OG tube. Machine remains at the bedside on STBY, will continue to monitor resp status.
[2024-10-03 23:28] VITALS: BP 135/66
[2024-10-04 03:10] VITALS: BP 126/68
[2024-10-04] MEDS: SYNTHROID 125 MCG PO (05:11)
[2024-10-04] MEDS: ZOSYN 100 IV ×3 (05:11→18:16)
[2024-10-04 05:12] VITALS: BMI 30.3
[2024-10-04 06:34] LABS: Hematocrit 32.4 % (39.0-52.0); Hemoglobin 10.5 g/dL (13.0-18.0); Mean Corp Hgb Conc. 32.4 g/dL (33.0-37.0); Mean Corpuscular Hgb 27.5 pg (27.0-31.0); Mean Corpuscular Volume 84.8 fL (80.0-94.0); Mean Platelet Volume 9.8 fL (7.4-10.4); Platelet Count 489 10^3/uL (130-400); Red Blood Cell Count 3.82 10^6/uL (4.70-6.10); Red Cell Dist. Width 15.3 % (11.5-14.5); White Blood Cell Count 20.2 10^3/uL (4.8-10.8)
[2024-10-04 06:46] LABS: Blood Urea Nitrogen 17 mg/dl (9-20); Calcium 8.5 mg/dl (8.4-10.2); Carbon Dioxide 26 mmol/L (22-30); Chloride 112 mmol/L (98-107); Estimated Creatinine Clearance 88 ml/min; Glucose 110 mg/dl (70-99); Potassium 3.4 mmol/L (3.5-5.1); Sodium 145 mmol/L (135-145); eGFR > 60.00
[2024-10-04 07:33] VITALS: BP 113/56
--- NOTE | 2024-10-04 07:39 | W.PN.HOSP.TC ---
Addendum entered and electronically signed by Brendan Acosta MD 10/04/24 17:53:
Seen and examined by me independently in collaboration with the medical biller/coder.
Lab data and imaging data reviewed.
Addendum as below :
Patient is alert and oriented to self. Able to follow commands. Voicing no specific complaints. Denies any abdominal pain.
Abdomen soft with faint bowel sounds. Apparently had a small bowel movement today. Denies nausea or vomiting.
Will obtain a CT of the abdomen pelvis for further evaluation as abdominal x-ray shows sick centimeter small bowel dilatation yesterday. Continue antibiotics per ID
Original Note:
Today's Communication/Plan
-
c/w IV Abx, check lipase, diet as tolerated
Assessment / Plan
Assessment / Plan
69 yo male who presented with AMS and diarrhea
#Pancreatic fat stranding
- failure to improve with serial KUBs warranted repeat CT abd/pelv which showed incidental new pancreatic tail fat stranding
- pt not having any abdominal complaints nor tenderness on exam, however his mental status is still somewhat altered
- will obtain lipase level, on IVF, tolerating diet at this time
#Possible Aspiration PNA
- Reconsulted ID given worsening leukocytosis and right lower lobe consolidation on CXR
- repeat CT showing significant progression of mod RLL and LLL PNA
- on IV Zosyn, oral vanco ppx for h/o c.diff colonization
- ID following
#Stercoral colitis vs. infectious colitis
- Leukocytosis at 20.2
- was on q6 enemas, then Mestinon -- now stopped
- was on NG tube -- now removed
- repeat CT showing progressed wall thickening of the distal/sigmoid colon, no sign of perforation
- c/w abx
#Sepsis due to UTI, POA
- Cx + for Enterococcus faecalis in the urine
- On oral antibiotics POA until 10/06 - on hold during current tx
#Acute toxic metabolic encephalopathy
- baseline unclear, though patient presumably is able to communicate well at baseline
- may still be component of infectious process leading to TME
#Hypernatremia
- improving w/ Hypotonic fluids
- trend bmp
#Hypokalemia - Replete and trend
#MICHAEL (resolved)
- 2.4 - 4.1 on admission, now at baseline
- C/w hypotonic IVF
#Acute hypoxic respiratory failure, POA (resolved)
Secondary to sepsis
- Resolved and back to room air
#Hypothyroidism - tsh wnl, c/w synthroid
#H/o schizophrenia/bipolar disorder/tardive dyskinesia - Back on clozapine and folic acid
#Vitamin B12 deficiency - c/w B12 supplementation
#Orthostatic hypotension - c/t Monitor blood pressure
#Hyperlipidemia - c/w statin
#Obesity due to excess calories - Lifestyle modifications warranted as outpatient
DVT Ppx - Heparin SC
Code Status: DNR
Anticipated Discharge: 24 - 48 hours
Subjective/Interval History
-
Date of Service: October 04, 2024
No events overnight. Patient is difficult to understand as he does not vocalize well, though it is possible to make out certain words which are appropriate to the conversational context.
Objective Data
-
Labs:
Laboratory Results
10/04/24
05:29
WBC 20.2 H
Hgb 10.5 L
Hct 32.4 L
Plt Count 489 H
Sodium 145
Potassium 3.4 L
Chloride 112 H
Carbon Dioxide 26
BUN 17
Creatinine 1.0
Glucose 110 H
Calcium 8.5
Vital Signs:
Vital Signs
Temp Pulse Resp BP Pulse Ox
98.8 F 89 18 113/56 92
10/04/24 07:33 10/04/24 07:33 10/04/24 07:33 10/04/24 07:33 10/04/24 07:33
I&O
10/03/24 10/04/24 10/05/24
06:59 06:59 06:59
Intake Total 1939
Output Total 250 / 250 350 / 350
Balance 1690 / 1690 177 / 177
Review of Systems
-
Unable to obtain full review of systems at this time due to: Other
History Source: Patient
Constitutional: Reports No Symptoms
EENT: Reports No Symptoms Reported
Respiratory: Reports No Symptoms
Cardiac: Reports No Symptoms
Abdomen/GI: Reports No Symptoms
Genitourinary: Reports No Symptoms
Musculoskeletal: Reports No Symptoms
Skin: Reports No Symptoms
Neuro: Reports No Symptoms
Physical Exam
-
General: Well Developed, Well Nourished, No Apparent Distress and Appears Chronically Ill
HEENT: Normocephalic, Atraumatic, Moist Mucous Membranes, Anicteric, [place] Conjunctivae, PERRLA, Nose Appears Normal, Ears Appear Normal and Other (NG tube)
Respiratory: Clear to Auscultation; Negative Wheezes, Rales or Rhonchi
Cardiac: Regular Rhythm and S1/S2; Negative Murmur or Rub
GI: Soft, Nontender, Nondistended and Normal Bowel Sounds
Genito-urinary: No Costovertebral Tender
Musculoskeletal: No Clubbing, No Cyanosis and No Edema
Skin: Warm, Dry and IV Access / Catheter Site
Neuro: Awake and Alert
[2024-10-04] MEDS: SYMMETREL 100 MG PO ×2 (07:43→21:30)
[2024-10-04] MEDS: FOLVITE 1 MG PO (07:43)
[2024-10-04] MEDS: HEPARIN 5000 UNITS SC ×2 (07:43→15:53)
[2024-10-04] MEDS: FIRVANQ 125 MG PO ×2 (07:43→21:30)
[2024-10-04] MEDS: VITAMIN B-12 1000 MCG PO (07:43)
[2024-10-04 09:35] LABS: % Basophils 0.4 % (0-2); % Immature Granulocytes 6.9 % (0-0.5); % Lymphocytes 12.4 % (20.5-51.1); % Monocytes 3.4 % (1.7-9.3); % Neutrophils 76.9 % (42.2-75.2); Absolute Basophils 0.1 10^3/uL (0-0.2); Absolute Immature Granulocytes 1.4 10^3/uL (0-0.05); Absolute Lymphocytes 2.5 10^3/uL (1.2-3.4); Absolute Monocytes 0.7 10^3/uL (0.1-0.6); Absolute Neutrophils 15.5 10^3/uL (1.4-6.5); Nucleated Red Blood Cells % 0 % (-)
[2024-10-04] MEDS: OMNIPAQUE 50 ML PO (10:11)
[2024-10-04 11:58] VITALS: BP 126/67
--- NOTE | 2024-10-04 14:07 | CM ---
Reviewed the chart notes. CM continues to be available to patient/family and is monitoring medical plan for needs at discharge.
Plan: Discharge back to [facility] when medically stable.
Call report to: [phone]
Fax report to: [phone]
[2024-10-04] MEDS: D5W 1000 IV (14:41)
--- NOTE | 2024-10-04 15:32 | W.PN.ID1 ---
Date of Service
Date of Service: October 04, 2024
Today's Communication
- Continue Zosyn (d3) for now.
- check sputum culture if able to obtain one
- Continue prophylactic PO Vancomycin 125mg bid while on Zosyn
Assessment / Plan
# Leukocytosis
# RLL PNA - probably aspiration.
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
# Persistent adynamic ileus
- Imaging with large area of consolidation RLL
- NGT placed for decompression
- Continue Zosyn (d3) for now.
- check sputum culture if able to obtain one
- Trend WBC
# C difficile colonization
- Ag+, Toxin neg
- Continue prophylactic PO Vancomycin 125mg bid while on Zosyn
# E. faecalis UTI
- On appropriate abx
-To compete abx on 10/06.
#MICHAEL
Chief Complaint
-: Leukocytosis and UTI
Subjective / Review of Systems
afebrile
bp stable
no complaints
tolerating current therapies
Vital Signs / Physical Exam
Vital Signs
Vital Signs
Temp Pulse Resp BP Pulse Ox
98.4 F 82 18 126/67 99
10/04/24 11:58 10/04/24 11:58 10/04/24 11:58 10/04/24 11:58 10/04/24 11:58
Physical Exam
Constitutional: No Acute Distress and Chronically Ill
Cardiovascular: Regular Rate and S1/S2; Negative Murmur or Rub
Pulmonary: Clear and Symmetric; Negative Wheezes or Rales
Gastrointestinal: Soft, Non Tender, Non Distended and Normal Bowel Sounds
Skin: Warm and Dry; Negative Rash or Jaundice
Objective Data
Lab Data
Lab Results
10/04/24 05:29
10/04/24 05:29
Estimated Creat Clear 88 ml/min 10/04/24 05:29
Lactic Acid 1.6 mmol/L (0.7-2.0) 09/27/24 09:24
Total Bilirubin 0.5 mg/dl (0.2-1.3) 10/02/24 06:11
AST 44 U/L (17-59) 10/02/24 06:11
ALT 21 U/L (0-50) 10/02/24 06:11
Alkaline Phosphatase 74 U/L (38-126) 10/02/24 06:11
Most recent labs reviewed.
Micro Results:
09/26/24 10:34 Blood Culture - Final
Blood/Venous No Growth - Final Report
09/26/24 09:46 Blood Culture - Final
Blood/Venous No Growth - Final Report
09/26/24 23:28 Urine Culture - Final
Urine Enterococcus faecalis
09/29/24 03:52 Stool Leukocytes - Final
Feces/Stool
09/29/24 03:52 C. difficile GDH Antigen & Toxins - Final
Feces/Stool C. difficile antigen positive, toxin negative.
Clostridium difficile present, but toxin not detected.
Patient may be a carrier, colonized with nontoxinogenic
strain or the level of toxin in sample is below detection
limits. This information should be used in conjunction with
the patient's clinical history.
09/26/24 10:26 Urine Culture - Final
Urine Escherichia coli
09/26/24 22:03 MRSA Screen - Final
Nose No Methicillin Resistant Staphylococcus aureus isolated.
09/26/24 10:26 Influenza Types A & B (JI) - Final
Nasal Swab Negative for Influenza A & B, NAAT
Negative results must be combined with clinical observations
and patient history.
Nucleic Acid Amplification test (NAAT)performed on the
[employer] platform.
--- NOTE | 2024-10-04 15:56 | W.PN.GI.CBS2 ---
Today's Communication / Plan
-
remove ngt, adv diet, bowel regimen, gi will sign off
Assessment / Plan
-
69-year-old male past medical history as below presenting with vomiting, looser stools, worsening abdominal distention, acute mental status change. He had a CT done which showed proctocolitis without oral or IV contrast which was thought to be
stercoral colitis given longstanding history of chronic constipation (suspect 2/2 psych medications, hypothyroidism, and limited mobility). He also has adynamic ileus.
Today 10/04 ileus resolved.
Plan to remove NGT.
IDDSI 4 diet per speech note 09/30.
OOB/ambulate.
Avoid pain meds.
Bowel regimen - started on miralax bid, make sure he has a regular BM.
Updated daughter.
GI will sign off please call with ?S.
Subjective
Subjective
Date of Service: October 04, 2024
distension better
Objective
Data Reviewed
Laboratory Data:
Laboratory Results
10/04/24 05:29
10/04/24 05:29
Laboratory Results
Phosphorus 2.8 mg/dl (2.5-4.5) 10/02/24 06:11
Magnesium 2.5 mg/dl (1.6-2.3) H 10/02/24 06:11
Total Bilirubin 0.5 mg/dl (0.2-1.3) 10/02/24 06:11
AST 44 U/L (17-59) 10/02/24 06:11
ALT 21 U/L (0-50) 10/02/24 06:11
Alkaline Phosphatase 74 U/L (38-126) 10/02/24 06:11
Vital Signs and I&O:
Vital Signs
Temp Pulse Resp BP Pulse Ox
98.4 F 82 18 126/67 99
10/04/24 11:58 10/04/24 11:58 10/04/24 11:58 10/04/24 11:58 10/04/24 11:58
I&O
10/03/24 10/04/24 10/05/24
06:59 06:59 06:59
Intake Total 1939 / 1939 2124 / 2124
Output Total 250 / 250 350 / 350
Balance 1690 / 1690 177 / 177
Physical Exam
Physical Exam
GI: Non Distended and Non Tender
[2024-10-04 16:20] VITALS: BP 128/66
--- NOTE | 2024-10-04 17:43 | W.PN.UPDATE ---
Update Note
Progress Note Update
Primary team ordered CT even though KUB better.
Unfortunately did IV contrast even though he recently had pretty significant MICHAEL.
Incidental findings:
- pancreatitis - check lipase if not more than 3 times upper limit of normal and no epigastric pain no need to treat
- colitis - would monitor BM previously more constipated than diarrhea. Will hold miralax if constipated please resume miralax bid. could be stercoal colitis.
[2024-10-04 17:54] LABS: Lipase 425 U/L (23-300)
[2024-10-04] MEDS: LIPITOR 10 MG PO (18:16)
[2024-10-04] MEDS: CLOZARIL 300 MG PO (21:30)
[2024-10-04 23:00] VITALS: PULSE 95
[2024-10-04 23:16] VITALS: BP 141/70
[2024-10-05] MEDS: ZOSYN 100 IV ×5 (00:59→23:38)
[2024-10-05] MEDS: HEPARIN 5000 UNITS SC ×4 (00:59→23:38)
[2024-10-05] MEDS: D5W 1000 IV (01:08)
[2024-10-05] MEDS: SYNTHROID 125 MCG PO (06:00)
--- NOTE | 2024-10-05 07:09 | W.PN.HOSP.TC ---
Today's Communication/Plan
-
advance diet to IDDSI6
PT/OT eval
replete k
Assessment / Plan
Assessment / Plan
69 yo male who presented with AMS and diarrhea
#Probable Aspiration PNA
- Reconsulted ID given worsening leukocytosis and right lower lobe consolidation on CXR
- repeat CT showing significant progression of mod RLL and LLL PNA-- speech to re-evaluate for likely continued aspiration
- WBCs downtrending
- sputum Cx when able
- on IV Zosyn, oral vanco ppx for h/o c.diff colonization
- ID following
#Stercoral colitis, less likely infectious colitis
#Adynamic Ileus
- was on q6 enemas, then Mestinon -- now stopped
- was on NG tube -- now removed, tolerating diet
- repeat CT was done showing progressed wall thickening of the distal/sigmoid colon, no sign of perforation
- diet advancement per speech therapy
- pt continuing to clinically improve
- PT/OT eval for OOB/early mobility
#Sepsis due to UTI, POA
- Cx + for Enterococcus faecalis in the urine
- On oral antibiotics POA until 10/06 - on hold during current tx
#Acute toxic metabolic encephalopathy
- baseline unclear, though patient presumably is able to communicate well at baseline
- may still be component of infectious process leading to TME
#Hypernatremia
- improving w/ Hypotonic fluids
- trend bmp
#Hypokalemia - Replete and trend
#MICHAEL (resolved)
- 2.4 - 4.1 on admission, now at baseline
- C/w hypotonic IVF
#Incidental Pancreatic fat stranding
- CT abd/pelv which showed incidental new pancreatic tail fat stranding -- lipase <3x upper limit therefore not consistent with acute pancreatitis, tolerating diet at this time w/o GI symptoms
#Acute hypoxic respiratory failure, POA (resolved)
Secondary to sepsis
- Resolved and back to room air
#Hypothyroidism - tsh wnl, c/w synthroid
#H/o schizophrenia/bipolar disorder/tardive dyskinesia - Back on clozapine and folic acid
#Vitamin B12 deficiency - c/w B12 supplementation
#Orthostatic hypotension - c/t Monitor blood pressure
#Hyperlipidemia - c/w statin
#Obesity due to excess calories - Lifestyle modifications warranted as outpatient
DVT Ppx - Heparin SC
Code Status: DNR
Anticipated Discharge: 24 - 48 hours
Subjective/Interval History
-
Date of Service: October 05, 2024
No acute complaints. Having liquid bowel movements, last one was large volume and brown.
Objective Data
-
Labs:
Laboratory Results
10/05/24
06:10
WBC Pending
Hgb Pending
Hct Pending
Plt Count Pending
Sodium Pending
Potassium Pending
Chloride Pending
Carbon Dioxide Pending
BUN Pending
Creatinine Pending
Glucose Pending
Calcium Pending
Total Bilirubin Pending
AST Pending
ALT Pending
Alkaline Phosphatase Pending
Vital Signs:
Vital Signs
Temp Pulse Resp BP Pulse Ox
98.7 F 84 19 141/70 98
10/04/24 23:16 10/04/24 23:16 10/04/24 23:16 10/04/24 23:16 10/04/24 23:16
I&O
10/04/24 10/05/24 10/06/24
06:59 06:59 06:59
Intake Total 5 / 2125 1200 / 1200
Output Total 350 / 350 350 / 350
Balance 1775 / 1775 850 / 850
Review of Systems
-
History Source: Patient
Constitutional: Reports No Symptoms
EENT: Reports No Symptoms Reported
Respiratory: Reports No Symptoms
Cardiac: Reports No Symptoms
Abdomen/GI: Reports No Symptoms
Musculoskeletal: Reports No Symptoms
Skin: Reports No Symptoms
Physical Exam
-
General: Well Developed, Well Nourished, No Apparent Distress and Comfortable
HEENT: Normocephalic, Atraumatic, Moist Mucous Membranes, Anicteric, [place] Conjunctivae, Nose Appears Normal and Ears Appear Normal
Respiratory: Clear to Auscultation; Negative Wheezes, Rales or Rhonchi
Cardiac: Regular Rhythm and S1/S2; Negative Murmur or Rub
GI: Soft, Nontender, Nondistended and Normal Bowel Sounds
Genito-urinary: No Costovertebral Tender
Musculoskeletal: No Clubbing, No Cyanosis and No Edema
Skin: Warm, Dry and IV Access / Catheter Site
Neuro: Awake, Alert and Oriented
[2024-10-05 07:32] LABS: % Basophils 0.3 % (0-2); % Lymphocytes 10.2 % (20.5-51.1); % Monocytes 3.1 % (1.7-9.3); % Neutrophils 81.4 % (42.2-75.2); Absolute Basophils 0.1 10^3/uL (0-0.2); Absolute Immature Granulocytes 0.9 10^3/uL (0-0.05); Absolute Lymphocytes 1.8 10^3/uL (1.2-3.4); Absolute Monocytes 0.5 10^3/uL (0.1-0.6); Absolute Neutrophils 14.3 10^3/uL (1.4-6.5); Hematocrit 31.1 % (39.0-52.0); Hemoglobin 10.1 g/dL (13.0-18.0); Mean Corp Hgb Conc. 32.5 g/dL (33.0-37.0); Mean Corpuscular Hgb 27.5 pg (27.0-31.0); Mean Corpuscular Volume 84.7 fL (80.0-94.0); Mean Platelet Volume 10.2 fL (7.4-10.4); Nucleated Red Blood Cells % 0 % (-); Platelet Count 480 10^3/uL (130-400); Red Blood Cell Count 3.67 10^6/uL (4.70-6.10); Red Cell Dist. Width 15.7 % (11.5-14.5); White Blood Cell Count 17.6 10^3/uL (4.8-10.8)
[2024-10-05] MEDS: FIRVANQ 125 MG PO ×2 (07:37→20:58)
[2024-10-05] MEDS: FOLVITE 1 MG PO (07:37)
[2024-10-05] MEDS: VITAMIN B-12 1000 MCG PO (07:37)
[2024-10-05] MEDS: SYMMETREL 100 MG PO ×2 (07:37→20:58)
[2024-10-05 08:00] VITALS: BP 136/79
[2024-10-05 08:07] LABS: ALT (SGPT) 33 U/L (0-50); AST (SGOT) 48 U/L (17-59); Albumin 2.4 g/dl (3.5-5.0); Alkaline Phosphatase 77 U/L (38-126); Blood Urea Nitrogen 12 mg/dl (9-20); Calcium 8.1 mg/dl (8.4-10.2); Carbon Dioxide 25 mmol/L (22-30); Chloride 109 mmol/L (98-107); Estimated Creatinine Clearance 87 ml/min; Glucose 112 mg/dl (70-99); Potassium 3.3 mmol/L (3.5-5.1); Sodium 142 mmol/L (135-145); Total Bilirubin 0.5 mg/dl (0.2-1.3); Total Protein 5.5 g/dl (6.3-8.2); eGFR > 60.00
--- NOTE | 2024-10-05 12:16 | CM ---
Reviewed the chart notes. CM continues to be available to patient/family and is monitoring medical plan for needs at discharge.
Plan: Discharge back to [facility] when medically stable.
Call report to: [phone]
Fax report to: [phone]
--- NOTE | 2024-10-05 12:19 | W.PN.ID1 ---
Date of Service
Date of Service: October 05, 2024
Today's Communication
await sputum
continue zosyn and oral vancomycin
Assessment / Plan
# Leukocytosis
# RLL PNA - probably aspiration.
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
# Persistent adynamic ileus
- Imaging with large area of consolidation RLL, pancreatitis however without correlation with lipase level, colitis
- Continue Zosyn (d4) for now.
- check sputum culture if able to obtain one
- Trend WBC
# C difficile colonization
- Ag+, Toxin neg
- Continue prophylactic PO Vancomycin 125mg bid while on Zosyn
# E. faecalis UTI
- On appropriate abx
- To compete abx for this indication on 10/06; however now with other indications to continue
#MICHAEL
Chief Complaint
-: Leukocytosis and UTI
Subjective / Review of Systems
afebrile
bp stable
no events reported by nursing overnight
CT was done yesterday
no complaints
Vital Signs / Physical Exam
Vital Signs
Vital Signs
Temp Pulse Resp BP Pulse Ox
98.4 F 89 18 136/79 98
10/05/24 08:00 10/05/24 08:00 10/05/24 08:00 10/05/24 08:00 10/05/24 11:06
Physical Exam
Constitutional: No Acute Distress
Cardiovascular: Regular Rate and S1/S2; Negative Murmur or Rub
Pulmonary: Clear and Symmetric; Negative Wheezes or Rales
Gastrointestinal: Soft, Non Tender, Distended and Normal Bowel Sounds
Skin: Warm and Dry; Negative Rash or Jaundice
Objective Data
Lab Data
Lab Results
10/05/24 06:10
10/05/24 06:10
Estimated Creat Clear 87 ml/min 10/05/24 06:10
Lactic Acid 1.6 mmol/L (0.7-2.0) 09/27/24 09:24
Total Bilirubin 0.5 mg/dl (0.2-1.3) 10/05/24 06:10
AST 48 U/L (17-59) 10/05/24 06:10
ALT 33 U/L (0-50) 10/05/24 06:10
Alkaline Phosphatase 77 U/L (38-126) 10/05/24 06:10
Most recent labs reviewed.
Laboratory Tests
10/04/24
05:29
Lipase 425 H
Micro Results:
09/26/24 10:34 Blood Culture - Final
Blood/Venous No Growth - Final Report
09/26/24 09:46 Blood Culture - Final
Blood/Venous No Growth - Final Report
09/26/24 23:28 Urine Culture - Final
Urine Enterococcus faecalis
09/29/24 03:52 Stool Leukocytes - Final
Feces/Stool
09/29/24 03:52 C. difficile GDH Antigen & Toxins - Final
Feces/Stool C. difficile antigen positive, toxin negative.
Clostridium difficile present, but toxin not detected.
Patient may be a carrier, colonized with nontoxinogenic
strain or the level of toxin in sample is below detection
limits. This information should be used in conjunction with
the patient's clinical history.
09/26/24 10:26 Urine Culture - Final
Urine Escherichia coli
09/26/24 22:03 MRSA Screen - Final
Nose No Methicillin Resistant Staphylococcus aureus isolated.
09/26/24 10:26 Influenza Types A & B (JI) - Final
Nasal Swab Negative for Influenza A & B, NAAT
Negative results must be combined with clinical observations
and patient history.
Nucleic Acid Amplification test (NAAT)performed on the
[employer] platform.
CT Scan: Image Reviewed and Report Reviewed (colitis, incidental pancreatitis, bilateral pneumonia)
--- NOTE | 2024-10-05 12:34 | W.PN.GI.CBS2 ---
Today's Communication / Plan
-
diet per speech
Assessment / Plan
-
69-year-old male past medical history as below presenting with vomiting, looser stools, worsening abdominal distention, acute mental status change. He had a CT done which showed proctocolitis without oral or IV contrast which was thought to be
stercoral colitis given longstanding history of chronic constipation (suspect 2/2 psych medications, hypothyroidism, and limited mobility). He also has adynamic ileus which has resolved.
NGT has been out w/o problem
Diet per speech
OOB/ambulate.
Avoid pain meds.
Bowel regimen - started on miralax bid, make sure he has a regular BM.
no abdominal pain so can continue diet
GI will sign off please call with questions
Subjective
Subjective
Date of Service: October 05, 2024
Pt denies complaint. spoke with nurse tolerated limited diet, no complaints, no diarrhea or abdominal pain
Objective
Data Reviewed
Laboratory Data:
Laboratory Results
10/05/24 06:10
10/05/24 06:10
Laboratory Results
Phosphorus 2.8 mg/dl (2.5-4.5) 10/02/24 06:11
Magnesium 2.5 mg/dl (1.6-2.3) H 10/02/24 06:11
Total Bilirubin 0.5 mg/dl (0.2-1.3) 10/05/24 06:10
AST 48 U/L (17-59) 10/05/24 06:10
ALT 33 U/L (0-50) 10/05/24 06:10
Alkaline Phosphatase 77 U/L (38-126) 10/05/24 06:10
Lipase 425 U/L (23-300) H 10/04/24 05:29
Vital Signs and I&O:
Vital Signs
Temp Pulse Resp BP Pulse Ox
98.4 F 89 18 136/79 98
10/05/24 08:00 10/05/24 08:00 10/05/24 08:00 10/05/24 08:00 10/05/24 11:06
I&O
10/04/24 10/05/24 10/06/24
06:59 06:59 06:59
Intake Total 2125 / 2125 1200 / 1200
Output Total 350 / 350 350 / 350
Balance 1775 / 1775 850 / 850
Physical Exam
Physical Exam
GI: Soft, Non Distended and Non Tender
--- NOTE | 2024-10-05 14:58 | W.PN.UPDATE ---
Update Note
Progress Note Update
Seen and examined by me independently in collaboration with the medical facilities section director.
Lab data and imaging data reviewed.
Addendum as below :
Patient is much more alert and seems oriented to self and person.
Voicing no specific complaints. Denies any abdominal pain or nausea. Seems to be tolerating diet.
Afebrile. Abdomen soft. Bowel sounds present.
Had bowel movements which are looser.
Resolving ileus;GI signed off. Continue with antibiotics for aspirational pneumonia per ID.
Advance consistency of the diet per speech therapy.
PT OT eval ;start discharge planning.
[2024-10-05] MEDS: KCL ELIXIR 40 MEQ PO (15:26)
[2024-10-05 15:55] VITALS: BP 143/66
[2024-10-05] MEDS: LIPITOR 10 MG PO (17:02)
[2024-10-05] MEDS: CLOZARIL 300 MG PO (21:00)
[2024-10-05 23:20] VITALS: BP 126/69
[2024-10-06 05:37] VITALS: BMI 30.9
[2024-10-06] MEDS: ZOSYN 100 IV ×2 (06:31→11:51)
[2024-10-06] MEDS: SYNTHROID 125 MCG PO (06:31)
--- NOTE | 2024-10-06 07:34 | PTOTSP ---
Speech Therapy note from visit on 10/05/24
No gross signs of aspiration during reassessment this am, but risk elevated given current deconditioned state weak cough/airway protection. Also at risk for reverse aspiration from documented GI symptoms.
Recommend
1. IDDSI level 6 soft and bite sized and single sips of thin liquid.
2. Meds whole in applesauce.
3. Consider VSE to rule out silent aspiration if strong concern for such.
[2024-10-06 07:47] VITALS: BP 124/72
[2024-10-06 07:50] LABS: % Basophils 0.4 % (0-2); % Immature Granulocytes 2.9 % (0-0.5); % Monocytes 3.2 % (1.7-9.3); % Neutrophils 84.5 % (42.2-75.2); Absolute Basophils 0.1 10^3/uL (0-0.2); Absolute Immature Granulocytes 0.5 10^3/uL (0-0.05); Absolute Lymphocytes 1.5 10^3/uL (1.2-3.4); Absolute Monocytes 0.5 10^3/uL (0.1-0.6); Absolute Neutrophils 13.9 10^3/uL (1.4-6.5); Hematocrit 31.9 % (39.0-52.0); Hemoglobin 10.2 g/dL (13.0-18.0); Mean Corpuscular Hgb 27.1 pg (27.0-31.0); Mean Corpuscular Volume 84.8 fL (80.0-94.0); Mean Platelet Volume 9.7 fL (7.4-10.4); Nucleated Red Blood Cells % 0 % (-); Platelet Count 460 10^3/uL (130-400); Red Blood Cell Count 3.76 10^6/uL (4.70-6.10); Red Cell Dist. Width 15.9 % (11.5-14.5); White Blood Cell Count 16.4 10^3/uL (4.8-10.8)
[2024-10-06 08:11] LABS: ALT (SGPT) 29 U/L (0-50); AST (SGOT) 35 U/L (17-59); Albumin 2.6 g/dl (3.5-5.0); Alkaline Phosphatase 71 U/L (38-126); Blood Urea Nitrogen 10 mg/dl (9-20); Calcium 8.1 mg/dl (8.4-10.2); Carbon Dioxide 27 mmol/L (22-30); Chloride 109 mmol/L (98-107); Estimated Creatinine Clearance 111 ml/min; Glucose 105 mg/dl (70-99); Potassium 3.5 mmol/L (3.5-5.1); Sodium 143 mmol/L (135-145); Total Bilirubin 0.6 mg/dl (0.2-1.3); Total Protein 5.8 g/dl (6.3-8.2); eGFR > 60.00
--- NOTE | 2024-10-06 08:47 | W.PN.HOSP.TC ---
Addendum entered and electronically signed by Brendan Acosta MD 10/06/24 16:31:
Seen and examined by me independently in collaboration with the remote medical coder.
Lab data and imaging data reviewed.
Addendum as below :
Patient is alert and oriented to place and person. He also knew the month in the ER. He was noted to be sleepy by RN. To me he was bit slow but conversive without much sedation. He thinks he had a good sleep.
Abdomen soft. Tolerating diet. Afebrile and hemodynamically stable.
Continue with diet. Continue antibiotics per ID.
Check ammonia level. If remains sedated we will ask psychiatrist to look at the dose of clozapine which is at the max dose and can cause sedation.
Original Note:
Today's Communication/Plan
-
c/w abx
dc planning for return to SNF
Assessment / Plan
Assessment / Plan
69 yo male who presented with AMS and diarrhea
DC Planning for return to SNF
#Probable Aspiration PNA
- Reconsulted ID given worsening leukocytosis and right lower lobe consolidation on CXR
- repeat CT showing significant progression of mod RLL and LLL PNA-- speech to re-evaluate for likely continued aspiration
- WBCs downtrending
- sputum Cx when able
- on IV Zosyn, oral vanco ppx for h/o c.diff colonization
- ID following; plan to transition to PO on discharge -- OK to start discharge planning
#Stercoral colitis, less likely infectious colitis
#Adynamic Ileus
- was on q6 enemas, then Mestinon -- now stopped
- was on NG tube -- now removed, tolerating diet
- repeat CT was done showing progressed wall thickening of the distal/sigmoid colon, no sign of perforation
- diet advancement per speech therapy; tolerating well
- pt continuing to clinically improve
#Sepsis due to UTI, POA
- Cx + for Enterococcus faecalis in the urine
- On oral antibiotics POA until 10/06 - on hold during current tx
#Acute toxic metabolic encephalopathy
- baseline unclear, though patient presumably is able to communicate well at baseline
- may still be component of infectious process leading to TME
#Hypernatremia
- resolved w/ Hypotonic fluids
- trend bmp
#Hypokalemia - Replete and trend
#MICHAEL (resolved)
- 2.4 - 4.1 on admission, now at baseline
- C/w hypotonic IVF
#Incidental Pancreatic fat stranding
- CT abd/pelv which showed incidental new pancreatic tail fat stranding -- lipase <3x upper limit therefore not consistent with acute pancreatitis, tolerating diet at this time w/o GI symptoms
#Acute hypoxic respiratory failure, POA (resolved)
Secondary to sepsis
- Resolved and back to room air
#Hypothyroidism - tsh wnl, c/w Synthroid
#H/o schizophrenia/bipolar disorder/tardive dyskinesia - Back on clozapine and folic acid
#Vitamin B12 deficiency - c/w B12 supplementation
#Orthostatic hypotension - c/t Monitor blood pressure
#Hyperlipidemia - c/w statin
#Obesity due to excess calories - Lifestyle modifications warranted as outpatient
DVT Ppx - Heparin SC
Code Status: DNR
Anticipated Discharge: Within 24 hours
Subjective/Interval History
-
Date of Service: October 06, 2024
Feeling well this morning, no acute complaints or overnight events. Still a bit lethargic and sleeping, but arousable.
Objective Data
-
Labs:
Laboratory Results
10/06/24
07:30
WBC 16.4 H
Hgb 10.2 L
Hct 31.9 L
Plt Count 460 H
Sodium 143
Potassium 3.5
Chloride 109 H
Carbon Dioxide 27
BUN 10
Creatinine 0.8
Glucose 105 H
Calcium 8.1 L
Total Bilirubin 0.6
AST 35
ALT 29
Alkaline Phosphatase 71
Vital Signs:
Vital Signs
Temp Pulse Resp BP Pulse Ox
98.6 F 89 18 124/72 95
10/06/24 07:47 10/06/24 07:47 10/06/24 07:47 10/06/24 07:47 10/06/24 07:47
I&O
10/05/24 10/06/24 10/07/24
06:59 06:59 06:59
Intake Total 1200 / 1200 1920 / 1920
Output Total 350 / 350 300 / 300
Balance 850 / 850 1620 / 1620
Review of Systems
-
History Source: Patient
Constitutional: Reports No Symptoms
EENT: Reports No Symptoms Reported
Respiratory: Reports No Symptoms
Cardiac: Reports No Symptoms
Abdomen/GI: Reports No Symptoms
Genitourinary: Reports No Symptoms
Musculoskeletal: Reports No Symptoms
Skin: Reports No Symptoms
Neuro: Reports No Symptoms
Physical Exam
-
General: Well Developed, Well Nourished, No Apparent Distress and Comfortable
HEENT: Normocephalic, Atraumatic, Moist Mucous Membranes, Anicteric, [place] Conjunctivae, Nose Appears Normal and Ears Appear Normal; Negative Oxygen
Respiratory: Clear to Auscultation; Negative Wheezes, Rales or Rhonchi
Cardiac: Regular Rhythm and S1/S2; Negative Murmur or Rub
GI: Soft, Nontender, Nondistended and Normal Bowel Sounds
Musculoskeletal: No Clubbing, No Cyanosis and No Edema
Skin: Warm and Dry
Neuro: Awake, Alert and Oriented
[2024-10-06] MEDS: VITAMIN B-12 1000 MCG PO (10:16)
[2024-10-06] MEDS: FIRVANQ 125 MG PO ×2 (10:17→20:41)
[2024-10-06] MEDS: FOLVITE 1 MG PO (10:17)
[2024-10-06] MEDS: SYMMETREL 100 MG PO ×2 (10:17→20:41)
[2024-10-06] MEDS: HEPARIN 5000 UNITS SC ×2 (10:17→16:21)
--- NOTE | 2024-10-06 12:15 | W.PN.ID1 ---
Date of Service
Date of Service: October 06, 2024
Today's Communication
- start augmentin, stop zosyn for a 10 day total course 10/02-10/11
- Continue prophylactic PO Vancomycin 125mg bid while on augmentin
Assessment / Plan
# Leukocytosis
# RLL PNA - probably aspiration.
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
# Persistent adynamic ileus
- Imaging with large area of consolidation RLL, pancreatitis however without correlation with lipase level, colitis
- start augmentin, stop zosyn for a 10 day total course 10/02-10/11
# C difficile colonization
- Ag+, Toxin neg
- Continue prophylactic PO Vancomycin 125mg bid while on augmentin
# E. faecalis UTI - resolved
Chief Complaint
-: Leukocytosis, Pneumonia and UTI
Subjective / Review of Systems
afebrile
bp stable
tolerating current therapies
no complaints
Vital Signs / Physical Exam
Vital Signs
Vital Signs
Temp Pulse Resp BP Pulse Ox
98.6 F 89 18 124/72 95
10/06/24 07:47 10/06/24 07:47 10/06/24 07:47 10/06/24 07:47 10/06/24 07:47
Physical Exam
Constitutional: No Acute Distress
Cardiovascular: Regular Rate and S1/S2; Negative Murmur or Rub
Pulmonary: Clear and Symmetric; Negative Wheezes or Rales
Gastrointestinal: Soft, Non Tender, Non Distended and Normal Bowel Sounds
Skin: Warm and Dry; Negative Rash or Jaundice
Objective Data
Lab Data
Lab Results
10/06/24 07:30
10/06/24 07:30
Estimated Creat Clear 111 ml/min 10/06/24 07:30
Lactic Acid 1.6 mmol/L (0.7-2.0) 09/27/24 09:24
Total Bilirubin 0.6 mg/dl (0.2-1.3) 10/06/24 07:30
AST 35 U/L (17-59) 10/06/24 07:30
ALT 29 U/L (0-50) 10/06/24 07:30
Alkaline Phosphatase 71 U/L (38-126) 10/06/24 07:30
Most recent labs reviewed.
Micro Results:
09/26/24 10:34 Blood Culture - Final
Blood/Venous No Growth - Final Report
09/26/24 09:46 Blood Culture - Final
Blood/Venous No Growth - Final Report
09/26/24 23:28 Urine Culture - Final
Urine Enterococcus faecalis
09/29/24 03:52 Stool Leukocytes - Final
Feces/Stool
09/29/24 03:52 C. difficile GDH Antigen & Toxins - Final
Feces/Stool C. difficile antigen positive, toxin negative.
Clostridium difficile present, but toxin not detected.
Patient may be a carrier, colonized with nontoxinogenic
strain or the level of toxin in sample is below detection
limits. This information should be used in conjunction with
the patient's clinical history.
09/26/24 10:26 Urine Culture - Final
Urine Escherichia coli
09/26/24 22:03 MRSA Screen - Final
Nose No Methicillin Resistant Staphylococcus aureus isolated.
09/26/24 10:26 Influenza Types A & B (JI) - Final
Nasal Swab Negative for Influenza A & B, NAAT
Negative results must be combined with clinical observations
and patient history.
Nucleic Acid Amplification test (NAAT)performed on the
[employer] platform.
Care Review
Plan reviewed with: Physician (Dr Linares - antibiotic selection)
[2024-10-06 12:39] VITALS: BP 141/76; PULSE 91; O2SAT 96
[2024-10-06 12:40] VITALS: BP 141/76; PULSE 91; O2SAT 96
--- NOTE | 2024-10-06 12:58 | CM ---
Reviewed the chart notes and spoke with the patient's daughter Vera via telephone. IMM reviewed. Updated on discharge plan of return to [facility] today. CM continues to be available to patient/family and is monitoring medical plan for needs
at discharge.
Plan: Discharge back to [facility].
Call report to: [phone]
Fax report to: [phone]
Medical necessity and transport forms on chart.
[2024-10-06 14:29] LABS: Ammonia 10 umol/L (9-30)
[2024-10-06 15:44] VITALS: BP 132/75
[2024-10-06] MEDS: LIPITOR 10 MG PO (17:19)
[2024-10-06] MEDS: AUGMENTIN 875 MG/125 MG 1 TABLET PO (20:41)
[2024-10-06 22:23] VITALS: PULSE 90
[2024-10-06] MEDS: CLOZARIL 300 MG PO (22:58)
[2024-10-06 23:23] VITALS: BP 129/69
[2024-10-07] VITALS (7 sets, daily range): BP systolic 115–125; BP diastolic 61–96; PULSE 88–91; O2SAT 97
[2024-10-07] MEDS: HEPARIN 5000 UNITS SC ×4 (00:26→17:21)
[2024-10-07] MEDS: SYNTHROID 125 MCG PO (06:18)
[2024-10-07 08:39] LABS: % Basophils 0.3 % (0-2); % Immature Granulocytes 2.2 % (0-0.5); % Lymphocytes 12.1 % (20.5-51.1); % Monocytes 4.1 % (1.7-9.3); % Neutrophils 81.3 % (42.2-75.2); Absolute Immature Granulocytes 0.3 10^3/uL (0-0.05); Absolute Lymphocytes 1.9 10^3/uL (1.2-3.4); Absolute Monocytes 0.6 10^3/uL (0.1-0.6); Absolute Neutrophils 12.4 10^3/uL (1.4-6.5); Hematocrit 31.9 % (39.0-52.0); Hemoglobin 10.5 g/dL (13.0-18.0); Mean Corp Hgb Conc. 32.9 g/dL (33.0-37.0); Mean Corpuscular Hgb 27.8 pg (27.0-31.0); Mean Corpuscular Volume 84.4 fL (80.0-94.0); Mean Platelet Volume 9.6 fL (7.4-10.4); Nucleated Red Blood Cells % 0 % (-); Platelet Count 462 10^3/uL (130-400); Red Blood Cell Count 3.78 10^6/uL (4.70-6.10); Red Cell Dist. Width 16.1 % (11.5-14.5); White Blood Cell Count 15.3 10^3/uL (4.8-10.8)
[2024-10-07] MEDS: VITAMIN B-12 1000 MCG PO (08:39)
[2024-10-07] MEDS: FOLVITE 1 MG PO (08:39)
[2024-10-07] MEDS: FIRVANQ 125 MG PO ×2 (08:40→20:57)
[2024-10-07] MEDS: AUGMENTIN 875 MG/125 MG 1 TABLET PO ×2 (08:40→20:57)
[2024-10-07] MEDS: SYMMETREL 100 MG PO (08:40)
[2024-10-07 09:22] LABS: Blood Urea Nitrogen 10 mg/dl (9-20); Calcium 8.4 mg/dl (8.4-10.2); Carbon Dioxide 26 mmol/L (22-30); Chloride 110 mmol/L (98-107); Estimated Creatinine Clearance 111 ml/min; Glucose 95 mg/dl (70-99); Potassium 3.6 mmol/L (3.5-5.1); Sodium 144 mmol/L (135-145); eGFR > 60.00
--- NOTE | 2024-10-07 09:29 | W.PN.HOSP.TC ---
Addendum entered and electronically signed by Brendan Acosta MD 10/07/24 15:30:
Seen and examined by me independently in collaboration with the medical billing service.
Lab data and imaging data reviewed.
Addendum as below :
Patient is slowly improving with regards to his oral intake. Still noted to be a little drowsy at times by RN. He is alert and oriented.
Abdomen soft. Nontender. Denies any abdominal pain or nausea vomiting.
Chest few crackles in the right base but no wheeze. On room air. No respiratory distress.
Concern is about his dose of clozapine and anticholinergic effect affecting his gut and his sedation. Consult psychiatric.
Original Note:
Today's Communication/Plan
-
psych consult, pending d/c
Assessment / Plan
Assessment / Plan
69 yo male who presented with AMS and diarrhea
DC Planning for return to SNF
#Acute toxic metabolic encephalopathy
#Sedation
- baseline unclear, though patient presumably is able to communicate well at baseline
- Has improved today.
- psych consult today to evaluate for iatrogenic component of sedated affect
#Probable Aspiration PNA
- Reconsulted ID given worsening leukocytosis and right lower lobe consolidation on CXR
- repeat CT showing significant progression of mod RLL and LLL PNA-- speech to re-evaluate for likely continued aspiration
- WBCs downtrending
- sputum Cx when able
- on IV Zosyn, oral vanco ppx for h/o c.diff colonization
- ID following; plan to transition to PO on discharge -- OK to start discharge planning
#Stercoral colitis, less likely infectious colitis
#Adynamic Ileus
- was on q6 enemas, then Mestinon -- now stopped
- was on NG tube -- now removed, tolerating diet
- repeat CT was done showing progressed wall thickening of the distal/sigmoid colon, no sign of perforation
- diet advancement per speech therapy; tolerating well
- pt continuing to clinically improve
#Sepsis due to UTI, POA
- Cx + for Enterococcus faecalis in the urine
- On oral antibiotics POA until 10/06 - on hold during current tx
#Hypernatremia
- resolved w/ Hypotonic fluids
- trend bmp
#Hypokalemia - Replete and trend
#MICHAEL (resolved)
- 2.4 - 4.1 on admission, now at baseline
- C/w hypotonic IVF
#Incidental Pancreatic fat stranding
- CT abd/pelv which showed incidental new pancreatic tail fat stranding -- lipase <3x upper limit therefore not consistent with acute pancreatitis, tolerating diet at this time w/o GI symptoms
#Acute hypoxic respiratory failure, POA (resolved)
Secondary to sepsis
- Resolved and back to room air
#Hypothyroidism - tsh wnl, c/w Synthroid
#H/o schizophrenia/bipolar disorder/tardive dyskinesia - Back on clozapine and folic acid
#Vitamin B12 deficiency - c/w B12 supplementation
#Orthostatic hypotension - c/t Monitor blood pressure
#Hyperlipidemia - c/w statin
#Obesity due to excess calories - Lifestyle modifications warranted as outpatient
DVT Ppx - Heparin SC
Code Status: DNR
Anticipated Discharge: Within 24 hours
Subjective/Interval History
-
Date of Service: October 07, 2024
Feels well this am, no acute complaints. He had two soft bowel movements last night.
Objective Data
-
Labs:
Laboratory Results
10/07/24
07:40
WBC 15.3 H
Hgb 10.5 L
Hct 31.9 L
Plt Count 462 H
Sodium 144
Potassium 3.6
Chloride 110 H
Carbon Dioxide 26
BUN 10
Creatinine 0.8
Glucose 95
Calcium 8.4
Vital Signs:
Vital Signs
Temp Pulse Resp BP Pulse Ox
98.4 F 90 16 125/96 96
10/07/24 07:00 10/07/24 07:00 10/07/24 07:00 10/07/24 07:00 10/07/24 07:00
I&O
10/06/24 10/07/24 10/08/24
06:59 06:59 06:59
Intake Total 1920 / 1920 540 / 540
Output Total 300 / 300
Balance 1620 / 1620 540 / 540
Review of Systems
-
History Source: Patient
Constitutional: Reports No Symptoms
Respiratory: Reports No Symptoms
Cardiac: Reports No Symptoms
Abdomen/GI: Reports No Symptoms
Musculoskeletal: Reports No Symptoms
Physical Exam
-
General: Well Developed, Well Nourished, No Apparent Distress and Comfortable
HEENT: Normocephalic, Atraumatic, Moist Mucous Membranes, Anicteric and [place] Conjunctivae; Negative Oxygen
Respiratory: Clear to Auscultation; Negative Wheezes, Rales or Rhonchi
Cardiac: Regular Rhythm and S1/S2; Negative Murmur or Rub
GI: Soft, Nontender, Nondistended and Normal Bowel Sounds
Musculoskeletal: No Clubbing, No Cyanosis and No Edema
Skin: Warm and Dry
Neuro: AO x 3
--- NOTE | 2024-10-07 15:07 | CON.MD ---
Consultation - Medical
-
patient seen chart reviewed. discussed w nursing cm and pt. spoke w patient d by telephone. the patient is a poor historian and when he speaks it is difficult to understand him. this consult ordered for ? of side effects from his meds including
constipation and lethargy. the patient has a hx of schizophrenia and d tells me for the most part he had been stable for decades but he did have to episodes of psychosis requiring hosp in the past two years. she said his prescriber tried to cut back
clozaril to 250 mg but he started to hallucinate and wound up in the hospital. the patient cannot really fill me in on much of his hx. he told me he lives at [facility] and the [facility]. (he lives in a nh here in [place]). he is oriented to year and
president. he denies that he is hearing voices now. he denies that he is depressed or suicidal. he does ask when he can go home. patient is taking clozaril 300 mg daily and amantadine 100 mg bid. he was placed on the latter according to jennifer for
tremor. the patient was dx here with stercoral colitis, uti and there was ? of aspiration. he, i am told, has been less lethargic and a little bit more interactive ie he has been recovering compared to how he was on the day of admit since rx w
antibiotics. PT tells me however that he was barely able to engage when they attempted to get him up this am.
past psych hx see above
medical hx hypothyroid (tsh slightly high this admit) hld skin ca qtc initially quite nigh now nl. anemia hgb 10.5 chem is now normal including sodium and bun cr. saloni wears cpap mask
fh non contributory
substance abuse none
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
mse somewhat alert...he did attempt to answer ? speech is slurred and hard to understand paucity of thought and expression denies depression affect constricted not suicidal aver intelliogence but i suspect a degree of cognitive impairment
insight judgment impaired
dx hx schizophrenia tme resolving secondary to underlying medical illness likely clozaril and amantadine induced constipation
recommendation d is very worried that if we decrease clozaril he will experience hallucinations and require hospitalization. consideration should be given to this as a terminal superintendent plan. in the meantime cut back amantadine to 100 mg daily and
reassess tremor which could have many sources. clozaril does not usually cause eps. consider whether synthroid dose needs to be higher as this could cause lethargy and constipation. stay on top of bowel frequency would do miralax 17 mg daily or
even bid and add bisacodyl 30 minutes before once or twice daily if miralax is inefective avoid meds w anticholinergic side effects. i am told by cm he is likely being dc today or tomorrow.it is not clear to me what is his baseline. he appears
much older than stated age. this could be due to current medical condition or poor conditioning and care in the past. psych signing off given imminent dc. benny zuniga
--- NOTE | 2024-10-07 16:26 | W.PN.ID1 ---
Date of Service
Date of Service: October 07, 2024
Today's Communication
- c/w augmentin for a 10 day total course 10/02-10/11
- Continue prophylactic PO Vancomycin 125mg bid while on augmentin
Assessment / Plan
# Leukocytosis
# RLL PNA - probably aspiration.
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
# Persistent adynamic ileus
- Imaging with large area of consolidation RLL, pancreatitis however without correlation with lipase level, colitis
- c/w augmentin for a 10 day total course 10/02-10/11
# C difficile colonization
- Ag+, Toxin neg
- Continue prophylactic PO Vancomycin 125mg bid while on augmentin
# E. faecalis UTI - resolved
Chief Complaint
-: Leukocytosis, Pneumonia and UTI
Subjective / Review of Systems
afebrile
bp stable
no complaints
no events from nursing overnight
Vital Signs / Physical Exam
Vital Signs
Vital Signs
Temp Pulse Resp BP Pulse Ox
98.8 F 90 14 115/70 100
10/07/24 15:33 10/07/24 15:33 10/07/24 15:33 10/07/24 15:33 10/07/24 15:33
Physical Exam
Constitutional: No Acute Distress
Cardiovascular: Regular Rate and S1/S2; Negative Murmur or Rub
Pulmonary: Clear and Symmetric; Negative Wheezes or Rales
Gastrointestinal: Soft, Non Tender, Non Distended and Normal Bowel Sounds
Skin: Warm and Dry; Negative Rash or Jaundice
Objective Data
Lab Data
Lab Results
10/07/24 07:40
10/07/24 07:40
Estimated Creat Clear 111 ml/min 10/07/24 07:40
Lactic Acid 1.6 mmol/L (0.7-2.0) 09/27/24 09:24
Total Bilirubin 0.6 mg/dl (0.2-1.3) 10/06/24 07:30
AST 35 U/L (17-59) 10/06/24 07:30
ALT 29 U/L (0-50) 10/06/24 07:30
Alkaline Phosphatase 71 U/L (38-126) 10/06/24 07:30
Most recent labs reviewed.
Micro Results:
09/26/24 10:34 Blood Culture - Final
Blood/Venous No Growth - Final Report
09/26/24 09:46 Blood Culture - Final
Blood/Venous No Growth - Final Report
09/26/24 23:28 Urine Culture - Final
Urine Enterococcus faecalis
09/29/24 03:52 Stool Leukocytes - Final
Feces/Stool
09/29/24 03:52 C. difficile GDH Antigen & Toxins - Final
Feces/Stool C. difficile antigen positive, toxin negative.
Clostridium difficile present, but toxin not detected.
Patient may be a carrier, colonized with nontoxinogenic
strain or the level of toxin in sample is below detection
limits. This information should be used in conjunction with
the patient's clinical history.
09/26/24 10:26 Urine Culture - Final
Urine Escherichia coli
09/26/24 22:03 MRSA Screen - Final
Nose No Methicillin Resistant Staphylococcus aureus isolated.
09/26/24 10:26 Influenza Types A & B (JI) - Final
Nasal Swab Negative for Influenza A & B, NAAT
Negative results must be combined with clinical observations
and patient history.
Nucleic Acid Amplification test (NAAT)performed on the
[employer] platform.
[2024-10-07] MEDS: LIPITOR 10 MG PO (17:22)
--- NOTE | 2024-10-07 18:07 | W.DCSUMMARY ---
Discharge Summary
Discharge Data
Date of Admission: 09/26/24
Date of Discharge: 10/07/24
Total time spent discharging patient (in min): >30m
-
Pending Results: No
Hospital Course
Discharging Physician : Dr. Michael Linares, Dr. Brendan Acosta
Disposition : SNF
Primary care physician :
Principal Discharge diagnosis : Acute toxic metabolic encephalopathy, Probable Aspiration PNA, Stercoral colitis, Adynamic Ileus, Sepsis due to UTI, POA, Hypernatremia, Hypokalemia, MICHAEL, Acute hypoxic respiratory failure, POA
Chronic Discharge diagnosis : Hypothyroidism, H/o schizophrenia/bipolar disorder/tardive dyskinesia, Vitamin B12 deficiency, Orthostatic hypotension, Hyperlipidemia, Obesity due to excess calories.
Hospital Course :
69 yo male who presented with AMS and diarrhea
#Acute toxic metabolic encephalopathy
#Sedation
- baseline unclear, though patient presumably is able to communicate well at baseline. Mental status improved with abx treatment and continued to improve throughout his admission.
- However, he remained a bit lethargic prompting psych eval to take a look at medication given that other metabolic causes had been addressed.
- Consensus was to reduce Amantadine to 100mg QD on discharge
#Probable Aspiration PNA
- Reconsulted ID given worsening leukocytosis after initial tx for Sepsis 2/2 UTI. RLL consolidation found on repeat CXR
- repeat CT thereafter showed significant progression of mod RLL and LLL PNA -- speech to re-evaluate for likely continued aspiration
- WBCs downtrending on Abx
- Started and continued on IV Zosyn, oral vanco ppx for h/o c.diff colonization until discharge on Augmentin/Oral Vancomycin
#Stercoral colitis
#Adynamic Ileus
- Initially managed NPO with IVF and NGT. Colorectal surgery consult - no acute surgery indicated.
- was on q6 enemas, then Mestinon -- then stopped as his BMs returned to soft with diet advancement
- was on NG tube -- then removed, tolerating oral intake with resolution of ileus
- repeat CT was done showing progressed wall thickening of the distal/sigmoid colon, no sign of perforation
- GI continued to evaluate clinically with improvement in serial KUBs
- diet advancement adjusted per speech therapy, tolerated well
- pt continued to clinically improve until day of d/c
#Sepsis due to UTI, POA
- Urine Cx + for Enterococcus faecalis in the urine
- On oral antibiotics POA until 10/06 - on hold during current tx with Zosyn
- seen by ID and added prophylactic PO Vacno for h/o C. Diff colonization
- switched to Augmentin and po Vancomycin on d/c
#Hypernatremia - resolved w/ Hypotonic fluids.
#Hypokalemia - Repleted
#MICHAEL - Creatinine 2.4 - 4.1 on admission; improved to baseline with hypotonic fluids.
#Incidental Pancreatic fat stranding - repeat CT abd/pelv which showed incidental new pancreatic tail fat stranding -- lipase <3x upper limit therefore not consistent with acute pancreatitis, was tolerating diet at that time w/o GI symptoms
#Acute hypoxic respiratory failure, POA - Secondary to sepsis. Was requiring High flow supplemental Oxygen support, was titrated down to NC, resolved and back to room air
#Hypothyroidism - tsh on admission was wnl; he was continued on Synthroid
#H/o schizophrenia/bipolar disorder/tardive dyskinesia - continued on clozapine and folic acid.
#Vitamin B12 deficiency - continued on B12 supplementation
#Orthostatic hypotension - continued to monitor blood pressure
#Hyperlipidemia - continued on statin
#Obesity due to excess calories - Lifestyle modifications warranted as outpatient
Important imaging findings :
CR Obstruct Series W/pa Chest:
Diffuse dilatation of small bowel loops measuring up to 5.8 cm in caliber. Some air-fluid levels noted on the crosstable lateral projections. Considerations would include a small bowel obstruction or an adynamic ileus.
CT Abd/pel Without Iv Or Oral:
Limited examination due to the patient's arms down position, body habitus, and the lack of oral and intravenous contrast.
Long segment bowel wall thickening and inflammatory fat stranding at the rectosigmoid junction most suspicious for a severe proctocolitis. A colonic neoplasm is not completely excluded and a follow-up colonoscopy could be considered if not recently
performed. Moderate stool distention of the rectum.
Diffuse dilatation of small bowel, favored to be secondary to an adynamic ileus in the absence of a discrete transition point to suggest a small bowel obstruction.
Mild bilateral hydroureteronephrosis. No obstructing ureteral calculus. Collapsed urinary bladder with wall thickening.
Other chronic findings, as detailed above.
CR Chest Portable - 1 View:
The patient is rotated, somewhat limiting evaluation. There are some increased right retrocardiac opacities which may be artifact with atelectasis/airspace consolidation also a consideration. No large effusions. No pneumothorax.
CR Abdomen - 1 View:
SEVERE DIFFUSE SMALL BOWEL DISTENTION which appears unchanged from 09/26/2024
CR Abdomen, Portable - 1 View:
1. Unchanged pronounced small bowel distention, which measures up to 6 cm in diameter, with relative decompression of the colon.
2. Findings are suggestive of partial small bowel obstruction or adynamic ileus.
CR Abdomen - 1 View:
1. SEVERE AIR DISTENTION of the RIGHT LOWER QUADRANT ILEAL SMALL BOWEL LOOPS which appears unchanged.
2. Moderate air distention of the colon which appears unchanged.
3. Large right lower lobe airspace consolidation (either pneumonia or atelectasis).
CR Chest Portable - 1 View:
1. New nasogastric tube in place with the tip in the gastric antrum.
2. Persistent severe air distention of small bowel loops.
CR Abdomen - 1 View:
Moderate small bowel dilatation of few loops in the right abdomen. Grossly stable. This can be seen with small bowel ileus or developing obstruction.
CR Abdomen - 1 View:
No evidence of intestinal obstruction. Moderate fecal material throughout the colon. Progressed.
CT Abd/pel W Iv And Oral Contr:
Findings suggesting moderate right lower lobe and mild left lower lobe pneumonia. Significantly progressed bilaterally.
No evidence of intestinal obstruction.
New stranding about the pancreatic tail concerning for possible acute pancreatitis. Clinical and laboratory correlation recommended
Moderate circumferential wall thickening of the distal sigmoid colon and rectum concerning for colitis. Progressed.
Mild bilateral hydronephrosis. Mild bilateral hydroureter. Stable.
Moderate prostate hypertrophy. Stable.
In accordance with Act 112, known as the Patient Test Results Information Act, a letter will be sent to the patient which notifies the patient that a significant abnormality may exist. The letter will be sent within approximately 20 days of the
date the results were sent to the ordering health care practitioner.
Procedure findings :
None.
Discharge Plan
-
Patient Disposition: [facility]
Discharge Diagnosis/Procedures: Sepsis, Acute Toxic Metabolic Encephalopathy, Aspiration Pneumonia, Stercoral Colitis, Adynamic Ileus, MICHAEL , Acute Hypoxic Respiratory Failure
Condition: Fair
Additional Diets: IDDSI 6 - Soft & Bite Sized
Activity: With assistance and As tolerated
Driving Restrictions: As prior to admission
Referrals:
Cosmo Jaramillo MD [Family Provider] - in less than 1 week (CONSIDER OUT PATIENT EVALUATION OF HYPOTHYROIDISM )
Prescriptions:
New
amantadine HCl 100 mg Capsule
100 mg PO DAILY 30 Days Qty: 30 3RF
vancomycin 50 mg/mL Recon Soln
125 mg PO BID 4 Days Qty: 20 0RF
amoxicillin-pot clavulanate 875-125 mg Tablet
1 tab PO Q12 4 Days Qty: 8 0RF
Continued
fenofibrate micronized 134 mg Capsule
134 mg PO DAILY
simvastatin 20 mg Tablet
20 mg PO QPM
levothyroxine 125 mcg Tablet
125 mcg PO DAILY
cyanocobalamin (vitamin B-12) 1,000 mcg Tablet Extended Release
1,000 mcg PO DAILY
clozapine 100 mg Tablet
300 mg PO HS
oxycodone-acetaminophen 10-325 mg Tablet
1 tab PO DAILY
oxycodone-acetaminophen 10-325 mg Tablet
1 tab PO [id number] PRN (Reason: severe pain)
docusate sodium 100 mg Capsule
100 mg PO DAILY
folic acid 1 mg Tablet
1 mg PO DAILY
cholecalciferol (vitamin D3) [Vitamin D3] 50 mcg (2,000 unit) Tablet
50 mcg PO HS
midodrine 5 mg tablet
5 mg PO TID 30 Days Qty: 90 6RF
acetaminophen 325 mg Tablet
650 mg PO Q4H MDD 3000mg PRN (Reason: mild pain/temp greater than 100)
magnesium hydroxide [Milk of Magnesia] 400 mg/5 mL Suspension
2,400 mg PO DAILYPRN PRN (Reason: if no BM in 3 days)
bisacodyl [Dulcolax (bisacodyl)] 10 mg Suppository
10 mg SC DAILYPRN PRN (Reason: if MOM ineffective after 24hr)
Fleet Enema 19-7 gram/118 mL Enema
118 ml SC DAILYPRN PRN (Reason: if dulcolax ineffective after 24hr)
omega [id number]-fish oil [Fish Oil] 1,000 (120-180) mg Capsule
1 cap PO DAILY
ipratropium-albuterol 0.5 mg-3 mg(2.5 mg base)/3 mL Solution For Nebulization
3 ml INHALATION Q6HPRN PRN (Reason: sob)
Rx Instructions:
for 14 days beginning 09/25/24
lorazepam 0.5 mg Tablet
0.5 mg PO DAILY PRN (Reason: anxiety)
Rx Instructions:
for 14 days, give before applying CPAP beginning 09/24/24
Discontinued
amantadine HCl 100 mg Tablet
100 mg PO BID
Discharge Orders:
Discharge Patient (As Directed); Ordered 10/07/24
Ordered By: Michael Linares
Discharge Date and Time
Print Language: ALGERIAN
[2024-10-07] MEDS: CLOZARIL 300 MG PO (22:07)
[2024-10-08 03:15] VITALS: PULSE 89
[2024-10-08 05:43] VITALS: BMI 31.2
[2024-10-08] MEDS: SYNTHROID 125 MCG PO (06:26)
[2024-10-08 07:15] VITALS: BP 136/69
[2024-10-08 07:27] LABS: % Basophils 0.5 % (0-2); % Immature Granulocytes 1.4 % (0-0.5); % Lymphocytes 17.5 % (20.5-51.1); % Monocytes 4.6 % (1.7-9.3); Absolute Basophils 0.1 10^3/uL (0-0.2); Absolute Immature Granulocytes 0.2 10^3/uL (0-0.05); Absolute Lymphocytes 2.3 10^3/uL (1.2-3.4); Absolute Monocytes 0.6 10^3/uL (0.1-0.6); Hematocrit 35.5 % (39.0-52.0); Hemoglobin 11.3 g/dL (13.0-18.0); Mean Corp Hgb Conc. 31.8 g/dL (33.0-37.0); Mean Corpuscular Hgb 27.5 pg (27.0-31.0); Mean Corpuscular Volume 86.4 fL (80.0-94.0); Mean Platelet Volume 10.6 fL (7.4-10.4); Nucleated Red Blood Cells % 0 % (-); Platelet Count 407 10^3/uL (130-400); Red Blood Cell Count 4.11 10^6/uL (4.70-6.10); Red Cell Dist. Width 16.5 % (11.5-14.5); White Blood Cell Count 13.2 10^3/uL (4.8-10.8)
[2024-10-08] MEDS: VITAMIN B-12 1000 MCG PO (08:27)
[2024-10-08] MEDS: HEPARIN 5000 UNITS SC (08:28)
[2024-10-08] MEDS: FOLVITE 1 MG PO (08:29)
[2024-10-08] MEDS: FIRVANQ 125 MG PO (08:29)
[2024-10-08] MEDS: SYMMETREL 100 MG PO (08:30)
[2024-10-08] MEDS: AUGMENTIN 875 MG/125 MG 1 TABLET PO (08:32)
== END 2024-10-08 10:57 | DRG 871 ==
LOC: 2 NORTH 13:34
PROVIDERS: Hospitalist; Specialist; ADMITTING PHYSICIAN Internal Medicine; CONSULT PHYSICIAN Internal Medicine; CONSULT PHYSICIAN Internal Medicine Critical Care Medicine; CONSULT PHYSICIAN Psychiatry & Neurology Psychiatry; CONSULT PHYSICIAN Specialist; CONSULT PHYSICIAN Student in an Organized Health Care Education/Training Program; CONSULT PHYSICIAN Surgery; EMERGENCY PHYSICIAN Emergency Medicine; FAMILY PHYSICIAN Internal Medicine; OTHER PHYSICIAN Student in an Organized Health Care Education/Training Program
DX: A41.9 Sepsis, unspecified organism (principal); G92.8 Other toxic encephalopathy; J69.0 Pneumonitis due to inhalation of food and vomit; J96.01 Acute respiratory failure with hypoxia; K56.0 Paralytic ileus; E87.0 Hyperosmolality and hypernatremia; N17.9 Acute kidney failure, unspecified; N13.6 Pyonephrosis; J98.11 Atelectasis; Z11.52 Encounter for screening for COVID-19; K52.89 Other specified noninfective gastroenteritis and colitis; E87.6 Hypokalemia; E03.9 Hypothyroidism, unspecified; E66.09 Other obesity due to excess calories; Z68.31 Body mass index [BMI] 31.0-31.9, adult; I95.1 Orthostatic hypotension; K52.9 Noninfective gastroenteritis and colitis, unspecified
CPT/HCPCS: 51701; 71045; 74018; 74022; 74176; 74177; 80048; 80053; 81003; 81015; 82140; 82248; 82805; 83605; 83690; 83735; 83880; 84100; 84439; 84443; 84484; 85025; 85027; 87040; 87070; 87077; 87086; 87186; 87324; 87449; 87502; 87811; 89055; 92526; 92610; 93005; 93306; 94640; 94660; 96361; 96374; 97163; 97167; 97530; 99285; Q9967